=== PATIENT | female | born 1975 | race Caucasian/White ===

== ENCOUNTER 2024-01-07 08:08 | Emergency (ER) | payer OTHER, SELFPAY ==
[2024-01-07 08:18] VITALS: BP 95/58; PULSE 91; RESP 18; TEMP 36.7; O2SAT 96; BMI 27.4
--- NOTE | 2024-01-07 08:22 | ECG_ITS ---
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 Measurements Intervals Two Dot Rate: 78 P: 30 UT: 152 QRS: 22 QRSD: 98 T: 33 QT: 385 QTc: 441 Interpretive Statements SINUS RHYTHM LOW QRS VOLTAGE IN PRECORDIAL LEADS [QRS DEFLECTION < 1.0 mV IN CHEST LEADS] No previous ECG available for comparison Electronically Signed On 01-07-2024 15:28:29 CDT by Preston Sherman M.D. [id number]
--- NOTE | 2024-01-07 08:22 | XRR_ITS ---
PROCEDURE INFORMATION: Exam: XR Chest Exam date and time: 01/07/2024 8:32 AM Age: 48 years old Clinical indication: Other: Weakness TECHNIQUE: Imaging protocol: Radiologic exam of the chest. Views: 1 view. COMPARISON: CR XR chest 1V [id number] 06/02/2018 3:35 AM FINDINGS: Lungs: Unremarkable. No consolidation or mass. Pleural spaces: Unremarkable. No pleural effusion. No pneumothorax. Heart/Mediastinum: Unremarkable. No cardiomegaly. Bones/joints: Unremarkable. XR/XR chest 1V portable [id number] IMPRESSION: No acute findings.
--- NOTE | 2024-01-07 08:25 | ED_ITS ---
HPI - Dizziness 2 General: Chief Complaint: Dizziness Stated Complaint: dizziness, vomitting, weakness Time Seen by Provider: 01/07/24 08:19 History of Present Illness: HPI Narrative: 48-year-old female with a history of francisco teagan who presents emergency room with weakness. States that she was at work today and coming into her work because she became so lightheaded. This episode been going on for about a week. She says her sugars are high but then she managed to get it back under control. No fevers. No chest pain. No abdominal pain. No nausea or vomiting. No focal motor deficits. No altered mental status. Review of Systems 2 Narrative: Constitutional symptoms: Negative except as documented in HPI. Skin symptoms: Negative except as documented in HPI. Eye symptoms: Negative except as documented in HPI. ENMT symptoms: Negative except as documented in HPI. Respiratory symptoms: Negative except as documented in HPI. Cardiovascular symptoms: Negative except as documented in HPI. Gastrointestinal symptoms: Negative except as documented in HPI. Genitourinary symptoms: Negative except as documented in HPI. Musculoskeletal symptoms: Negative except as documented in HPI. Neurologic symptoms: Negative except as documented in HPI. Psychiatric symptoms: Negative except as documented in HPI. Endocrine symptoms: Negative except as documented in HPI. Physical Exam 2 Narrative: EXAM NARRATIVE: General: Alert, no acute distress. Skin: Warm, dry. Head: Normocephalic, atraumatic. Neck: Supple, trachea midline. Eye: Extraocular movements are intact. Ears, nose, mouth and throat: mucosa moist. Cardiovascular: Regular, Normal peripheral perfusion. Respiratory: Lungs are clear to auscultation, respirations are non-labored, breath sounds are equal, Symmetrical chest wall expansion. Gastrointestinal: Soft, Nontender, Non distended Musculoskeletal: Normal ROM, no deformity. Neurological: Alert and oriented, No focal neurological deficit observed. Psychiatric: Cooperative, appropriate mood & affect. Course 2 Vital Signs: Vital signs: Vital Signs Temperature 98.0 F 01/07/24 08:18 Pulse Rate 91 01/07/24 08:18 Respiratory Rate 18 01/07/24 09:10 Blood Pressure 83/48 01/07/24 09:10 Pulse Oximetry 98 01/07/24 09:10 Oxygen Delivery Me thod Room Air 01/07/24 09:10 MDM - Dizziness Medical Decision Making Medical decision making: Differential diagnosis for patient presenting with generalized weakness including but not limited to and based on the above HPI, review of systems and physical exam: Sepsis. Dehydration. Renal failure. Electrolyte abnormalities. Anemia. Congestive heart failure. Hypotension. Coronary syndrome. Hepatitis. Cirrhosis. Infections such as pneumonia, urinary tract infection, Tick bourne illness, Cellulitis, Viral infections including influenza and Covid-19. Workup: labwork and lab/exam driven imaging ordered to evaluate, rule in and rule out above pathologies. Lab Review: Laboratory results were reviewed and interpreted by myself the emergency room physician. I do not have any comparison lab work, but her BUN and creatinine are elevated at 42 and 1.7. I suspect she has some chronic renal insufficiency as her potassium is normal. She has no leukocytosis. No UTI. Chest x-ray shows no pneumonia. I believe she is hypotensive and dehydrated secondary to her hyperglycemia. We discussed pushing fluids. I discussed to continue to check her blood pressure at home. Her blood pressure did improve after fluids here. Chest x-ray: No acute process. No infiltrate. No pneumothorax. This was reviewed and interpreted by myself the ER physician. I reviewed the patient's medical record. Reexamination: I spoke at length with the patient. We discussed how her sugars running high will cause her to be dehydrated and that she needs to drink more water when her sugar is high. Or other nonsugar containing beverages. Blood pressure has improved at discharge. She received 2 L of fluid. Altered mental status. No focal motor deficits. She reports no fevers. No cough. No abdominal pain. No dysuria. Assessment and plan: Dehydration Renal insufficiency Hyperglycemia ?2 L normal saline in the emergency room. Improvement in blood pressure. - Discharged home - Discussed findings and plan with patient. Answered any questions. - All laboratory values were reviewed and interpreted personally by myself, the ER physician - All imaging was reviewed and interpreted personally by myself, the ER physician. - Evaluation and treatment of this problem were appropriate in the emergency setting Lab Data 01/07/24 08:33 01/07/24 08:33 Radiology Impressions Chest X-Ray 01/07/24 08:22 IMPRESSION: No acute findings. Laboratory Results WBC 8.38 10^3/uL (3.29-11.43) 01/07/24 08:33 RBC 4.55 10^6/uL (3.85-5.65) 01/07/24 08:33 Hgb 13.00 g/dL (11.27-16.99) 01/07/24 08:33 Hct 38.3 % (36-47) 01/07/24 08:33 MCV 84.2 fl (85-98) L 01/07/24 08:33 MCH 28.6 pg (27-33) 01/07/24 08:33 MCHC 33.9 g/dL (30-55) 01/07/24 08:33 RDW 12.2 % (12.1-15.1) 01/07/24 08:33 Plt Count 228 10^3/cmm (157-399) 01/07/24 08:33 MPV 10.4 fL (7.4-10.4) 01/07/24 08:33 Neut % (Auto) 64.3 % 01/07/24 08:33 Lymph % (Auto) 26.3 % 01/07/24 08:33 [place] % (Auto) 5.1 % 01/07/24 08:33 Eos % (Auto) 3.5 % 01/07/24 08:33 Baso % (Auto) 0.4 % 01/07/24 08:33 Neut # (Auto) 5.40 10^3/uL (1.8-7.7) 01/07/24 08:33 Lymph # (Auto) 2.2 10^3/uL (0.8-4.8) 01/07/24 08:33 [place] # (Auto) 0.4 10^3/uL (0.2-0.9) 01/07/24 08:33 Eos # (Auto) 0.3 10^3/uL (0.0-0.8) 01/07/24 08:33 Baso # (Auto) 0.0 10^3/uL (0.0-0.1) 01/07/24 08:33 Nucleated RBC % (auto) 0 % 01/07/24 08:33 Nucleated RBCs # 0.0 /100WBC 01/07/24 08:33 Sodium 138 mmol/L (136-145) 01/07/24 08:33 Potassium 3.8 mmol/L (3.5-5.1) 01/07/24 08:33 Chloride 102 mmol/L (98-107) 01/07/24 08:33 Carbon Dioxide 23 mmol/L (22-29) 01/07/24 08:33 Anion Gap 16.8 (5-19) 01/07/24 08:33 BUN 42 mg/dL (6-20) H 01/07/24 08:33 Creatinine 1.7 mg/dL (0.5-0.9) H 01/07/24 08:33 GFR Calculation 32.4 mL/min (90-130) L 01/07/24 08:33 Glucose 131 mg/dL (65-115) H 01/07/24 08:33 POC Glucose 160 mg/dL (70-110) H 01/07/24 08:22 Calculated Osmolality 298 mOsm/kg (285-295) H 01/07/24 08:33 Lactic Acid 2.5 mmol/L (0.5-2.2) H 01/07/24 08:33 Calcium 9.5 mg/dL (8.5-10.5) 01/07/24 08:33 Total Bilirubin 0.4 mg/dL (0.15-1.2) 01/07/24 08:33 AST 20 U/L (0-32) 01/07/24 08:33 ALT 19 U/L (0-33) 01/07/24 08:33 Alkaline Phosphatase 39 U/L (35-105) 01/07/24 08:33 C-Reactive Protein 3.0 mg/L (0.0-4.9) 01/07/24 08:33 Total Protein 7.5 g/dL (6.6-8.7) 01/07/24 08:33 Albumin 4.3 g/dL (3.5-5.2) 01/07/24 08:33 Globulin 3.2 g/dL (1.3-4.6) 01/07/24 08:33 Urine Color Yellow (Yellow) 01/07/24 09:36 Urine Appearance Clear (CLEAR) 01/07/24 09:36 Urine pH 5 (5-7) 01/07/24 09:36 Ur Specific [place] 1.025 (1.005-1.030) 01/07/24 09:36 Urine Protein Neg (Negative) 01/07/24 09:36 Urine Glucose (UA) Trace (Normal) H 01/07/24 09:36 Urine Ketones Negative (Negative) 01/07/24 09:36 Urine Blood Neg (Negative) 01/07/24 09:36 Urine Nitrate Negative (Negative) 01/07/24 09:36 Urine Bilirubin Neg (Negative) 01/07/24 09:36 Urine Urobilinogen Norm mg/dL (Negative) 01/07/24 09:36 Ur Leukocyte Esterase Negative (Negative) 01/07/24 09:36 Urine RBC None /hpf (0-2) 01/07/24 09:36 Urine WBC 0-4 /hpf (0-5) H 01/07/24 09:36 Ur Squamous Epith Cells Rare /hpf (0-5) 01/07/24 09:36 Amorphous Sediment Not Reportable 01/07/24 09:36 Urine Bacteria Trace /hpf (NONE) 01/07/24 09:36 Serum Ketones Negative (Negative) 01/07/24 08:33 All radiology interpretation(s) finalized by discharge Discharge Plan Discharge Patient Disposition: Home Clinical Impression: Dehydration, Hyperglycemia, Acute renal insufficiency Condition: Stable Discharge Orders: Discharge ED (Routine); Ordered 01/07/24 Ordered By: Jessica Vasquez Discharge Diet: Diabetic Discharge Activity: Increase activity as tolerated Patient Instructions: Dehydration (ED), Diabetic Hyperglycemia (ED) Activity Restrictions/Additional Instructions: Please follow-up with your primary provider early this week for repeat lab work. If symptoms worsen return to the emergency room Thank you for choosing [facility] for your healthcare needs today. Please realize this is an emergency room and that we are providing you with a medical screening exam and this may not be complete and all inclusive of all the testing and or work up that you may need to determine your ailment or severity of your illness. You have been screened and evaluated and felt safe for discharge. Health conditions do change or evolve sometimes and as such it is important that you follow up with your Primary Doctor to be re checked, 3-5 days is a general good time frame for follow up. You are always welcome to return to the ED for re assessment if your symptoms are worsening or you have new concerns Coding Level of Care Code ED Batch Tank Controller for Edgardo Simmons
[2024-01-07 08:27] LABS: Glucose Point of Care 160 mg/dL (70-110)
[2024-01-07] MEDS: sodium chloride 0.9% 1,000 ML 999 ML IV ×2 (08:33→09:19)
[2024-01-07 08:42] LABS: Basophils % 0.4 %; Eosinophils # 0.3 10^3/uL (0.0-0.8); Eosinophils % 3.5 %; Hematocrit 38.3 % (36-47); Lymphocytes # 2.2 10^3/uL (0.8-4.8); Lymphocytes % 26.3 %; Mean Corpuscular HGB Conc 33.9 g/dL (30-55); Mean Corpuscular Hemoglobin 28.6 pg (27-33); Mean Corpuscular Volume 84.2 fl (85-98); Mean Platelet Volume 10.4 fL (7.4-10.4); Monocytes # 0.4 10^3/uL (0.2-0.9); Monocytes % 5.1 %; Neutrophils % 64.3 %; Nucleated Red Blood Cells % 0 %; Platelet Count 228 10^3/cmm (157-399); Red Blood Count 4.55 10^6/uL (3.85-5.65); Red Cell Distribution Width 12.2 % (12.1-15.1); White Blood Count 8.38 10^3/uL (3.29-11.43)
[2024-01-07 08:57] LABS: Alanine Aminotransferase 19 U/L (0-33); Albumin Level 4.3 g/dL (3.5-5.2); Alkaline Phosphatase 39 U/L (35-105); Anion Gap 16.8 (5-19); Aspartate Amino Transferase 20 U/L (0-32); Blood Urea Nitrogen 42 mg/dL (6-20); Calcium 9.5 mg/dL (8.5-10.5); Carbon Dioxide 23 mmol/L (22-29); Chloride 102 mmol/L (98-107); Globulin 3.2 g/dL (1.3-4.6); Glomerular Filtration Rate 32.4 mL/min (90-130); Glucose 131 mg/dL (65-115); Osmolality Calculated 298 mOsm/kg (285-295); Potassium 3.8 mmol/L (3.5-5.1); Sodium 138 mmol/L (136-145); Total Bilirubin 0.4 mg/dL (0.15-1.2); Total Protein 7.5 g/dL (6.6-8.7)
[2024-01-07 08:58] LABS: Lactic Sepsis W/Reflex 2.5 mmol/L (0.5-2.2)
[2024-01-07 09:04] LABS: Creatinine Clr Calc Pharmacy 47.9578
[2024-01-07 09:10] VITALS: BP 83/48; RESP 18; O2SAT 98
[2024-01-07 09:21] LABS: Ketone (Acetest) Serum Negative (Negative)
[2024-01-07 10:10] LABS: Add Urine Culture? No; Bacteria Urine TRACE /hpf; Bilirubin Urine Neg (Negative); Blood Urine Neg (Negative); Glucose Urine UA Trace (Normal); Ketones Urine Negative (Negative); Leukocyte Esterase Urine Negative (Negative); Nitrate Urine Negative (Negative); Protein Urine Neg (Negative); Specific Gravity, Urine 1.025 (1.005-1.030); Squamous Epithelial Cell Urine RARE /hpf (0-5); Urine Appearance Clear (CLEAR); Urine Color Yellow (Yellow); Urobilinogen Urine Norm (Negative); WBC Urine 0-4 /hpf (0-5); pH Urine 5 (5-7)
[2024-01-07 10:25] LABS: Reflex Lactate Order REFLEX LACTIC ORDERD
[2024-01-07 10:36] VITALS: BP 118/73
--- NOTE | 2024-01-08 11:57 | PC.NURSE ---
Addendum entered by Winnie Colmenares RN 01/08/24 11:58: NOTIFIED PROVIDER DR. RADER. Original Note: CULTURE RESULT TAKEN 1/2 VIALS POSITIVE LARGE GRAM POSITIVE RODS
--- NOTE | 2024-01-08 12:53 | PC.NURSE ---
PER VERBAL ORDER FROM DR. RADER, CONTACT PATIENT AND FOLLOW UP. STATES CULTURE WAS PROBABLY CONTAMINATED. CONTACTED PATIENT AT 1255 ON 01/08/24. NOTIFIED PATIENT OF RESULTS FROM CULTURE. PATIENT STATED SHE HAS NOT HAD ANY SYMPTOMS. BP HAS BEEN NORMAL, NO FEVER AND HAS IMPROVED SINCE VISIT. PATIENT STATES SHE HAS FOLLOW UP APPT WITH PCP IN TWO DAYS.
== END 2024-01-07 10:53 | disposition home or self-care (01) ==
PROVIDERS: Emergency Provider Emergency Medicine
DX: E86.0 Dehydration (principal); E11.65 Type 2 diabetes mellitus with hyperglycemia; N28.9 Disorder of kidney and ureter, unspecified
CPT/HCPCS: 36416; 71045; 80053; 81001; 82009; 82962; 83605; 85025; 86140; 87040; 87150; 87205; 93005; 96360; 96361; 99284; J7030

== ENCOUNTER 2024-01-25 07:12 | Emergency (ER) | payer OTHER, SELFPAY ==
[2024-01-25 07:22] VITALS: BP 146/92; PULSE 91; RESP 16; TEMP 36.8; O2SAT 97; BMI 26.6
--- NOTE | 2024-01-25 07:22 | XR_ITS ---
WS: [id number] XR foot LT min 3V* [id number] REASON FOR EXAM: trauma FINDINGS: No fracture or dislocation. The joint spaces of the forefoot, midfoot, and hindfoot are intact and relatively well preserved. No focal soft tissue abnormality. XR/XR foot LT min 3V* [id number] IMPRESSION: No acute abnormality.
--- NOTE | 2024-01-25 07:30 | W.ED.GENADLT ---
HPI - General Adult General: Chief complaint: Neuro Symptoms/Deficit Stated complaint: Left foot injury Time Seen by Provider: 01/25/24 07:22 History of Present Illness: 48-year-old female presents emergency room complaining of left foot numbness began yesterday around noon. She is unable to move her foot she denies any back pain. She has no other symptoms. She has a history of diabetes she has had so decreased strength in her left hand but that has been ongoing issue for over a week. Associated symptoms: Deny chest pain, dyspnea or rash Review of Systems Const: Denies: fever(s) or chills Card: Denies: chest pain Resp: Denies: dyspnea GI: Denies: abdominal pain : Denies: dysuria, urinary frequency or urinary urgency Musc: Denies: neck pain or back pain Skin/Breast: Denies: rash PFSH ED PFSH: Medical History (Updated 01/25/24 @ 13:15 by Malcolm Marques DO) Diabetes Physical Exam Const: COMMON NORMALS: no acute distress GENERAL APPEARANCE: cooperative and comfortable ORIENTATION/CONSCIOUSNESS: Yes awake, Yes oriented to person, Yes oriented to place and Yes oriented to time HENMT: COMMON NORMALS: normocephalic, atraumatic and hearing grossly normal bilaterally HEAD & SCALP: normocephalic and atraumatic Resp: COMMON NORMALS: normal respiratory effort, No retractions, No use of accessory muscles and clear to auscultation bilaterally AUSCULTATION: clear to auscultation bilaterally Cardio: COMMON NORMALS: regular rate, regular rhythm and No murmurs present (Cardio) RATE: regular rate RHYTHM: regular rhythm GI: COMMON NORMALS: Soft to palpation and No hepatosplenomegaly present AUSCULTATION: Yes normoactive bowel sounds PALPATION: Yes Soft to palpation, No Tenderness to palpation present (GI), No Guarding due to palpation present (GI) and Yes No hepatosplenomegaly present Extremity: COMMON NORMALS: normal to inspection, capillary refill normal, no clubbing, cyanosis or edema, no calf tenderness and no pedal edema Neuro: SENSORIUM/ORIENTATION: Yes oriented to person, Yes oriented to place and Yes oriented to time Skin: COMMON NORMALS: no rashes or lesions noted GENERAL SKIN EXAM: no rashes or lesions noted Course Vital Signs: Vital signs: Vital Signs Temperature 98.2 F 01/25/24 07:22 Pulse Rate 86 01/25/24 12:02 Respiratory Rate 16 01/25/24 07:22 Blood Pressure 141/87 01/25/24 12:02 Pulse Oximetry 97 01/25/24 12:02 Oxygen Delivery Me thod Room Air 01/25/24 12:02 MDM - General Adult Medical Decision Making Patient has no focal central neurologic deficits she does have some weakness in her hand which she says has been going on for some time this morning she developed an foot drop on the left foot but is only her foot she has no other new focal symptoms. She does not have any weakness proximal to her foot drop no weakness in the hip or the knee sensation is normal. She is diabetic with hyperglycemia. She was given insulin here and her blood sugar did improve she has not used her insulin at all today. She has no ketones. On repeat exam there is still no other deficits. Just need to peripheral neurologic deficits. She does seem to have a ulnar neuropathy and a foot drop. Will discharge her home. She is outside of the window for any thrombolytics and she has no embolic disease. No acute findings on the CT. Considered giving her prednisone taper however I think that we will just further exacerbate her poor diabetic control. Refer to neurology. Medical Records I reviewed the patient's medical records. Lab Data I reviewed the patient's lab results. 01/25/24 09:31 01/25/24 09:31 Radiology Impressions Foot X-Ray 01/25/24 07:22 IMPRESSION: No acute abnormality. Head CT 01/25/24 07:43 IMPRESSION: 1. No acute intracranial hemorrhage or edema. 2. Mild atrophy and small vessel disease. Lumbar Spine CT 01/25/24 07:43 IMPRESSION: 1. No acute disc protrusions or significant stenosis within the lumbar spine. 2. No contact on the left-sided nerve roots or stenosis. 3. Mild bilateral sacroiliitis. Head/Neck CTA 01/25/24 09:05 IMPRESSION: 1. No significant cervical carotid artery stenosis. No thrombus or plaque. 2. Small amount calcified plaque in the cavernous carotid arteries, RIGHT greater than LEFT. Estimated at 50% on the RIGHT. 3. No aneurysm or occlusion within the [place]. 4. Dominant LEFT vertebral artery. Laboratory Results WBC 5.65 10^3/uL (3.29-11.43) 01/25/24 09:31 RBC 4.93 10^6/uL (3.85-5.65) 01/25/24 09:31 Hgb 14.10 g/dL (11.27-16.99) 01/25/24 09:31 Hct 41.4 % (36-47) 01/25/24 09:31 MCV 84.0 fl (85-98) L 01/25/24 09:31 MCH 28.6 pg (27-33) 01/25/24 09: MCHC 34.1 g/dL (30-55) 01/25/24 09:31 RDW 12.0 % (12.1-15.1) L 01/25/24 09:31 Plt Count 260 10^3/cmm (157-399) 01/25/24 09:31 MPV 10.0 fL (7.4-10.4) 01/25/24 09:31 Neut % (Auto) 66.2 % 01/25/24 09:31 Lymph % (Auto) 24.4 % 01/25/24 09:31 [place] % (Auto) 5.7 % 01/25/24 09:31 Eos % (Auto) 3.0 % 01/25/24 09:31 Baso % (Auto) 0.5 % 01/25/24 09: Neut # (Auto) 3.74 10^3/uL (1.8-7.7) 01/25/24 09:31 Lymph # (Auto) 1.4 10^3/uL (0.8-4.8) 01/25/24 09:31 [place] # (Auto) 0.3 10^3/uL (0.2-0.9) 01/25/24 09:31 Eos # (Auto) 0.2 10^3/uL (0.0-0.8) 01/25/24 09:31 Baso # (Auto) 0.0 10^3/uL (0.0-0.1) 01/25/24 09:31 Nucleated RBC % (auto) 0 % 01/25/24 09:31 Nucleated RBCs # 0.0 /100WBC 01/25/24 09:31 Specimen Type Arterial 01/25/24 10:19 Sample Site Radial, left 01/25/24 10:19 ABG pH 7.43 (7.35-7.45) 01/25/24 10:19 ABG pCO2 43.2 mmHg (35-45) 01/25/24 10:19 ABG pO2 95.5 mmHg (80.0-100.0) 01/25/24 10:19 ABG PO2/FiO2 Ratio 454 01/25/24 10:19 ABG HCO3 28.5 mmol/L (22-26) H 01/25/24 10:19 ABG O2 Saturation 98.8 01/25/24 10:19 ABG Base Excess 3.6 mmol/L (-2.0-2.0) H 01/25/24 10:19 [place] Test Pos 01/25/24 10:19 A-a O2 Gradient Not Reportable 01/25/24 10:19 Hematocrit 39.8 % (37-47) 01/25/24 10:19 Hgb O2 Saturation 96.7 % (95-100) 01/25/24 10:19 Carboxyhemoglobin 1.2 %THgb (0.4-20.1) 01/25/24 10:19 Methemoglobin 0.9 % (0.4-1.5) 01/25/24 10:19 Total Hemoglobin 13.0 g/dL (12-16) 01/25/24 10:19 Sodium 139.0 mmol/L (131-143) 01/25/24 10:19 Potassium 3.7 mmol/L (3.5-5.0) 01/25/24 10:19 Glucose 478.0 mg/dL (70-115) H 01/25/24 10:19 Ionized Calcium 1.2 mmol/L (1.1-1.4) 01/25/24 10:19 O2 Delivery Device Room air 01/25/24 10:19 FiO2 21.0 % 01/25/24 10:19 [employer]crete [employer] Machine Operator ID [place] 01/25/24 10:19 Sodium 133 mmol/L (136-145) L 01/25/24 09:31 Potassium 4.6 mmol/L (3.5-5.1) 01/25/24 09:31 Chloride 94 mmol/L (98-107) L 01/25/24 09:31 Carbon Dioxide 27 mmol/L (22-29) 01/25/24 09:31 Anion Gap 16.6 (5-19) 01/25/24 09:31 BUN 21 mg/dL (6-20) H 01/25/24 09:31 Creatinine 1.0 mg/dL (0.5-0.9) H 01/25/24 09:31 GFR Calculation 59.7 mL/min (90-130) L 01/25/24 09:31 Glucose 608 mg/dL (65-115) H* 01/25/24 09:31 POC Glucose 320 mg/dL (70-110) H 01/25/24 12:21 Calculated Osmolality 307 mOsm/kg (285-295) H 01/25/24 09:31 Calcium 9.6 mg/dL (8.5-10.5) 01/25/24 09:31 Total Bilirubin 0.4 mg/dL (0.15-1.2) 01/25/24 09:31 AST 16 U/L (0-32) 01/25/24 09:31 ALT 20 U/L (0-33) 01/25/24 09:31 Alkaline Phosphatase 47 U/L (35-105) 01/25/24 09:31 Total Protein 8.0 g/dL (6.6-8.7) 01/25/24 09:31 Albumin 4.4 g/dL (3.5-5.2) 01/25/24 09:31 Globulin 3.6 g/dL (1.3-4.6) 01/25/24 09:31 Serum Ketones Negative (Negative) 01/25/24 09:35 All radiology interpretation(s) finalized by discharge Discharge Plan Discharge Patient Disposition: Home Clinical Impression: Ulnar neuropathy, Foot drop, left Condition: Stable Prescriptions: No Action gabapentin 600 mg tablet 600 mg PO TID trazodone 50 mg tablet 50 - 100 mg PO BEDTIME ketorolac 10 mg tablet 10 mg PO Q6H PRN (Reason: Pain) metformin 1,000 mg tablet 1,000 mg PO BID buspirone 7.5 mg tablet 7.5 mg PO BID lisinopril 2.5 mg tablet 2.5 mg PO DAILY Novolog FlexPen U-100 Insulin 100 unit/mL (3 mL) insulin pen See Rx Instructions .ROUTE .COMPLEX Rx Instructions: INJECT 14 UNITS BY SUBCUTANEOUS INJECTION TWICE DAILY BEFORE MEALS. IF BLOOD SUGAR OVER 200, GIVE ADDITIONAL 10 UNITS FOR TOTAL OF 24 UNITS. MAX DAILY DOSE 48 UNITS. rosuvastatin 20 mg tablet 20 mg PO DAILY duloxetine 30 mg capsule,delayed release(DR/EC) 30 mg PO DAILY Levemir FlexPen 100 unit/mL (3 mL) insulin pen 50 unit SUBCUT BEDTIME Trulicity 0.75 mg/0.5 mL pen injector 0.75 mg SUBCUT Q7D Discharge Orders: Discharge ED (Routine); Ordered 01/25/24 Ordered By: Malcolm Marques Discharge Diet: Usual diet Discharge Activity: Increase activity as tolerated Patient Instructions: Opioid Safety, Pain Management Activity Restrictions/Additional Instructions: Thank you for choosing [facility] for your healthcare needs today. It is very important that you follow up as instructed or that you return to the Emergency Department should you have concerns or if your condition changes or worsens in any way. Your evaluated in emergency room for a left foot drop and weakness in the left hand. Both of these appear to be peripheral nerve issues. There is no sign of stroke on your scan and no sign of obstruction. There were no other signs suggestive of stroke on your exam. Will recommend that you follow-up with neurology trimming caser will make an appointment for you. Coding Level of Care Code ED Geological Engineering Teacher for Edgardo Simmons
--- NOTE | 2024-01-25 07:43 | CT_ITS ---
WS: [id number] CT HEAD NONCONTRAST HISTORY: L hand foot loss of sensation TECHNIQUE: Contiguous axial imaging performed through the brain in 2.5 mm imaging. Bone and soft tiss ue windows. Sagittal and coronal reformats reviewed. All CT scans at [facility] use at least one of these dose optimization techniques: automated exposure control; mA and/or kV adjustment per pa tient size (includes targeted exams where dose is matched to clinical indication); or iterative recon struction. DLP: 990.78 mGy.cm COMPARISON: None available. No acute intracranial hemorrhage, midline shift or mass effect. Mild atrophy with no prior infarcts or herniation. Mild small vessel disease. No prior infarct. Ventricles: Normal size with no hydrocephalus. Paranasal sinuses: As visualized are clear. Mastoid air cells: Well pneumatized. Calvarium and scalp: Skull is intact with no soft tissue edema or swelling. CT/CT head wo con* [id number] IMPRESSION: 1. No acute intracranial hemorrhage or edema. 2. Mild atrophy and small vessel disease.
--- NOTE | 2024-01-25 07:43 | CT_ITS ---
WS: [id number] CT LUMBAR SPINE, noncontrast. HISTORY: L foot drop TECHNIQUE: Contiguous 2.0 mm axial imaging are performed. Sagittal and coronal reformats are submitte d and reviewed. All CT scans at [facility] use at least one of these dose optimization techni ques: automated exposure control; mA and/or kV adjustment per patient size (includes targeted exams w here dose is matched to clinical indication); or iterative reconstruction. IV contrast: None DLP: 848.58 mGy.cm COMPARISON: None available. Normal posterior lumbar alignment. Disc spaces and vertebral body heights are normal. No pars defects . No destructive bone lesions. L1-2: Normal. L2-3: Normal. L3-4: Normal. L4-5: Mild annular disc bulging encroaching upon the ventral thecal sac and subarticular recesses. Th ere is a very tiny RIGHT foraminal disc protrusion which does not appear to be contacting and nerve r oot. L5-S1: Mild disc bulging with encroachment but no contact on the traversing S1 nerve roots. No stenos is or disc protrusion. Mild sclerosis and a few erosions along the SI joints. Mild sigmoid diverticulosis without acute diverticulitis. CT/CT lumbar spine wo con* [id number] IMPRESSION: 1. No acute disc protrusions or significant stenosis within the lumbar spine. 2. No contact on the left-sided nerve roots or stenosis. 3. Mild bilateral sacroiliitis.
--- NOTE | 2024-01-25 09:05 | CT_ITS ---
WS: [id number] CT ANGIOGRAM CEREBRAL AND CAROTID ARTERIES HISTORY: L foot weakness TECHNIQUE: CT angiogram is performed of the carotid and cerebral arteries. During arterial injection imaging is obtained from the skull vertex to the aortic arch in 1.25 mm imaging. Coronal and sagittal reformats are submitted. Additional multi planar reformats of the carotid and cerebral arteries are submitted, MIP imaging also reviewed. NASCET criteria utilized. [facility] CT [facility] at least one of these dose optimization techniques: automated exposure control; mA and/or kV adjust ment per patient size (includes targeted exams where dose is matched to clinical indication); or iter ative reconstruction. CONTRAST: Omnipaque 350; 100 mL IV. DLP: 481.72 mGy.cm COMPARISON: CT head 01/25/2024 Carotid Angiogram: Right carotid: Common carotid artery: Arises normally from the innominate artery. No significant plaque or stenosis. Internal carotid artery: No plaque or stenosis. External carotid artery: Patent. Left carotid: Common carotid artery: Arises normally from the aorta. No significant plaque or stenosis. Internal carotid artery: No plaque or stenosis. External carotid artery: Patent. Right vertebral artery: Small caliber but patent. No dissection. Left vertebral artery: Dominant. No stenosis. No dissection. Subclavian arteries: No stenosis or significant abnormality. Upper thorax: Normal. Bovine arch. Thyroid gland: Mildly heterogeneous gland with small nodules. Osseous structures: Unremarkable. CEREBRAL ANGIOGRAM: Intracranial vertebral arteries: Small caliber distal RIGHT vertebral artery. Both vertebral arteries are patent. Basilar artery: No significant stenosis or occlusion. No aneurysm. Intracranial Internal carotid arteries: Small amount of calcified plaque in the cavernous carotids, R IGHT greater than LEFT. RIGHT stenosis 50%. Middle cerebral arteries: Normal. Anterior cerebral arteries and ACOM: Normal. Posterior cerebral arteries and PCOM's: Persistent circulation on the RIGHT. No aneurysm or lew nosis. Dural venous sinuses are normally enhancing. CT/CT angio headneck* [id number] IMPRESSION: 1. No significant cervical carotid artery stenosis. No thrombus or plaque. 2. Small amount calcified plaque in the cavernous carotid arteries, RIGHT grea ter than LEFT. Estimated at 50% on the RIGHT. 3. No aneurysm or occlusion within the [place]. 4. Dominant LEFT vertebral artery.
[2024-01-25 09:44] LABS: Basophils % 0.5 %; Eosinophils # 0.2 10^3/uL (0.0-0.8); Hematocrit 41.4 % (36-47); Lymphocytes # 1.4 10^3/uL (0.8-4.8); Lymphocytes % 24.4 %; Mean Corpuscular HGB Conc 34.1 g/dL (30-55); Mean Corpuscular Hemoglobin 28.6 pg (27-33); Monocytes # 0.3 10^3/uL (0.2-0.9); Monocytes % 5.7 %; Neutrophils # 3.74 10^3/uL (1.8-7.7); Neutrophils % 66.2 %; Nucleated Red Blood Cells % 0 %; Platelet Count 260 10^3/cmm (157-399); Red Blood Count 4.93 10^6/uL (3.85-5.65); White Blood Count 5.65 10^3/uL (3.29-11.43)
[2024-01-25 09:55] LABS: Alanine Aminotransferase 20 U/L (0-33); Albumin Level 4.4 g/dL (3.5-5.2); Alkaline Phosphatase 47 U/L (35-105); Anion Gap 16.6 (5-19); Aspartate Amino Transferase 16 U/L (0-32); Blood Urea Nitrogen 21 mg/dL (6-20); Calcium 9.6 mg/dL (8.5-10.5); Carbon Dioxide 27 mmol/L (22-29); Chloride 94 mmol/L (98-107); Globulin 3.6 g/dL (1.3-4.6); Glomerular Filtration Rate 59.7 mL/min (90-130); Osmolality Calculated 307 mOsm/kg (285-295); Potassium 4.6 mmol/L (3.5-5.1); Sodium 133 mmol/L (136-145); Total Bilirubin 0.4 mg/dL (0.15-1.2)
[2024-01-25 09:59] LABS: Creatinine Clr Calc Pharmacy 80.3204
[2024-01-25 10:00] LABS: Glucose 608 mg/dL (65-115)
[2024-01-25] MEDS: sodium chloride 0.9% 500 ML 999 ML IV (10:07)
[2024-01-25] MEDS: insulin regular-human 100 units/1 mL 12 UNIT IVP (10:20)
[2024-01-25 10:30] LABS: ABG PCO2 43.2 mmHg (35-45); ABG PH Result 7.43 (7.35-7.45); Arterial Blood Gas Hematocrit 39.8 % (37-47); Base Excess ABG 3.6 mmol/L (-2.0-2.0); Blood Gas Allen Test Pos; Blood Gas Operator Identificat WALCI; Blood Gas Sample Site Radial, left; Blood Gas Sample Type Arterial; Carboxyhemoglobin 1.2 %THgb (0.4-20.1); HCO3 ABG 28.5 mmol/L (22-26); HGB O2 Sat 96.7 % (95-100); Ionized Calcium Level - ABG 1.2 mmol/L (1.1-1.4); Methemoglobin 0.9 % (0.4-1.5); Oxygen Device ROOM AIR; Oxygen Saturation ABG 98.8; PO2 ABG 95.5 mmHg (80.0-100.0); PO2 FiO2 Ratio Arterial Blood 454; Potassium Level - ABG 3.7 mmol/L (3.5-5.0)
[2024-01-25 10:45] LABS: Ketone (Acetest) Serum Negative (Negative)
[2024-01-25] MEDS: iohexol 350 mg/mL 500 mL Btl (per mL) IV (11:38)
[2024-01-25 12:02] VITALS: BP 141/87; PULSE 86; O2SAT 97
[2024-01-25 12:24] LABS: Glucose Point of Care 320 mg/dL (70-110)
--- NOTE | 2024-01-25 22:53 | DCPLANNER ---
Message sent to Neurology for a follow up - Ulnar neuropathy foot drop.
== END 2024-01-25 13:31 | disposition home or self-care (01) ==
PROVIDERS: Emergency Provider Family Medicine
DX: G56.22 Lesion of ulnar nerve, left upper limb (principal); M21.372 Foot drop, left foot; Z79.84 Long term (current) use of oral hypoglycemic drugs; Z79.4 Long term (current) use of insulin; Z79.85 Long-term (current) use of injectable non-insulin antidiabetic drugs; E11.9 Type 2 diabetes mellitus without complications
CPT/HCPCS: 36416; 36600; 70450; 70496; 70498; 72131; 73630; 80051; 80053; 82009; 82330; 82805; 82962; 85025; 96374; 99285; J1815; J7040; Q9967

== ENCOUNTER → 2024-02-15 15:25 | Outpatient (BNVA) | payer OTHER, SELFPAY | PROVIDERS: Visit Provider Registered Nurse Neonatal Intensive Care | DX: R11.2 Nausea with vomiting, unspecified (principal); R19.7 Diarrhea, unspecified | CPT/HCPCS: 87426 ==

== ENCOUNTER → 2024-03-31 11:11 | Outpatient (BNVA) | payer OTHER, SELFPAY | PROVIDERS: Visit Provider Registered Nurse Neonatal Intensive Care | DX: R05.9 Cough, unspecified (principal) | CPT/HCPCS: 87426 ==

== ENCOUNTER 2024-04-25 08:53 | Outpatient (RCR) | payer OTHER, MEDICAID, SELFPAY | END 2024-05-18 23:59 | disposition home or self-care (01) | LOC: SPT 08:53 | DX: M79.672 Pain in left foot (principal); M21.372 Foot drop, left foot | CPT/HCPCS: 97110; 97161 ==

== ENCOUNTER 2024-05-01 19:14 | Emergency (ER) | payer OTHER, MEDICAID, SELFPAY ==
[2024-05-01 19:20] VITALS: BP 128/85; PULSE 98; RESP 18; TEMP 36.3; O2SAT 100; BMI 28.0
--- NOTE | 2024-05-01 19:47 | XRR_ITS ---
PROCEDURE INFORMATION: Exam: XR Abdomen Exam date and time: 05/01/2024 8:01 PM Age: 48 years old Clinical indication: Abdominal pain; Additional info: Abd pain TECHNIQUE: Imaging protocol: Radiologic exam of the abdomen. Views: Frontal supine view of the abdomen. 1 View. COMPARISON: CT lumbar spine wo con* [id number] 01/25/2024 8:05 AM FINDINGS: Gastrointestinal tract: Nonspecific bowel-gas pattern without evidence of large or small bowel obstruction. Paucity of small bowel gas is nonspecific. Bones/joints: Unremarkable. XR/XR abdomen 1V* [id number] IMPRESSION: No plain film evidence of acute intra-abdominal or pelvic process.
[2024-05-01 19:48] LABS: Basophils % 0.5 %; Eosinophils # 0.1 10^3/uL (0.0-0.8); Eosinophils % 1.2 %; Hematocrit 41.9 % (36-47); Lymphocytes # 2.2 10^3/uL (0.8-4.8); Lymphocytes % 26.9 %; Mean Corpuscular HGB Conc 34.4 g/dL (30-55); Mean Corpuscular Hemoglobin 27.7 pg (27-33); Mean Corpuscular Volume 80.7 fl (85-98); Mean Platelet Volume 9.8 fL (7.4-10.4); Monocytes # 0.4 10^3/uL (0.2-0.9); Monocytes % 4.5 %; Neutrophils # 5.46 10^3/uL (1.8-7.7); Neutrophils % 66.8 %; Nucleated Red Blood Cells % 0 %; Platelet Count 260 10^3/cmm (157-399); Red Blood Count 5.19 10^6/uL (3.85-5.65); Red Cell Distribution Width 11.7 % (12.1-15.1); White Blood Count 8.18 10^3/uL (3.29-11.43)
--- NOTE | 2024-05-01 19:49 | ED_ITS ---
HPI - Nausea/Vomiting/Diarrhea 2 General: Chief complaint: Nausea/Vomiting/Diarrhea Stated complaint: n/v 2 days no energy abd pain Time Seen by Provider: 05/01/24 19:47 History of Present Illness: 48-year-old female with history of hyper tension and diabetes who presents to the emergency room with constipation, abdominal pain and vomiting. She says she been constipated for about a week and is having diffuse abdominal pain. She took medication to help her go to the bathroom today and started having some diarrhea but then developed nausea and vomiting. Related Data Home Medications Medication Instructions Recorded Confirmed buspirone 7.5 mg tablet 7.5 mg PO BID 01/25/24 03/31/24 dulaglutide 0.75 mg/0.5 mL 0.75 mg SUBCUT Q7D 01/25/24 03/31/24 subcutaneous pen injector (Trulicity) duloxetine 30 mg capsule,delayed 30 mg PO DAILY 01/25/24 03/31/24 release gabapentin 600 mg tablet 600 mg PO TID 01/25/24 03/31/24 insulin aspart U-100 100 unit/mL See Rx Instructions .Route .COMPLEX 01/25/24 03/31/24 (3 mL) subcutaneous pen (Novolog FlexPen U-100 Insulin aspart) insulin detemir U-100 100 unit/mL 50 unit SUBCUT BEDTIME 01/25/24 03/31/24 (3 mL) subcutaneous pen (Levemir FlexPen) ketorolac 10 mg tablet 10 mg PO Q6H PRN Pain 01/25/24 03/31/24 lisinopril 2.5 mg tablet 2.5 mg PO DAILY 01/25/24 03/31/24 metformin 1,000 mg tablet 1,000 mg PO BID 01/25/24 03/31/24 rosuvastatin 20 mg tablet 20 mg PO DAILY 01/25/24 03/31/24 trazodone 50 mg tablet 50 - 100 mg PO BEDTIME 01/25/24 03/31/24 Previous Rx's Medication Instructions Recorded ondansetron 8 mg disintegrating 8 mg PO Q8H PRN nausea and 03/04/24 tablet vomiting #14 tabs glycerin (adult) 1 supp IN DAILY PRN constipation 05/01/24 #12 ea polyethylene glycol 3350 17 17 g PO DAILY #510 grams 05/01/24 gram/dose oral powder (Miralax) Allergies Allergy/AdvReac Type Severity Reaction Status Date / Time Penicillins Allergy Unknown Verified 03/31/24 11:03 Review of Systems 2 Narrative: Constitutional symptoms: Negative except as documented in HPI. Skin symptoms: Negative except as documented in HPI. Eye symptoms: Negative except as documented in HPI. ENMT symptoms: Negative except as documented in HPI. Respiratory symptoms: Negative except as documented in HPI. Cardiovascular symptoms: Negative except as documented in HPI. Gastrointestinal symptoms: Negative except as documented in HPI. Genitourinary symptoms: Negative except as documented in HPI. Musculoskeletal symptoms: Negative except as documented in HPI. Neurologic symptoms: Negative except as documented in HPI. Psychiatric symptoms: Negative except as documented in HPI. Endocrine symptoms: Negative except as documented in HPI. PFSH ED 2 PFSH: Medical History Diabetes Social History Smoking and tobacco/nicotine status: never used tobacco/nicotine Physical Exam 2 Narrative: EXAM NARRATIVE: General: Alert, no acute distress. Skin: Warm, dry. Head: Normocephalic, atraumatic. Neck: Supple, trachea midline. Eye: Extraocular movements are intact. Ears, nose, mouth and throat: mucosa moist. Cardiovascular: Regular, Normal peripheral perfusion. Respiratory: Lungs are clear to auscultation, respirations are non-labored, breath sounds are equal, Symmetrical chest wall expansion. Gastrointestinal: Soft, diffuse nonfocal tenderness, Non distended Musculoskeletal: Normal ROM, no deformity. Neurological: Alert and oriented, No focal neurological deficit observed. Psychiatric: Cooperative, appropriate mood & affect. Course 2 Vital Signs: Vital signs: Vital Signs Temperature 97.4 F L 05/01/24 19:20 Pulse Rate 86 05/01/24 20:22 Respiratory Rate 18 05/01/24 20:22 Blood Pressure 162/114 05/01/24 20:22 Pulse Oximetry 97 05/01/24 20:22 Oxygen Delivery Me thod Room Air 05/01/24 20:22 MDM - Nausea/Vomiting/Diarrhea Medical Decision Making Medical decision making: Differential diagnosis including but not limited to and based on the above HPI, review of systems and physical exam: - patient with complaint of constipation: Small bowel obstruction. Gastroparesis. Constipation. Also evaluation for urinary retention, liver disease, renal failure. Orders placed to evaluate differential diagnosis based on the above differential, HPI and physical exam Abdomen x-ray: Nonspecific bowel gas pattern. No evidence of free air or obstruction. This was reviewed and interpreted by myself the emergency room physician. I also reviewed the radiology report. Lab Review: Laboratory results were reviewed and interpreted by myself the emergency room physician. Lab work is unremarkable. No leukocytosis. No anemia. BUN/creatinine are 20 and 1. Slight elevation. Her glucose is a little bit elevated at 242. I reviewed the patient's medical record. Reexamination: Patient had a very large bowel movement while she was here. Nausea has now resolved and her abdominal pain has resolved as well. We have decided against doing a CT scan at this point since she is feeling better. Discussed taking MiraLAX at home to prevent this happening again. Assessment and plan: Constipation - Discharged home - Discussed findings and plan with patient. Answered any questions. - All laboratory values were reviewed and interpreted personally by myself, the ER physician - All imaging was reviewed and interpreted personally by myself, the ER physician. - Evaluation and treatment of this problem were appropriate in the emergency setting Lab Data 05/01/24 19:41 05/01/24 19:41 Radiology Impressions Abdomen X-Ray 05/01/24 19:47 IMPRESSION: No plain film evidence of acute intra-abdominal or pelvic process. Laboratory Results WBC 8.18 10^3/uL (3.29-11.43) 05/01/24 19:41 RBC 5.19 10^6/uL (3.85-5.65) 05/01/24 19:41 Hgb 14.40 g/dL (11.27-16.99) 05/01/24 19:41 Hct 41.9 % (36-47) 05/01/24 19:41 MCV 80.7 fl (85-98) L 05/01/24 19:41 MCH 27.7 pg (27-33) 05/01/24 19:41 MCHC 34.4 g/dL (30-55) 05/01/24 19:41 RDW 11.7 % (12.1-15.1) L 05/01/24 19:41 Plt Count 260 10^3/cmm (157-399) 05/01/24 19:41 MPV 9.8 fL (7.4-10.4) 05/01/24 19:41 Neut % (Auto) 66.8 % 05/01/24 19:41 Lymph % (Auto) 26.9 % 05/01/24 19:41 [place] % (Auto) 4.5 % 05/01/24 19:41 Eos % (Auto) 1.2 % 05/01/24 19:41 Baso % (Auto) 0.5 % 05/01/24 19:41 Neut # (Auto) 5.46 10^3/uL (1.8-7.7) 05/01/24 19:41 Lymph # (Auto) 2.2 10^3/uL (0.8-4.8) 05/01/24 19:41 [place] # (Auto) 0.4 10^3/uL (0.2-0.9) 05/01/24 19:41 Eos # (Auto) 0.1 10^3/uL (0.0-0.8) 05/01/24 19:41 Baso # (Auto) 0.0 10^3/uL (0.0-0.1) 05/01/24 19:41 Nucleated RBC % (auto) 0 % 05/01/24 19:41 Nucleated RBCs # 0.0 /100WBC 05/01/24 19:41 Sodium 140 mmol/L (136-145) 05/01/24 19:41 Potassium 4.8 mmol/L (3.5-5.1) 05/01/24 19:41 Chloride 101 mmol/L (98-107) 05/01/24 19:41 Carbon Dioxide 27 mmol/L (22-29) 05/01/24 19:41 Anion Gap 16.8 (5-19) 05/01/24 19:41 BUN 20 mg/dL (6-20) 05/01/24 19:41 Creatinine 1.0 mg/dL (0.5-0.9) H 05/01/24 19:41 GFR Calculation 59.7 mL/min (90-130) L 05/01/24 19:41 Glucose 242 mg/dL (65-115) H 05/01/24 19:41 Calculated Osmolality 301 mOsm/kg (285-295) H 05/01/24 19:41 Calcium 9.2 mg/dL (8.5-10.5) 05/01/24 19:41 Total Bilirubin 0.4 mg/dL (0.15-1.2) 05/01/24 19:41 AST 19 U/L (0-32) 05/01/24 19:41 ALT 17 U/L (0-33) 05/01/24 19:41 Alkaline Phosphatase 37 U/L (35-105) 05/01/24 19:41 Total Protein 7.5 g/dL (6.6-8.7) 05/01/24 19:41 Albumin 4.4 g/dL (3.5-5.2) 05/01/24 19:41 Globulin 3.1 g/dL (1.3-4.6) 05/01/24 19:41 Lipase 133 U/L (13-60) H 05/01/24 19:41 HCG, Qual Negative (Negative) 05/01/24 19:41 Amorphous Sediment Not Reportable 05/01/24 20:15 All radiology interpretation(s) finalized by discharge Discharge Plan Discharge Patient Disposition: Home Clinical Impression: Constipation, Vomiting Condition: Stable Prescriptions: New polyethylene glycol 3350 [Miralax] 17 gram/dose powder 17 g PO DAILY Qty: 510 0RF Rx Instructions: Take 1-2 scoops daily for the next 3 months to keep stools soft glycerin (adult) Suppository 1 supp IN DAILY PRN (Reason: constipation) Qty: 12 0RF No Action ondansetron 8 mg tablet,disintegrating 8 mg PO Q8H PRN (Reason: nausea and vomiting) Qty: 14 0RF gabapentin 600 mg tablet 600 mg PO TID trazodone 50 mg tablet 50 - 100 mg PO BEDTIME ketorolac 10 mg tablet 10 mg PO Q6H PRN (Reason: Pain) metformin 1,000 mg tablet 1,000 mg PO BID buspirone 7.5 mg tablet 7.5 mg PO BID lisinopril 2.5 mg tablet 2.5 mg PO DAILY Novolog FlexPen U-100 Insulin 100 unit/mL (3 mL) insulin pen See Rx Instructions .ROUTE .COMPLEX Rx Instructions: INJECT 14 UNITS BY SUBCUTANEOUS INJECTION TWICE DAILY BEFORE MEALS. IF BLOOD SUGAR OVER 200, GIVE ADDITIONAL 10 UNITS FOR TOTAL OF 24 UNITS. MAX DAILY DOSE 48 UNITS. rosuvastatin 20 mg tablet 20 mg PO DAILY duloxetine 30 mg capsule,delayed release(DR/EC) 30 mg PO DAILY Levemir FlexPen 100 unit/mL (3 mL) insulin pen 50 unit SUBCUT BEDTIME Trulicity 0.75 mg/0.5 mL pen injector 0.75 mg SUBCUT Q7D Discharge Orders: Discharge ED (Routine); Ordered 05/01/24 Ordered By: Jessica Vasquez Discharge Diet: Advance as tolerated Discharge Activity: Increase activity as tolerated Patient Instructions: Constipation (ED), Opioid Safety, Pain Management Activity Restrictions/Additional Instructions: Thank you for choosing [facility] for your healthcare needs today. Please realize this is an emergency room and that we are providing you with a medical screening exam and this may not be complete and all inclusive of all the testing and or work up that you may need to determine your ailment or severity of your illness. You have been screened and evaluated and felt safe for discharge. Health conditions do change or evolve sometimes and as such it is important that you follow up with your Primary Doctor to be re checked, 3-5 days is a general good time frame for follow up. You are always welcome to return to the ED for re assessment if your symptoms are worsening or you have new concerns Coding Level of Care Code ED Contract Lead for Edgardo Simmons
[2024-05-01 20:07] LABS: HCG, Serum Qual Negative (Negative)
[2024-05-01 20:11] LABS: Alanine Aminotransferase 17 U/L (0-33); Albumin Level 4.4 g/dL (3.5-5.2); Alkaline Phosphatase 37 U/L (35-105); Blood Urea Nitrogen 20 mg/dL (6-20); Calcium 9.2 mg/dL (8.5-10.5); Carbon Dioxide 27 mmol/L (22-29); Chloride 101 mmol/L (98-107); Creatinine Clr Calc Pharmacy 82.3338; Globulin 3.1 g/dL (1.3-4.6); Glomerular Filtration Rate 59.7 mL/min (90-130); Glucose 242 mg/dL (65-115); Lipase 133 U/L (13-60); Osmolality Calculated 301 mOsm/kg (285-295); Sodium 140 mmol/L (136-145); Total Bilirubin 0.4 mg/dL (0.15-1.2); Total Protein 7.5 g/dL (6.6-8.7)
[2024-05-01 20:13] LABS: Anion Gap 16.8 (5-19); Aspartate Amino Transferase 19 U/L (0-32); Potassium 4.8 mmol/L (3.5-5.1)
[2024-05-01 20:22] VITALS: BP 162/114; PULSE 86; RESP 18; O2SAT 97
[2024-05-01 20:30] VITALS: BP 162/114; PULSE 88; O2SAT 97
[2024-05-01 20:42] LABS: Bilirubin Urine 1+ (Negative); Blood Urine Negative (Negative); Glucose Urine UA 1+ (Normal); Ketones Urine Trace (Negative); Leukocyte Esterase Urine Trace (Negative); Nitrate Urine Negative (Negative); Protein Urine 1+ (Negative); Specific Gravity, Urine 1.028 (1.005-1.030); Urine Appearance Cloudy (CLEAR); Urine Color Dark Yellow (Yellow)
[2024-05-01] MEDS: ondansetron 2 mg/ML SDV 2 mL 4 MG IVP (20:58)
[2024-05-01 21:00] VITALS: BP 141/99; PULSE 82; O2SAT 96
[2024-05-01 21:12] LABS: Add Urine Microscopic? YES; Squamous Epithelial Cell Urine 0-4 /hpf (0-5); UA Manual Slide Review YES; UA Slide Review UA Slide Review Perf; WBC Urine 0-4 /hpf (0-5)
[2024-05-01 21:13] LABS: Bacteria Urine TRACE /hpf
[2024-05-01 21:18] VITALS: BP 148/100; PULSE 80; O2SAT 96
== END 2024-05-01 21:05 | disposition home or self-care (01) ==
PROVIDERS: Emergency Medicine; Emergency Provider Emergency Medicine
DX: K59.00 Constipation, unspecified (principal); R11.10 Vomiting, unspecified
CPT/HCPCS: 74018; 80053; 81001; 83690; 84703; 85025; 96374; 99285; J2405

== ENCOUNTER 2024-05-19 06:00 | Outpatient (RCR) | payer OTHER, MEDICAID, SELFPAY | END 2024-06-18 23:59 | disposition home or self-care (01) | LOC: SPT 06:00 | DX: M79.672 Pain in left foot (principal) | CPT/HCPCS: 97110 ==

== ENCOUNTER → 2024-07-19 09:08 | Outpatient (BNVA) | payer MEDICAID, SELFPAY | DX: R11.10 Vomiting, unspecified (principal); B34.9 Viral infection, unspecified | CPT/HCPCS: 87400 ==

== ENCOUNTER 2024-07-20 14:02 | Inpatient (IN) | payer MEDICAID, SELFPAY ==
[2024-07-20 14:08] VITALS: BP 75/49; PULSE 104; RESP 12; TEMP 36.3; O2SAT 97; BMI 26.6
--- NOTE | 2024-07-20 14:24 | XRR_ITS ---
PROCEDURE INFORMATION: Exam: XR Chest Exam date and time: 07/20/2024 2:42 PM Age: 49 years old Clinical indication: Weakness; Cough TECHNIQUE: Imaging protocol: Radiologic exam of the chest. Views: 1 view. COMPARISON: CR (CHEST, ) 01/07/2024 8:32 AM FINDINGS: Lungs: Linear atelectasis or scarring in the right lung base. No consolidation. Pleural spaces: Unremarkable. No pleural effusion. No pneumothorax. Heart/Mediastinum: Unremarkable. No cardiomegaly. Bones/joints: Unremarkable. XR/XR chest 1V portable [id number] IMPRESSION: No acute findings.
--- NOTE | 2024-07-20 14:26 | CTR_ITS ---
PROCEDURE INFORMATION: Exam: CT Head Without Contrast Exam date and time: 07/20/2024 2:46 PM Age: 49 years old Clinical indication: Syncope and collapse; Additional info: Fall, head injury TECHNIQUE: Imaging protocol: Computed tomography of the head without contrast. Radiation optimization: All CT scans at this facility use at least one of these dose optimization techniques: automated exposure control; mA and/or kV adjustment per patient size (includes targeted exams where dose is matched to clinical indication); or iterative reconstruction. COMPARISON: CT angio headneck* [id number] 01/25/2024 11:20 AM RADIATION DOSE METRICS: Total DLP (mGy-cm): 1015.74 FINDINGS: Brain: Normal. No hemorrhage. Unremarkable white matter. No mass effect. Cerebral ventricles: No ventriculomegaly. Paranasal sinuses: Visualized sinuses are unremarkable. No fluid levels. Mastoid air cells: Visualized mastoid air cells are well aerated. Bones: Unremarkable. No acute fracture. Soft tissues: Unremarkable. CT/CT head wo con* [id number] IMPRESSION: No acute intracranial abnormality.
--- NOTE | 2024-07-20 14:27 | ED_ITS ---
HPI - Weakness 2 General: Chief complaint: Weakness Stated complaint: passsing out Time Seen by Provider: 07/20/24 14:26 History of Present Illness: 49-year-old female with a history of francisco candelaria who presents emergency room after having had a syncopal episode at home. She is hypertensive on presentation and somnolent. reports she has not been feeling well for last few days. She had had some nausea and vomiting for a day or 2. Yesterday they had gone to the urgent care and were told she had some fluid behind your ears but nothing serious at that time. Today they went to [place]. No known fevers. No abdominal pain. No focal motor deficits no altered mental status. She is slightly somnolent but gives good history and has no confusion. says that when they got home she checked her sugar and it was around 400 she took some insulin. Said shortly after she had a syncopal episode where she fell on the floor and hit her head. He said her pupils were very dilated at the time. Review of Systems 2 Narrative: Constitutional symptoms: Negative except as documented in HPI. Skin symptoms: Negative except as documented in HPI. Eye symptoms: Negative except as documented in HPI. ENMT symptoms: Negative except as documented in HPI. Respiratory symptoms: Negative except as documented in HPI. Cardiovascular symptoms: Negative except as documented in HPI. Gastrointestinal symptoms: Negative except as documented in HPI. Genitourinary symptoms: Negative except as documented in HPI. Musculoskeletal symptoms: Negative except as documented in HPI. Neurologic symptoms: Negative except as documented in HPI. Psychiatric symptoms: Negative except as documented in HPI. Endocrine symptoms: Negative except as documented in HPI. PFSH ED 2 PFSH: Medical History Diabetes Social History Smoking and tobacco/nicotine status: never used tobacco/nicotine Physical Exam 2 Narrative: EXAM NARRATIVE: General: Somnolent but arousable, Skin: Warm, dry. Head: Normocephalic, atraumatic. Neck: Supple, trachea midline. Eye: Extraocular movements are intact. Ears, nose, mouth and throat: mucosa moist. Cardiovascular: Regular, tachycardic, normal peripheral perfusion. Respiratory: Lungs are clear to auscultation, respirations are non-labored, breath sounds are equal, Symmetrical chest wall expansion. Gastrointestinal: Soft, Nontender, Non distended Musculoskeletal: Normal ROM, no deformity. Neurological: Alert and oriented, No focal neurological deficit observed. Psychiatric: Cooperative, appropriate mood & affect. Course 2 Vital Signs: Vital signs: Vital Signs Temperature 97.4 F L 07/20/24 14:08 Pulse Rate 100 07/20/24 17:27 Respiratory Rate 17 07/20/24 17:27 Blood Pressure 142/98 07/20/24 17:27 Pulse Oximetry 96 07/20/24 17:27 Oxygen Delivery Me thod Room Air 07/20/24 17:27 MDM - Weakness Medical Decision Making Medical decision making: Differential diagnosis including but not limited to and based on the above HPI, review of systems and physical exam in this patient with syncope: Vasovagal, orthostatics hypotension, cardiac dysrhythmia, myocardial infarction, infection and hypotension, Orders placed to evaluate differential diagnosis based on the above differential, HPI and physical exam EKG: Time 1514. Rate 93. Normal sinus rhythm, No ST-T changes, no ectopy, normal VA & QRS intervals, This was reviewed and interpreted by myself the ER physician at 1517 Chest x-ray: No acute process. No infiltrate. No pneumothorax. This was reviewed and interpreted by myself the emergency room physician. I also reviewed the radiology report. CT head: No acute intracranial process. no intracranial hemorrhage, no evidence of infarct. no evidence of acute fracture.This was reviewed and interpreted by myself the ER physician. Lab Review: Laboratory results were reviewed and interpreted by myself the emergency room physician. No leukocytosis. Patient does have some renal insufficiency. BUN is above her baseline at 23 her creatinine is above at 2.2. Sugars only 208 here. Initial lactate is 4.8. Initial troponin is 31. Urinalysis is significant for possible infection. 11-20 whites and 4+ bacteria. There are 21-50 squames but given her presentation and her lactic acidosis hypotension and syncope I am treating her with cefepime for possible sepsis and urinary tract infection. I reviewed the patient's medical record. Reexamination: Patient says she feels quite a bit better after fluids. Blood pressure has improved somewhat. Heart rate has come down some as well. No altered mental status. No focal motor deficits. Given the possibility of sepsis we have discussed admission. She says she really wants to go to work on Monday but she ultimately agrees to admission. Consultation: I spoke with Dr. Saldivar who is on-call for the hospitalist service who agrees to admission. Assessment and plan: Urinary tract infection Possible sepsis Hypotension Acute renal insufficiency Lactic acidosis Syncope Head injury ?Hypotension and lactic acidosis. Urinary tract infection. Syncope and blood pressure may just be related to dehydration and renal failure but difficult not to treat for sepsis at this point. -2 L normal saline bolus. Fluid volumes based on ideal body weight. - Cefepime was administered -Sepsis quality measures. -Lactic acid with a reflex was ordered. -Blood cultures were ordered. -I discussed the patient with the hospitalist on-call who is admitting the patient. - Discussed findings and plan with patient. Answered any questions. - All laboratory values were reviewed and interpreted personally by myself, the ER physician - All imaging was reviewed and interpreted personally by myself, the ER physician. - Evaluation and treatment of this problem were appropriate in the emergency setting Critical care -I spent a total of >35 minutes of critical care time managing the patient, independent of any other practitioner. -The time involved in the performance of separately reportable procedures was not counted towards critical care time. Lab Data 07/20/24 14:30 07/20/24 14:30 Radiology Impressions Chest X-Ray 07/20/24 14:24 IMPRESSION: No acute findings. Head CT 07/20/24 14:26 IMPRESSION: No acute intracranial abnormality. Laboratory Results WBC 9.37 10^3/uL (3.29-11.43) 07/20/24 14:30 RBC 5.04 10^6/uL (3.85-5.65) 07/20/24 14:30 Hgb 14.20 g/dL (11.27-16.99) 07/20/24 14:30 Hct 41.4 % (36-47) 07/20/24 14:30 MCV 82.1 fl (85-98) L 07/20/24 14:30 MCH 28.2 pg (27-33) 07/20/24 14:30 MCHC 34.3 g/dL (30-55) 07/20/24 14:30 RDW 12.3 % (12.1-15.1) 07/20/24 14:30 Plt Count 362 10^3/cmm (157-399) 07/20/24 14:30 MPV 9.9 fL (7.4-10.4) 07/20/24 14:30 Neut % (Auto) 69.2 % 07/20/24 14:30 Lymph % (Auto) 23.1 % 07/20/24 14:30 [place] % (Auto) 5.7 % 07/20/24 14:30 Eos % (Auto) 0.9 % 07/20/24 14:30 Baso % (Auto) 0.5 % 07/20/24 14:30 Neut # (Auto) 6.49 10^3/uL (1.8-7.7) 07/20/24 14:30 Lymph # (Auto) 2.2 10^3/uL (0.8-4.8) 07/20/24 14:30 [place] # (Auto) 0.5 10^3/uL (0.2-0.9) 07/20/24 14:30 Eos # (Auto) 0.1 10^3/uL (0.0-0.8) 07/20/24 14:30 Baso # (Auto) 0.1 10^3/uL (0.0-0.1) 07/20/24 14: Nucleated RBC % (auto) 0.2 % 07/20/24 14: Nucleated RBCs # 0.0 /100WBC 07/20/24 14:30 Specimen Type Arterial 07/20/24 15:02 Sample Site Radial, right 07/20/24 15:02 ABG pH 7.42 (7.35-7.45) 07/20/24 15:02 ABG pCO2 41.5 mmHg (35-45) 07/20/24 15:02 ABG pO2 66.5 mmHg (80.0-100.0) L 07/20/24 15:02 ABG PO2/FiO2 Ratio 316 07/20/24 15:02 ABG HCO3 27.0 mmol/L (22-26) H 07/20/24 15:02 ABG O2 Saturation 95.3 07/20/24 15:02 ABG Base Excess 2.2 mmol/L (-2.0-2.0) H 07/20/24 15:02 Juan Carlos Test Pos 07/20/24 15:02 A-a O2 Gradient 4.2 mmHg (5-10) L 07/20/24 15:02 Hematocrit 39.1 % (37-47) 07/20/24 15:02 Hgb O2 Saturation 93.9 % (95-100) L 07/20/24 15:02 Carboxyhemoglobin 1.4 %THgb (0.4-20.1) 07/20/24 15:02 Methemoglobin 0.1 % (0.4-1.5) L 07/20/24 15:02 Total Hemoglobin 12.8 g/dL (12-16) 07/20/24 15:02 Sodium 143.0 mmol/L (131-143) 07/20/24 15:02 Potassium 3.3 mmol/L (3.5-5.0) L 07/20/24 15:02 Glucose 224.0 mg/dL (70-115) H 07/20/24 15:02 Ionized Calcium 1.2 mmol/L (1.1-1.4) 07/20/24 15:02 O2 Delivery Device Room air 07/20/24 15:02 FiO2 21.0 % 07/20/24 15:02 Cloth Shrinking Machine Operator ID [email or web address] 07/20/24 15:02 Sodium 137 mmol/L (136-145) 07/20/24 14:30 Potassium 3.5 mmol/L (3.5-5.1) 07/20/24 14:30 Chloride 93 mmol/L (98-107) L 07/20/24 14:30 Carbon Dioxide 28 mmol/L (22-29) 07/20/24 14:30 Anion Gap 19.5 (5-19) H 07/20/24 14:30 BUN 23 mg/dL (6-20) H 07/20/24 14:30 Creatinine 2.2 mg/dL (0.5-0.9) H 07/20/24 14:30 GFR Calculation 23.9 mL/min (90-130) L 07/20/24 14:30 Glucose 208 mg/dL (65-115) H 07/20/24 14:30 POC Glucose 202 mg/dL (70-110) H 07/20/24 14:31 Calculated Osmolality 294 mOsm/kg (285-295) 07/20/24 14:30 Lactic Acid 4.8 mmol/L (0.5-2.2) H* 07/20/24 14:30 Lactic Acid (Sepsis) 2.9 mmol/L (0.5-2.2) H 07/20/24 16:47 Calcium 10.5 mg/dL (8.5-10.5) 07/20/24 14:30 Total Bilirubin 0.5 mg/dL (0.15-1.2) 07/20/24 14:30 AST 30 U/L (0-32) 07/20/24 14:30 ALT 22 U/L (0-33) 07/20/24 14:30 Alkaline Phosphatase 43 U/L (35-105) 07/20/24 14:30 Troponin T Baseline 31 ng/L (0-10) H 07/20/24 14:30 Troponin T 120 Minute 22.21 ng/L (0-10) H 07/20/24 16:47 Delta Troponin T -8.79 ABS# (0-10) L 07/20/24 16:47 C-Reactive Protein 3.0 mg/L (0.0-4.9) 07/20/24 14:30 Total Protein 8.1 g/dL (6.6-8.7) 07/20/24 14:30 Albumin 4.9 g/dL (3.5-5.2) 07/20/24 14:30 Globulin 3.2 g/dL (1.3-4.6) 07/20/24 14:30 Urine Color Dark yellow (Yellow) A 07/20/24 15:50 Urine Appearance Turbid (CLEAR) A 07/20/24 15:50 Urine pH 5.0 (5-7) 07/20/24 15:50 Ur Specific [place] 1.030 (1.005-1.030) 07/20/24 15:50 Urine Protein 3+ (Negative) A 07/20/24 15:50 Urine Glucose (UA) 3+ (Normal) H 07/20/24 15:50 Urine Ketones 1+ (Negative) H 07/20/24 15:50 Urine Blood Negative (Negative) 07/20/24 15:50 Urine Nitrate Negative (Negative) 07/20/24 15:50 Urine Bilirubin Negative (Negative) 07/20/24 15:50 Urine Urobilinogen 1.0 mg/dL (Negative) 07/20/24 15:50 Ur Leukocyte Esterase Trace (Negative) A 07/20/24 15:50 Urine RBC 0-2 /hpf (0-2) 07/20/24 15:50 Urine WBC 11-20 /hpf (0-5) H 07/20/24 15:50 Ur Squamous Epith Cells 21-50 /hpf (0-5) H 07/20/24 15:50 Amorphous Sediment Not Reportable 07/20/24 15:50 Urine Bacteria 4+ /hpf (NONE) H 07/20/24 15:50 Hyaline Casts 165.50 /lpf 07/20/24 15:50 Serum Ketones Negative (Negative) 07/20/24 14:30 Coronavirus (PCR) Negative (Negative) 07/20/24 14:20 Influenza A (PCR) Negative (Negative) 07/20/24 14:20 Influenza Type B (PCR) Negative (Negative) 07/20/24 14:20 RSV (PCR) Negative (Negative) 07/20/24 14:20 All radiology interpretation(s) finalized by discharge Discharge Plan Discharge Patient Disposition: Admitted As Inpatient Clinical Impression: Urinary tract infection, Acute renal insufficiency, Hypotension, Lactic acidosis Condition: Stable Coding Level of Care Code ED Public Service Director for Chg Fwd Related Data Home Medications Medication Instructions Recorded Confirmed buspirone 7.5 mg tablet 7.5 mg PO BID 01/25/24 07/19/24 dulaglutide 0.75 mg/0.5 mL 0.75 mg SUBCUT Q7D 01/25/24 07/19/24 subcutaneous pen injector (Trulicity) duloxetine 30 mg capsule,delayed 30 mg PO DAILY 01/25/24 07/19/24 release gabapentin 600 mg tablet 600 mg PO TID 01/25/24 07/19/24 insulin aspart U-100 100 unit/mL See Rx Instructions .Route .COMPLEX 01/25/24 07/19/24 (3 mL) subcutaneous pen (Novolog FlexPen U-100 Insulin aspart) insulin detemir U-100 100 unit/mL 50 unit SUBCUT BEDTIME 01/25/24 07/19/24 (3 mL) subcutaneous pen (Levemir FlexPen) lisinopril 2.5 mg tablet 2.5 mg PO DAILY 01/25/24 07/19/24 metformin 1,000 mg tablet 1,000 mg PO BID 01/25/24 07/19/24 rosuvastatin 20 mg tablet 20 mg PO DAILY 01/25/24 07/19/24 trazodone 50 mg tablet 50 - 100 mg PO BEDTIME 01/25/24 07/19/24 Previous Rx's Medication Instructions Recorded glycerin (adult) 1 supp [place] DAILY PRN constipation 05/01/24 #12 ea polyethylene glycol 3350 17 17 g PO DAILY #510 grams 05/01/24 gram/dose oral powder (Miralax) Allergies Allergy/AdvReac Type Severity Reaction Status Date / Time Penicillins Allergy Unknown Verified 07/19/24 09:04
[2024-07-20 14:35] LABS: Glucose Point of Care 202 mg/dL (70-110)
[2024-07-20 14:44] LABS: Basophils # 0.1 10^3/uL (0.0-0.1); Basophils % 0.5 %; Eosinophils # 0.1 10^3/uL (0.0-0.8); Eosinophils % 0.9 %; Hematocrit 41.4 % (36-47); Lymphocytes # 2.2 10^3/uL (0.8-4.8); Lymphocytes % 23.1 %; Mean Corpuscular HGB Conc 34.3 g/dL (30-55); Mean Corpuscular Hemoglobin 28.2 pg (27-33); Mean Corpuscular Volume 82.1 fl (85-98); Mean Platelet Volume 9.9 fL (7.4-10.4); Monocytes # 0.5 10^3/uL (0.2-0.9); Monocytes % 5.7 %; Neutrophils # 6.49 10^3/uL (1.8-7.7); Neutrophils % 69.2 %; Nucleated Red Blood Cells % 0.2 %; Platelet Count 362 10^3/cmm (157-399); Red Blood Count 5.04 10^6/uL (3.85-5.65); Red Cell Distribution Width 12.3 % (12.1-15.1); White Blood Count 9.37 10^3/uL (3.29-11.43)
[2024-07-20 14:51] LABS: Ketone (Acetest) Serum Negative (Negative)
[2024-07-20] MEDS: sodium chloride 0.9% 1,000 ML 999 ML IV ×2 (14:52→15:27)
[2024-07-20 15:00] LABS: Alanine Aminotransferase 22 U/L (0-33); Albumin Level 4.9 g/dL (3.5-5.2); Alkaline Phosphatase 43 U/L (35-105); Anion Gap 19.5 (5-19); Aspartate Amino Transferase 30 U/L (0-32); Blood Urea Nitrogen 23 mg/dL (6-20); Calcium 10.5 mg/dL (8.5-10.5); Carbon Dioxide 28 mmol/L (22-29); Chloride 93 mmol/L (98-107); Creatinine Clr Calc Pharmacy 36.1209; Globulin 3.2 g/dL (1.3-4.6); Glomerular Filtration Rate 23.9 mL/min (90-130); Glucose 208 mg/dL (65-115); Osmolality Calculated 294 mOsm/kg (285-295); Potassium 3.5 mmol/L (3.5-5.1); Sodium 137 mmol/L (136-145); Total Bilirubin 0.5 mg/dL (0.15-1.2); Total Protein 8.1 g/dL (6.6-8.7)
[2024-07-20 15:05] LABS: Troponin(5th) Baseline 31 ng/L (0-10)
--- NOTE | 2024-07-20 15:14 | ECG_ITS ---
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 Measurements Intervals [place] Rate: 93 P: 56 [place]: 172 QRS: 50 QRSD: 93 T: 60 QT: 369 QTc: 460 Interpretive Statements SINUS RHYTHM LOW QRS VOLTAGE IN PRECORDIAL LEADS [QRS DEFLECTION < 1.0 mV IN CHEST LEADS] Compared to ECG 01/07/2024 08:55:48 No significant changes Electronically Signed On 07-25-2024 22:13:00 INTER FOLD ROLL CUTTER by Owen Malhotra M.D. [email or web address]
[2024-07-20 15:15] LABS: ABG PCO2 41.5 mmHg (35-45); ABG PH Result 7.42 (7.35-7.45); Alveolar-Arterial Oxygen Gradi 4.2 mmHg (5-10); Arterial Blood Gas Hematocrit 39.1 % (37-47); Base Excess ABG 2.2 mmol/L (-2.0-2.0); Blood Gas Allen Test Pos; Blood Gas Operator Identificat glc; Blood Gas Sample Site Radial, right; Blood Gas Sample Type Arterial; Carboxyhemoglobin 1.4 %THgb (0.4-20.1); HGB O2 Sat 93.9 % (95-100); Ionized Calcium Level - ABG 1.2 mmol/L (1.1-1.4); Methemoglobin 0.1 % (0.4-1.5); Oxygen Device ROOM AIR; Oxygen Saturation ABG 95.3; PO2 ABG 66.5 mmHg (80.0-100.0); PO2 FiO2 Ratio Arterial Blood 316; Potassium Level - ABG 3.3 mmol/L (3.5-5.0); Total Hemoglobin 12.8 g/dL (12-16)
[2024-07-20 15:19] LABS: Lactic Sepsis W/Reflex 4.8 mmol/L (0.5-2.2)
[2024-07-20 15:29] VITALS: BP 107/67; PULSE 96; RESP 17; O2SAT 94
[2024-07-20 15:54] LABS: Bilirubin Urine Negative (Negative); Blood Urine Negative (Negative); Glucose Urine UA 3+ (Normal); Ketones Urine 1+ (Negative); Leukocyte Esterase Urine Trace (Negative); Nitrate Urine Negative (Negative); Protein Urine 3+ (Negative); Urine Appearance Turbid (CLEAR); Urine Color Dark Yellow (Yellow)
[2024-07-20 16:00] LABS: Bacteria Urine 4+ /hpf; RBC Urine 0-2 /hpf (0-2); Squamous Epithelial Cell Urine 21-50 /hpf (0-5)
--- NOTE | 2024-07-20 16:01 | PC.NURSE ---
pt requesting to use bathroom, commode provided in room and pt refused. pt requests real bathroom . pt also denies offer for assistance ambulating to bathroom, pt wants visitor to assist.
--- NOTE | 2024-07-20 16:15 | ECG_ITS ---
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 Measurements Intervals [place] Rate: 104 P: 59 [place]: 170 QRS: 49 QRSD: 88 T: 57 QT: 344 QTc: 454 Interpretive Statements SINUS TACHYCARDIA LOW QRS VOLTAGE IN PRECORDIAL LEADS [QRS DEFLECTION < 1.0 mV IN CHEST LEADS] Compared to ECG 07/20/2024 15:14:57 Sinus rhythm no longer present Electronically Signed On 07-25-2024 22:26:46 BUSINESS ANALYST CONSULTANT by Owen Malhotra M.D. [email or web address]
[2024-07-20 16:21] LABS: Covid PCR NEGATIVE (Negative); Influenza A NEGATIVE (Negative); Influenza B NEGATIVE (Negative); Respiratory Syncytial Virus Ce NEGATIVE (Negative)
[2024-07-20 16:21] LABS: UA Slide Review UA Slide Review Perf
[2024-07-20 16:29] LABS: Reflex Lactate Order REFLEX LACTIC ORDERD
[2024-07-20] MEDS: cefepime 2,000 mg SDV 2000 MG IVP (16:41)
[2024-07-20 17:15] LABS: Troponin 5 2HR 22.21 ng/L (0-10); Troponin 5 2HR Delta -8.79 ABS# (0-10)
[2024-07-20 17:16] LABS: Lactic Acid level (Lactate) 2.9 mmol/L (0.5-2.2)
[2024-07-20 17:27] VITALS: BP 142/98; PULSE 100; RESP 17; O2SAT 96
--- NOTE | 2024-07-20 17:43 | CTR_ITS ---
PROCEDURE INFORMATION: Exam: CT Abdomen And Pelvis Without Contrast Exam date and time: 07/20/2024 5:51 PM Age: 49 years old Clinical indication: Abdominal tenderness; Additional info: Septic shock, UTI, R/O pyelo TECHNIQUE: Imaging protocol: Computed tomography of the abdomen and pelvis without contrast. Radiation optimization: All CT scans at this facility use at least one of these dose optimization techniques: automated exposure control; mA and/or kV adjustment per patient size (includes targeted exams where dose is matched to clinical indication); or iterative reconstruction. COMPARISON: CR (ABDOMEN, ) 05/01/2024 8:01 PM RADIATION DOSE METRICS: Total DLP (mGy-cm): 860.12 FINDINGS: Liver: Normal. No mass. Gallbladder and biliary ducts: Normal. No calcified stones. No ductal dilation. Pancreas: Normal. No ductal dilation. Spleen: Normal. No splenomegaly. Adrenal glands: Normal. No mass. Kidneys and ureters: Punctate nonobstructing stone in the right kidney. No hydronephrosis. Stomach and bowel: Unremarkable. No obstruction. No mucosal thickening. Appendix: No evidence of appendicitis. Intraperitoneal space: Unremarkable. No free air. No significant fluid collection. Vasculature: Unremarkable. No abdominal aortic aneurysm. Lymph nodes: Unremarkable. No enlarged lymph nodes. Urinary bladder: Unremarkable as visualized. Reproductive: Unremarkable as visualized. Bones/joints: No acute fracture. Soft tissues: Unremarkable. CT/CT abdomen pelvis wo con [id number] IMPRESSION: No acute findings. Evaluation for pyelonephritis is limited without contrast, which appear unremarkable aside from a punctate nonobstructing stone in the right kidney.
[2024-07-20 18:02] VITALS: BP 165/100; PULSE 100; O2SAT 100
--- NOTE | 2024-07-20 18:26 | PC.NURSE ---
medications ordered @1815 delayed d/t not being verified
[2024-07-20 18:37] LABS: Procalcitonin 0.24 ng/mL (0-0.5)
--- NOTE | 2024-07-20 19:36 | P.HP_ITS ---
Providers/Chief Complaint 2 Admitting Physician: Tracie Saldivar MD Chief Complaint: passsing out History of Present Illness Kimberly Orellana is a 49 year old female with history of diabetes, hypertension, neuropathy takes medical marijuana, presented with chief complaint of syncopal event dehydration nausea vomiting and diarrhea. Patient is stating that she has been sick for last 2 to 3 days, she has not noticed any chest pain shortness of breath fever urinary incontinence or abdominal pain. She has been experiencing nausea vomiting for last 2 days, today she started spearing seeing diarrhea. She had 1 syncopal event, stayed on the ground for about 5 minutes, blood sugar was around 400 as per the . In the ER she was diagnosed with severe dehydration and hypovolemia. Blood pressure improved with IV fluid hydration, patient does have abnormal UA however she is not endorsing symptoms of UTI. She has been started on cefepime after septic bolus. She is afebrile without leukocytosis. CT abdomen pelvis unremarkable other than nonobstructing stone. She is experiencing diarrhea, I have requested C. difficile panel. 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 I have counseled her not to start her new job if she is having diarrhea. Review of Systems 2 Const: Reports: chills Eyes: Denies: change in vision ENMT: Denies: throat pain Card: Denies: chest pain Resp: Denies: dyspnea GI: Reports: abdominal pain, nausea, vomiting and bloating : Denies: flank pain Musc: Denies: neck pain Medications/Allergies Home Medications Medication Instructions Recorded Confirmed Last Taken Type buspirone 7.5 mg tablet 7.5 mg PO BID 01/25/24 07/19/24 01/24/24 History dulaglutide 0.75 mg/0.5 mL 0.75 mg SUBCUT Q7D 01/25/24 07/19/24 Unknown History subcutaneous pen injector (Trulicity) duloxetine 30 mg capsule,delayed 30 mg PO DAILY 01/25/24 07/19/24 01/24/24 History release gabapentin 600 mg tablet 600 mg PO TID 01/25/24 07/19/24 01/24/24 History insulin aspart U-100 100 unit/mL See Rx Instructions .Route .COMPLEX 01/25/24 07/19/24 01/24/24 History (3 mL) subcutaneous pen (Novolog FlexPen U-100 Insulin aspart) insulin detemir U-100 100 unit/mL 50 unit SUBCUT BEDTIME 01/25/24 07/19/24 01/24/24 History (3 mL) subcutaneous pen (Levemir FlexPen) lisinopril 2.5 mg tablet 2.5 mg PO DAILY 01/25/24 07/19/24 01/24/24 History metformin 1,000 mg tablet 1,000 mg PO BID 01/25/24 07/19/24 01/24/24 History rosuvastatin 20 mg tablet 20 mg PO DAILY 01/25/24 07/19/24 01/24/24 History trazodone 50 mg tablet 50 - 100 mg PO BEDTIME 01/25/24 07/19/24 01/24/24 History glycerin (adult) 1 supp IA DAILY PRN constipation 05/01/24 07/19/24 Unknown Rx #12 ea polyethylene glycol 3350 17 17 g PO DAILY #510 grams 05/01/24 07/19/24 Unknown Rx gram/dose oral powder (Miralax) Allergies Allergy/AdvReac Type Severity Reaction Status Date / Time Penicillins Allergy Unknown Verified 07/19/24 09:04 PFSH Acute 2 PFSH: Medical History Diabetes Social History Smoking and tobacco/nicotine status: never used tobacco/nicotine Vitals/I&O/Wt Last Vital Signs Temp 97.4 F L 07/20/24 14:08 Pulse 100 07/20/24 18:02 Resp 17 07/20/24 17:27 BP 165/100 07/20/24 18:02 Pulse Ox 100 07/20/24 18:02 O2 Del Method Room Air 07/20/24 17:27 07/20/24 07/20/24 07/20/24 06:59 14:59 22:59 Intake Total 0 / 0 1999 Balance 0 / 0 1999 Weight last 48 hrs Weight 81.647 kg Physical Exam 2 Narrative: Awake and alert GCS 15 Nonfocal neuroexam Pleasant and cooperative S1, S2 Abdomen soft No right upper quadrant tenderness GCS 15 No sign of peritonitis Hemodynamically stable Heart rate 90 sinus rhythm Pleasant and cooperative AOx4 Data 07/20/24 14:30 07/20/24 14:30 Micro: Microbiology 07/20/24 16:48 Blood Culture - Preliminary Blood SPECIMEN COLLECTED 07/20/24 16:47 Blood Culture - Preliminary Blood SPECIMEN COLLECTED A&P Assessment and plan (1) Gastroenteritis: (2) Acute renal insufficiency: (3) Lactic acidosis: (4) Urinary tract infection: (5) Hypotension: Plan Severe dehydration Syncope likely orthostatic Will request echo EKG unremarkable, troponin unremarkable Check D-dimer Continue IV fluid hydration Patient experiencing diarrhea, C. difficile to be ruled out then can use Imodium Concern for UTI however patient not endorsing symptoms Continue cefepime for next 24 hours Blood and urine culture Sepsis? I am not sure if this is entirely sepsis presentation Patient is afebrile, no leukocytosis, procalcitonin unremarkable, I do believe lactic acid is secondary to hypovolemia and hypotension No encephalopathy Patient has been given septic bolus, antibiotic started Acute on chronic kidney disease related dehydration: No sign of obstruction on CT abdomen pelvis, continue cefepime for now Hyperglycemia without signs of DKA Use consistent carb diet and insulin sign scale DVT prophylaxis heparin Full code Attestations 2 Medical Necessity Statement*: Anticipating discharge within 48 hours Diagnoses Gastroenteritis K52.9 Acute renal insufficiency N28.9 Lactic acidosis E87.20 Urinary tract infection N39.0 Hypotension I95.9
[2024-07-20 20:17] LABS: Glucose Point of Care 287 mg/dL (70-110)
[2024-07-20] MEDS: sodium chloride 0.9% 1,000 ML 100 ML IV (20:18)
[2024-07-20] MEDS: heparin 5,000 unit/mL INJ 1 mL 5000 UNIT SUBCUT (20:18)
[2024-07-20] MEDS: insulin lispro 100 unit/1 mL SUBCUT (20:21)
[2024-07-20 20:28] VITALS: BP 133/91; PULSE 86; RESP 18; O2SAT 99
--- NOTE | 2024-07-20 20:31 | PC.NURSE ---
pt takes the following medications: 600 mg gabapentin TID PO 60 units long acting insulin 25-50 mg trazadone PO PRN - for sleep as needed
[2024-07-20] MEDS: gabapentin 300 mg Capsule 600 MG PO (21:03)
[2024-07-20 21:04] VITALS: BP 143/92; PULSE 90; RESP 16; O2SAT 96
[2024-07-20 21:19] LABS: C.Diff PCR (Lab) NEGATIVE (Negative)
[2024-07-20 22:59] LABS: Vitamin B12 852 pg/mL (232-1245)
[2024-07-20] MEDS: loperamide 2 mg Capsule 4 MG PO (23:18)
[2024-07-20] MEDS: potassium chloride ER 20 mEq Tablet 40 MEQ PO (23:19)
[2024-07-20] MEDS: oxyCODONE 5 mg IR Tab/Cap PO (23:19)
[2024-07-21] VITALS (9 sets, daily range): BP systolic 106–168; BP diastolic 64–95; PULSE 83–94; RESP 14–18; TEMP 36.5–36.7; O2SAT 94–98; BMI 26.6
[2024-07-21] MEDS: sodium chloride 0.9% 1,000 ML 100 ML IV (04:40)
[2024-07-21 06:16] LABS: Basophils % 0.6 %; Eosinophils # 0.2 10^3/uL (0.0-0.8); Eosinophils % 2.1 %; Lymphocytes # 2.1 10^3/uL (0.8-4.8); Lymphocytes % 29.9 %; Mean Corpuscular Hemoglobin 28.2 pg (27-33); Mean Corpuscular Volume 85.3 fl (85-98); Mean Platelet Volume 10.2 fL (7.4-10.4); Monocytes # 0.5 10^3/uL (0.2-0.9); Monocytes % 7.6 %; Neutrophils # 4.22 10^3/uL (1.8-7.7); Neutrophils % 59.5 %; Nucleated Red Blood Cells % 0 %; Platelet Count 179 10^3/cmm (157-399); Red Blood Count 3.87 10^6/uL (3.85-5.65); Red Cell Distribution Width 12.4 % (12.1-15.1); White Blood Count 7.09 10^3/uL (3.29-11.43)
[2024-07-21 06:23] LABS: Lactic Sepsis W/Reflex 2.2 mmol/L (0.5-2.2)
[2024-07-21 06:24] LABS: Alanine Aminotransferase 13 U/L (0-33); Albumin Level 3.6 g/dL (3.5-5.2); Alkaline Phosphatase 33 U/L (35-105); Anion Gap 17.3 (5-19); Aspartate Amino Transferase 17 U/L (0-32); Blood Urea Nitrogen 21 mg/dL (6-20); Calcium 8.4 mg/dL (8.5-10.5); Carbon Dioxide 22 mmol/L (22-29); Chloride 104 mmol/L (98-107); Globulin 2.3 g/dL (1.3-4.6); Glomerular Filtration Rate 48.2 mL/min (90-130); Glucose 280 mg/dL (65-115); Magnesium 1.6 mg/dL (1.7-2.3); Osmolality Calculated 301 mOsm/kg (285-295); Potassium 4.3 mmol/L (3.5-5.1); Sodium 139 mmol/L (136-145); Total Bilirubin 0.3 mg/dL (0.15-1.2); Total Protein 5.9 g/dL (6.6-8.7)
[2024-07-21 06:25] LABS: Creatinine Clr Calc Pharmacy 66.2216
[2024-07-21 06:34] LABS: Glucose Point of Care 282 mg/dL (70-110)
[2024-07-21 07:46] LABS: Reflex Lactate Order REFLEX LACTIC ORDERD
[2024-07-21] MEDS: duloxetine 30 mg Capsule PO (09:20)
[2024-07-21] MEDS: gabapentin 300 mg Capsule 600 MG PO ×2 (09:20→20:08)
[2024-07-21] MEDS: magnesium sulfate premix 2 GM/50 ML PIGGYBACK IV (09:21)
[2024-07-21] MEDS: insulin lispro 100 unit/1 mL SUBCUT ×4 (09:53→21:10)
[2024-07-21] MEDS: heparin 5,000 unit/mL INJ 1 mL 5000 UNIT SUBCUT ×2 (09:53→20:09)
[2024-07-21] MEDS: cefepime 2,000 mg SDV 2000 MG IVP (11:08)
--- NOTE | 2024-07-21 11:23 | CTR_ITS ---
PROCEDURE INFORMATION: Exam: CT Right Lower Extremity, Knee Exam date and time: 07/21/2024 1:23 PM Age: 49 years old Clinical indication: Pain and injury or trauma; Fall; Sprain or strain; Patella or knee; Right TECHNIQUE: Imaging protocol: CT of the right lower extremity without contrast was performed. Exam focused on the knee. Radiation optimization: All CT scans at this facility use at least one of these dose optimization techniques: automated exposure control; mA and/or kV adjustment per patient size (includes targeted exams where dose is matched to clinical indication); or iterative reconstruction. COMPARISON: No relevant prior studies available. RADIATION DOSE METRICS: Total DLP (mGy-cm): 336.63 FINDINGS: Bones/joints: Tricompartmental marginal osteophyte formation noted. Large joint effusion. Joint spaces and alignment maintained. No fracture. Soft tissues: Normal. Vasculature: Calcified atherosclerotic plaque noted. CT/CT knee RT wo con* [id number] IMPRESSION: 1. Large joint effusion. 2. No fracture.
[2024-07-21] MEDS: HYDROcodone-acetaminophen 5-325 mg Tablet 1 TAB PO ×2 (11:31→20:49)
[2024-07-21 12:21] LABS: Glucose Point of Care 243 mg/dL (70-110)
--- NOTE | 2024-07-21 13:53 | P.PN_ITS ---
Subjective 2 Subjective: seen this morning complains of extreme knee pain, knee has evidence of swelling as well. right knee suffered trauma as patient fell on ground. currently having echo done i have ordered knee ct Vitals/I&O/Wt Last Vital Signs Temp 97.9 F 07/21/24 12:00 Pulse 89 07/21/24 12:00 Resp 17 07/21/24 12:00 BP 168/95 07/21/24 12:00 Pulse Ox 95 07/21/24 12:00 O2 Del Method Room Air 07/21/24 12:00 07/20/24 07/21/24 07/21/24 22:59 06:59 14:59 Intake Total 1999 956.667 / 2956.667 480 / 480 Balance 1999 956.667 / 2956.667 480 / 480 Weight last 48 hrs Weight 81.647 kg Weight 81.647 kg Physical Exam 2 Narrative: Awake and alert GCS 15 Nonfocal neuroexam Pleasant and cooperative S1, S2 Abdomen soft No right upper quadrant tenderness GCS 15 No sign of peritonitis Hemodynamically stable Heart rate 90 sinus rhythm Pleasant and cooperative AOx4 Right knee does have significant swelling. Decreased range of motion at knee secondary to pain. Data 07/21/24 05:50 07/21/24 05:50 Micro: Microbiology 07/20/24 16:48 Blood Culture - Preliminary Blood SPECIMEN COLLECTED 07/20/24 16:47 Blood Culture - Preliminary Blood SPECIMEN COLLECTED A&P Assessment and plan (1) Gastroenteritis: (2) Acute renal insufficiency: (3) Lactic acidosis: (4) Urinary tract infection: (5) Hypotension: Plan Severe dehydration Syncope likely orthostatic Will request echo EKG unremarkable, troponin unremarkable Check D-dimer Continue IV fluid hydration Patient experiencing diarrhea, C. difficile to be ruled out then can use Imodium Concern for UTI however patient not endorsing symptoms Continue cefepime for next 24 hours Blood and urine culture Sepsis? I am not sure if this is entirely sepsis presentation Patient is afebrile, no leukocytosis, procalcitonin unremarkable, I do believe lactic acid is secondary to hypovolemia and hypotension No encephalopathy Patient has been given septic bolus, antibiotic started Acute on chronic kidney disease related dehydration: No sign of obstruction on CT abdomen pelvis, continue cefepime for now Hyperglycemia without signs of DKA Use consistent carb diet and insulin sign scale DVT prophylaxis heparin Full code 07/21/[address] knee. She does have evidence of large joint effusion. Dr. Ritter consulted from orthopedics. Hydrocodone every 8 hours as needed, for breakthrough pain morphine 4 mg every 4 hours as needed. ? Continue cefepime 20 hours for possible UTI however patient is not having any symptoms. Check blood cultures, urine culture. Possible joint infection?? Will check sed rate, CRP. Was quite dehydrated on admission but was responsive to fluid. Lactic acid 2.0 this morning. Initially on admission was 4.8 range. Creatinine has improved. 1.2 at this time. Patient requesting to go home however would like her knee pain addressed prior to discharge secondary to excruciating pain. Has been diabetic since 2011. Is on Lantus and lispro for sliding scale. Patient also takes Trulicity. Follow-up with endocrinology in [place]. Home medications have not been confirmed. I have requested nursing staff to confirm home meds. await echo Patient was quite dehydrated and had syncope at home when blood pressures were down to 70 systolic upon arrival to ER. She was given septic bolus. Septic arthritis not ruled out?? Will await recommendations from orthopedic surgery. I will add vancomycin at this time. Attestations 2 Medical Necessity Statement*: large joint effusion, ortho consult, may need arthrocentesis Diagnoses Gastroenteritis K52.9 Acute renal insufficiency N28.9 Lactic acidosis E87.20 Urinary tract infection N39.0 Hypotension I95.9
[2024-07-21] MEDS: morphine 4 mg/mL SDV 1 mL IVP (14:40)
--- NOTE | 2024-07-21 15:19 | MRR_ITS ---
PROCEDURE INFORMATION: Exam: MR Right Lower Extremity Joint Without Contrast, Knee Exam date and time: 07/21/2024 4:10 PM Age: 49 years old Clinical indication: Pain and injury or trauma; Fall; Blunt trauma and sprain or strain; Right; Patella or knee; Additional info: Joint effusion, trauma TECHNIQUE: Imaging protocol: Magnetic resonance imaging of the right lower extremity joint without contrast. Exam focused on the knee. COMPARISON: CT knee RT wo con* [id number] 07/21/2024 1:23 PM FINDINGS: Bones/joints: Acute-subacute nondisplaced hairline fracture of the posteromedial tibial plateau. No displaced fracture. 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 Intermediate grade patellar chondromalacia. Low-intermediate grade medial femorotibial chondromalacia. Moderate joint effusion. There appears to be a rounded artifact in the suprapatellar bursa, which may represent an air droplet, possibly reflecting recent joint aspiration. Correlation with procedural history is recommended. Medial meniscus: Intact. Lateral meniscus: Intact. Anterior cruciate ligament: Intact. Posterior cruciate ligament: Intact. Medial capsule and supporting structures: Intact. Lateral capsule and supporting structures: Intact. Extensor mechanism of knee: Quadriceps and patellar tendons are intact. [place] are intact. Soft tissues: Soft tissue edema without fluid collection or hematoma. MR/MR knee RT wo con* [id number] IMPRESSION: 1. Acute-subacute nondisplaced hairline fracture of the posteromedial tibial plateau. 2. Menisci, cruciate and collateral ligaments are intact. 3. Intermediate-high grade patellofemoral chondromalacia, particularly of the medial trochlear facet.
--- NOTE | 2024-07-21 15:20 | P.CONIM_ITS ---
Providers/Reason For Consult 2 Consulting Physician/Specialty*: Paulino Ritter DO/orthopedic surgery Reason for Consult*: Right knee effusion?request for aspiration Requesting Physician: Dr. Saldivar Attending Physician: Tracie Saldivar MD History of Present Illness History of Present Illness Kimberly Orellana is a 49 year old female presented emergency department was admitted on 07/20/2024. Patient has history of diabetes hypertension neuropathy takes medical marijuana, complaints of a syncopal event with dehydration nausea vomiting diarrhea states she is just felt sick over the past couple days she unfortunately had a fall and had pain in her right knee since. On admission she is afebrile and no leukocytosis. At this point in time patient being worked up by the primary team she continued to have persistent right knee pain a CT scan was ordered showed a joint effusion no signs of fracture as result orthopedics was consulted for evaluation and quested by the primary team for a joint aspiration. Review of Systems 2 General: Reports: 10 or more systems reviewed and unremarkable except in HPI and below Medications/Allergies Home Medications Medication Instructions Recorded Confirmed Last Taken Type buspirone 7.5 mg tablet 7.5 mg PO BID 01/25/24 07/19/24 01/24/24 History dulaglutide 0.75 mg/0.5 mL 0.75 mg SUBCUT Q7D 01/25/24 07/19/24 Unknown History subcutaneous pen injector (Trulicity) duloxetine 30 mg capsule,delayed 30 mg PO DAILY 01/25/24 07/19/24 01/24/24 History release gabapentin 600 mg tablet 600 mg PO TID 01/25/24 07/19/24 01/24/24 History insulin aspart U-100 100 unit/mL See Rx Instructions .Route .COMPLEX 01/25/24 07/19/24 01/24/24 History (3 mL) subcutaneous pen (Novolog FlexPen U-100 Insulin aspart) insulin detemir U-100 100 unit/mL 50 unit SUBCUT BEDTIME 01/25/24 07/19/24 01/24/24 History (3 mL) subcutaneous pen (Levemir FlexPen) lisinopril 2.5 mg tablet 2.5 mg PO DAILY 01/25/24 07/19/24 01/24/24 History metformin 1,000 mg tablet 1,000 mg PO BID 01/25/24 07/19/24 01/24/24 History rosuvastatin 20 mg tablet 20 mg PO DAILY 01/25/24 07/19/24 01/24/24 History trazodone 50 mg tablet 50 - 100 mg PO BEDTIME 01/25/24 07/19/24 01/24/24 History glycerin (adult) 1 supp OK DAILY PRN constipation 05/01/24 07/19/24 Unknown Rx #12 ea polyethylene glycol 3350 17 17 g PO DAILY #510 grams 05/01/24 07/19/24 Unknown Rx gram/dose oral powder (Miralax) Allergies Allergy/AdvReac Type Severity Reaction Status Date / Time Penicillins Allergy Unknown Verified 07/19/24 09:04 Current Medications Generic Name Dose Route Start Last Admin Trade Name Freq PRN Reason Stop Dose Admin Hydrocodone Bitart/Acetaminophen 1 tab 07/21/24 11:21 07/21/24 11:31 Hydrocodone-Acetaminophen 5-325 Mg Tablet PO 1 tab Q8H PRN Administration MODERATE PAIN Cefepime HCl 2,000 mg 07/21/24 09:00 07/21/24 11:08 Cefepime 2,000 Mg Sdv IVP 2,000 mg DAILY GABRIELA Administration Protocol Duloxetine HCl 30 mg 07/21/24 09:00 07/21/24 09:20 Duloxetine 30 Mg Capsule PO 30 mg DAILY GABRIELA Administration Gabapentin 600 mg 07/20/24 20:27 07/21/24 09:20 Gabapentin 300 Mg Capsule PO 600 mg TID GABRIELA Administration Heparin Sodium (Porcine) 5,000 unit 07/21/24 08:00 07/21/24 09:53 Heparin 5,000 Unit/Ml Inj 1 Ml SUBCUT 5,000 unit Q12H GABRIELA Administration Sodium Chloride 1,000 mls @ 100 mls/hr 07/20/24 18:15 07/21/24 04:40 Sodium Chloride 0.9% IV 100 mls/hr .Q10H GABRIELA Administration Insulin Human Lispro 0 unit 07/20/24 21:00 07/21/24 11:41 Insulin Lispro 100 Unit/1 Ml SUBCUT 8 unit WM&BEDTIME GABRIELA Administration Protocol Morphine Sulfate 4 mg 07/21/24 13:50 07/21/24 14:40 Morphine 4 Mg/Ml Sdv 1 Ml IVP 4 mg Q4H PRN Administration SEVERE PAIN PFSH Acute 2 PFSH: Medical History Diabetes Social History Smoking and tobacco/nicotine status: never used tobacco/nicotine Vitals/I&O/Wt Last Vital Signs Temp 97.9 F 07/21/24 13:51 Pulse 89 07/21/24 13:51 Resp 17 07/21/24 13:51 BP 168/95 07/21/24 13:51 Pulse Ox 95 07/21/24 13:51 O2 Del Method Room Air 07/21/24 13:51 07/21/24 07/21/24 07/21/24 06:59 14:59 22:59 Intake Total 956.667 / 2956.667 480 / 480 Balance 956.667 / 2956.667 480 / 480 Weight last 48 hrs Weight 180 lb Weight 180 lb Physical Exam 2 Narrative: Right knee examination: Initial examination of the right knee was somewhat limited due to patient's pain and guarding. Initial examination demonstrated patient had a moderate to large palpable joint effusion no erythema appreciated. She was able to tolerate micromotion with minimal pain or discomfort unable to assess varus valgus stress or Cordelia's examination secondary to patient's pain and guarding. Patient had a small bruise on the anterior medial aspect of the tibia which she states has been there from a few days ago after having a fall then. Rest of the right knee examination was limited secondary to pain secondary survey examination demonstrated patient had no tenderness palpation of bilateral upper extremity joints and no tenderness palpation of the left lower extremity secondary survey examination was unremarkable to the other extremity joints, patient did have a newly healed metatarsal wound on the left foot plantar that had just been completed and healed with wound care there is a small callus in this area there is no erythema no drainage, no signs of infection here. After right knee aspiration new examination was performed and patient was able to tolerate and bend her knee on her own with no significant pain or discomfort. Negative logroll examination, she did appear to have a stable varus valgus examination slight quad guarding on a Cordelia's examination she did have some mild tenderness to palpation on the joint lines of the knee. No significant bony tenderness palpation of the proximal tibia or the distal femur. Patient was able to perform a straight leg raise with no pain or discomfort consistent with quad mechanism/extensor mechanism intact. Patient is able to wiggle the toes and plantarflex and dorsiflex ankle. Data 07/21/24 05:50 07/21/24 05:50 Micro: Microbiology 07/20/24 16:48 Blood Culture - Preliminary Blood SPECIMEN COLLECTED 07/20/24 16:47 Blood Culture - Preliminary Blood SPECIMEN COLLECTED Other CT: Radiologist's impression: Ordering Provider/Ordering MD: Tracie Saldivar MD Date of Service: 07/21/24 Procedure(s): CT knee RT wo con* [id number] Accession Number(s): [id number] Report Number: [id number] PROCEDURE INFORMATION: Exam: CT Right Lower Extremity, Knee Exam date and time: 07/21/2024 1:23 PM Age: 49 years old Clinical indication: Pain and injury or trauma; Fall; Sprain or strain; Patella or knee; Right TECHNIQUE: Imaging protocol: CT of the right lower extremity without contrast was performed. Exam focused on the knee. Radiation optimization: All CT scans at this facility use at least one of these dose optimization techniques: automated exposure control; mA and/or kV adjustment per patient size (includes targeted exams where dose is matched to clinical indication); or iterative reconstruction. COMPARISON: No relevant prior studies available. RADIATION DOSE METRICS: Total DLP (mGy-cm): 336.63 FINDINGS: Bones/joints: Tricompartmental marginal osteophyte formation noted. Large joint effusion. Joint spaces and alignment maintained. No fracture. Soft tissues: Normal. Vasculature: Calcified atherosclerotic plaque noted. CT/CT knee RT wo con* [id number] IMPRESSION: 1. Large joint effusion. 2. No fracture. A&P Assessment and plan (1) Effusion, right knee: (2) Hemarthrosis of knee, right: Plan CT scan reviewed Labs reviewed Internal medicine on board as primary Hospitalist consulted orthopedics for right knee joint aspiration Recommend right knee hinged knee brace Crutches and walker as needed Patient may weight-bear as tolerated with crutches walker and a brace as needed however if significant pain would recommend moving towards toe-touch weightbearing, as patient on CT scan has no evidence of fracture -Performed right knee joint aspiration and sent for aerobic and anaerobic cultures, Gram stain, crystals, fluid cell analysis -Internal medicine on board and following, appreciate you me to partake in the care of this patient MDM: Patient at this point in time she had a trauma to her right knee large palpable joint effusion CT scans negative for any fracture she does have findings of some tricompartmental marginal osteophyte arthritic changes noted on the CT scan differential diagnosis on high suspicion at this point time would either be a traumatic hemarthrosis secondary to her fall potentially a intra-articular pathology, versus possibly a flareup of her arthritis from the fall. For completeness sake we will send the aspiration for Gram stain as well as fluid cell count and cultures as well as crystals to rule out septic arthritis or an inflammatory arthropathy. Patient at this point in time understood and was agreeable to proceeding with a right knee joint aspiration which was requested by the primary team she signed consent was agreeable and underwent procedure without issues or complications and had considerable improvement with this. Will follow her cell studies at this point time would recommend we have her utilize a hinged knee brace and can ambulate with crutches or a walker however if too painful is okay to be toe-touch weightbearing to the right lower extremity. Ultimately patient understands agrees with current plan. All questions answered. Patient will benefit from an outpatient orthopedic follow- up patient and boyfriend is accompanying her at bedside understands and care plan. All questions answered. Procedure in detail: (Right knee joint aspiration and lidocaine injection) After obtaining consent from patient were then subsequently prepped and draped the right knee in standard orthopedic fashion sterile gloves were used and subsequently utilized an 18-gauge needle and a 50 cc syringes. At this point in time I utilized my nurses office services assistant to use ethyl chloride to freeze the skin for pain tolerance I then subsequently aspirated and bloody hemarthrosis out of the right knee of total 52 cc of bloody hemarthrosis right knee. There is no signs of purulence or infection. In order to help with her pain I then subsequently utilized the same 18-gauge needle that was already in and removed the 52 cc fluid syringe and then subsequent injected 10 cc of 2% lidocaine just to help further pain. Once lidocaine was injected under standard withdrawn inject technique and had easy flow of injection confirming being intra-articular the needle was withdrawn. The fluid was then sent for studies as stated above. Patient was then dressed with a 4 x 4 and aBandage. Patient tolerated procedure without issues or complications. Immediately following she has immediate significant relief of her pain was able to actively flex and extend at her knee and tolerate a knee examination consistent with a stable varus valgus stress and see further examination listed in the examination after aspiration injection. Coding Level of Care Code Acute Code for Chg Fwd Diagnoses Effusion, right knee M25.461 Hemarthrosis of knee, right M25.061 Time Spent (min) 55
--- NOTE | 2024-07-21 15:20 | PHA.VACGOAL ---
Vancomycin Goal - Goal Vancomycin Goal:: 10-15 mg/L Vancomycin Indication:: Other - Therapy Day of therpy:: Day []of [] . Actual body weight (kg): 180 lb - Data Labs: WBC 7.09 10^3/uL (3.29-11.43) 07/21/24 05:50 Corrected WBC Cancelled 07/21/24 04:55 RBC 3.87 10^6/uL (3.85-5.65) 07/21/24 05:50 Hgb 10.90 g/dL (11.27-16.99) L 07/21/24 05:50 Hct 33.0 % (36-47) L 07/21/24 05:50 MCV 85.3 fl (85-98) 07/21/24 05:50 MCH 28.2 pg (27-33) 07/21/24 05:50 MCHC 33.0 g/dL (30-55) 07/21/24 05:50 RDW 12.4 % (12.1-15.1) 07/21/24 05:50 Sodium 139 mmol/L (136-145) 07/21/24 05:50 Potassium 4.3 mmol/L (3.5-5.1) 07/21/24 05:50 Chloride 104 mmol/L (98-107) 07/21/24 05:50 Carbon Dioxide 22 mmol/L (22-29) 07/21/24 05:50 Anion Gap 17.3 (5-19) 07/21/24 05:50 BUN 21 mg/dL (6-20) H 07/21/24 05:50 Creatinine 1.2 mg/dL (0.5-0.9) H 07/21/24 05:50 GFR Calculation 48.2 mL/min (90-130) L 07/21/24 05:50 Treatment plan:: new consult Regimen:: POSSIBLE UTI 1000 MG Q12H
[2024-07-21 15:42] LABS: pH Synovial Fluid 9.5 (7.0-7.5)
[2024-07-21 15:43] LABS: Cyto Order Verification No Order
[2024-07-21 15:44] LABS: Cyto Order Verification Order Verified
[2024-07-21 15:51] LABS: RBC Synovial Fluid 86 10^3/uL (0-0); Synovial Fluid Mononuclear # 0.502 10^3/uL; Synovial Fluid Polynuclear # 0.479 10^3/uL; WBC Synovial Fluid 981 /uL (0-150)
[2024-07-21 15:54] LABS: Color Synovial Fluid RED (PALE YELLOW)
[2024-07-21 15:55] LABS: Appearance Synovial Fluid HAZY (CLEAR); PATH Referal YES
[2024-07-21 15:56] LABS: Glucose Synovial Fluid 315 mg/dL
[2024-07-21 15:57] LABS: Cholesterol Synovial Fluid 7 mg/dL; Total Protein Synovial Fluid 1.1 g/dL
[2024-07-21 15:58] LABS: Triglycerides Synovial Fluid 95 mg/dL
[2024-07-21 16:16] LABS: Crystals, Fluid SENT FOR PATH
[2024-07-21 16:24] LABS: Estmated Average Glucose 220; Hemoglobin A1C 9.3 % (4.0-6.0)
[2024-07-21 16:44] LABS: Glucose Point of Care 254 mg/dL (70-110)
[2024-07-21] MEDS: lidocaine 2% INJ 20 mL 15 ML INJECTION (18:43)
[2024-07-21] MEDS: VANCOMYCIN ADD-Vantage 1,000 MG in 0.9% NaCl ADD-Vantage 250 ML 250 MG IV (20:08)
--- NOTE | 2024-07-21 20:23 | USCV_ITS ---
Kimberly Orellana Age: 49 Gender: F : 1975 Exam Date: 07/21/2024 10:46 Ordering Phys: Natalie Hurst MD Technologist: Ted Byers Exam Location: [facility] – [place] Indication: syncope BP: 149 / 87 HR: 83 Rhythm: Sinus Technical Quality: Adequate MEASUREMENTS (Male / Female) Normal Values 2D ECHO LV Diastolic Diameter PLAX 4.8 cm 4.2 - 5.9 / 3.9 - 5.3 cm IVS Diastolic Thickness 1.1 cm 0.6 - 1.0 / 0.6 - 0.9 cm IVS Systolic Thickness 1.5 cm LVPW Diastolic Thickness 1.5 cm 0.6 - 1.0 / 0.6 - 0.9 cm LVPW Systolic Thickness 1.7 cm LVOT Diameter 2.0 cm LV Ejection Fraction 2D Teich 60.2 % LV Ejection Fraction MOD 4C 56.4 % LV Ejection Fraction MOD 2C 59.1 % LV Ejection Fraction 2C AL 59.5 % LA Diameter 3.0 cm RA Systolic Volume 4C AL 25.8 ml RA Systolic Volume 4C MOD 25.7 ml LA Sys Volume AL 37.2 cm cubed LA Sys Volume Index AL 18.6 cm cubed/m squared Aorta at Sinotubular Diameter 2.5 cm IVC Diameter 1.7 cm M-MODE LA Ao Ratio MM 1.1 AV Cusp Separation MM 1.8 cm DOPPLER AV Peak Velocity 119.0 cm/s LVOT Peak Velocity 79.0 cm/s AV Area Cont Eq vti 2.0 cm squared AV Area Cont Eq pk 2.1 cm squared MV Peak Velocity 89.0 cm/s MV Area PHT 9.1 cm squared Mitral E to A Ratio 0.8 TV Peak Velocity 160.5 cm/s TR Peak Velocity 183.0 cm/s TR Peak Gradient 13.4 mmHg TR Mean Velocity 163.0 cm/s TR Mean Gradient 10.8 mmHg TR Velocity Time Integral 54.4 cm PV Peak Velocity 112.0 cm/s RV Ejection Time 0.2 s FINDINGS Left Ventricle Left ventricle is normal size. LV systolic is normal with EF of 55-60%. No regional wall motion abnormalities seen. Grade 1 diastolic dysfunction Right Ventricle Normal in size and function Right Atrium Normal in size Left Atrium Normal in size Mitral Valve Structurally normal mitral valve. Trace mitral regurgitation. Aortic Valve Structurally normal aortic valve. No significant stenosis or regurgitation. Tricuspid Valve Mild tricuspid regurgitation. Pulmonary artery systolic pressure is normal. Pulmonic Valve Not well visualized Pericardium Normal Aorta Normal in size IVC Appears to be normal CONCLUSIONS LV systolic function is normal with EF of 55-60% Grade 1 diastolic dysfunction Trace mitral regurgitation Mild tricuspid regurgitation No comparison studies are available. Owen Malhotra MD (Electronically Signed) Final Date: 21 July 2024 12:27 S
[2024-07-21 20:53] LABS: Glucose Point of Care 232 mg/dL (70-110)
[2024-07-22 04:00] VITALS: BP 129/81; PULSE 88; RESP 15; TEMP 36.8; O2SAT 97
[2024-07-22 04:46] LABS: Basophils % 0.3 %; Eosinophils # 0.2 10^3/uL (0.0-0.8); Eosinophils % 2.6 %; Lymphocytes # 2.1 10^3/uL (0.8-4.8); Mean Corpuscular HGB Conc 34.5 g/dL (30-55); Mean Corpuscular Hemoglobin 28.6 pg (27-33); Mean Corpuscular Volume 82.9 fl (85-98); Mean Platelet Volume 10.4 fL (7.4-10.4); Monocytes # 0.4 10^3/uL (0.2-0.9); Monocytes % 6.2 %; Neutrophils # 3.26 10^3/uL (1.8-7.7); Neutrophils % 55.7 %; Nucleated Red Blood Cells % 0 %; Platelet Count 218 10^3/cmm (157-399); Red Blood Count 3.74 10^6/uL (3.85-5.65); Red Cell Distribution Width 12.4 % (12.1-15.1); White Blood Count 5.85 10^3/uL (3.29-11.43)
[2024-07-22 05:11] LABS: Alanine Aminotransferase 12 U/L (0-33); Albumin Level 3.6 g/dL (3.5-5.2); Alkaline Phosphatase 36 U/L (35-105); Anion Gap 15.1 (5-19); Aspartate Amino Transferase 16 U/L (0-32); Blood Urea Nitrogen 14 mg/dL (6-20); Calcium 8.5 mg/dL (8.5-10.5); Carbon Dioxide 25 mmol/L (22-29); Chloride 104 mmol/L (98-107); Creatinine Clr Calc Pharmacy 88.8263; Globulin 2.3 g/dL (1.3-4.6); Glomerular Filtration Rate 67.1 mL/min (90-130); Glucose 164 mg/dL (65-115); Magnesium 1.8 mg/dL (1.7-2.3); Osmolality Calculated 294 mOsm/kg (285-295); Potassium 4.1 mmol/L (3.5-5.1); Sodium 140 mmol/L (136-145); Total Bilirubin 0.2 mg/dL (0.15-1.2); Total Protein 5.9 g/dL (6.6-8.7)
[2024-07-22] MEDS: HYDROcodone-acetaminophen 5-325 mg Tablet 1 TAB PO ×3 (06:23→21:38)
[2024-07-22 06:33] LABS: Glucose Point of Care 211 mg/dL (70-110)
[2024-07-22 07:15] VITALS: BP 156/78; PULSE 83; RESP 16; TEMP 36.9; O2SAT 95
[2024-07-22] MEDS: insulin lispro 100 unit/1 mL SUBCUT ×4 (08:02→21:37)
[2024-07-22] MEDS: cefepime 2,000 mg SDV 2000 MG IVP (08:03)
[2024-07-22] MEDS: heparin 5,000 unit/mL INJ 1 mL 5000 UNIT SUBCUT ×2 (08:03→20:10)
[2024-07-22] MEDS: gabapentin 300 mg Capsule 600 MG PO ×3 (08:03→20:10)
[2024-07-22] MEDS: duloxetine 30 mg Capsule PO (08:03)
[2024-07-22] MEDS: VANCOMYCIN ADD-Vantage 1,000 MG in 0.9% NaCl ADD-Vantage 250 ML 250 MG IV ×2 (08:15→20:10)
[2024-07-22 11:58] LABS: Glucose Point of Care 230 mg/dL (70-110)
[2024-07-22 12:00] VITALS: BP 147/72; PULSE 91; RESP 16; TEMP 36.8; O2SAT 96
[2024-07-22 16:00] VITALS: BP 148/77; PULSE 94; RESP 16; TEMP 36.7; O2SAT 94
[2024-07-22 16:31] LABS: Glucose Point of Care 273 mg/dL (70-110)
--- NOTE | 2024-07-22 17:50 | P.PN_ITS ---
Subjective 2 Subjective: Hospital course, labs appreciated. Seen laying comfortably in bed with complaining of knee pain. Denies any nausea, ting, headache. Has remained hemodynamically stable and afebrile. Vitals/I&O/Wt Last Vital Signs Temp 98.0 F 07/22/24 16:00 Pulse 94 07/22/24 16:00 Resp 16 07/22/24 16:00 BP 148/77 07/22/24 16:00 Pulse Ox 94 07/22/24 16:00 O2 Del Method Room Air 07/22/24 16:00 07/22/24 07/22/24 07/22/24 06:59 14:59 22:59 Intake Total 1090 / 1090 Balance 1090 / 1090 Weight last 48 hrs Weight 82.735 kg Weight 81.647 kg Physical Exam 2 Narrative: General: No acute distress, AO x3 HEENT: PERRLA, pupils bilaterally equal and reactive Chest: Normal vesicular breath sounds, no added sounds, equal good air entry bilaterally CVS: S1-S2 regular, no murmurs, no tachycardia, no gallops, no rubs Abdomen: Soft, nontender, no organomegaly, bowel sounds present Neuro: No focal deficits, no facial deformity, AO x3, power 5/5 in all limbs Right knee in brace Data 07/22/24 02:40 07/22/24 02:40 Micro: Microbiology 07/21/24 15:04 Gram Stain - Final Knee - Synovial Fluid Abscess Culture - Preliminary 07/21/24 15:04 Anaerobic Culture - Preliminary Synovial Fluid 07/20/24 15:50 Urine Culture - Preliminary Urine,Clean Catch 07/20/24 16:48 Blood Culture - Preliminary Blood NEGATIVE TO DATE 07/20/24 16:47 Blood Culture - Preliminary Blood NEGATIVE TO DATE A&P Assessment and plan (1) Gastroenteritis: Follow-up stool studies. For now continue with IV cefepime and vancomycin. C. difficile negative. High concern for viral gastroenteritis. Seem to be resolved. (2) Acute renal insufficiency: In setting of dehydration due to diarrhea from gastroenteritis. Resolved. Creatinine down to 0.9. Stop IV fluids. Continue with oral intake. Monitor BMP daily. (3) Lactic acidosis: Resolved. In setting of gastroenteritis. (4) Urinary tract infection: (5) Hypotension: Goal blood pressure less than 140/90 mmHg with mean over 65. Not starting lisinopril given recent CHANEL. Start on amlodipine 5 mg oral daily. (6) Hemarthrosis of knee, right: Most likely traumatic in nature. MRI concern for hairline fracture. Post arthrocentesis. Follow-up fluid culture results. For now continue with empiric IV antibiotics. Appreciate orthopedic recommendation. (7) Right knee pain: Plan Type 2 diabetes mellitus: Check A1c. Continue with insulin sliding scale before meals and at bedtime. Restart other home medication including Cymbalta, gabapentin. Full code Carb consistent cardiac diet Heparin 5000 Q12 hourly for DVT prophylaxis Attestations 2 Medical Necessity Statement*: Requires further hospitalization for management of dehydration, syncope in setting of hypotension due to gastroenteritis, right knee pain in setting of hemarthrosis, hairline fracture while joint infection is ruled out Diagnoses Gastroenteritis K52.9 Acute renal insufficiency N28.9 Lactic acidosis E87.20 Urinary tract infection N39.0 Hypotension I95.9 Hemarthrosis of knee, right M25.061 Right knee pain M25.561
[2024-07-22 20:00] VITALS: BP 139/64; PULSE 87; RESP 16; TEMP 36.9; O2SAT 93
[2024-07-22] MEDS: amlodipine 5 mg Tablet PO (20:10)
--- NOTE | 2024-07-22 20:41 | P.PN_ITS ---
Subjective 2 Subjective: Patient seen and examined today she had a follow-up of her MRI as well as follow-up of the still studies. At this point time so studies can be consistent with traumatic hemarthrosis there is a small posterior and medial aspect avulsion of the medial tibial plateau this is very small in nature there is no evidence of length instability or violation of the entire medial plateau or sharing recommend nonoperative treatment we will switch her to toe-touch weightbearing at this time PT/OT plan discharge today per primary Vitals/I&O/Wt Last Vital Signs Temp 98.0 F 07/22/24 16:00 Pulse 94 07/22/24 16:00 Resp 16 07/22/24 16:00 BP 148/77 07/22/24 16:00 Pulse Ox 94 07/22/24 16:00 O2 Del Method Room Air 07/22/24 16:00 07/22/24 07/22/24 07/22/24 06:59 14:59 22:59 Intake Total 1090 / 1090 480 / 1570 Balance 1090 / 1090 480 / 1570 Weight last 48 hrs Weight 182 lb 6.4 oz Weight 180 lb Physical Exam 2 Narrative: Examination of the right knee patient is able to tolerate flexing extending of the right knee better some tenderness palpation over the posterior medial aspect of the knee stable with varus valgus stress. Patient is able to plantarflex and dorsiflex ankle. Mild joint effusion appreciated. Data 07/23/24 06:56 07/23/24 06:56 Micro: Microbiology 07/21/24 15:04 Gram Stain - Final Knee - Synovial Fluid Abscess Culture - Preliminary 07/21/24 15:04 Anaerobic Culture - Preliminary Synovial Fluid 07/20/24 15:50 Urine Culture - Preliminary Urine,Clean Catch 07/20/24 16:48 Blood Culture - Preliminary Blood NEGATIVE TO DATE 07/20/24 16:47 Blood Culture - Preliminary Blood NEGATIVE TO DATE MRI: Radiologist's impression: Ordering Provider/Ordering MD: Tracie Saldivar MD Date of Service: 07/21/24 Procedure(s): MR knee RT wo con* [id number] Accession Number(s): [id number] Report Number: [id number] PROCEDURE INFORMATION: Exam: MR Right Lower Extremity Joint Without Contrast, Knee Exam date and time: 07/21/2024 4:10 PM Age: 49 years old Clinical indication: Pain and injury or trauma; Fall; Blunt trauma and sprain or strain; Right; Patella or knee; Additional info: Joint effusion, trauma TECHNIQUE: Imaging protocol: Magnetic resonance imaging of the right lower extremity joint without contrast. Exam focused on the knee. COMPARISON: CT knee RT wo con* [id number] 07/21/2024 1:23 PM FINDINGS: Bones/joints: Acute-subacute nondisplaced hairline fracture of the posteromedial tibial plateau. No displaced fracture. 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 Intermediate grade patellar chondromalacia. Low-intermediate grade medial femorotibial chondromalacia. Moderate joint effusion. There appears to be a rounded artifact in the suprapatellar bursa, which may represent an air droplet, possibly reflecting recent joint aspiration. Correlation with procedural history is recommended. Medial meniscus: Intact. Lateral meniscus: Intact. Anterior cruciate ligament: Intact. Posterior cruciate ligament: Intact. Medial capsule and supporting structures: Intact. Lateral capsule and supporting structures: Intact. Extensor mechanism of knee: Quadriceps and patellar tendons are intact. Retinacula are intact. Soft tissues: Soft tissue edema without fluid collection or hematoma. MR/MR knee RT wo con* [id number] IMPRESSION: 1. Acute-subacute nondisplaced hairline fracture of the posteromedial tibial plateau. 2. Menisci, cruciate and collateral ligaments are intact. 3. Intermediate-high grade patellofemoral chondromalacia, particularly of the medial trochlear facet. A&P Assessment and plan (1) Fracture of medial portion of tibial plateau: (2) Hemarthrosis of knee, right: (3) Effusion, right knee: (4) Right knee pain: Plan CT scan reviewed MRI reviewed Labs reviewed-fluid cell study from joint aspiration sent only 981 WBCs with a 48.9% of PMNs 86 RBCs consistent with bloody hemarthrosis Internal medicine on board as primary Recommend right knee hinged knee brace Crutches and walker as needed Ice and elevate as needed for pain and swelling as well as compressive Vini wrap's or compressive Tubigrip sleeves Patient should be toe-touch weightbearing utilizing crutches at this time given patient had fracture. Stable for discharge from orthopedic standpoint orthopedic surgery team will sign off patient at this time follow peripherally recommend follow-up with us in 1 to 2 weeks patient should be excused from work until follow-up she should be toe-touch weightbearing and utilize her brace we talked about this in detail with patient she understands agrees to current plan. All questions answered. Proceed Us to partake in the care of this patient. Attestations 2 Medical Necessity Statement*: Ongoing care right knee injury right posterior medial tibial plateau fracture Coding Level of Care Code Acute Code for g Fwd Diagnoses Fracture of medial portion of tibial plateau S82.133A Hemarthrosis of knee, right M25.061 Effusion, right knee M25.461 Right knee pain M25.561 Time Spent (min) 15
[2024-07-22 21:13] LABS: Glucose Point of Care 200 mg/dL (70-110)
[2024-07-22 23:53] LABS: Thyroid Stimulating Hormone 0.73 uIU/mL (0.27-4.20); Vitamin B12 541 pg/mL (232-1245)
[2024-07-23] VITALS: BP 121/71; PULSE 87; RESP 18; TEMP 36.5; O2SAT 95
[2024-07-23 04:00] VITALS: BP 160/98; PULSE 90; RESP 16; TEMP 36.7; O2SAT 97
[2024-07-23 06:14] LABS: Chol HDL Ratio 2.91 mg/dL (0.0-4.40); Cholesterol 102 mg/dL (0-200); HDL Cholesterol 35 mg/dL (60-100); LDL Cholesterol Calculated 4 mg/dL (50-129); Triglycerides 316 mg/dL (0-150); VLDL Cholestrol Calculation 63 mg/dL (0-30)
[2024-07-23 06:20] LABS: Folate Level 14.7 ng/mL (4.8-37.3)
[2024-07-23 06:35] LABS: Glucose Point of Care 217 mg/dL (70-110)
[2024-07-23 07:05] LABS: Basophils % 0.4 %; Eosinophils # 0.2 10^3/uL (0.0-0.8); Eosinophils % 3.7 %; Hematocrit 32.7 % (36-47); Lymphocytes # 1.8 10^3/uL (0.8-4.8); Lymphocytes % 37.2 %; Mean Corpuscular HGB Conc 34.6 g/dL (30-55); Mean Corpuscular Hemoglobin 28.8 pg (27-33); Mean Corpuscular Volume 83.4 fl (85-98); Mean Platelet Volume 9.8 fL (7.4-10.4); Monocytes # 0.4 10^3/uL (0.2-0.9); Monocytes % 7.8 %; Neutrophils # 2.46 10^3/uL (1.8-7.7); Neutrophils % 50.5 %; Nucleated Red Blood Cells % 0 %; Platelet Count 208 10^3/cmm (157-399); Red Blood Count 3.92 10^6/uL (3.85-5.65); Red Cell Distribution Width 12.6 % (12.1-15.1); White Blood Count 4.87 10^3/uL (3.29-11.43)
[2024-07-23 07:19] LABS: Vancomycin Trough 18.7 ug/mL (10-15)
[2024-07-23 07:41] LABS: Alanine Aminotransferase 14 U/L (0-33); Albumin Level 3.6 g/dL (3.5-5.2); Alkaline Phosphatase 33 U/L (35-105); Anion Gap 13.7 (5-19); Aspartate Amino Transferase 17 U/L (0-32); Blood Urea Nitrogen 10 mg/dL (6-20); Carbon Dioxide 26 mmol/L (22-29); Chloride 103 mmol/L (98-107); Creatinine Clr Calc Pharmacy 115.2298; Globulin 2.6 g/dL (1.3-4.6); Glomerular Filtration Rate 89.7 mL/min (90-130); Glucose 229 mg/dL (65-115); Osmolality Calculated 292 mOsm/kg (285-295); Potassium 4.7 mmol/L (3.5-5.1); Sodium 138 mmol/L (136-145); Total Bilirubin 0.2 mg/dL (0.15-1.2); Total Protein 6.2 g/dL (6.6-8.7)
[2024-07-23 08:00] VITALS: BP 163/94; PULSE 89; RESP 17; TEMP 36.9; O2SAT 95
[2024-07-23] MEDS: VANCOMYCIN ADD-Vantage 1,000 MG in 0.9% NaCl ADD-Vantage 250 ML 250 MG IV (08:30)
[2024-07-23] MEDS: insulin lispro 100 unit/1 mL SUBCUT ×2 (08:30→12:16)
[2024-07-23] MEDS: duloxetine 30 mg Capsule PO (08:31)
[2024-07-23] MEDS: heparin 5,000 unit/mL INJ 1 mL 5000 UNIT SUBCUT (08:31)
[2024-07-23] MEDS: gabapentin 300 mg Capsule 600 MG PO (08:31)
[2024-07-23] MEDS: cefepime 2,000 mg SDV 2000 MG IVP (08:31)
[2024-07-23] MEDS: HYDROcodone-acetaminophen 5-325 mg Tablet 1 TAB PO (08:44)
--- NOTE | 2024-07-23 11:27 | P.DS_ITS ---
Discharge Providers Date of Admission: 07/21/24 14:01 Date of Discharge: July 23, 2024 Attending Provider at Admission: Tracie Saldivar MD Attending Provider at Discharge: August Ariza MD Consults: Orthopedics: Dr. Ritter Diagnoses at Discharge Discharge Diagnosis (1) Fracture of medial portion of tibial plateau: Status: Acute (2) Hemarthrosis of knee, right: Status: Acute (3) Effusion, right knee: Status: Acute (4) Right knee pain: Status: Acute Reason for Visit Reason for Visit: passsing out Brief History: History as per HPI: Kimberly Orellana is a 49 year old female with history of diabetes, hypertension, neuropathy takes medical marijuana, presented with chief complaint of syncopal event dehydration nausea vomiting and diarrhea. Patient is stating that she has been sick for last 2 to 3 days, she has not noticed any chest pain shortness of breath fever urinary incontinence or abdominal pain. She has been experiencing nausea vomiting for last 2 days, today she started spearing seeing diarrhea. She had 1 syncopal event, stayed on the ground for about 5 minutes, blood sugar was around 400 as per the . In the ER she was diagnosed with severe dehydration and hypovolemia. Blood pressure improved with IV fluid hydration, patient does have abnormal UA however she is not endorsing symptoms of UTI. She has been started on cefepime after septic bolus. She is afebrile without leukocytosis. CT abdomen pelvis unremarkable other than nonobstructing stone. She is experiencing diarrhea, I have requested C. difficile panel. At the time of evaluation she is awake and alert x 3 blood pressure 113/72-minute mercury, sinus rhythm heart rate 90, patient was asking if she could be discharged tomorrow because she has a new job at a [employer] on Monday that she is starting. I have counseled her not to start her new job if she is having diarrhea. Hospital Course Hospital Course Patient was admitted to the hospital further evaluation and management hypotension leading to syncope and due to severe dehydration from gastro enteritis along with acute kidney injury. He she was started on IV fluids after which her kidney functions improved. At first she was started on antibiotics for a possible UTI. Patient during hospitalization was found to have a right knee swelling along with extensive pain. Given concerns for possible sepsis at first orthopedics was consulted for arthrocentesis to rule out septic joint. He underwent MRI of the joint which was concerning for acute to subacute nondisplaced hairline fracture of posterior medial tibial plateau. She is to be treated conservatively for healing fracture. Fluid studies have been negative for signs of infection. She has been discharged in hemodynamically stable condition on pain medication, crutches with advised to follow-up with orthopedics team in next 2 weeks as an outpatient. Physical Exam Narrative: General: No acute distress, AO x3 HEENT: PERRLA, pupils bilaterally equal and reactive Chest: Normal vesicular breath sounds, no added sounds, equal good air entry bilaterally CVS: S1-S2 regular, no murmurs, no tachycardia, no gallops, no rubs Abdomen: Soft, nontender, no organomegaly, bowel sounds present Neuro: No focal deficits, no facial deformity, AO x3, power 5/5 in all limbs Right knee in brace Discharge Data Studies Completed and Pending Completed Studies During Hospitalization Category Date Time Status CT abdomen pelvis wo con [id number] Stat Cat Scan 07/20/24 17:[address] head wo con* [id number] Stat Cat Scan 07/20/24 14:[address] knee RT wo con* [id number] Routine Cat Scan 07/21/24 11:23 Completed XR chest 1V portable [id number] Stat Exams 07/20/24 14:24 Completed MR knee RT wo con* [id number] Routine MRI 07/21/24 15:19 Completed CV. echo complete* [id number] Routine Ultrasound 07/21/24 20:23 Completed Pending at discharge Category Date Time Status Abscess Culture and Gram Stain Stat Lab 07/21/24 15:04 Results Anaerobic Culture Stat Lab 07/21/24 15:04 Results Blood Culture Stat Lab 07/20/24 16:48 Results Stool Culture - Enteric [Salmonella / Shigella / Campy] Lab 07/20/24 19:32 Received Routine Cytology [PTH] Routine Pth 07/21/24 15:04 Received Radiology Impressions Chest X-Ray 07/20/24 14:24 IMPRESSION: No acute findings. Head CT 07/20/24 14:26 IMPRESSION: No acute intracranial abnormality. Abdomen/Pelvis CT 07/20/24 17:43 IMPRESSION: No acute findings. Evaluation for pyelonephritis is limited without contrast, which appear unremarkable aside from a punctate nonobstructing stone in the right kidney. Knee CT 07/21/24 11:23 IMPRESSION: 1. Large joint effusion. 2. No fracture. Knee MRI 07/21/24 15:19 IMPRESSION: 1. Acute-subacute nondisplaced hairline fracture of the posteromedial tibial plateau. 2. Menisci, cruciate and collateral ligaments are intact. 3. Intermediate-high grade patellofemoral chondromalacia, particularly of the medial trochlear facet. Laboratory Results WBC 4.87 10^3/uL (3.29-11.43) 07/23/24 06:56 Corrected WBC Cancelled 07/21/24 04:55 RBC 3.92 10^6/uL (3.85-5.65) 07/23/24 06:56 Hgb 11.30 g/dL (11.27-16.99) 07/23/24 06:56 Hct 32.7 % (36-47) L 07/23/24 06:56 MCV 83.4 fl (85-98) L 07/23/24 06:56 MCH 28.8 pg (27-33) 07/23/24 06:56 MCHC 34.6 g/dL (30-55) 07/23/24 06:56 RDW 12.6 % (12.1-15.1) 07/23/24 06:56 Plt Count 208 10^3/cmm (157-399) 07/23/24 06:56 MPV 9.8 fL (7.4-10.4) 07/23/24 06:56 Gran % Cancelled 07/21/24 04:55 Neut % (Auto) 50.5 % 07/23/24 06:56 Lymph % (Auto) 37.2 % 07/23/24 06:56 [place] % (Auto) 7.8 % 07/23/24 06:56 Eos % (Auto) 3.7 % 07/23/24 06:56 Baso % (Auto) 0.4 % 07/23/24 06:56 Neut # (Auto) 2.46 10^3/uL (1.8-7.7) 07/23/24 06:56 Lymph # (Auto) 1.8 10^3/uL (0.8-4.8) 07/23/24 06:56 [place] # (Auto) 0.4 10^3/uL (0.2-0.9) 07/23/24 06:56 Eos # (Auto) 0.2 10^3/uL (0.0-0.8) 07/23/24 06:56 Baso # (Auto) 0.0 10^3/uL (0.0-0.1) 07/23/24 06:56 Absolute Gran (auto) Cancelled 07/21/24 04:55 Nucleated RBC % (auto) 0 % 07/23/24 06:56 Nucleated RBCs # 0.0 /100WBC 07/23/24 06:56 Specimen Type Arterial 07/20/24 15:02 Sample Site Radial, right 07/20/24 15:02 ABG pH 7.42 (7.35-7.45) 07/20/24 15:02 ABG pCO2 41.5 mmHg (35-45) 07/20/24 15:02 ABG pO2 66.5 mmHg (80.0-100.0) L 07/20/24 15:02 ABG PO2/FiO2 Ratio 316 07/20/24 15:02 ABG HCO3 27.0 mmol/L (22-26) H 07/20/24 15:02 ABG O2 Saturation 95.3 07/20/24 15:02 ABG Base Excess 2.2 mmol/L (-2.0-2.0) H 07/20/24 15:02 Juan Carlos Test Pos 07/20/24 15:02 A-a O2 Gradient 4.2 mmHg (5-10) L 07/20/24 15:02 Hematocrit 39.1 % (37-47) 07/20/24 15:02 Hgb O2 Saturation 93.9 % (95-100) L 07/20/24 15:02 Carboxyhemoglobin 1.4 %THgb (0.4-20.1) 07/20/24 15:02 Methemoglobin 0.1 % (0.4-1.5) L 07/20/24 15:02 Total Hemoglobin 12.8 g/dL (12-16) 07/20/24 15:02 Sodium 143.0 mmol/L (131-143) 07/20/24 15:02 Potassium 3.3 mmol/L (3.5-5.0) L 07/20/24 15:02 Glucose 224.0 mg/dL (70-115) H 07/20/24 15:02 Ionized Calcium 1.2 mmol/L (1.1-1.4) 07/20/24 15:02 O2 Delivery Device Room air 07/20/24 15:02 FiO2 21.0 % 07/20/24 15:02 Home Visit Field Care Manager ID [email or web address] 07/20/24 15:02 Sodium 138 mmol/L (136-145) 07/23/24 06:56 Potassium 4.7 mmol/L (3.5-5.1) 07/23/24 06:56 Chloride 103 mmol/L (98-107) 07/23/24 06:56 Carbon Dioxide 26 mmol/L (22-29) 07/23/24 06:56 Anion Gap 13.7 (5-19) 07/23/24 06:56 BUN 10 mg/dL (6-20) 07/23/24 06:56 Creatinine 0.7 mg/dL (0.5-0.9) 07/23/24 06:56 GFR Calculation 89.7 mL/min (90-130) L 07/23/24 06:56 Glucose 229 mg/dL (65-115) H 07/23/24 06:56 POC Glucose 217 mg/dL (70-110) H 07/23/24 06:30 Estimat Average Glucose 220 07/21/24 05:50 Hemoglobin A1c 9.3 % (4.0-6.0) H 07/21/24 05:50 Calculated Osmolality 292 mOsm/kg (285-295) 07/23/24 06:56 Lactic Acid 1.0 mmol/L (0.5-2.2) 07/21/24 18:18 Lactic Acid (Sepsis) 2.9 mmol/L (0.5-2.2) H 07/20/24 16:47 Calcium 9.0 mg/dL (8.5-10.5) 07/23/24 06:56 Magnesium 1.8 mg/dL (1.7-2.3) 07/22/24 02:40 Total Bilirubin 0.2 mg/dL (0.15-1.2) 07/23/24 06:56 AST 17 U/L (0-32) 07/23/24 06:56 ALT 14 U/L (0-33) 07/23/24 06:56 Alkaline Phosphatase 33 U/L (35-105) L 07/23/24 06:56 Troponin T Baseline 31 ng/L (0-10) H 07/20/24 14:30 Troponin T 120 Minute 22.21 ng/L (0-10) H 07/20/24 16:47 Delta Troponin T -8.79 ABS# (0-10) L 07/20/24 16:47 C-Reactive Protein 3.0 mg/L (0.0-4.9) 07/21/24 05:50 Total Protein 6.2 g/dL (6.6-8.7) L 07/23/24 06:56 Albumin 3.6 g/dL (3.5-5.2) 07/23/24 06:56 Globulin 2.6 g/dL (1.3-4.6) 07/23/24 06:56 Triglycerides 316 mg/dL (0-150) H 07/23/24 04:35 Cholesterol 102 mg/dL (0-200) 07/23/24 04:35 LDL Cholesterol, Calc 4 mg/dL (50-129) L 07/23/24 04:35 Total VLDL Cholesterol 63 mg/dL (0-30) H 07/23/24 04:35 HDL Cholesterol 35 mg/dL (60-100) L 07/23/24 04:35 Cholesterol/HDL Ratio 2.91 mg/dL (0.0-4.40) 07/23/24 04:35 Vitamin B12 541 pg/mL (232-1245) 07/22/24 18:33 Folate 14.7 ng/mL (4.8-37.3) 07/23/24 04:35 Procalcitonin 0.10 ng/mL (0-0.5) 07/21/24 05:50 TSH 0.73 uIU/mL (0.27-4.20) 07/22/24 18:33 Urine Color Dark yellow (Yellow) A 07/20/24 15:50 Urine Appearance Turbid (CLEAR) A 07/20/24 15:50 Urine pH 5.0 (5-7) 07/20/24 15:50 Ur Specific [place] 1.030 (1.005-1.030) 07/20/24 15:50 Urine Protein 3+ (Negative) A 07/20/24 15:50 Urine Glucose (UA) 3+ (Normal) H 07/20/24 15:50 Urine Ketones 1+ (Negative) H 07/20/24 15:50 Urine Blood Negative (Negative) 07/20/24 15:50 Urine Nitrate Negative (Negative) 07/20/24 15:50 Urine Bilirubin Negative (Negative) 07/20/24 15:50 Urine Urobilinogen 1.0 mg/dL (Negative) 07/20/24 15:50 Ur Leukocyte Esterase Trace (Negative) A 07/20/24 15:50 Urine RBC 0-2 /hpf (0-2) 07/20/24 15:50 Urine WBC 11-20 /hpf (0-5) H 07/20/24 15:50 Ur Squamous Epith Cells 21-50 /hpf (0-5) H 07/20/24 15:50 Amorphous Sediment Not Reportable 07/20/24 15:50 Urine Bacteria 4+ /hpf (NONE) H 07/20/24 15:50 Hyaline Casts 165.50 /lpf 07/20/24 15:50 Fluid Crystals Sent for path 07/21/24 15:04 Synovial Color Red (PALE YELLOW) 07/21/24 15:04 Synovial Appearance Hazy (CLEAR) 07/21/24 15:04 Synovial pH 9.5 (7.0-7.5) H 07/21/24 15:04 Synovial WBC 981 /uL (0-150) H 07/21/24 15:04 Synovial RBC 86 10^3/uL (0-0) H 07/21/24 15:04 Synovial Mononuclear 0.502 10^3/uL 07/21/24 15:04 Synov Polynuclear WBCs 0.479 10^3/uL 07/21/24 15:04 Synovial Other Cells Not Reportable 07/21/24 15:04 Synovial Polynuclear % 48.900 % 07/21/24 15:04 Synovial Mononuclear % 51.100 % 07/21/24 15:04 Synovial Glucose 315 mg/dL 07/21/24 15:04 Synovial Total Protein 1.1 g/dL 07/21/24 15:04 Synovial LDH 255.0 U/L 07/21/24 15:04 Synovial Amylase Cancelled 07/21/24 15:04 Synovial Cholesterol 7 mg/dL 07/21/24 15:04 Synovial Triglycerides 95 mg/dL 07/21/24 15:04 Vancomycin Trough 18.7 ug/mL (10-15) H 07/23/24 06:56 Serum Ketones Negative (Negative) 07/20/24 14:30 C. difficile (PCR) Negative (Negative) 07/20/24 19:32 Coronavirus (PCR) Negative (Negative) 07/20/24 14:20 Influenza A (PCR) Negative (Negative) 07/20/24 14:20 Influenza Type B (PCR) Negative (Negative) 07/20/24 14:20 RSV (PCR) Negative (Negative) 07/20/24 14:20 Path Cons w/Slide Yes 07/21/24 15:04 Vitals Last Vital Signs Temp 98.5 F 07/23/24 08:00 Pulse 89 07/23/24 08:00 Resp 17 07/23/24 08:00 BP 163/94 07/23/24 08:00 Pulse Ox 95 07/23/24 08:00 O2 Del Method Room Air 07/23/24 08:00 Discharge Plan Discharge Patient Disposition: Home Condition: Stable Prescriptions: New tramadol 50 mg tablet 50 mg PO Q8H PRN (Reason: pain) Qty: 14 0RF Continued polyethylene glycol 3350 [Miralax] 17 gram/dose powder 17 g PO DAILY Qty: 510 0RF Rx Instructions: Take 1-2 scoops daily for the next 3 months to keep stools soft gabapentin 600 mg tablet 600 mg PO TID trazodone 50 mg tablet 50 - 100 mg PO BEDTIME buspirone 7.5 mg tablet 7.5 mg PO BID insulin aspart U-100 [Novolog FlexPen U-100 Insulin] 100 unit/mL (3 mL) insulin pen See Rx Instructions .ROUTE .COMPLEX Rx Instructions: INJECT 14 UNITS BY SUBCUTANEOUS INJECTION TWICE DAILY BEFORE MEALS. IF BLOOD SUGAR OVER 200, GIVE ADDITIONAL 10 UNITS FOR TOTAL OF 24 UNITS. MAX DAILY DOSE 48 UNITS. rosuvastatin 20 mg tablet 20 mg PO DAILY duloxetine 30 mg capsule,delayed release(DR/EC) 30 mg PO DAILY Trulicity 0.75 mg/0.5 mL pen injector 0.75 mg SUBCUT Q7D Changed lisinopril 2.5 mg tablet 5 mg PO DAILY Qty: 30 0RF Discharge Orders: Discharge Order (Routine); Ordered 07/23/24 Ordered By: August Ariza Other Ambulatory Orders: DME: Cane/ Crutches (Order) Location: None Selected Ordered By: Tracie Saldivar Referrals: Paulino Ritter DO [Physician] - 08/06/24 11:15 am (1-2wks ) Discharge Diet: Regular and Diabetic Discharge Activity: Limit activity as instructed and Use walker/crutches as instructed Patient Instructions: Tramadol (By mouth), Syncope (GEN), Swollen Knee Joint (GEN), Opioid Safety Activity Restrictions/Additional Instructions: Please follow-up with your primary care provider within next 1 week. Please check your blood pressure daily at home maintain a blood pressure diary and follow-up with a primary care provider for further adjustment of medications. Goal blood pressure of less than 140/90 mmHg. For now your dose of lisinopril has been changed to 5 mg oral daily. Orthopedic discharge instructions: Recommend utilize right knee hinged knee brace Crutches And/or walker as needed for ambulation Pain control per primary Recommend ice and elevation for pain and swelling Okay to utilize Vini wrap or compressive sleeve dressing to help with swelling Encourage knee range of motion as patient can tolerate I would recommend toe-touch weightbearing to the right lower extremity. Would recommend utilizing crutches and/or walker as well as a hinged knee brace when ambulating at this point in time. Follow-up in the orthopedic office outpatient upon discharge recommend within the next 1 to 2 weeks Contact orthopedic office for any questions or concerns Discharge Attestations Time Spent in Discharge Care*: greater than 30 min Specific Discharge Activities: educating patient, discussing with pcp/other providers, discussing with case management assistant/social workers/dc planners, documenting/other paperwork and evaluating patient/reviewing data Status at Discharge: Cognitive status at discharge: cognitively intact , Behavioral status at discharge: cooperative , Functional status at discharge: uses cane/walker , Overall status at discharge: patient is progressing back to baseline Quality Metrics Clinical Quality Measures [ No reported AMI, CVA or VTE this stay] Coding Level of Care Code 12968 Total time (in minutes) for Discharge: 60 Diagnoses Fracture of medial portion of tibial plateau S82.133A Hemarthrosis of knee, right M25.061 Effusion, right knee M25.461 Right knee pain M25.561
[2024-07-23 11:56] LABS: Glucose Point of Care 246 mg/dL (70-110)
[2024-07-23 12:00] VITALS: BP 149/77; PULSE 95; RESP 17; TEMP 37; O2SAT 95
[2024-07-23 15:13] VITALS: BP 149/77; PULSE 95; RESP 17; TEMP 37; O2SAT 92
== END 2024-07-23 15:16 | disposition home or self-care (01) | DRG 392 ==
LOC: ER 16:47 → ER IP 17:58 → MEDSURG 07-21 03:53
PROVIDERS: Internal Medicine; Student in an Organized Health Care Education/Training Program; Admitting Provider Internal Medicine; Emergency Provider Emergency Medicine; Visit Provider Student in an Organized Health Care Education/Training Program
DX: K52.9 Noninfective gastroenteritis and colitis, unspecified (principal); S82.141A Displaced bicondylar fracture of right tibia, initial encounter for closed fracture; N17.9 Acute kidney failure, unspecified; M25.061 Hemarthrosis, right knee; E87.20 Acidosis, unspecified; N39.0 Urinary tract infection, site not specified; W18.30XA Fall on same level, unspecified, initial encounter; E11.65 Type 2 diabetes mellitus with hyperglycemia; E11.22 Type 2 diabetes mellitus with diabetic chronic kidney disease; I12.9 Hypertensive chronic kidney disease with stage 1 through stage 4 chronic kidney disease, or unspecified chronic kidney disease; N18.9 Chronic kidney disease, unspecified; F12.90 Cannabis use, unspecified, uncomplicated; E86.0 Dehydration; E86.1 Hypovolemia; I95.9 Hypotension, unspecified; Z79.891 Long term (current) use of opiate analgesic; Z79.4 Long term (current) use of insulin; Z79.85 Long-term (current) use of injectable non-insulin antidiabetic drugs
CPT/HCPCS: 36415; 36416; 36600; 70450; 71045; 73700; 73721; 74176; 80051; 80053; 80061; 80202; 80503; 81001; 82009; 82330; 82465; 82607; 82746; 82805; 82945; 82962; 83036; 83605; 83615; 83735; 83986; 84145; 84157; 84443; 84478; 84484; 85025; 86140; 87040; 87045; 87070; 87075; 87086; 87205; 87427; 87449; 87493; 87637; 88112; 88173; 88305; 89050; 93005; 93306; 96372; G0378; J0692; J1644; J1815; J2270; J3370; J3475; J7030; J7050; L1812

== ENCOUNTER 2024-08-20 20:05 | Emergency (ER) | payer MEDICAID, SELFPAY ==
[2024-08-20 20:14] VITALS: BP 87/59; PULSE 95; RESP 14; TEMP 36.4; O2SAT 98
--- NOTE | 2024-08-20 20:26 | ECG_ITS ---
[facility] Test Date: 2024-08-20 Pat Name: Kimberly Orellana Department: Room: Gender: Female Electronic Technologist: : 1975 Requested By: Cayden Laureano Order Number: [id number] Adriana MD: Owen Malhotra M.D. Measurements Intervals Dell Rate: 94 P: 71 VT: 162 QRS: 43 QRSD: 81 T: 49 QT: 343 QTc: 430 Interpretive Statements SINUS RHYTHM Compared to ECG 07/20/2024 16:15:51 Sinus tachycardia no longer present Electronically Signed On 08-24-2024 18:10:55 [employer]ATOR OF [employer] by Owen Malhotra M.D. [id number]
--- NOTE | 2024-08-20 20:42 | XRR_ITS ---
PROCEDURE INFORMATION: Exam: XR Chest Exam date and time: 08/20/2024 8:46 PM Age: 49 years old Clinical indication: Cough; Additional info: Cough, generalized weakness TECHNIQUE: Imaging protocol: Radiologic exam of the chest. Views: 1 view. COMPARISON: CR (CHEST, ) 07/20/2024 2:42 PM FINDINGS: Lungs: Unremarkable. No consolidation. Pleural spaces: Unremarkable. No pleural effusion. No pneumothorax. Heart/Mediastinum: Unremarkable. No cardiomegaly. Bones/joints: Unremarkable. XR/XR chest 1V portable [id number] IMPRESSION: No acute findings.
--- NOTE | 2024-08-20 20:46 | ED_ITS ---
HPI - Weakness 2 General: Chief complaint: Weakness Stated complaint: tingling and numbeness all over, v/n Time Seen by Provider: 08/20/24 20:22 History of Present Illness: Patient presents to the ER with complaints of numbness and tingling all over for the past hour. With increased pain in her right posterior shoulder region and bilateral legs from the knees down. 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 Patient also endorses nausea vomiting throbbing headaches dizzy lightheadedness. This all started about an hour ago while patient was at work. Patient has no known injury, overuse, sprains or strains. Patient was treated for the flu approximately 2 weeks ago with Tamiflu because she was around her significant other which was tested positive however they did not test her. Patient has been taking cough medicines off-and-on since that time. Patient does have a history of migraines. Review of Systems 2 General: Reports: 10 or more systems reviewed and unremarkable except in HPI and below PFSH ED 2 PFSH: Medical History Nausea & vomiting Diabetes Social History Smoking and tobacco/nicotine status: never used tobacco/nicotine Physical Exam 2 Const: COMMON NORMALS: no acute distress, average body habitus, patient oriented x3, no limitations, healthy appearing, alert and well nourished HENMT: COMMON NORMALS: normocephalic, atraumatic, hearing grossly normal bilaterally, external ears normal, Normal external nose present, moist oral mucous membranes and oropharynx normal HEAD & SCALP: normocephalic and atraumatic NOSE: Normal external nose present EXTERNAL EAR: Yes external ears normal Eye: COMMON NORMALS: Equal, round and reactive pupils present, EOMs intact bilaterally, conjunctivae normal and no scleral icterus CONJUNCTIVA: Yes conjunctivae normal PUPIL: Yes Equal, round and reactive pupils present Neck/C-Spine: COMMON NORMALS: full ROM, no lymphadenopathy, supple, no meningeal signs, no JVD and Thyroid normal THYROID: Thyroid normal Chest: COMMONS NORMALS: normal inspection of the chest and normal palpation of entire chest wall Resp: COMMON NORMALS: normal respiratory effort, No retractions, No use of accessory muscles and clear to auscultation bilaterally AUSCULTATION: clear to auscultation bilaterally Cardio: COMMON NORMALS: no JVD, regular rate, regular rhythm, S1 normal heart sound present, S2 normal heart sound present, No gallops present (Cardio), No clicks present (Cardio), No murmurs present (Cardio) and No rub (Cardio) R ATE: regular rate RHYTHM: regular rhythm HEART SOUNDS: S1 normal heart sound present and S2 normal heart sound present GI: COMMON NORMALS: Normal to inspection, nondistended, normoactive bowel sounds present, Soft to palpation, non-tender, No hepatosplenomegaly present and no masses PALPATION: Yes Soft to palpation and Yes No hepatosplenomegaly present Neuro: COMMON NORMALS: patient oriented x3 SENSORIUM/ORIENTATION: Yes alert MENINGEAL SIGNS: Yes no meningeal signs Course 2 Vital Signs: Vital signs: Vital Signs Temperature 97.6 F 08/20/24 20:14 Pulse Rate 91 08/20/24 23:30 Respiratory Rate 14 08/20/24 20:14 Blood Pressure 138/93 08/20/24 23:30 Pulse Oximetry 93 08/20/24 23:30 Oxygen Delivery Me thod Room Air 08/20/24 23:30 MDM - Weakness Medical Decision Making Patient was given 1 L bolus normal saline, 4 mg Zofran, lab work was obtained which showed mildly elevated BUN/creatinine of 30/1.5, magnesium 1.6, troponin baseline nineteen 2-hour troponin 16.5, urinalysis showed specific gravity 1.030, 2+ protein 1+ ketones 1+ blood, trace leukocyte esterase squamous cells 25-40 so do not if this is a contaminated specimen or not. However we will treat the patient with an antibiotic, antiemetic, and discharge her home to follow-up with her PCP. Medical Records I reviewed the patient's medical records. Lab Data I reviewed the patient's lab results. 08/20/24 21:00 08/20/24 21:39 Radiology Impressions Chest X-Ray 08/20/24 20:42 IMPRESSION: No acute findings. Laboratory Results WBC 8.23 10^3/uL (3.29-11.43) 08/20/24 21:00 RBC 4.60 10^6/uL (3.85-5.65) 08/20/24 21:00 Hgb 13.00 g/dL (11.27-16.99) 08/20/24 21:00 Hct 38.0 % (36-47) 08/20/24 21:00 MCV 82.6 fl (85-98) L 08/20/24 21:00 MCH 28.3 pg (27-33) 08/20/24 21:00 MCHC 34.2 g/dL (30-55) 08/20/24 21:00 RDW 13.0 % (12.1-15.1) 08/20/24 21:00 Plt Count 339 10^3/cmm (157-399) 08/20/24 21:00 MPV 10.2 fL (7.4-10.4) 08/20/24 21:00 Neut % (Auto) 68.5 % 08/20/24 21:00 Lymph % (Auto) 23.9 % 08/20/24 21:00 [place] % (Auto) 5.5 % 08/20/24 21:00 Eos % (Auto) 1.2 % 08/20/24 21:00 Baso % (Auto) 0.5 % 08/20/24 21:00 Neut # (Auto) 5.64 10^3/uL (1.8-7.7) 08/20/24 21:00 Lymph # (Auto) 2.0 10^3/uL (0.8-4.8) 08/20/24 21:00 [place] # (Auto) 0.5 10^3/uL (0.2-0.9) 08/20/24 21:00 Eos # (Auto) 0.1 10^3/uL (0.0-0.8) 08/20/24 21:00 Baso # (Auto) 0.0 10^3/uL (0.0-0.1) 08/20/24 21:00 Nucleated RBC % (auto) 0 % 08/20/24 21:00 Nucleated RBCs # 0.0 /100WBC 08/20/24 21:00 Sodium 139 mmol/L (136-145) 08/20/24 21:39 Potassium 4.1 mmol/L (3.5-5.1) 08/20/24 21:39 Chloride 97 mmol/L (98-107) L 08/20/24 21:39 Carbon Dioxide 28 mmol/L (22-29) 08/20/24 21:39 Anion Gap 18.1 (5-19) 08/20/24 21:39 BUN 30 mg/dL (6-20) H 08/20/24 21:39 Creatinine 1.5 mg/dL (0.5-0.9) H 08/20/24 21:39 GFR Calculation 37.2 mL/min (90-130) L 08/20/24 21:39 Glucose 339 mg/dL (65-115) H 08/20/24 21:39 Calculated Osmolality 308 mOsm/kg (285-295) H 08/20/24 21:39 Calcium 9.7 mg/dL (8.5-10.5) 08/20/24 21:39 Magnesium 1.6 mg/dL (1.7-2.3) L 08/20/24 21:39 Total Bilirubin 0.4 mg/dL (0.15-1.2) 08/20/24 21:39 AST 18 U/L (0-32) 08/20/24 21:39 ALT 14 U/L (0-33) 08/20/24 21:39 Alkaline Phosphatase 44 U/L (35-105) 08/20/24 21:39 Troponin T Baseline 19 ng/L (0-10) H 08/20/24 21:39 Troponin T 120 Minute 16.50 ng/L (0-10) H 08/20/24 23:40 Delta Troponin T -2.50 ABS# (0-10) L 08/20/24 23:40 C-Reactive Protein 3.0 mg/L (0.0-4.9) 08/20/24 21:39 Total Protein 6.8 g/dL (6.6-8.7) 08/20/24 21:39 Albumin 4.1 g/dL (3.5-5.2) 08/20/24 21:39 Globulin 2.7 g/dL (1.3-4.6) 08/20/24 21:39 Urine Color Yellow (Yellow) 08/20/24 21:37 Urine Appearance Cloudy (CLEAR) A 08/20/24 21:37 Urine pH 5.5 (5-7) 08/20/24 21:37 Ur Specific [place] 1.030 (1.005-1.030) 08/20/24 21:37 Urine Protein 2+ (Negative) A 08/20/24 21:37 Urine Glucose (UA) 1+ (Normal) H 08/20/24 21:37 Urine Ketones 1+ (Negative) H 08/20/24 21:37 Urine Blood Negative (Negative) 08/20/24 21:37 Urine Nitrate Negative (Negative) 08/20/24 21:37 Urine Bilirubin Negative (Negative) 08/20/24 21:37 Urine Urobilinogen 1.0 mg/dL (Negative) 08/20/24 21:37 Ur Leukocyte Esterase Trace (Negative) A 08/20/24 21:37 Urine RBC None /hpf (0-2) 08/20/24 21:37 Urine WBC 10-15 /hpf (0-5) H 08/20/24 21:37 Ur Squamous Epith Cells 25-40 /hpf (0-5) H 08/20/24 21:37 Amorphous Sediment Not Reportable 08/20/24 21:37 Urine Bacteria Trace /hpf (NONE) 08/20/24 21:37 Hyaline Casts 6-10 /lpf 08/20/24 21:37 Urine Opiates Screen Negative ng/mL (Negative) 08/20/24 21:37 Ur Barbiturates Screen Negative ng/mL (Negative) 08/20/24 21:37 Ur Phencyclidine Scrn Negative ng/mL (Negative) 08/20/24 21:37 Ur Amphetamines Screen Negative ng/mL (Negative) 08/20/24 21:37 U Benzodiazepines Scrn Negative ng/mL (Negative) 08/20/24 21:37 Urine Cocaine Screen Negative ng/mL (Negative) 08/20/24 21:37 U Marijuana (THC) Screen Positive ng/mL (Negative) H 08/20/24 21:37 All radiology interpretation(s) finalized by discharge Discharge Plan Discharge Patient Disposition: Home Clinical Impression: Urinary tract infection, Acute dehydration Condition: Stable Prescriptions: New ondansetron HCl 4 mg tablet 4 mg PO Q8H PRN (Reason: nausea and vomiting) Qty: 14 0RF ciprofloxacin HCl 500 mg tablet 500 mg PO Q12H Qty: 20 0RF No Action ondansetron 4 mg tablet,disintegrating 4 mg PO Q8H PRN (Reason: nausea and vomiting) Qty: 14 0RF oseltamivir [Tamiflu] 75 mg capsule 75 mg PO BID 5 Days Qty: 10 0RF polyethylene glycol 3350 [Miralax] 17 gram/dose powder 17 g PO DAILY Qty: 510 0RF Rx Instructions: Take 1-2 scoops daily for the next 3 months to keep stools soft tramadol 50 mg tablet 50 mg PO Q8H PRN (Reason: pain) Qty: 14 0RF lisinopril 2.5 mg tablet 5 mg PO DAILY Qty: 30 0RF gabapentin 600 mg tablet 600 mg PO TID trazodone 50 mg tablet 50 - 100 mg PO BEDTIME buspirone 7.5 mg tablet 7.5 mg PO BID insulin aspart U-100 [Novolog FlexPen U-100 Insulin] 100 unit/mL (3 mL) insulin pen See Rx Instructions .ROUTE .COMPLEX Rx Instructions: INJECT 14 UNITS BY SUBCUTANEOUS INJECTION TWICE DAILY BEFORE MEALS. IF BLOOD SUGAR OVER 200, GIVE ADDITIONAL 10 UNITS FOR TOTAL OF 24 UNITS. MAX DAILY DOSE 48 UNITS. rosuvastatin 20 mg tablet 20 mg PO DAILY duloxetine 30 mg capsule,delayed release(DR/EC) 30 mg PO DAILY Trulicity 0.75 mg/0.5 mL pen injector 0.75 mg SUBCUT Q7D Discharge Orders: Discharge ED (Routine); Ordered 08/21/24 Ordered By: Cayden Laureano Referrals: Cydney De Leon FNP [Primary Care Provider] - 1 week Patient Instructions: Urinary Tract Infection - Women, Dehydration - Adult Activity Restrictions/Additional Instructions: Activity restrictions/additional instructions: Thank you for choosing [facility] for your healthcare needs today. Please realize that you were seen in the emergency department and that we are providing you with an emergency medical screening exam and this may not be a complete and all exclusive of all testing and/or medical workup we may need to determine your element or severity of your illness. It is very important that you follow-up as instructed with your primary care provider or specialist for the additional evaluation and to discuss your medical treatment plan. You may return to the emergency department should you have concerns or if your condition changes or worsens in any way. Print Language: Urdu Coding Level of Care Code ED Coffee Attendant for Chg Fwd Related Data Home Medications ?Medication ?Instructions ?Recorded ?Confirmed buspirone 7.5 mg tablet 7.5 mg PO BID 01/25/2408/04 dulaglutide 0.75 mg/0.5 mL 0.75 mg SUBCUT Q7D 01/25/24 08/04/24 subcutaneous pen injector (Trulicity) duloxetine 30 mg capsule,delayed 30 mg PO DAILY 08/04/24 release gabapentin 600 mg tablet 600 mg PO TID 01/25/2408/04 insulin aspart U-100 100 unit/mL See Rx Instructions . Route .COMPLEX 01/25/24 08/04/24 (3 mL) subcutaneous pen (Novolog FlexPen U-100 Insulin aspart) rosuvastatin 20 mg tablet 20 mg PO DAILY 01/25/2407/20 trazodone 50 mg tablet 50 - 100 mg PO BEDTIME 01/2408/04/24 Previous Rx's ?Medication ?Instructions ?Recorded polyethylene glycol 3350 17 17 g PO DAILY #510 grams 1 07/01/23 gram/dose oral powder (Miralax) lisinopril 2.5 mg tablet 5 mg (2 x 2.5 mg) PO DAILY # 30 tabs 07/23/24 tramadol 50 mg tablet 50 mg PO Q8H PRN pain #14 ta bs 07/23/24 ondansetron 4 mg disintegrating 4 mg PO Q8H PRN nausea and 07/31/24 tablet vomiting #14 tabs oseltamivir 75 mg capsule (Tamiflu) 75 mg PO BID 5 day s #10 caps 08/04/24 ciprofloxacin HCl 500 mg tablet 500 mg PO Q12H #20 tab s 08/21/24 ondansetron HCl 4 mg tablet 4 mg PO Q8H PRN nausea and 08/21/24 vomiting #14 tabs Allergies Allergy/AdvReac Type Severity Reaction Status Date / Time Penicillins Allergy Unknown Verified 08/20/24 20:21
[2024-08-20 21:00] VITALS: BP 122/83; PULSE 90; O2SAT 99
[2024-08-20 21:05] LABS: Basophils % 0.5 %; Eosinophils # 0.1 10^3/uL (0.0-0.8); Eosinophils % 1.2 %; Lymphocytes % 23.9 %; Mean Corpuscular HGB Conc 34.2 g/dL (30-55); Mean Corpuscular Hemoglobin 28.3 pg (27-33); Mean Corpuscular Volume 82.6 fl (85-98); Mean Platelet Volume 10.2 fL (7.4-10.4); Monocytes # 0.5 10^3/uL (0.2-0.9); Monocytes % 5.5 %; Neutrophils # 5.64 10^3/uL (1.8-7.7); Neutrophils % 68.5 %; Nucleated Red Blood Cells % 0 %; Platelet Count 339 10^3/cmm (157-399); White Blood Count 8.23 10^3/uL (3.29-11.43)
[2024-08-20] MEDS: sodium chloride 0.9% 1,000 ML 999 ML IV (21:35)
[2024-08-20] MEDS: ondansetron 2 mg/ML SDV 2 mL 4 MG IVP (21:36)
[2024-08-20 21:43] LABS: Bilirubin Urine Negative (Negative); Blood Urine Negative (Negative); Glucose Urine UA 1+ (Normal); Ketones Urine 1+ (Negative); Leukocyte Esterase Urine Trace (Negative); Nitrate Urine Negative (Negative); Protein Urine 2+ (Negative); Urine Appearance Cloudy (CLEAR); Urine Color Yellow (Yellow); pH Urine 5.5 (5-7)
[2024-08-20 21:50] LABS: Amphetamines Screen Urine Negative (Negative); Barbiturates Screen Urine Negative (Negative); Benzodiazepines Screen Urine Negative (Negative); Cocaine Screen Urine Negative (Negative); Opiate Screen Urine Negative (Negative); PCP Screen Urine Negative (Negative); THC Screen Urine Positive (Negative)
[2024-08-20 22:00] VITALS: BP 145/93; PULSE 93; O2SAT 99
[2024-08-20 22:08] LABS: Add Urine Microscopic? YES; Bacteria Urine TRACE /hpf; Squamous Epithelial Cell Urine 25-40 /hpf (0-5); UA Manual Slide Review YES; UA Slide Review UA Slide Review Perf
[2024-08-20 22:23] LABS: Troponin(5th) Baseline 19 ng/L (0-10)
[2024-08-20 22:34] LABS: Alanine Aminotransferase 14 U/L (0-33); Albumin Level 4.1 g/dL (3.5-5.2); Alkaline Phosphatase 44 U/L (35-105); Anion Gap 18.1 (5-19); Aspartate Amino Transferase 18 U/L (0-32); Blood Urea Nitrogen 30 mg/dL (6-20); Calcium 9.7 mg/dL (8.5-10.5); Carbon Dioxide 28 mmol/L (22-29); Chloride 97 mmol/L (98-107); Creatinine Clr Calc Pharmacy 53.3754; Globulin 2.7 g/dL (1.3-4.6); Glomerular Filtration Rate 37.2 mL/min (90-130); Glucose 339 mg/dL (65-115); Magnesium 1.6 mg/dL (1.7-2.3); Osmolality Calculated 308 mOsm/kg (285-295); Potassium 4.1 mmol/L (3.5-5.1); Sodium 139 mmol/L (136-145); Total Bilirubin 0.4 mg/dL (0.15-1.2); Total Protein 6.8 g/dL (6.6-8.7)
[2024-08-20 23:00] VITALS: BP 153/101; PULSE 91; O2SAT 98
[2024-08-20 23:30] VITALS: BP 138/93; PULSE 91; O2SAT 93
[2024-08-21] MEDS: ciprofloxacin 500 mg Tablet PO (00:37)
[2024-08-21 00:49] VITALS: BP 143/86; PULSE 90; RESP 16; O2SAT 94
== END 2024-08-21 00:50 | disposition home or self-care (01) ==
PROVIDERS: Emergency Provider Emergency Medicine
DX: N39.0 Urinary tract infection, site not specified (principal); E86.0 Dehydration; Z79.4 Long term (current) use of insulin; Z79.85 Long-term (current) use of injectable non-insulin antidiabetic drugs; E11.9 Type 2 diabetes mellitus without complications
CPT/HCPCS: 36415; 71045; 80053; 80306; 81001; 83735; 84484; 85025; 86140; 93005; 96361; 96374; 99285; J2405; J7030

== ENCOUNTER → 2024-09-12 10:43 | Outpatient (BNVA) | payer MEDICAID, SELFPAY | PROVIDERS: Visit Provider Podiatrist Foot & Ankle Surgery | DX: M79.672 Pain in left foot (principal); E11.621 Type 2 diabetes mellitus with foot ulcer; L97.521 Non-pressure chronic ulcer of other part of left foot limited to breakdown of skin; E11.42 Type 2 diabetes mellitus with diabetic polyneuropathy; G62.9 Polyneuropathy, unspecified | CPT/HCPCS: 73630 ==

== ENCOUNTER 2024-11-12 06:23 | Day surgery (SDC) | payer MEDICAID, SELFPAY ==
[2024-11-12 06:31] VITALS: BMI 26.6
[2024-11-12 06:39] VITALS: BP 118/77; PULSE 102; RESP 18; TEMP 36.1; O2SAT 99
[2024-11-12] MEDS: sodium chloride 0.9% 1,000 ML 15 ML IV (07:01)
--- NOTE | 2024-11-12 07:01 | W.PM.OPSFHP ---
Same Day Surgery H&P Indication for Procedure/HPI DATE OF PROCEDURE: November 12, 2024 CHIEF COMPLAINT/INDICATIONFOR SURGICAL PROCEDURE: screening colonoscopy PREOP DIAGNOSIS: screening colonoscopy PLANNED PROCEDURE: Operation Date: 11/12/24 07:30 Proposed Procedures p Colonoscopy 09485 G0121 Z12.11(Not Applicable) - Peterson Perez MD Medications/Allergies* Home Medications ?Medication ?Instructions ?Recorded ?Confirmed ?Type buspirone 7.5 mg tablet 7.5 mg PO BID 01/25/24 11/07/24 History duloxetine 30 mg capsule,delayed 30 mg PO DAILY 01/25/24 11/07/24 History release gabapentin 600 mg tablet 600 mg PO TID 01/25/24 11/07/24 History insulin aspart U-100 100 unit/mL 14 sliding scale dose SUBCUT BID 01/25/24 11/07/24 History (3 mL) subcutaneous pen (Novolog FlexPen U-100 Insulin aspart) rosuvastatin 20 mg tablet 20 mg PO DAILY 01/25/24 11/07/24 History trazodone 50 mg tablet 50 - 100 mg PO BEDTIME 01/25/24 11/07/24 History insulin glargine 100 unit/mL (3 40 unit SUBCUT DAILY 10/02/24 11/07/24 History mL) subcutaneous pen (Lantus Solostar U-100 Insulin) Allergies/Adverse Reactions Allergy/AdvReac Type Severity Reaction Status Date / Time Penicillins Allergy Unknown Verified 10/25/24 09:08 Pertinent History/Comorbid Conditions* Medical History (Updated 10/28/24 @ 06:54 by Kodak Centeno MD) Infected sebaceous cyst of skin Nausea & vomiting Diabetes Social History Smoking and tobacco/nicotine status: never used tobacco/nicotine Pertinent Exam Findings alert, oriented x 3, clear to auscultation bilaterally, regular rate & rhythm and procedure specific exam findings abdomen soft, nt, nd Recommendations Risks and benefits of procedure reviewed Surgery/Procedure today Coding Level of Care Code Acute Code for Chg Fwd
--- NOTE | 2024-11-12 07:04 | ANES.PREANE2 ---
Pre-Anesthetic Assessment Height/Weight: Height 1.75 m Weight 81.647 kg Temp Pulse Resp BP Pulse Ox O2 Del Method 97 F L 102 H 18 118/77 99 Room Air 11/12/24 06:39 11/12/24 06:39 11/12/24 06:39 11/12/24 06:39 11/12/24 06:39 11/12/24 06:39 Preop Diagnosis: screening colonoscopy Operation Date: 11/12/24 07:30 Proposed Procedures p Colonoscopy [id number] G0121 Z12.11(Not Applicable) - Peterson Perez MD Familial anesthetic complications: none Was Beta Harsh taken within 24 hours: N/A Was Clonidine taken within 24 hours: N/A Last intake: Intake Last Liquid Date 11/11/24 Last Liquid Time 20:00 Last Solid Date 11/10/24 Last Solid Time 18:00 Social Alcohol and No tobacco Marijuana daily Exam alert, oriented x 3, clear to auscultation bilaterally and regular rate & rhythm Airway Submandibular: within normal limits Cervical ROM: within normal limits Mallampati: Class II Dentition: full History/ROS No significant history except as noted and No significant complaints Pulmonary None reported CV/HEM None reported None reported Hepatic None reported GI None reported Metabolic Diabetes Mellitus and None reported Musc/skel None reported Neuropsych Anxiety and Depression Anesthetic Plan ASA status: 3 Anesthesia: MAC Risk of > 500 ml blood loss (7ml/kg in children): No Medications/Allergies Home Medications ?Medication ?Instructions ?Recorded ?Confirmed ?Last Taken ?Type buspirone 7.5 mg tablet 7.5 mg PO BID 01/25/24 11/07/24 11/09/24 History duloxetine 30 mg capsule,delayed 30 mg PO DAILY 01/25/24 11/07/24 11/09/24 History release gabapentin 600 mg tablet 600 mg PO TID 01/25/24 11/07/24 11/09/24 History insulin aspart U-100 100 unit/mL 14 sliding scale dose SUBCUT BID 01/25/24 11/07/24 11/09/24 History (3 mL) subcutaneous pen (Novolog FlexPen U-100 Insulin aspart) rosuvastatin 20 mg tablet 20 mg PO DAILY 01/25/24 11/07/24 11/09/24 History trazodone 50 mg tablet 50 - 100 mg PO BEDTIME 0811/07/24 11/09/24 History ondansetron HCl 4 mg tablet 4 mg PO Q8H PRN nausea and 08/21/24 11/07/24 Unknown Rx vomiting #14 tabs insulin glargine 100 unit/mL (3 40 unit SUBCUT DAILY 10/02/24 11/07/24 11/09/24 History mL) subcutaneous pen (Lantus Solostar U-100 Insulin) polyethylene glycol 3350 17 17 g PO BID 2 days #68 grams 10/08/24 11/07/24 11/09/24 Rx gram/dose oral powder (Miralax) metformin 1,000 mg tablet 1,000 mg PO BID 11/12/24 11/12/24 11/09/24 History Allergies Allergy/AdvReac Type Severity Reaction Status Date / Time Penicillins Allergy Unknown Verified 10/25/24 09:08 Current Medications Generic Name Dose Route Start Last Admin Trade Name Freq PRN Reason Stop Dose Admin Sodium Chloride 1,000 mls @ 15 mls/hr 11/12/24 06:30 11/12/24 07:01 Sodium Chloride 0.9% IV 11/13/24 06:29 15 mls/hr .Q24H PRN Administration COLONOSCOPY FLUIDS PFSH Anesthesia Medical History (Updated 10/28/24 @ 06:54 by Kodak Centeno MD) Infected sebaceous cyst of skin Nausea & vomiting Diabetes Social History Smoking and tobacco/nicotine status: never used tobacco/nicotine Data Anesthesia Cardiac Studies: Echocardiogram 07/21/24
[2024-11-12] MEDS: insulin regular-human 100 units/1 mL 10 UNIT IVP (07:07)
[2024-11-12 07:08] LABS: Glucose Point of Care 392 mg/dL (70-110)
[2024-11-12 07:08] LABS: Glucose Point of Care 407 mg/dL (70-110)
[2024-11-12 07:52] VITALS: BP 97/65; PULSE 89; RESP 16; TEMP 36.1; O2SAT 98
[2024-11-12 07:59] LABS: Glucose Point of Care 331 mg/dL (70-110)
--- NOTE | 2024-11-12 08:30 | ANE.PACU2 ---
Inpatient post-anesthesia follow up: Airway intact: Yes Vital signs: Temperature 97.0 F Pulse Rate 89 Respiratory Rate 16 Blood Pressure 97/65 Pulse Oximetry 98 Oxygen Delivery Me thod Room Air Oxygen Flow Rate Fraction of Inspir ed Oxygen Hydration adequate: Yes Nausea and vomiting: No Pain level: 1 Mental status: Baseline
== END 2024-11-12 08:28 | disposition home or self-care (01) ==
PROVIDERS: Visit Provider Student in an Organized Health Care Education/Training Program
PROC: 0DJD8ZZ Inspection of Lower Intestinal Tract, Via Natural or Artificial Opening Endoscopic (ICD-10-PCS; CPT 45378; principal; 2024-11-12 07:30)
DX: Z12.11 Encounter for screening for malignant neoplasm of colon (principal); E11.9 Type 2 diabetes mellitus without complications; Z79.899 Other long term (current) drug therapy; Z79.4 Long term (current) use of insulin; Z88.0 Allergy status to penicillin
CPT/HCPCS: 36416; 45378; 82962; J1815; J2704; J3490; J7030; J9999

== ENCOUNTER 2024-12-21 05:32 | Emergency (ER) | payer OTHER, MEDICAID, SELFPAY ==
--- OUTSIDE RECORDS SUMMARY | 2024-12-21 05:35 | XMS_ITS | Encounter Summary ---
Author Organization [facility] Address 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 Gender Identity Female 02/22/2024 10:30 AM CDT Sexual Orientation Asexual 03/20/2024 2: 58 PM CDT Occupation Industry Job Start Date Job End Date Not on file Not on file Not on file Not on file documented as of this encounter Plan of Treatment Upcoming Encounters Date Type Department Care Team (Late st Contact Info) Description 12/23/2024 1:40 PM CDT Office Visit [facility] [address] [place] [address] September, [place] [address] 01/09/2025 8:00 AM CDT Office Visit [facility] [address] [place] [address] Olesya Peters MD [address] [place] [address] 02/06/2025 12:00 PM CDT Office Visit [facility] [address] [place] [address] September, [employer] SUPER[employer]OR[address] [place] [address] 05/08/2025 12:00 PM ORACLE TECHNICAL ARCHITECT Office Visit [facility] [address] [place] [address] September, [employer] SUPER[employer] [address] [place] [address] documented as of this encounter Procedures Procedure Name Priority Date/Time Associated Diagnosis Comments LACTIC ACID Stat 09/06/2024 9:10 AM CDT Hypotension, unspecified CORTISOL LEVEL Stat 09/06/2024 9:10 AM CDT Hypotension, unspecified COMPREHENSIVE METABOLIC PANEL Stat 09/06/2024 9:10 AM CDT Hypotension, unspecified documented in this encounter Results * LACTIC ACID (09/06/2024 9:10 AM CDT) LACTIC ACID 1.7 <=2.0 mmol/L 09/06/2024 9:32 AM [facility] Blood Collection / Unknown 09/06/2024 9:10 AM CDT 09/06/2024 9:12 AM CDT September De Leon FIRE SUPERVISOR CHEMISTRY ORDERABLES Final Resul t [facility] CLIA # [id number] [address] [place] [address] [id number] * (ABNORMAL) COMPREHENSIVE METABOLIC PANEL (09/06/2024 9:10 AM CDT) Pathologist [facility] SODIUM 141 136 - 145 mmol/L 09/06/2024 9:32 AM [facility] POTASSIUM 4.4 3.5 - 5.1 mmol/L 09/06/2024 9:32 AM [facility] CHLORIDE 102 98 - 107 mmol/L 09/06/2024 9:32 AM [facility] CO2 27 22 - 29 mmol/L 09/06/2024 9:32 AM [facility] CALCIUM 10.0 8.6 - 10.0 mg/dL 09/06/2024 9:32 AM [facility] BUN 17 6 - 20 mg/dL 09/06/2024 9:32 AM [facility] CREATININE 0.96(H) 0.51 - 0.95 mg/dL 09/06/2024 9:32 AM [facility] GLUCOSE 165(H) 74 - 99 mg/dL 09/06/2024 9:32 AM [facility] TOTAL PROTEIN 7.8 6.6 - 8.7 g/dL 09/06/2024 9:32 AM [facility] ALBUMIN 4.5 4.0 - 4.9 g/dL 09/06/2024 9:32 AM T [facility] BILIRUBIN TOTAL 0.5 <=1.2 mg/dL 09/06/2024 9:32 AM [facility] ALKALINE PHOSPHATASE 40 35 - 104 U/L 09/06/2024 9:32 AM CDT [facility] AST 26 0 - 35 U/L 09/06/2024 9:32 AM T [facility] ALT 21 0 - 35 U/L 09/06/2024 9:32 AM [facility] GFR >60 >=60 mL/min/1.7 3 sq meter 09/06/2024 9:32 AM T [facility] Comment:eGFR calculated with 2020 CKD-EPI equation. Vegetarian diet, extremely high or low muscle mass, and may affect results. Cystatin C with Glomerular Filtration Rate is a suitable alternative for these patients. ANION GAP 12 5 - 20 mmol/L 09/06/2024 9:32 AM T [facility] Blood Collection / Unknown 09/06/2024 9:10 AM CDT 09/06/2024 9:12 AM CDT September [facility] CHEMISTRY ORDERABLES Final Resul t [facility] CLIA # [id number] [address] [place] [id number] * CORTISOL LEVEL (09/06/2024 9:10 AM CDT) CORTISOL LEVEL 10.6 ug/dL 09/06/2024 5:04 PM CDT [facility] Comment: Cortisol Reference Range Morning Hours 6-10 a.m. 6.0-18.4 ug/dL Afternoon Hours 4-8 p.m. 2.7-10.5 ug/dL Blood Collection / Unknown 09/06/2024 9:10 AM CDT 09/06/2024 9:12 AM CDT September FIRE SUPERVISOR CHEMISTRY ORDERABLES Final Resul t Performing Organization Address City/[facility]/ZIP Co de Phone Number [facility] # [id number] [id number] [place] [address] documented in this encounter Visit Diagnoses Diagnosis Hypotension, unspecified documented in this encounter Care Teams Metal Buildings Assembler Relationship Specialty Start Date End Date Maria L Jung DO [address] [place] [address] PCP - General Family Practice 11/12/23 documented as of this encounter
--- OUTSIDE RECORDS SUMMARY | 2024-12-21 05:35 | XMS_ITS | Encounter Summary ---
Author Organization [facility] Address [address] [place] [address] Care Team Providers Care Business Analytics Faculty Member Name Role Phone Maria L Jung Bk CABAN Primary Care Provider Encounter Details Date Type Department Care Team (Late st Contact Info) Description 12/17/2024 External Device Data [place] ABSTRACTION Provider, Abstract NO ADDRESS ON FILE Social History Tobacco Use Types Packs/Day Years Used Date Smoking Tobacco: Never Passive Smoke Exposure: Never Smokeless Tobacco: Never Alcohol Use Standard Drinks/Week Comments Yes 0 (1 standard drink = 0.6 oz pur e alcohol) occasional socially Feeling Safe Answer Date Recorded Are you in a relationship wi th someone who hurts you emotionally and/or physically? 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 Gender Identity Female 02/22/2024 10:30 AM CDT Sexual Orientation Asexual 03/20/2024 2: 58 PM CDT Occupation Industry Job Start Date Job End Date Not on file Not on file Not on file Not on file documented as of this encounter Plan of Treatment Upcoming Encounters Date Type Department Care Team (Late st Contact Info) Description 12/23/2024 1:40 PM CDT Office Visit [facility] [address] [facility] [place] [address] September, [employer] [address] [place] [phone] 01/09/2025 8:00 AM CDT Office Visit [facility] [address] [place] [address] Olesya Peters MD [address] [place] [phone] 02/06/2025 12:00 PM CDT Office Visit [facility] [address] [facility] [place] [address] September, [employer] [address] [place] [phone] 05/08/2025 12:00 PM BOILER FIREMAN Office Visit [facility] [address] [facility] [place] [phone] September, [facility] [address] [place] [address] documented as of this encounter Visit Diagnoses Not on filedocumented in this encounter Care Teams Business Analytics Faculty Member Relationship Specialty Start Date End Date Maria L Jung DO [address] [place] [address] PCP - General Family Practice 11/12/23 documented as of this encounter
--- OUTSIDE RECORDS SUMMARY | 2024-12-21 05:35 | XMS_ITS | Encounter Summary ---
Author Organization [facility] Address [address] [place] [address] Care Team Providers Care Property Maintenance Supervisor Name Role Phone Maria L Jung Bk CABAN Primary Care Provider Encounter Details Date Type Department Care Team (Late st Contact Info) Description 11/15/2024 Results Follow-Up [facility] Emergency Medicine [address] [place] [address] Mari Stein RN COMPREHENSIVE METABOLIC PANEL, LIPASE, BRAIN NATRIURETIC PEPTIDE, BNP OR PROBNP, Additional followed-up results: 2 Social History Tobacco Use Types Packs/Day Years [...] AM CDT Legal Sex Female 6:50 AM PAINTER SET Gender Identity Female 02/22/2024 10:30 AM CDT Sexual Orientation Asexual 03/20/2024 2: 58 PM CDT Occupation Industry Job Start Date Job End Date Not on file Not on file Not on file Not on file documented as of this encounter Plan of Treatment Upcoming Encounters Date Type Department Care Team (Late st Contact Info) Description 12/23/2024 1:40 PM CDT Office Visit [facility] [address] [place] [phone] September,P [address] [place] [phone] 01/09/2025 8:00 AM CDT Office Visit [facility] [address] [place] [address] Olesya Peters MD [address] [place] [phone] 02/06/2025 12:00 PM CDT Office Visit [facility] [address] [place] [phone] September, [facility] [address] [place] [phone] 05/08/2025 12:00 PM PAINTER SET Office Visit [facility] [address] [place] [phone] September, [facility] [address] [place] [phone] documented as of this encounter Visit Diagnoses Not on filedocumented in this encounter Care Teams Property Maintenance Supervisor Relationship Specialty Start Date End Date Maria L Jung DO [address] [place] [phone] PCP - General Family Practice 11/12/23 documented as of this encounter
--- OUTSIDE RECORDS SUMMARY | 2024-12-21 05:35 | XMS_ITS | Clinical Summary ---
Author Organization [facility] Address [address] [place]: [place] [address] Care Team Providers Care Fish Culturist Name Role Phone Maria L Jung DO Primary Care Provider Allergies Active Allergy Reactions Criticality Noted Date Comments Coconut Hives,Shortness of Breath/Wheezing High 1 Kiwi Unknown 06/14/2024 Lactose Abdominal Pain Low 03/24/2024 Penicillins Unknown 04/26/2018 Pineapple Shortness of Breath/Wheezing,Swelling High 03/24/2024 Medications insulin glargine (LANTUS) 100 unit/mL pen syringeIndications :Uncontrolled type 2 diabetes mellitus with hyperglycemia ([facility]) Inject 40 Units by subcutaneous injection daily at bedtime. 15 mL 3 02/13/20 24 Active Additional Information Patient taking differently: 30 UnitssubCUTTWO TIMES DAILY, Reported on 11/15/2024 rosuvastatin (Crestor) 20 mg tabletIndications: Hyperlipidemia, unspecified hyperlipidemia type Take 1 Tablet (20 mg) by mouth daily. 90 Tablet 3 03/13/20 24 Active Insulin Isabel, Disposable, (Comfort EZ Pen Isabel) 32 gauge x 5/32 Needle Use to inject insulin 4x daily. 400 Each 3 04/08/20 24 Active traZODone (DESYREL) 50 mg tabletIndications: Insomnia, unspecified type TAKE 1 TO 2 TABLETS BY MOUTH NEEDED ONE HOUR BEFORE BEDTIME 180 Tablet 3 05/13/20 24 Active busPIRone (BUSPAR) 7.5 mg TabletIndications: NIEVES (generalized anxiety disorder) Take 1 Tablet (7.5 mg) by mouth daily. 90 Tablet 3 05/13/20 24 Active gabapentin (NEURONTIN) 600 mg tabletIndications: Diabetic polyneuropathy associated with type 2 diabetes mellitus (CMS/HCC) Take 1 Tablet (600 mg) by mouth 3 times daily. 90 Tablet 4 05/13/20 24 Active polyethylene glycol 3350 (MIRALAX) 17 gram/dose PowderIndications: Irritable bowel syndrome with constipation Take 1 Scoop (17 Grams) by mouth daily. Dissolve in 8 ounces of fluid and drink entire liquid 527 Gram 3 08/23/19 25 Active metFORMIN (GLUCOPHAGE) 1,000 mg tabletIndications: Type 2 diabetes mellitus with diabetic polyneuropathy, with long-term current use of insulin (CMS/HCC) Take 1 Tablet (1,000 mg) by mouth 2 times daily with meals. 120 Tablet 5 08/23/19 25 Active DULoxetine (CYMBALTA) 60 mg Capsule, Delayed Release(E.C.)Indic ations:Current moderate episode of major depressive disorder, unspecified whether recurrent (CMS/HCC) Take 1 Capsule (60 mg) by mouth daily. 90 Capsule 2 08/30/19 25 Active insulin lispro (HumaLOG KwikPen Insulin) 100 unit/mL pen syringeIndications :Type 2 diabetes mellitus with diabetic polyneuropathy, with long-term current use of insulin (CMS/HCC) Inject 14 Units by subcutaneous injection 2 times daily before meals. If BS is over 200 , give additional 10 units for total of 24 unit. Max daily dose 48 units. 15 mL 3 09/24/19 25 Active Additional Information Patient taking differently: (No dose reported), subCUT TWO TIMES DAILY BEFORE MEALS,Sliding scale, Reported on 11/15/2024 Active Problems Problem Noted Date Diagnosed Date Bacterial gastroenteritis 11/15/2024 Food poisoning 11/15/2024 Mild dehydration 05/15/2024 Noninfectious gastroenteritis 05/15/2024 Left foot infection 03/23/2024 Elevated serum creatinine 03/23/2024 Uncontrolled type 2 diabetes mellitus with hyper glycemia 01/31/2024 Obesity, diabetes, and hypertension syndrome Type 2 diabetes mellitus, wi th long-term current use of insulin 02/21/2023 Diabetic polyneuropathy asso ciated with type 2 diabetes mellitus 01/19/2023 Insomnia 01/19/2023 Dyslipidemia 03/02/2021 Overview (04/10/2023): Last Assessment & Plan: Dyslipidemia stable on Crestor 40 mg. We will follow-up with lipid panel. Recommend healthy diet and regular exercise. Recommended dietitian referral. Hypertension, essential 03/02/2021 Overview (04/10/2023): Last Assessment & Plan: Blood pressure stable on lisinopril 5 mg. Recommend low-salt diet, healthy diet and regular exercise. Chronic midline low back pain without sciatica 1 06/26/2017 NIEVES (generalized anxiety disorder) 04/26/2018 Current moderate episode of major depressive dis order 04/26/2018 Resolved Problems Problem Noted Date Diagnosed Date Resolved Date Type 2 diabetes mellitus wit hout complication, with long-term current use of insulin 04/26/2018 02/21/2023 Encounters Date Type Department Care Team Description 12/17/2024 External Device Data [facility] ABSTRACTION Provider, Abstract 12/10/2024 External Device Data [facility] ABSTRACTION Provider, Abstract 11/21/2024 Orders Only [facility] HIM [address] [place] [address] Provider, Abstract 11/19/2024 External Device Data [facility] ABSTRACTION Provider, Abstract 11/19/2024 External Device Data [facility]STRACTION Provider, Abstract 11/19/2024 External Device Data [facility]STRACTION Provider, Abstract 11/19/2024 Patient Outreach [facility] Medicine [place] [address] [place] [phone] Care, [facility] 11/15/2024 9:02 AM CDT - 11/15/2024 11:42 AM CDT Emergency [facility] Emergency Medicine [address] [place] [phone] Samra Neri MD Bacterial gastroenteritis (Primary Dx); Food poisoning Discharge Disposition: Home or Self Care 11/15/2024 Results Follow-Up [facility] Emergency Medicine [address] [place] [phone] Mari Stein RN COMPREHENSIVE METABOLIC PANEL, LIPASE, BRAIN NATRIURETIC PEPTIDE, BNP OR PROBNP, Additional followed-up results: 2 11/12/2024 External Device Data [facility] ABSTRACTION Provider, Abstract 11/06/2024 Orders Only [facility] Information Management [place] [address] [place] [address] Provider, Abstract 11/01/[address] [facility] [address] [place] [phone] September, CANDY WAFFLE ASSEMBLER Type 2 diabetes mellitus with diabetic polyneuropathy, with long-term current use of insulin ([facility]) (Primary Dx) 10/30/2024 Orders Only [facility] HIM [address] [place] [address] Provider, Abstract 10/24/[address] [facility] [address] [place] [phone] September, CANDY WAFFLE ASSEMBLER Question; Question 10/18/[address] [facility] [address] [place] [phone] Care, [facility] Care 10/16/2024 Results Follow-Up [facility] [address] [place] [phone] , September, CANDY WAFFLE ASSEMBLER POC URINALYSIS DIPSTICK AUTOMATED, HEMOGLOBIN A1C, URINE CULTURE, VAGINOSIS/VAGINITIS PANEL PLUS 10/15/2024 8:55 AM CDT - 10/15/2024 11:59 PM CDT Hospital Encounter [facility] Out[facility] Services [place] [address] [place] [phone] September, CANDY WAFFLE ASSEMBLER Type 2 diabetes mellitus with diabetic polyneuropathy (CMS/HCC) Discharge Disposition: Home or Self Care 10/15/2024 External Device Data [facility] ABSTRACTION Provider, Abstract 10/15/2024 External Device Data [facility] ABSTRACTION Provider, Abstract 10/14/2024 3:40 PM CDT Office Visit [facility] [address] [place] [address] September, CANDY WAFFLE ASSEMBLER Type 2 diabetes mellitus with diabetic polyneuropathy, with long-term current use of insulin ([facility]) (Primary Dx); Vaginal itching; UTI symptoms; Hypertension, essential 10/14/[address] [facility] [address] [place] [address] Duyen Curran UTI symptoms; Vaginal itching 10/02/[address] [facility] [address] [place] [address] Maria L Jung DO Pain Managment Referral Information 10/01/2024 External Device Data [facility]STRACTION Provider, Abstract 09/24/2024 11:00 AM CDT Ancillary Procedure [facility]- [address] [place] [address] Jesus Nash, DPM Diabetic ulcer of toe of left foot associated with type 2 diabetes mellitus, with fat layer exposed ([facility]) 09/23/[address] [facility] [address] [place] [address] September, CANDY WAFFLE ASSEMBLER Type 2 diabetes mellitus with diabetic polyneuropathy, with long-term current use of insulin ([facility]) 09/23/[address] [facility] [address] [place] [address] Maria L Jung DO Medication Review from Last 3 Months Family History Medical History Relation Name Comments Unknown Father Unknown Maternal Grandfather Breast Cancer Maternal Grandmother Palma Diabetes Maternal Grandmother Palma Unknown Mother Relation Name Status Comments Father Maternal Grandfather Maternal Grandmother Palma Mother Social History Tobacco Use Types Packs/Day Years Used Date Smoking Tobacco: Never Passive Smoke Exposure: Never Smokeless Tobacco: Never Tobacco Cessation:Counseling Given: No Alcohol Use Standard Drinks/Week Comments Yes 0 [...] AM CDT Legal Sex Female 6:50 AM GUYLINE OPERATOR Gender Identity Female 02/22/2024 10:30 AM CDT Sexual Orientation Asexual 03/20/2024 2: 58 PM CDT Occupation Industry Job Start Date Job End Date Not on file Not on file Not on file Not on file Last Filed Vital Signs Vital Sign Reading Time Taken Comments Blood Pressure 123/74 11/15/2024 11:30 AM CDT Pulse 90 11/15/2024 11:30 AM CDT Temperature 36.6 C (97.9 F) 11/15/2024 11:30 AM CDT Respiratory Rate 20 11/15/2024 11:30 AM CDT Oxygen Saturation 94% 11/15/2024 11:30 AM CDT Inhaled Oxygen Concentration - - Weight 80.7 kg (178 lb) 11/15/2024 9:07 AM CDT Height 175.3 cm (5' 9 ) 11/15/2024 9:07 AM CDT Body Mass Index 26.29 11/15/2024 9:07 AM CDT Plan of Treatment Upcoming Encounters Date Type Department Care Team (Late st Contact Info) Description 12/23/2024 1:40 PM CDT Office Visit [facility] Medicine [place] [address] [phone] September, CANDY WAFFLE ASSEMBLER [address] [phone] 01/09/2025 8:00 AM CDT Office Visit [facility] Endocrinology [facility] [place] [place] [address] [place] [phone] Olesya Peters MD [address] [place] [phone] 02/06/2025 12:00 PM CDT Office Visit [facility] [address] [place] [phone] De Leonseptember, CANDY WAFFLE ASSEMBLER [address] [place] [phone] 05/08/2025 12:00 PM GUYLINE OPERATOR Office Visit [facility] [address] [place] [phone] September, CANDY WAFFLE ASSEMBLER [address] [place] [phone] Health Maintenance Due Date Last Done Comments DTAP/TDAP/TD VACCINES (1 - Tdap) 1996 HEPATITIS B VACCINES (1 of 3 - 19+ 3-dose series) 1996 FIT-DNA Q 3 years 2022 FIT/FOBT Q 1 year 2022 Flex Sig/CT Colonography Q 5 years 2022 COVID-19 Vaccine ( - 2023-2 5 season) 2024 04/06/2021, 03/09/2021 Preventative Visit-Managed Medicaid 05/03/2024 05/02/2023, 04/10/2023, 01/11/2022 DIABETES: A1C (Auto Order) 01/14/202510/15, 07/05/2024, 03/22/2024, Additional history exists INFLUENZA VACCINE (#1) 2025 03/22/2024, 2022 DIABETES ANNUAL FOOT EXAM 03/22/20252023, 08/15/2022, 08/15/2022, Additional history exists DIABETES HBA1C Q 6 MONTHS 04/16/20252024, 07/05/2024, 03/22/2024, Additional history exists LDL CHOLESTEROL ANNUAL 07/05/2025 , 06/01/2023, 05/31/2023, Additional history exists DIABETES MICROALBUMIN ANNUAL SCREEN 09/06/2025 09/06/2024, 05/31/2023, 01/12/2022 BREAST CANCER SCREENING 09/18/2025 09/18/2024, 05/29 DIABETES ANNUAL RETINAL EXAM 11/05/2025 11/05/2024, 10/30/2024 PAP SMEAR 05/02/2026 05/02/2023 CERVICAL CANCER SCREENING 05/02/2028 HPV/Cotest (21-29) 05/02/2028 05/02/2023 HPV/Cotest (30-65) 05/02/2028 05/02/2023 COLORECTAL SCREENING 11/12/2034 11/12/2024 Colorectal Cancer Screening 11/12/2034 Procedures Procedure Name Priority Date/Time Associated Diagnosis Comments MAGNESIUM LEVEL Stat 11/15/2024 9:48 AM CDT C-REACTIVE PROTEIN Stat 11/15/2024 9: 48 AM CDT BRAIN NATRIURETIC PEPTIDE, BNP OR PROBNP Stat 11/15/2024 9:48 AM CDT LIPASE Stat 11/15/2024 9:48 AM CDT COMPREHENSIVE METABOLIC PANEL Stat 11/15/2024 9:48 AM CDT CBC WITH DIFFERENTIAL Stat 11/15/2024 9:48 AM CDT XR ABDOMEN 1 VW Stat 11/15/2024 9:45 AM CDT ENDOSCOPY, COLON, SCREENING Routine 11/12/2024 1:00 PM CDT HM DIABETES EYE EXAM Routine 11/05/2024 3:09 PM CDT HM DIABETES EYE EXAM Routine 10/30/2024 3:02 PM CDT HEMOGLOBIN A1C Routine 10/15/2024 9:06 AM CDT Type 2 diabetes mellitus with diabetic polyneuropathy, with long-term current use of insulin ([facility]) REFERENCE LAB PROCESSING FEE Routine 10/15/2024 9:06 AM CDT Type 2 diabetes mellitus with diabetic polyneuropathy, with long-term current use of insulin ([facility]) VAGINOSIS/VAGINITIS PANEL PLUS Routine 10/14/2024 5:08 PM CDT Vaginal itching URINE CULTURE Routine 10/14/2024 5:00 PM CDT UTI symptoms POC URINALYSIS DIPSTICK AUTOMATED Routine 10/14/2024 3:46 PM CDT UTI symptoms US ANKLE PRESSURE INDEX Routine 09/24/2024 10:33 AM CDT Diabetic ulcer of toe of left foot associated with type 2 diabetes mellitus, with fat layer exposed ([facility]) MAMMO 3D JERRY SCREEN BILAT W OR WO CAD Routine 09/18/2024 11:54 AM CDT Screening mammogram, encounter for MICROALBUMIN/CREATINI NE RATIO, RANDOM UR Routine 09/06/2024 8:35 AM CDT Type 2 diabetes mellitus with diabetic polyneuropathy, with long-term current use of insulin ([facility]) LIPID PANEL Routine 07/05/2024 9:05 AM GUYLINE OPERATOR Type 2 diabetes mellitus with hyperglycemia, unspecified whether parts counterman insulin use ([facility]) Hyperlipidemia, unspecified hyperlipidemia type CERV/VAG CYTO AGE BASED SCREEN PAP W CT/NG Routine 05/02/2023 10:38 AM GUYLINE OPERATOR Well woman exam with routine gynecological exam Screening for cervical cancer Screen for STD (sexually transmitted disease) from Last 3 Months or Most Recently Relevant to Health Maintenance Results * (ABNORMAL) CBC WITH DIFFERENTIAL (11/15/2024 9:48 AM CDT) WBC 8.0 4.0 - 10.0 K/uL 11/15/2024 10:03 AM [facility] RBC 5.36(H) 3.93 - 5.22 M/uL 11/15/2024 10:03 AM [facility] HEMOGLOBIN 14.9 11.2 - 15.7 g/dL 11/15/2024 10:03 AM [facility] HEMATOCRIT 43.1 34.1 - 44.9 % 11/15/2024 10:03 AM [facility] MCV 80.4 79.4 - 94.8 fL 11/15/2024 10:03 AM [facility] MCH 27.8 25.6 - 32.2 pg 11/15/2024 10:03 AM [facility] MCHC 34.6 32.2 - 35.5 g/dL 11/15/2024 10:03 AM [facility] RDW 12.7 11.0 - 14.5 % 11/15/2024 10:03 AM [facility] RDW-STDEV 36.4(L) 36.9 - 56.9 fL 11/15/2024 10:03 AM [facility] PLATELETS 264 163 - 337 K/uL 11/15/2024 10:03 AM [facility] MPV 9.9(L) 10.0 - 14.8 fL 11/15/2024 10:03 AM [facility] NEUTROPHILS 73(H) 34 - 71 % 11/15/2024 10:03 AM [facility] LYMPHOCYTES 21 19 - 52 % 11/15/2024 10:03 AM [facility] MONOCYTES 5 5 - 13 % 11/15/2024 10:03 AM [facility] EOSINOPHILS 1 1 - 6 % 11/15/2024 10:03 AM [facility] BASOPHILS 0 0 - 1 % 11/15/2024 10:03 AM [facility] IMMATURE GRANULOCYTES 0 % 11/15/2024 10:03 AM CDT [facility] NEUTROPHIL ABSOLUTE 5.81 1.56 - 6.13 K/uL 11/15/2024 10:03 AM T [facility] LYMPHOCYTE ABSOLUTE 1.69 1.20 - 3.40 K/uL 11/15/2024 10:03 AM [facility] MONOCYTE ABSOLUTE 0.37(H) 0.24 - 0.36 K/uL 11/15/2024 10:03 AM T [facility] EOSINOPHIL ABSOLUTE 0.07 0.04 - 0.36 K/uL 11/15/2024 10:03 AM T [facility] BASOPHILS ABSOLUTE 0.03 0.01 - 0.08 K/uL 11/15/2024 10:03 AM [facility] IMMATURE GRANULOCYTES ABSOLUTE 0.02 K/uL 11/15/2024 10:03 AM [facility] Blood Venipuncture / Unknown 11/15/2024 9:48 AM CDT 11/15/2024 9:56 AM CDT us Samra Neri MD HEMATOLOGY ORDERABLES Final Res ult Performing Organization Address City/[facility]/ZIP Co de Phone Number [facility] CLIA # [id number] [address] [place] [phone] * C-REACTIVE PROTEIN (11/15/2024 9:48 AM CDT) CRP <3.0 <5.0 mg/L 11/15/2024 11:54 AM CDT [facility] Blood Venipuncture / Unknown 11/15/2024 9:48 AM CDT 11/15/2024 9:56 AM CDT us Samra Neri MD CHEMISTRY ORDERABLES Final Resu lt [facility] CLIA # [id number] [address] [place] [address] * BRAIN NATRIURETIC PEPTIDE, BNP OR PROBNP (11/15/2024 9:48 AM CDT) PROBNP, N TERMINAL <36 0 - 125 pg/mL 11/15/2024 11:54 AM CDT [facility] Comment: INTERPRETIVE COMMENT based on diagnosis: Diagnostic NT pro-BNP cutoffs for Heart Failure in the absence of renal failure is suggested for the following ranges <75 years: <125 pg/mL >=75 years: <450 pg/mL Exclusionary rule out cut-point for Acute Decompensated Heart Failure(ADHF) All ages: <300 pg/mL Diagnostic NT pro-BNP cutoffs for Acute Decompensated Heart Failure(ADHF) in the absence of renal failure is suggested for the following ages <50 years: > 450 pg/mL 50-75 years: > 900 pg/mL >75 years: >1800 pg/mL Blood Venipuncture / Unknown 11/15/2024 9:48 AM CDT 11/15/2024 9:56 AM CDT us Samra Neri MD CHEMISTRY ORDERABLES Final Resu lt Performing Organization Address [facility] Co de Phone Number [facility] CLIA # [id number] [address] [place] [phone] * MAGNESIUM LEVEL (11/15/2024 9:48 AM CDT) Pathologist [facility] MAGNESIUM 1.9 1.6 - 2.6 mg/dL 11/15/2024 11:54 AM CDT [facility] Blood Venipuncture / Unknown 11/15/2024 9:48 AM CDT 11/15/2024 9:56 AM CDT us Samra Neri MD CHEMISTRY ORDERABLES Final Resu Performing Organization Address [facility] Co de Phone Number [facility] CLIA # [id number] [address] [place] [phone] * LIPASE (11/15/2024 9:48 AM CDT) LIPASE 36 13 - 60 U/L 11/15/2024 11:54 AM [facility] Blood Venipuncture / Unknown 11/15/2024 9:48 AM CDT 11/15/2024 9:56 AM CDT us Samra Neri MD CHEMISTRY ORDERABLES Final Resu lt [facility] CLIA # [id number] [address] [place] [phone] * (ABNORMAL) COMPREHENSIVE METABOLIC PANEL (11/15/2024 9:48 AM CDT) SODIUM 141 136 - 145 mmol/L 11/15/2024 11:53 AM [facility] POTASSIUM 3.9 3.5 - 5.1 mmol/L 11/15/2024 11:53 AM [facility] CHLORIDE 97(L) 98 - 107 mmol/L 11/15/2024 11:53 AM [facility] CO2 29 22 - 29 mmol/L 11/15/2024 11:53 AM [facility] CALCIUM 10.7(H) 8.6 - 10.0 mg/dL 11/15/2024 11:53 AM [facility] BUN 13 6 - 20 mg/dL 11/15/2024 11:53 AM [facility] CREATININE 0.78 0.51 - 0.95 mg/dL 11/15/2024 11:53 AM [facility] GLUCOSE 408(HH) 74 - 99 mg/dL 11/15/2024 11:53 AM [facility] TOTAL PROTEIN 8.1 6.6 - 8.7 g/dL 11/15/2024 11:53 AM [facility] ALBUMIN 4.6 3.5 - 5.2 g/dL 11/15/2024 11:53 AM [facility] BILIRUBIN TOTAL 0.7 0.0 - 1.2 mg/dL 11/15/2024 11:53 AM [facility] ALKALINE PHOSPHATASE 58 35 - 104 U/L 11/15/2024 11:53 AM T [facility] AST 23 0 - 35 U/L 11/15/2024 11:53 AM T [facility] ALT 21 0 - 35 U/L 11/15/2024 11:53 AM T [facility] GFR >60 >=60 mL/min/1.7 3 sq meter 11/15/2024 11:53 AM T [facility] Comment:eGFR calculated with 2020 CKD-EPI equation. Vegetarian diet, extremely high or low muscle mass, and may affect results. Cystatin C with Glomerular Filtration Rate is a suitable alternative for these patients. ANION GAP 15 5 - 20 mmol/L 11/15/2024 11:53 AM T [facility] Blood Venipuncture / Unknown 11/15/2024 9:48 AM CDT 11/15/2024 9:56 AM CDT us Samra Neri MD CHEMISTRY ORDERABLES Final [facility]u lt [id number] [address] [place] [phone] * XR ABDOMEN 1 VW (11/15/2024 9:45 AM CDT) Anatomical Region Laterality Modality Abdomen Computed Radiogr aphy 11/15/2024 9:45 AM CDT Impressions 11/15/2024 10:13 AM CDT IMPRESSION: No radiographic evidence of an acute intra-abdominal process. Narrative 11/15/2024 10:13 AM CDT EXAM: XR ABDOMEN 1 VW DATE/TIME OF EXAM: 11/15/2024 9:45 AM REASON FOR STUDY: Pain; abdomen Distension DIAGNOSIS: See Reason for Exam COMPARISON: May 15, 2024 FINDINGS: Non-specific bowel gas pattern. No evidence of pneumoperitoneum. No appreciable calculi overlying the renal shadows. No acute bony finding. Procedure Note Maggie Herrera MD - 11/15/2024 EXAM: XR ABDOMEN 1 VW DATE/TIME OF EXAM: 11/15/2024 9:45 AM REASON FOR STUDY: Pain; abdomen Distension DIAGNOSIS: See Reason for Exam COMPARISON: May 15, 2024 FINDINGS: Non-specific bowel gas pattern. No evidence of pneumoperitoneum. No appreciable calculi overlying the renal shadows. No acute bony finding. IMPRESSION: No radiographic evidence of an acute intra-abdominal process. us Samra Neri MD DIAGNOSTIC IMAGING ORDERABLES F inal Result * ENDOSCOPY, COLON, SCREENING (11/12/2024 1:00 PM CDT) us Abstract Provider GI PROCEDURE ORDERABLES Final Result * (ABNORMAL) DIABETES EYE EXAM (11/05/2024 3:09 PM CDT) Only the most recent of2 resultswithin the time period is included. us Abstract Provider HEALTH MAINTENANCE Edited Resu lt - Final * REFERENCE LAB PROCESSING FEE (10/15/2024 9:06 AM CDT) REFERENCE LAB SENDOUT Sent to Ref Lab 10/15/2024 11:00 AM CDT [facility] Other, specify BLOOD SPECIMEN / Unknown Collection / Unknown 10/15/2024 9:06 AM CDT 10/15/2024 9:06 AM CDT September CANDY WAFFLE ASSEMBLER CHEMISTRY ORDERABLES Final Resul t [facility] CLIA # [id number] [address] [place] [phone] * (ABNORMAL) HEMOGLOBIN A1C (10/15/2024 9:06 AM CDT) HEMOGLOBIN A1C 10.3(H) <5.7 % [facility] Comment: For someone without known diabetes, a hemoglobin A1c value of 6.5% or greater indicates that they may have diabetes and this should be confirmed with a follow-up test. For someone with known diabetes, a value <7% indicates that their diabetes is well controlled and a value greater than or equal to 7% indicates suboptimal control. A1c targets should be individualized based on duration of diabetes, age, comorbid conditions, and other considerations. Currently, no consensus exists regarding use of hemoglobin A1c for diagnosis of diabetes for children. ESTIMATED AVERAGE GLUCOSE (MG/DL) 249 mg/dL [facility] ESTIMATED AVERAGE GLUCOSE (MMOL/L) 13.8 mmol/L [facility] Comment: Test Performed at: [place] [address] Candy Huber MD Blood 10/15/2024 9:06 AM CDT 10/16/2024 5:26 AM CDT September [facility] CHEMISTRY ORDERABLES Final Resul t [facility] [phone] [facility] [place] [address] * (ABNORMAL) VAGINOSIS/VAGINITIS PANEL PLUS (10/14/2024 5:08 PM CDT) Pathologist [facility] BACTERIAL VAGINOSIS NEGATIVE NEGATIVE [facility] [place] CAROLINE SPECIES DETECTED(A) NOT DETECTED [facility] CAROLINE GLABRATA NOT DETECTED NOT DETECTED [facility] Comment: Caroline species C. albicans, C. tropicalis, C. parapsilosis, and/or C. dubliniensis can be detected, but not differentiated, in the Caroline spp. result. TRICHOMONAS VAGINALIS (TV), TMA NOT DETECTED NOT DETECTED [facility] CHLAMYDIA TRACHOMATIS RNA, TMA, UROGENITAL NOT DETECTED NOT DETECTED [email or web address] NEISSERIA GONORRHOEAE RNA, TMA, UROGENITAL NOT DETECTED NOT DETECTED [email or web address] Comment: For additional information, please refer to https://education.Mapittrackit/faq/FMI946 (This link is being provided for information/ educational purposes only.) Test Performed at: [facility] [address] [place] [address] Candy Huber MD Genital SPECIMEN FROM VAGINA / Unknown 10/14/2024 5:08 PM CDT 10/15/2024 2:36 AM CDT [facility] MICROBIOLOGY GENERAL [facility] S Final Result [facility] [phone] [facility] [address] [place] [address] * URINE CULTURE (10/14/2024 5:00 PM CDT) URINE CULTURE SEE NOTE [facility] Comment: CULTURE, URINE, ROUTINE Micro Number: [id number] Test Status: Final Specimen Source: Urine, clean catch Specimen Quality: Adequate Result: 50,000-100,000 CFU/mL of Non-uropathogenic Gram positive organism May represent colonizers from external and internal genitalia. No further testing (including susceptibility) will be performed. Test Performed at: [facility] [address] [place] [address] Candy Huber MD Urine URINE SPECIMEN OBTAINED BY CLEAN CATCH PROCEDURE / Unknown 10/14/2024 5:00 PM CDT 10/15/2024 3:19 AM CDT [facility] S Final Result Performing Organization Address City/[facility]/ZIP Co de Phone Number [facility] [phone] [facility] [address] [place] [address] * (ABNORMAL) POC URINALYSIS DIPSTICK AUTOMATED (10/14/2024 3:46 PM CDT) COLOR UA POC Yellow Pale to Dark Yellow [facility] CLARITY UA POC Clear Clear, Other ME [facility] GLUCOSE UA POC 3+(A) Negative, Normal [facility] BILIRUBIN UA POC Negative Negative [facility] KETONES UA POC Negative Negative [facility] SPECIFIC GRAVITY UA POC 1.015 1.000 - 1.030 [facility] BLOOD UA POC Negative Negative [facility] C LINIC [facility] PH UA POC 5.5 5.0 - 8.0 [facility] CLIN IC [facility] PROTEIN UA POC Negative Negative [facility] UROBILINOGEN UA POC 0.2 <2.0 mg/dL [facility] NITRITE UA POC Negative Negative [facility] LEUKOCYTE ESTERASE UA POC Negative Negative [facility] KIT LOT NUMBER POC [phone] [facility] KIT EXP DATE POC [id number] [facility] Urine 10/14/2024 3:46 PM CDT September CANDY WAFFLE ASSEMBLER POINT OF CARE TESTING Final Resu lt Performing Organization Address City/State/[facility] Co de Phone Number [facility] CLIA# [id number] [address] [place] [address] * US ANKLE PRESSURE INDEX (09/24/2024 10:33 AM CDT) Anatomical Region Laterality Modality Lower Extremity Ultrasound 09/24/2024 10:2 2 AM CDT Narrative 09/24/2024 5:21 PM CDT [facility] [address] [place] [address] [address] [place] [address] Noninvasive Vascular Lab FAMILIA with PVR Arterial Physiologic Evaluation Patient: Kimberly Orellana Study ID: 1 Gender: F : 1975 Age: 49 Room: Height: Weight: BSA: Pt status: Outpatient Study Date: 09/24/2024 Study Time: 10:22:00 AM BSA: Ordering: Jesus Nash Interpreting:Juli Andrade Steam Plant Operator: Rhonda Gutiérrez Summary Impression: 1. No evidence of arterial insufficiency, involving the right lower extremity. 2. No evidence of arterial insufficiency, involving the left lower extremity. 3. 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 4. Right TBI 0.80 Left TBI 0.79. Study data: FAMILIA with PVR. Ankle-brachial index and pulse volume recording. Location: Vascular laboratory. Patient status: Outpatient. Study status: Routine. Procedure: A vascular evaluation was performed. Exam quality was good. Arterial flow: - Right posterior tibial: Right posterior tibial Triphasic - Right dorsal pedal: Right dorsal pedal Triphasic - Left posterior tibial: Left posterior tibial Triphasic - Left dorsal pedal: Left dorsal pedal Triphasic Ankle brachial indices Rt PT: 183mm Hg Rt DP: 175mm Hg Rt PT: 1.50 Rt DP: 1.43 Lt PT: 180mm Hg Lt DP: 181mm Hg Lt PT: 1.48 Lt DP: 1.48 Brachial pressures: - Rt brachial pressure (sys): 122mm Hg - Lt brachial pressure (sys): 120mm Hg - Max brachial pressure (sys): 122mm Hg [facility] is accredited with the Intersocietal Commission for the Accreditation of Vascular Laboratories (ICAVL) Prepared and Electronically Authenticated Juli Andrade Confirmed 09/24/2024 17:21 Procedure Note Juli Andrade DO - 09/24/2024 [facility] [address] [place] [address] Noninvasive Vascular Lab FAMILIA with PVR Arterial Physiologic Evaluation Patient: Kimberly Orellana Study ID: 1 Gender: F : 1975 Age: 49 Room: Height: Weight: BSA: Pt status: Outpatient Study Date: 09/24/2024 Study Time: 10:22:00 AM BSA: Ordering: Jesus Nash Interpreting:Juli Andrade Steam Plant Operator: Rhonda Gutiérrez Summary Impression: 1. No evidence of arterial insufficiency, involving the right lowerextremity. 2. No evidence of arterial insufficiency, involving the left lowerextremity. 3. 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 4. Right TBI 0.80 Left TBI 0.79. Study data: FAMILIA with PVR. Ankle-brachial index and pulse volume recording. Location: Vascular laboratory. Patient status:Outpatient. Study status: Routine. Procedure: A vascular evaluation was performed.Exam quality was good. Arterial flow: - Right posterior tibial: Right posterior tibial Triphasic - Right dorsal pedal: Right dorsal pedal Triphasic - Left posterior tibial: Left posterior tibial Triphasic - Left dorsal pedal: Left dorsal pedal Triphasic Ankle brachial indices Rt PT: 183mm Hg Rt DP: 175mm Hg Rt PT: 1.50 RtDP: 1.43 Lt PT: 180mm Hg Lt DP: 181mm Hg Lt PT: 1.48 Lt DP: 1.48 Brachial pressures: - Rt brachial pressure (sys): 122mm Hg - Lt brachial pressure (sys): 120mm Hg - Max brachial pressure (sys): 122mm Hg [facility] is accredited withthe [facility] Commission for the Accreditation of Vascular Laboratories (ICAVL) Prepared and Electronically Authenticated Juli Andrade Confirmed 09/24/2024 17:21 Jesus Nash [facility] US ORDERABLES Final Res ult * MAMMO 3D JERRY SCREEN BILAT W OR WO CAD (09/18/2024 11:54 AM CDT) Anatomical Region Laterality Modality Breast Bilateral Mammography, Dig ital Radiography Impressions 09/21/2024 3:40 PM CDT : No mammographic evidence of malignancy. BI-RADS ASSESSMENT: 1 - Negative RECOMMENDATION: Routine annual screening mammography. Narrative 09/21/2024 3:40 PM CDT EXAM: MAMMO SCRN BILAT 3D JERRY W OR WO CAD INDICATION: Screening COMPARISON: No comparisons are available. BREAST COMPOSITION: There are scattered areas of fibroglandular density. FINDINGS: RIGHT BREAST: There are no suspicious masses, calcifications, or areas of architectural distortion. LEFT BREAST: There are no suspicious masses, calcifications, or areas of architectural distortion. [facility] MAMMO ORDERABLES Final Result * MICROALBUMIN/CREATININE RATIO, RANDOM UR (09/06/2024 8:35 AM CDT) Creatinine, Urine 125 20 - 275 mg/dL [facility] MICROALBUMIN, URINE 1.1 See Note: mg/dL [facility] Comment: Reference Range: Reference Range Not established MICROALBUMIN/CREAT RATIO, UR 9 <30 mg/g creat [facility] Comment: The ADA defines abnormalities in albumin excretion as follows: Albuminuria Category Result (mg/g creatinine) Normal to Mildly increased <30 Moderately increased 30-299 Severely increased > OR = 300 The ADA recommends that at least two of three specimens collected within a 3-6 month period be abnormal before considering a patient to be within a diagnostic category. Test Performed at: [facility] [address] [facility] [place] [address] Candy Huber MD Urine URINE SPECIMEN OBTAINED BY CLEAN CATCH PROCEDURE / Unknown 09/06/2024 8:35 AM CDT 09/07/2024 4:46 AM CDT September CANDY WAFFLE ASSEMBLER URINE ORDERABLES Final Result [facility] [phone] [facility] [address] [place] [address] * (ABNORMAL) LIPID PANEL (07/05/2024 9:05 AM GUYLINE OPERATOR) CHOLESTEROL 135 <200 mg/dL [facility] HDL 54 > OR = 50 mg/dL [facility] TRIGLYCERIDE 271(H) <150 mg/dL [facility] Comment: If a non-fasting specimen was collected, consider repeat triglyceride testing on a fasting specimen if clinically indicated. Ariadna et al. J. of Clin. Lipidol. 2015;9:129-169. LDL CALCULATED 49 mg/dL (calc) [facility] Comment: Reference range: <100 Desirable range <100 mg/dL for primary prevention; <70 mg/dL for patients with CHD or diabetic patients with > or = 2 CHD risk factors. LDL-C is now calculated using the David calculation, which is a validated novel method providing better accuracy than the Friedewald equation in the estimation of LDL-C. Caio RYAN et al. MURIEL. 2013;310(19): 3184-5606 (http://education.MobileVeda/faq/XYC577) CHOL/HDL RATIO 2.5 <5.0 (calc) [facility] NON-HDL CHOLESTEROL 81 <130 mg/dL (calc) [facility] Comment: For patients with diabetes plus 1 major ASCVD risk factor, treating to a non-HDL-C goal of <100 mg/dL (LDL-C of <70 mg/dL) is considered a therapeutic option. Test Performed at: [facility] [address] [place] [address] Candy Huber MD Blood 07/05/2024 9:05 AM GUYLINE OPERATOR 07/06/2024 12:27 PM GUYLINE OPERATOR us Christina OROZCO CHEMISTRY ORDERABLES Final Re sult [facility] [phone] [facility] [address] [place] [address] * (ABNORMAL) CERV/VAG CYTO AGE BASED SCREEN PAP W CT/NG (05/02/2023 10:38 AM GUYLINE OPERATOR) COMMENT (PAP): [facility] Comment: This order for age-based cervical cancer and STI screening follows ACOG guidelines(PB 168, 140, SUY006). See individual assays for performing site location. CLINICAL INFORMATION [facility] Comment:None given LAST MENSTRUAL PERIOD [facility] Comment:NONE GIVEN PREV PAP: [facility] Comment:NONE GIVEN PREV BX: [facility] Comment:NONE GIVEN SOURCE [facility] Comment:Endocervix ADEQUACY: [facility] Comment: Satisfactory for evaluation. Endocervical/transformation zone component present. Age and/or menstrual status not provided PAP INTERP [facility] Comment: Cytology Results: Negative for intraepithelial lesion or malignancy. COMMENT (PAP TEST) [facility] Comment: This Pap test has been evaluated with computer assisted technology. CORE LAYING MACHINE OPERATOR: Suzi est Natalie Lopez Comment: BKA, CT(ASCP) CT screening location: [place] [address] [place] [address] REVIEW CORE LAYING MACHINE OPERATOR: [facility] [place] Comment: JAZ, CT(ASCP) CT screening location: [place] [address] [place] [address] EXPLANATORY NOTE Que HeadroomFidel [place] Comment: EXPLANATORY NOTE: The Pap is a screening test for cervical cancer. It is not a diagnostic test and is subject to false negative and false positive results. It is most reliable when a satisfactory sample, regularly obtained, is submitted with relevant clinical findings and history, and when the Pap result is evaluated along with historic and current clinical information. HPV E6/E7 Detected(A) Not Detected [facility] [place] Comment: Methodology: Aquatic Life Laborer-Mediated Amplification This assay detects E6/E7 viral messenger RNA (mRNA) from 14 high-risk HPV types (16,18,31,33,35,39,45,51,52,56,58,59,66,68). Cervical sources are required for HPV testing. If a vaginal source from a patient who has had a total hysterectomy with removal of cervix was submitted, please contact the testing laboratory for alternative testing options. For additional information, please refer to http://Kadoink.Mapittrackit/faq/HMU734d8 (This link if provided for information/ educational purposes only.) HPV 16 RNA NOT DETECTED NOT DETECTED [facility] HPV 18/45 RNA NOT DETECTED NOT DETECTED [facility] Comment: Methodology: Aquatic Life Laborer Mediated Amplification Cervical sources are required for HPV testing. If a vaginal source from a patient who has had a total hysterectomy with removal of cervix was submitted, please contact the testing laboratory for alternative testing options. C TRAC RNA NOT DETECTED NOT DETECTED [facility] N.GONORRHOEAE RNA, TMA NOT DETECTED NOT DETECTED [facility] COMMENT INFECTIOUS DISEASE [facility] Comment: The analytical performance characteristics of this assay, when used to test SurePath(TM) specimens have been determined by [facility]. The modifications have not been cleared or approved by the FDA. This assay has been validated pursuant to the CLIA regulations and is used for clinical purposes. For additional information, please refer to https://Kadoink.Mapittrackit/faq/XLI726 (This link is being provided for information/ educational purposes only.) Test Performed at: [facility] [address] [place] [address] Candy Huber MD SL Genital SWAB OF ENDOCERVIX / Unknown 05/02/2023 10:38 AM GUYLINE OPERATOR 05/04/2023 3:37 AM GUYLINE OPERATOR Guru Robin MD PATHOLOGY/CYTOLOGY ORDERABLES Final Result [facility] [phone] [email or web address] [address] [place] [address] from Last 3 Months or Most Recently Relevant to Health Maintenance Insurance HEALTH PLAN MEDICAID Advance Directives For more information, please contact: [phone] * Full Code (Latest Code Status on File) Date Activated Date Inactivated Comments 03/23/2024 10:25 PM 03/28/2024 11:34 AM Care Teams Fish Culturist Relationship Specialty Start Date End Date Maria L Jung DO [address] [place] [address] PCP - General Family Practice 11/12/23
--- OUTSIDE RECORDS SUMMARY | 2024-12-21 05:35 | XMS_ITS | Encounter Summary ---
Author Organization [facility] Address [address] [place] [address] Care Team Providers Care Floor Clerk Name Role Phone ErichMaria L mcpherson Bk CABAN Primary Care Provider Encounter Details Date Type Department Care Team ([facility] st Contact Info) Description 07/07/2024 Results Follow-Up [facility] Endocrinology [facility] [address] [place] [address] Christina Ervin PA [address] [place] [phone] HEMOGLOBIN A1C Social History Tobacco Use Types Packs/Day Years [...] AM CDT Legal Sex Female 6:50 AM FLEXIBLE NANNY Gender Identity Female 02/22/2024 10:30 AM CDT Sexual Orientation Asexual 03/20/2024 2: 58 PM CDT Occupation Industry Job Start Date Job End Date Not on file Not on file Not on file Not on file documented as of this encounter Plan of Treatment Upcoming Encounters Date Type Department Care Team (Late st Contact Info) Description 12/23/2024 1:40 PM CDT Office Visit [facility] [address] [place] [address] September, COMPUTER TECHNOLOGIST[address] [place] [address] 01/09/2025 8:00 AM CDT Office Visit [facility] [address] [place] [address] Olesya Peters MD [address] [place] [address] 02/06/2025 12:00 PM CDT Office Visit [facility] [address] [place] [address] September, COMPUTER TECHNOLOGIST [address] [place] [address] 05/08/2025 12:00 PM FLEXIBLE NANNY Office Visit [facility] [address] [place] [address] September, [facility] [address] [place] [address] documented as of this encounter Visit Diagnoses Not on filedocumented in this encounter Care Teams Floor Clerk Relationship Specialty Start Date End Date Maria L Jung DO [address] [place] [address] PCP - General Family Practice 11/12/23 documented as of this encounter
--- OUTSIDE RECORDS SUMMARY | 2024-12-21 05:35 | XMS_ITS | Encounter Summary ---
Author Organization [facility] Address [address] [place] [address] Care Team Providers Care Director Medicare Sales Name Role Phone ErichMaria L mcpherson Bk CABAN Primary Care Provider Encounter Details Date Type Department Care Team (Late st Contact Info) Description 10/16/2024 Results Follow-Up [facility] Medicine [place] [address] [place] [address] De LeonSeptember, [facility] [address] [place] [address] POC URINALYSIS DIPSTICK AUTOMATED, HEMOGLOBIN A1C, URINE CULTURE, VAGINOSIS/VAGINITIS PANEL PLUS Social History Tobacco Use Types Packs/Day Years [...] AM CDT Legal Sex Female 6:50 AM SHIP WORKER Gender Identity Female 02/22/2024 10:30 AM CDT Sexual Orientation Asexual 03/20/2024 2: 58 PM CDT Occupation Industry Job Start Date Job End Date Not on file Not on file Not on file Not on file documented as of this encounter Plan of Treatment Upcoming Encounters Date Type Department Care Team (Late st Contact Info) Description 12/23/2024 1:40 PM CDT Office Visit [facility] [address] [place] [phone] September, [place] [address] 01/09/2025 8:00 AM CDT Office Visit [facility] [address] [place] [address] Olesya Peters MD [address] [place] [address] 02/06/2025 12:00 PM CDT Office Visit [facility] [address] [place] [address] September, [employer]OUND [employer] [address] [place] [address] 05/08/2025 12:00 PM SHIP WORKER Office Visit [facility] [address] [place] [address] September, [place] [address] documented as of this encounter Visit Diagnoses Not on filedocumented in this encounter Care Teams Director Medicare Sales Relationship Specialty Start Date End Date Maria L Jung DO [address] [place] [phone] PCP - General Family Practice 11/12/23 documented as of this encounter
--- OUTSIDE RECORDS SUMMARY | 2024-12-21 05:35 | XMS_ITS | Encounter Summary ---
Author Organization [facility] Address [address] [place] [address] Care Team Providers Care Plug Saw Operator Name Role Phone Maria L Jung Bk CABAN Primary Care Provider Encounter Details Date Type Department Care Team (Late st Contact Info) Description 08/29/2024 Lab Requisition [facility] Laboratory Services [place] [address] [place] [address] De Leonseptember, BINGO FLOATER [address] [place] [phone] Hypotension, unspecified Social History Tobacco Use Types [...] AM CDT Legal Sex Female 6:50 AM ICE CREAM MAKER Gender Identity Female 02/22/2024 10:30 AM CDT Sexual Orientation Asexual 03/20/2024 2: 58 PM CDT Occupation Industry Job Start Date Job End Date Not on file Not on file Not on file Not on file documented as of this encounter Plan of Treatment Upcoming Encounters Date Type Department Care Team (Late st Contact Info) Description 12/23/2024 1:40 PM CDT Office Visit [facility] [address] [place] [address] September, [place] [address] 01/09/2025 8:00 AM CDT Office Visit [facility] [address] [place] [address] Olesya Peters MD [address] [place] [address] 02/06/2025 12:00 PM CDT Office Visit [facility] [address] [place] [address] September, BINGO FLOATER[address] [place] [address] 05/08/2025 12:00 PM ICE CREAM MAKER Office Visit [facility] [address] [place] [address] September, BINGO FLOATER [address] [place] [address] documented as of this encounter Procedures Procedure Name Priority Date/Time Associated Diagnosis Comments LACTIC ACID Stat 08/29/2024 10:15 AM CDT Hypotension, unspecified documented in this encounter Results * (ABNORMAL) LACTIC ACID (08/29/2024 10:15 AM CDT) LACTIC ACID 2.1(H) <=2.0 mmol/L 08/29/2024 11:22 AM CDT [facility] Blood Collection / Unknown 08/29/2024 10:15 AM CDT 08/29/2024 11:03 AM CDT September BINGO FLOATER CHEMISTRY ORDERABLES Final Resul t [facility] CLIA # [id number] [address] [place] [address] documented in this encounter Visit Diagnoses Diagnosis Hypotension, unspecified documented in this encounter Care Teams Plug Saw Operator Relationship Specialty Start Date End Date Maria L Jung DO [address] [place] [address] PCP - General Family Practice 11/12/23 documented as of this encounter
[2024-12-21 05:39] VITALS: BP 132/94; PULSE 98; RESP 18; TEMP 36.9; O2SAT 96; BMI 26.6
--- NOTE | 2024-12-21 06:05 | W.ED.ANXIETY ---
Documented by User: Colten Moreland MD 12/21/24 06:06 HPI - Anxiety General: Chief Complaint: Anxiety Stated Complaint: Anxiety Time Seen by Provider: 12/21/24 05:34 History of Present Illness: 49-year-old female who presents emerged part with complaint of bilateral lower extremity cramping as well as anxiety and hyperventilation. Patient states that she has had a history of leg cramps and tonight her leg started hurting quite a bit to the point where is difficult for her to walk. She states she then started to have a panic attack and started hyperventilating. She states she had carpopedal spasms initially although that has seemed to have improved somewhat. Related Data Home Medications ?Medication ?Instructions ?Recorded ?Confirmed duloxetine 30 mg capsule,delayed 30 mg PO DAILY 01/25/24 11/07/24 release gabapentin 600 mg tablet 600 mg PO TID 01/25/24 11/07/24 insulin aspart U-100 100 unit/mL 14 sliding scale dose SUBCUT BID 01/25/24 11/07/24 (3 mL) subcutaneous pen (Novolog FlexPen U-100 Insulin aspart) rosuvastatin 20 mg tablet 20 mg PO DAILY 01/25/24 11/07/24 trazodone 50 mg tablet 50 - 100 mg PO BEDTIME 01/25/24 11/07/24 insulin glargine 100 unit/mL (3 40 unit SUBCUT DAILY 10/02/24 11/07/24 mL) subcutaneous pen (Lantus Solostar U-100 Insulin) metformin 1,000 mg tablet 1,000 mg PO BID 11/12/24 11/12/24 Previous Rx's ?Medication ?Instructions ?Recorded ondansetron HCl 4 mg tablet 4 mg PO Q8H PRN nausea and 08/21/24 vomiting #14 tabs polyethylene glycol 3350 17 17 g PO BID 2 days #68 grams 10/08/24 gram/dose oral powder (Miralax) buspirone 7.5 mg tablet 15 mg (2 x 7.5 mg) PO BID #120 tabs 12/21/24 hydroxyzine HCl 25 mg tablet 25 mg PO Q6H PRN anxiety #14 tabs 12/21/24 Allergies Allergy/AdvReac Type Severity Reaction Status Date / Time Penicillins Allergy Unknown Verified 10/25/24 09:08 PFSH ED PFSH: Medical History (Updated 12/21/24 @ 07:47 by Malcolm Marques, DO) Infected sebaceous cyst of skin Nausea & vomiting Diabetes Social History Smoking and tobacco/nicotine status: never used tobacco/nicotine Physical Exam Const: COMMON NORMALS: no acute distress, average body habitus, patient oriented x3, no limitations, healthy appearing, alert and well nourished Neck/C-Spine: COMMON NORMALS: no JVD Resp: COMMON NORMALS: normal respiratory effort, No retractions, No use of accessory muscles, clear to auscultation bilaterally and percussion normal AUSCULTATION: clear to auscultation bilaterally PERCUSSION: percussion normal Cardio: COMMON NORMALS: no JVD, regular rate, regular rhythm, S1 normal heart sound present, S2 normal heart sound present, No gallops present (Cardio), No clicks present (Cardio), No murmurs present (Cardio), No rub (Cardio) and Peripheral pulses 2+ throughout RATE: regular rate RHYTHM: regular rhythm HEART SOUNDS: S1 normal heart sound present and S2 normal heart sound present PERIPHERAL PULSES: Peripheral pulses 2+ throughout GI: COMMON NORMALS: Normal to inspection, nondistended, normoactive bowel sounds present, Soft to palpation, non-tender, No hepatosplenomegaly present, no masses and no bruits PALPATION: Yes Soft to palpation and Yes No hepatosplenomegaly present Extremity: OTHER: Bilateral lower extremity tenderness. Patient does have full range of motion. Neurovascular intact distal. Neuro: COMMON NORMALS: patient oriented x3 SENSORIUM/ORIENTATION: Yes alert Course Vital Signs: Vital signs: Vital Signs Temperature 98.4 F 12/21/24 05:39 Pulse Rate 83 12/21/24 08:12 Respiratory Rate 18 12/21/24 05:39 Blood Pressure 136/89 12/21/24 08:12 Pulse Oximetry 98 12/21/24 08:12 Oxygen Delivery Me thod Nasal Cannula 12/21/24 05:39 Oxygen Flow Rate 2 12/21/24 05:39 MDM - Anxiety Lab Data 12/21/24 06:01 12/21/24 06:01 Laboratory Results WBC 5.34 10^3/uL (3.29-11.43) 12/21/24 06:01 RBC 4.81 10^6/uL (3.85-5.65) 12/21/24 06:01 Hgb 13.40 g/dL (11.27-16.99) 12/21/24 06:01 Hct 39.1 % (36-47) 12/21/24 06:01 MCV 81.3 fl (85-98) L 12/21/24 06:01 MCH 27.9 pg (27-33) 12/21/24 06:01 MCHC 34.3 g/dL (30-55) 12/21/24 06:01 RDW 11.9 % (12.1-15.1) L 12/21/24 06:01 Plt Count 240 10^3/cmm (157-399) 12/21/24 06:01 MPV 10.1 fL (7.4-10.4) 12/21/24 06:01 Neut % (Auto) 49.9 % 12/21/24 06:01 Lymph % (Auto) 36.3 % 12/21/24 06:01 [place] % (Auto) 10.3 % 12/21/24 06:01 Eos % (Auto) 2.6 % 12/21/24 06:01 Baso % (Auto) 0.7 % 12/21/24 06:01 Neut # (Auto) 2.66 10^3/uL (1.8-7.7) 12/21/24 06:01 Lymph # (Auto) 1.9 10^3/uL (0.8-4.8) 12/21/24 06:01 [place] # (Auto) 0.6 10^3/uL (0.2-0.9) 12/21/24 06:01 Eos # (Auto) 0.1 10^3/uL (0.0-0.8) 12/21/24 06:01 Baso # (Auto) 0.0 10^3/uL (0.0-0.1) 12/21/24 06:01 Nucleated RBC % (auto) 0 % 12/21/24 06:01 Nucleated RBCs # 0.0 /100WBC 12/21/24 06:01 Sodium 137 mmol/L (136-145) 12/21/24 06:01 Potassium 3.6 mmol/L (3.5-5.1) 12/21/24 06:01 Chloride 98 mmol/L (98-107) 12/21/24 06:01 Carbon Dioxide 24 mmol/L (22-29) 12/21/24 06:01 Anion Gap 18.6 (5-19) 12/21/24 06:01 BUN 16 mg/dL (6-20) 12/21/24 06:01 Creatinine 0.8 mg/dL (0.5-0.9) 12/21/24 06:01 GFR Calculation 76.9 mL/min (90-130) L 12/21/24 06:01 Glucose 221 mg/dL (65-115) H 12/21/24 06:01 Calculated Osmolality 292 mOsm/kg (285-295) 12/21/24 06:01 Calcium 9.8 mg/dL (8.5-10.5) 12/21/24 06:01 Magnesium 1.9 mg/dL (1.7-2.3) 12/21/24 06:01 Total Bilirubin 0.4 mg/dL (0.15-1.2) 12/21/24 06:01 AST 15 U/L (0-32) 12/21/24 06:01 ALT 13 U/L (0-33) 12/21/24 06:01 Alkaline Phosphatase 60 U/L (35-105) 12/21/24 06:01 Creatine Kinase 54 U/L (26-192) 12/21/24 06:01 Total Protein 7.6 g/dL (6.6-8.7) 12/21/24 06:01 Albumin 4.2 g/dL (3.5-5.2) 12/21/24 06:01 Globulin 3.4 g/dL (1.3-4.6) 12/21/24 06:01 Discharge Plan Discharge Patient Disposition: Home Clinical Impression: Hyperventilation, Acute anxiety Condition: Stable Prescriptions: New hydroxyzine HCl 25 mg tablet 25 mg PO Q6H PRN (Reason: anxiety) Qty: 14 0RF Changed buspirone 7.5 mg tablet 15 mg PO BID Qty: 120 0RF No Action polyethylene glycol 3350 [Miralax] 17 gram/dose powder 17 g PO BID 2 Days Qty: 68 0RF ondansetron HCl 4 mg tablet 4 mg PO Q8H PRN (Reason: nausea and vomiting) Qty: 14 0RF insulin glargine [Lantus Solostar U-100 Insulin] 100 unit/mL (3 mL) insulin pen 40 unit SUBCUT DAILY gabapentin 600 mg tablet 600 mg PO TID trazodone 50 mg tablet 50 - 100 mg PO BEDTIME insulin aspart U-100 [Novolog FlexPen U-100 Insulin] 100 unit/mL (3 mL) insulin pen 14 sliding scale dose SUBCUT BID Rx Instructions: INJECT 14 UNITS BY SUBCUTANEOUS INJECTION TWICE DAILY BEFORE MEALS. IF BLOOD SUGAR OVER 200, GIVE ADDITIONAL 10 UNITS FOR TOTAL OF 24 UNITS. MAX DAILY DOSE 48 UNITS. rosuvastatin 20 mg tablet 20 mg PO DAILY duloxetine 30 mg capsule,delayed release(DR/EC) 30 mg PO DAILY metformin 1,000 mg tablet 1,000 mg PO BID Discharge Orders: Discharge ED (Routine); Ordered 12/21/24 Ordered By: Malcolm Marques Referrals: HaleyCydney, TITRATOR [Primary Care Provider, Nurse Practitioner] Discharge Diet: Usual diet Discharge Activity: Resume usual activity Patient Instructions: Opioid Safety, Pain Management, Patient Portal & Faiza Instructions Activity Restrictions/Additional Instructions: Thank you for choosing [facility] for your healthcare needs today. It is very important that you follow up as instructed or that you return to the Emergency Department should you have concerns or if your condition changes or worsens in any way. You are seen in the emergency room with muscle cramping complaints of shortness of breath on arrival in the emergency room department you noted to be hyperventilating the cramping is caused by hyperventilation. Cramps in hands and feet but called carpopedal spasm as a result of the hyperventilation. Her symptoms resolved with antianxiety medications follow-up with your primary care doctor you can use hydroxyzine as needed continue your other previously prescribed medications. Increase your buspirone to 15 mg twice a day and follow-up with primary care doctor within the next week Print Language: Thai Sign Out Sign Out Data: Patient Sign Out occurred on 12/21/24 at 06:19. Patient's care was discussed, and care was transferred from Colten Moreland MD to Malcolm Marques DO. Coding Level of Care Code ED Exterminator Helper Termite for Chg Fwd Documented by User: Malcolm Marques DO 12/21/24 09:04 HPI - Anxiety General: Chief Complaint: Anxiety Stated Complaint: Anxiety Time Seen by Provider: 12/21/24 05:34 Related Data Home Medications ?Medication ?Instructions ?Recorded ?Confirmed duloxetine 30 mg capsule,delayed 30 mg PO DAILY 01/25/24 11/07/24 release gabapentin 600 mg tablet 600 mg PO TID 01/25/24 11/07/24 insulin aspart U-100 100 unit/mL 14 sliding scale dose SUBCUT BID 01/25/24 11/07/24 (3 mL) subcutaneous pen (Novolog FlexPen U-100 Insulin aspart) rosuvastatin 20 mg tablet 20 mg PO DAILY 01/25/24 11/07/24 trazodone 50 mg tablet 50 - 100 mg PO BEDTIME 01/25/24 11/07/24 insulin glargine 100 unit/mL (3 40 unit SUBCUT DAILY 10/02/24 11/07/24 mL) subcutaneous pen (Lantus Solostar U-100 Insulin) metformin 1,000 mg tablet 1,000 mg PO BID 11/12/24 11/12/24 Previous Rx's ?Medication ?Instructions ?Recorded ondansetron HCl 4 mg tablet 4 mg PO Q8H PRN nausea and 08/21/24 vomiting #14 tabs polyethylene glycol 3350 17 17 g PO BID 2 days #68 grams 10/08/24 gram/dose oral powder (Miralax) buspirone 7.5 mg tablet 15 mg (2 x 7.5 mg) PO BID #120 tabs 12/21/24 hydroxyzine HCl 25 mg tablet 25 mg PO Q6H PRN anxiety #14 tabs 12/21/24 Allergies Allergy/AdvReac Type Severity Reaction Status Date / Time Penicillins Allergy Unknown Verified 10/25/24 09:08 PFSH ED PFSH: Medical History (Updated 12/21/24 @ 07:47 by Malcolm Marques DO) Infected sebaceous cyst of skin Nausea & vomiting Diabetes Social History Smoking and tobacco/nicotine status: never used tobacco/nicotine Course Vital Signs: Vital signs: Vital Signs Temperature 98.4 F 12/21/24 05:39 Pulse Rate 83 12/21/24 08:12 Respiratory Rate 18 12/21/24 05:39 Blood Pressure 136/89 12/21/24 08:12 Pulse Oximetry 98 12/21/24 08:12 Oxygen Delivery Me thod Nasal Cannula 12/21/24 05:39 Oxygen Flow Rate 2 12/21/24 05:39 MDM - Anxiety Medical Decision Making Care assumed at change of shift the patient reporting difficulty with cramping when she first arrived rapidly breathing and reviewed with Dr. Moreland at handoff he felt she is hyperventilating she first arrived for symptoms all resolved she is improved with the Ativan and feels much better would like to go home. Will discharge home increase her buspirone to 15 mg twice a day hydroxyzine to use as needed follow-up with her primary care doctor Medical Records I reviewed the patient's medical records. Lab Data I reviewed the patient's lab results. 12/21/24 06:01 12/21/24 06:01 Laboratory Results WBC 5.34 10^3/uL (3.29-11.43) 12/21/24 06:01 RBC 4.81 10^6/uL (3.85-5.65) 12/21/24 06:01 Hgb 13.40 g/dL (11.27-16.99) 12/21/24 06:01 Hct 39.1 % (36-47) 12/21/24 06:01 MCV 81.3 fl (85-98) L 12/21/24 06:01 MCH 27.9 pg (27-33) 12/21/24 06:01 MCHC 34.3 g/dL (30-55) 12/21/24 06:01 RDW 11.9 % (12.1-15.1) L 12/21/24 06:01 Plt Count 240 10^3/cmm (157-399) 12/21/24 06:01 MPV 10.1 fL (7.4-10.4) 12/21/24 06:01 Neut % (Auto) 49.9 % 12/21/24 06:01 Lymph % (Auto) 36.3 % 12/21/24 06:01 [place] % (Auto) 10.3 % 12/21/24 06:01 Eos % (Auto) 2.6 % 12/21/24 06:01 Baso % (Auto) 0.7 % 12/21/24 06:01 Neut # (Auto) 2.66 10^3/uL (1.8-7.7) 12/21/24 06:01 Lymph # (Auto) 1.9 10^3/uL (0.8-4.8) 12/21/24 06:01 [place] # (Auto) 0.6 10^3/uL (0.2-0.9) 12/21/24 06:01 Eos # (Auto) 0.1 10^3/uL (0.0-0.8) 12/21/24 06:01 Baso # (Auto) 0.0 10^3/uL (0.0-0.1) 12/21/24 06:01 Nucleated RBC % (auto) 0 % 12/21/24 06:01 Nucleated RBCs # 0.0 /100WBC 12/21/24 06:01 Sodium 137 mmol/L (136-145) 12/21/24 06:01 Potassium 3.6 mmol/L (3.5-5.1) 12/21/24 06:01 Chloride 98 mmol/L (98-107) 12/21/24 06:01 Carbon Dioxide 24 mmol/L (22-29) 12/21/24 06:01 Anion Gap 18.6 (5-19) 12/21/24 06:01 BUN 16 mg/dL (6-20) 12/21/24 06:01 Creatinine 0.8 mg/dL (0.5-0.9) 12/21/24 06:01 GFR Calculation 76.9 mL/min (90-130) L 12/21/24 06:01 Glucose 221 mg/dL (65-115) H 12/21/24 06:01 Calculated Osmolality 292 mOsm/kg (285-295) 12/21/24 06:01 Calcium 9.8 mg/dL (8.5-10.5) 12/21/24 06:01 Magnesium 1.9 mg/dL (1.7-2.3) 12/21/24 06:01 Total Bilirubin 0.4 mg/dL (0.15-1.2) 12/21/24 06:01 AST 15 U/L (0-32) 12/21/24 06:01 ALT 13 U/L (0-33) 12/21/24 06:01 Alkaline Phosphatase 60 U/L (35-105) 12/21/24 06:01 Creatine Kinase 54 U/L (26-192) 12/21/24 06:01 Total Protein 7.6 g/dL (6.6-8.7) 12/21/24 06:01 Albumin 4.2 g/dL (3.5-5.2) 12/21/24 06:01 Globulin 3.4 g/dL (1.3-4.6) 12/21/24 06:01 No radiology studies performed this visit Discharge Plan Discharge Patient Disposition: Home Clinical Impression: Hyperventilation, Acute anxiety Condition: Stable Prescriptions: New hydroxyzine HCl 25 mg tablet 25 mg PO Q6H PRN (Reason: anxiety) Qty: 14 0RF Changed buspirone 7.5 mg tablet 15 mg PO BID Qty: 120 0RF No Action polyethylene glycol 3350 [Miralax] 17 gram/dose powder 17 g PO BID 2 Days Qty: 68 0RF ondansetron HCl 4 mg tablet 4 mg PO Q8H PRN (Reason: nausea and vomiting) Qty: 14 0RF insulin glargine [Lantus Solostar U-100 Insulin] 100 unit/mL (3 mL) insulin pen 40 unit SUBCUT DAILY gabapentin 600 mg tablet 600 mg PO TID trazodone 50 mg tablet 50 - 100 mg PO BEDTIME insulin aspart U-100 [Novolog FlexPen U-100 Insulin] 100 unit/mL (3 mL) insulin pen 14 sliding scale dose SUBCUT BID Rx Instructions: INJECT 14 UNITS BY SUBCUTANEOUS INJECTION TWICE DAILY BEFORE MEALS. IF BLOOD SUGAR OVER 200, GIVE ADDITIONAL 10 UNITS FOR TOTAL OF 24 UNITS. MAX DAILY DOSE 48 UNITS. rosuvastatin 20 mg tablet 20 mg PO DAILY duloxetine 30 mg capsule,delayed release(DR/EC) 30 mg PO DAILY metformin 1,000 mg tablet 1,000 mg PO BID Discharge Orders: Discharge ED (Routine); Ordered 12/21/24 Ordered By: Malcolm Marques Referrals: Cydney De Leon, TITRATOR [Primary Care Provider, Nurse Practitioner] Discharge Diet: Usual diet Discharge Activity: Resume usual activity Patient Instructions: Opioid Safety, Pain Management, Patient Portal & Faiza Instructions Activity Restrictions/Additional Instructions: Thank you for choosing [facility] for your healthcare needs today. It is very important that you follow up as instructed or that you return to the Emergency Department should you have concerns or if your condition changes or worsens in any way. You are seen in the emergency room with muscle cramping complaints of shortness of breath on arrival in the emergency room department you noted to be hyperventilating the cramping is caused by hyperventilation. Cramps in hands and feet but called carpopedal spasm as a result of the hyperventilation. Her symptoms resolved with antianxiety medications follow-up with your primary care doctor you can use hydroxyzine as needed continue your other previously prescribed medications. Increase your buspirone to 15 mg twice a day and follow-up with primary care doctor within the next week Print Language: Thai Sign Out Sign Out Data: Patient Sign Out occurred on 12/21/24 at 06:19. Patient's care was discussed, and care was transferred from Colten Moreland MD to Malcolm Marques DO. Coding Level of Care Code ED Exterminator Helper Termite for Edgardo Simmons
[2024-12-21 06:06] LABS: Hematocrit 39.1 % (36-47); Hemoglobin 13.40 g/dL (11.27-16.99); Mean Corpuscular HGB Conc 34.3 g/dL (30-55); Mean Corpuscular Hemoglobin 27.9 pg (27-33); Mean Corpuscular Volume 81.3 fl (85-98); Nucleated Red Blood Cells % 0 %; Platelet Count 240 10^3/cmm (157-399); Red Blood Count 4.81 10^6/uL (3.85-5.65); White Blood Count 5.34 10^3/uL (3.29-11.43)
[2024-12-21 06:26] LABS: Alanine Aminotransferase 13 U/L (0-33); Albumin Level 4.2 g/dL (3.5-5.2); Alkaline Phosphatase 60 U/L (35-105); Anion Gap 18.6 (5-19); Aspartate Amino Transferase 15 U/L (0-32); Blood Urea Nitrogen 16 mg/dL (6-20); Calcium 9.8 mg/dL (8.5-10.5); Carbon Dioxide 24 mmol/L (22-29); Chloride 98 mmol/L (98-107); Creatinine Clr Calc Pharmacy 99.3324; Globulin 3.4 g/dL (1.3-4.6); Glucose 221 mg/dL (65-115); Magnesium 1.9 mg/dL (1.7-2.3); Osmolality Calculated 292 mOsm/kg (285-295); Potassium 3.6 mmol/L (3.5-5.1); Sodium 137 mmol/L (136-145); Total Protein 7.6 g/dL (6.6-8.7)
--- NOTE | 2024-12-21 06:30 | PC.NURSE ---
myself and Kacey Rn attempted IV access x 1 without success. Pt asking for US usae. charge nurse Odilon notified and at bedside to attempt.
[2024-12-21] MEDS: LORazepam 1 MG/0.5 ML injection IVP (06:59)
[2024-12-21 07:40] VITALS: BP 143/92; PULSE 89; O2SAT 99
[2024-12-21 08:12] VITALS: BP 136/89; PULSE 83; O2SAT 98
== END 2024-12-21 08:12 | disposition home or self-care (01) ==
PROVIDERS: Emergency Medicine; Emergency Provider Family Medicine
DX: R06.4 Hyperventilation (principal); F41.9 Anxiety disorder, unspecified; Z79.4 Long term (current) use of insulin; Z79.84 Long term (current) use of oral hypoglycemic drugs; E11.9 Type 2 diabetes mellitus without complications
CPT/HCPCS: 80053; 82550; 83735; 85025; 96374; 99284; J2060; J7030

== ENCOUNTER 2024-12-30 15:21 | Emergency (ER) | payer OTHER, MEDICAID, SELFPAY ==
--- OUTSIDE RECORDS SUMMARY | 2024-12-23 13:40 | XMS_ITS | Encounter Summary ---
Author Organization [facility] Address [address] [place] [address] Care Team Providers Care Electrolysis Operator Name Role Phone Maria L Jung DO Primary Care Provider Reason for Referral * Laboratory Services (Routine) - Closed Specialty Diagnoses / Procedures Referred By Contac t Referred To Contact Diagnoses Vaginal itching Procedures VAGINOSIS/VAGINITIS PANEL PLUS Cydney De Leon FNP [address] [place] [address] Phone: tel: fax: Referral ID Status Reason Start Date Expiration Date Visits Re quested Visits Authorized [id number] Closed 12/23/2024 01/23/2026 1 1 Reason for Visit * Reason Comments Follow Up Anxiety Encounter Details Date Type Department Care Team ([facility] Contact Info) Description 12/23/2024 1:40 PM CDT Office Visit [facility] [address] [place] [address] Cydney De Leon FNP [address] [place] [address] Moderate episode of recurrent major depressive disorder (CMS/HCC) (Primary Dx); NIEVES (generalized anxiety disorder); Vaginal itching; Dysphagia, unspecified type; Globus sensation; Type 2 diabetes mellitus with diabetic polyneuropathy, with long-term current use of insulin ([facility]) Social History Tobacco Use Types Packs/Day Years [...] AM CDT Legal Sex Female 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 Gender Identity Female 02/22/2024 10:30 AM CDT Sexual Orientation Asexual 03/20/2024 2: 58 PM CDT Occupation Industry Job Start Date Job End Date Not on file Not on file Not on file Not on file documented as of this encounter Last Filed Vital Signs Vital Sign Reading Time Taken Comments Blood Pressure 152/80 12/23/2024 1:37 PM CDT Pulse 104 12/23/2024 1:36 PM CDT Temperature 36.4 C (97.6 F) 12/23/2024 1:36 PM CDT Respiratory Rate 18 12/23/2024 1:36 PM CDT Oxygen Saturation 97% 12/23/2024 1:36 PM CDT Inhaled Oxygen Concentration - - Weight 81.2 kg (179 lb) 12/23/2024 1:36 PM CDT Height 175.3 cm (5' 9 ) 12/23/2024 1:36 PM CDT Body Mass Index 26.43 12/23/2024 1:36 PM CDT documented in this encounter Progress Notes * Cydney De Leon, BOILER WATER TESTER - 12/23/2024 1:50 PM CDT Chief Complaint Patient presents with Follow Up Anxiety History of Present Illness The patient is a 49-year-old female who presents to the clinic for anxiety. She reports experiencing severe leg cramps that began in her feet and progressed to charley horses in her legs on 12/20/2024. Despite attempts to alleviate the discomfort by walking and consuming pickle juice, she found no relief. Instead, she developed chest pain, described as a tight, squeezing sensation, accompanied bydifficulty breathing and mild vomiting. 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 By the time the ambulance arrived, she was in full-blown respiratory distress. She was diagnosed with a major panic attack. She was prescribed hydroxyzine 25 mg but declined to take it due to adverse side effects. She had previously been yeyo 10 mg dose of hydroxyzine, which she halved, but still found it intolerable. She is currently taking buspirone 7.5 mg once daily, which does not induce sleepiness. She also reports experiencing diarrhea for several days, which she believes is stress-related. She has been unable to continue counseling with [facility] due to repeated cancellations and is seeking a new therapist. She reports difficulty swallowing for the past few weeks, describing it as a constant sensation of a something stuck inher throat. She experiences heartburn or acid reflux when consuming coffee but does not report indigestion. She has a history of tonsil stones but does not observe any white spots in her throat currently. She suspects a urinary tract infection, similar to a previous episode characterized by itching. She also reports a burning sensation, although not during urination. Her blood sugar levels have been fluctuating, which she attributes to her consumption of sweet tea. She continues to use Lantus and follows a sliding scale regimen. 10 point review of systems is otherwise negative except as mentioned above. Past Medical History: Diagnosis Date Acid reflux Anxiety Arthritis 2003 Chronic low back pain without sciatica Diabetes ([facility]) HTN (hypertension) Hyperlipidemia Major depression in partial remission Current Outpatient Medications Medication Instructions busPIRone (BUSPAR) 7.5 mg, Oral, THREE TIMES DAILY PRN DULoxetine (CYMBALTA) 120 mg, Oral, DAILY gabapentin (NEURONTIN) 600 mg, Oral, THREE TIMES DAILY insulin glargine (LANTUS) 40 Units, subCUT, DAILY AT BEDTIME insulin lispro (HUMALOG KWIKPEN INSULIN) 14 Units, subCUT, TWO TIMES DAILY BEFORE MEALS, If BS is over 200 , give additional 10 units for total of 24 unit. Max daily dose 48 units. Insulin [place], Disposable, (Comfort EZ Pen [place]) 32 gauge x 5/32 Needle Use to inject [id number] daily. metFORMIN (GLUCOPHAGE) 1,000 mg, Oral, TWO TIMES DAILY WITH MEALS polyethylene glycol 3350 (MIRALAX) 17 Grams, Oral, DAILY, Dissolve in 8 ounces of fluid and drink entire liquid rosuvastatin (CRESTOR) 20 mg, Oral, DAILY traZODone (DESYREL) 50 mg tablet TAKE 1 TO 2 TABLETS BY MOUTH NEEDED ONE HOUR BEFORE BEDTIME Past Surgical History: Procedure Laterality Date HX COLONOSCOPY 11/12/2024 PT DENIES RELEVANT SURGICAL HISTORY Past social, family, and medical history reviewed. BP (!) 152/80 Pulse (!) 104 Temp 97.6 ??F (36.4 ??C) Resp 18 Ht 5' 9 (1.753 m) Wt 81.2 kg (179 lb) LMP 06/19/2012 SpO2 97% BMI 26.43 kg/m?? Physical Exam Physical Exam Constitutional: Appearance: Normal appearance. HENT: Head: Normocephalic. Right Ear: Tympanic membrane normal. Left Ear: Tympanic membrane normal. Mouth/Throat: Mouth: Mucous membranes are moist. Pharynx: No pharyngeal swelling or posterior oropharyngeal erythema. Tonsils: No tonsillar exudate or tonsillar abscesses. Eyes: Conjunctiva/sclera: Conjunctivae normal. Neck: Comments: Tenderness to right anterior aspect of neck. Palpation of this area caused urge to vomit. Cardiovascular: Rate and Rhythm: Normal rate and regular rhythm. Pulses: Normal pulses. Heart sounds: Normal heart sounds. Pulmonary: Effort: Pulmonary effort is normal. Breath sounds: Normal breath sounds. Abdominal: General: Bowel sounds are normal. Palpations: Abdomen is soft. Musculoskeletal: General: Normal range of motion. Cervical back: Neck supple. Skin: General: Skin is warm and dry. Neurological: General: No focal deficit present. Mental Status: She is alert. Psychiatric: Mood and Affect: Mood normal. Behavior: Behavior normal. Assessment & Plan 1. Anxiety. - Reports increased frequency and severity of panic attacks, including a major episode on 12/20/2024. - Hydroxyzine 25 mg was previously prescribed but not tolerated; patient prefers buspirone. - Buspirone 7.5 mg will be taken three times daily until symptoms improve, then as needed. - Cymbalta dosage will be increased to 120 mg to help manage anxiety and depression. - She was provided with contact information for local therapists. 2. Urinary tract infection. - Symptoms include itching and mild burning; advised to stop using bath salts. - Vaginal swab will be obtained; urine will be sent for culture. 3. Dysphagia. - Reports sensation of a lump in throat persisting for a few weeks. - No visible tonsil stones or white patches observed. - X-ray of the throat will be ordered to investigate further. 4. Diabetes mellitus. - Blood sugar levels are fluctuating; patient admits to consuming sweet tea. - Advised to reduce sweet tea intake and monitor blood sugar levels closely. - Continues current regimen of Lantus and sliding scale insulin. Follow-up - Follow-up appointment scheduled for 01/2025. VIVEK Martinez The author of this note, patient (or authorized provider relations representative), and all other persons present consent to the audio recording of this visit for charting documentation purposes. This note was automatically generated, edited by a Quality Fmd Teacher, and finalized by FRANDY Martinez. documented in this encounter Plan of Treatment Upcoming Encounters Date Type Department Care Team (Late st Contact Info) Description 01/09/2025 8:00 AM CDT Office Visit [facility] Endocrinology [facility] [address] [address] Olesya Peters MD [address] [address] 02/06/2025 12:00 PM CDT Office Visit [facility] [address] [place] [phone] Cydney De Leon FNP [address] [place] [phone] 05/08/2025 12:00 PM METAL EXPEDITER Office Visit [facility] [address] [facility] [address] De LeonSeptember, BOILER WATER TESTER [address] [place] [phone] Scheduled Orders Name Type Priority Associated Diagnoses Orde r Schedule VAGINOSIS/VAGINITIS PANEL PLUS Microbiology Routine Vaginal itching Expected: 12/23/2024, Expires: 12/23/2025 CBC WITH DIFFERENTIAL Lab Routine Type 2 diabetes mellitus with diabetic polyneuropathy, with long-term current use of insulin ([facility]) Expected: 12/23/2024, Expires: 12/23/2025 COMPREHENSIVE METABOLIC PANEL Lab Routine Type 2 diabetes mellitus with diabetic polyneuropathy, with long-term current use of insulin ([facility]) Expected: 12/23/2024, Expires: 12/23/2025 documented as of this encounter Procedures Procedure Name Priority Date/Time Associated Diagnosis Comments URINE CULTURE Routine 12/23/2024 4:26 PM CDT Vaginal itching documented in this encounter Results * XR NECK SOFT TISSUE (12/27/2024 10:08 AM CDT) Anatomical Region Laterality Modality Neck Computed Radiogr aphy 12/27/2024 10:0 8 AM CDT Impressions 12/29/2024 4:11 PM CDT IMPRESSION: Please see below. Exam: XR NECK SOFT TISSUE Date/Time of Exam: 12/27/2024 10:08 AM Reason For Exam: See Diagnosis. Diagnosis: Dysphagia, unspecified type; Globus sensation. Findings: There are no comparisons. The airway is patent. The epiglottis and aryepiglottic folds are unremarkable. No prevertebral soft tissue swelling is noted. No radiopaque foreign body is noted. No significant abnormality of the cervical spine is noted other than facet arthropathy at C4-5. The lung apices are grossly clear. Narrative Procedure Note Alicia Campos MD - 12/29/2024 IMPRESSION: Please see below. Exam: XR NECK SOFT TISSUE Date/Time of Exam: 12/27/2024 10:08 AM Reason For Exam: See Diagnosis. Diagnosis: Dysphagia, unspecified type; Globus sensation. Findings: There are no comparisons. The airway is patent. The epiglottis and aryepiglottic folds are unremarkable. No prevertebral soft tissue swelling is noted. No radiopaque foreign body is noted. No significant abnormality of the cervical spine is noted other than facet arthropathy at C4-5. The lung apices are grossly clear. Cydney [facility] DIAGNOSTIC IMAGING ORDERABLES Fi nal Result * URINE CULTURE (12/23/2024 4:26 PM CDT) URINE CULTURE SEE NOTE [facility] Comment: CULTURE, URINE, ROUTINE Micro Number: [id number] Test Status: Final Specimen Source: Urine, clean catch Specimen Quality: Adequate Result: Mixed genital edna isolated. These superficial bacteria are not indicative of a urinary tract infection. No further organism identification is warranted on this specimen. If clinically indicated, recollect clean-catch, mid-stream urine and transfer immediately to Urine Culture Transport Tube. Test Performed at: [facility] [id number] [facility] [place] [address] Candy Huber MD Urine URINE SPECIMEN OBTAINED BY CLEAN CATCH PROCEDURE / Unknown 12/23/2024 4:26 PM CDT 12/24/2024 6:09 AM CDT September [facility] MICROBIOLOGY - GENERAL ORDERABLE S Final Result [facility] [phone] [facility] [id number] [facility] [place] [place] [address] documented in this encounter Visit Diagnoses Diagnosis Moderate episode of recurrent major depressive disorder (CMS/HCC)- Primary NIEVES (generalized anxiety disorder) Generalized anxiety disorder Vaginal itching Pruritus of genital organs Dysphagia, unspecified type Globus sensation Gastrointestinal malfunction arising from mental factors Type 2 diabetes mellitus with diabetic polyneuropathy, with long-term current use of insulin (CMS/HCC) Dysphagia, unspecified type Globus sensation Gastrointestinal malfunction arising from mental factors documented in this encounter Care Teams Electrolysis Operator Relationship Specialty Start Date End Date Maria L Jung DO [address] [place] [phone] PCP - General Family Practice 11/12/23 documented as of this encounter
--- OUTSIDE RECORDS SUMMARY | 2024-12-27 10:02 | XMS_ITS | Encounter Summary ---
Author Organization [email or web address] Address 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 3 Tablet 1 5 busPIRone (BUSPAR) 7.5 mg TabletIndications:G AD (generalized anxiety disorder) Take 1 Tablet (7.5 mg) by mouth 3 times daily as needed for Anxiety. 90 Tablet 3 5 DULoxetine (CYMBALTA) 60 mg Capsule, Delayed Release(E.C.)Indica tions:NIEVES (generalized anxiety disorder),Moderate episode of recurrent major depressive disorder (CMS/HCC) Take 2 Capsules (120 mg) by mouth daily. 90 Capsule 2 5 insulin lispro (HumaLOG KwikPen Insulin) 100 unit/mL pen syringeIndications: Type 2 diabetes mellitus with diabetic polyneuropathy, with long-term current use of insulin (CMS/HCC) Inject 14 Units by subcutaneous injection 2 times daily before meals. If BS is over 200 , give additional 10 units for total of 24 unit. Max daily dose 48 units. 15 mL 3 5 polyethylene glycol 3350 (MIRALAX) 17 gram/dose PowderIndications:I rritable bowel syndrome with constipation Take 1 Scoop (17 Grams) by mouth daily. Dissolve in 8 ounces of fluid and drink entire liquid 527 Gram 3 5 metFORMIN (GLUCOPHAGE) 1,000 mg tabletIndications:T ype 2 diabetes mellitus with diabetic polyneuropathy, with long-term current use of insulin (CMS/HCC) Take 1 Tablet (1,000 mg) by mouth 2 times daily with meals. 120 Tablet 5 5 traZODone (DESYREL) 50 mg tabletIndications:I nsomnia, unspecified type TAKE 1 TO 2 TABLETS BY MOUTH NEEDED ONE HOUR BEFORE BEDTIME 180 Tablet 3 4 gabapentin (NEURONTIN) 600 mg tabletIndications:D iabetic polyneuropathy associated with type 2 diabetes mellitus (CMS/HCC) Take 1 Tablet (600 mg) by mouth 3 times daily. 90 Tablet 4 4 Insulin [place], Disposable, (Comfort EZ Pen [place]) 32 gauge x 5/32 Needle Use to inject insulin 4x daily. 400 Each 3 4 rosuvastatin (Crestor) 20 mg tabletIndications:H yperlipidemia, unspecified hyperlipidemia type Take 1 Tablet (20 mg) by mouth daily. 90 Tablet 3 4 insulin glargine (LANTUS) 100 unit/mL pen syringeIndications: Uncontrolled type 2 diabetes mellitus with hyperglycemia ([facility]) Inject 40 Units by subcutaneous injection daily at bedtime. 15 mL 3 4 documented as of this encounter Plan of Treatment Upcoming Encounters Date Type Department Care Team (Late st Contact Info) Description 01/09/2025 8:00 AM CDT Office Visit [facility] Endocrinology [facility] [address] [facility] [address] [place] [address] Olesya Peters MD [address] [facility] [address] [place] [address] 02/06/2025 12:00 PM CDT Office Visit [facility] [address] [place] [phone] September, [facility] [address] [place] [phone] 05/08/2025 12:00 PM WIND FARM DESIGNER Office Visit [facility] [address] [place] [address] September, PLUNGER MACHINE OPERATOR [address] [place] [phone] documented as of this encounter Procedures Procedure Name Priority Date/Time Associated Diagnosis Comments XR NECK SOFT TISSUE Routine 12/27/2024 1 0:08 AM CDT Dysphagia, unspecified type Globus sensation documented in this encounter Results * XR [...] C4-5. The lung apices are grossly clear. September PLUNGER MACHINE OPERATOR DIAGNOSTIC IMAGING ORDERABLES Fi nal Result documented in this encounter Visit Diagnoses Diagnosis Dysphagia, unspecified type Globus sensation Gastrointestinal malfunction arising from mental factors documented in this encounter Care Teams Senior Design Engineer Relationship Specialty Start Date End Date Maria L Jung DO [address] [place] [address] PCP - General Family Practice 11/12/23 documented as of this encounter
[2024-12-30 15:21] VITALS: BP 116/83; PULSE 98; RESP 16; TEMP 36.4; O2SAT 97; BMI 26.6
--- NOTE | 2024-12-30 15:23 | ECG_ITS ---
[facility]: 2024-12[facility]30 Pat Name: Kimberly Orellana Department: Room: Gender: Female Manufacturing Specialist: : 1975 Requested By: Sissy Terry Order Number: [id number] Adriana MD: Gerry Gayle M.D. Measurements Intervals [place] Rate: 96 P: 51 MI: 163 QRS: 45 QRSD: 64 T: 64 QT: 340 QTc: 432 Interpretive Statements SINUS RHYTHM LOW QRS VOLTAGE IN PRECORDIAL LEADS [QRS DEFLECTION < 1.0 mV IN CHEST LEADS] SEPTAL MYOCARDIAL INFARCTION , OF INDETERMINATE AGE [40+ ms Q WAVE IN V1/V2] Compared to ECG 08/20/2024 20:26:22 Low QRS voltage now present Myocardial infarct finding now present Electronically Signed On 12-31-2024 09:50:25 CDT by Gerry Gayle M.D. [email or web address]
--- OUTSIDE RECORDS SUMMARY | 2024-12-30 15:27 | XMS_ITS | Encounter Summary ---
Author Organization [facility] Address [address] [place] [address] Care Team Providers Care Marble Installer Name Role Phone ErichMaria L mcpherson Bk CABAN Primary Care Provider Encounter Details Date Type Department Care Team (Late st Contact Info) Description 12/26/2024 Orders Only [facility] [place] [address] [place] [address] De Leon, September, 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 Gender Identity Female 02/22/2024 10:30 AM CDT Sexual Orientation Asexual 03/20/2024 2: 58 PM CDT Occupation Industry Job Start Date Job End Date Not on file Not on file Not on file Not on file documented as of this encounter Plan of Treatment Upcoming Encounters Date Type Department Care Team (Late st Contact Info) Description 01/09/2025 8:00 AM CDT Office Visit [facility] [address] [place] [address] Olesya Peters MD [address] [place] [address] 02/06/2025 12:00 PM CDT Office Visit [facility] [address] [place] [phone] September, [facility] [address] [place] [phone] 05/08/2025 12:00 PM ORACLE APPLICATION CONSULTANT Office Visit [facility] [address] [place] [phone] September, [facility] [address] [place] [phone] documented as of this encounter Visit Diagnoses Diagnosis Vaginal itching- Primary Pruritus of genital organs documented in this encounter Care Teams Marble Installer Relationship Specialty Start Date End Date Maria L Jung DO [address] [place] [phone] PCP - General Family Practice 11/12/23 documented as of this encounter
--- OUTSIDE RECORDS SUMMARY | 2024-12-30 15:27 | XMS_ITS | Encounter Summary ---
Author Organization [facility] Address [address] [place] [address] Care Team Providers Care Process Control Engineer Name Role Phone Maria L Jung Primary Care Provider Encounter Details Date Type Department Care Team (Late st Contact Info) Description 09/06/2024 Lab Requisition [facility] Laboratory Services [place] [address] [place] [address] De Leonseptember, IRONWORKER APPRENTICE SHOP [address] [place] [address] Hypotension, unspecified Social History Tobacco Use Types [...] AM CDT Legal Sex Female 6:50 AM COREMAKER Gender Identity Female 02/22/2024 10:30 AM CDT Sexual Orientation Asexual 03/20/2024 2: 58 PM CDT Occupation Industry Job Start Date Job End Date Not on file Not on file Not on file Not on file documented as of this encounter Plan of Treatment Upcoming Encounters Date Type Department Care Team (Late st Contact Info) Description 01/09/2025 8:00 AM CDT Office Visit [facility] Endocrinology [facility] [address] [place] [address] Olesya Peters MD [address] [place] [address] 02/06/2025 12:00 PM CDT Office Visit [facility] [address] [place] [address] September, IRONWORKER APPRENTICE SHOP [address] [place] [address] 05/08/2025 12:00 PM COREMAKER Office Visit [facility] [address] [place] [address] September, IRONWORKER APPRENTICE [employer] [address] [place] [address] documented as of this encounter Procedures Procedure Name Priority Date/Time Associated Diagnosis Comments LACTIC ACID Stat 09/06/2024 9:10 AM CDT Hypotension, unspecified CORTISOL LEVEL Stat 09/06/2024 9:10 AM CDT Hypotension, unspecified COMPREHENSIVE METABOLIC PANEL Stat 09/06/2024 9:10 AM CDT Hypotension, unspecified documented in this encounter Results * LACTIC ACID (09/06/2024 9:10 AM CDT) LACTIC ACID 1.7 <=2.0 mmol/L 09/06/2024 9:32 AM CDT [facility] Blood Collection / Unknown 09/06/2024 9:10 AM CDT 09/06/2024 9:12 AM CDT September De [place] [facility] CHEMISTRY ORDERABLES Final Resul t [facility] CLIA # [id number] [address] [place] [address] * (ABNORMAL) COMPREHENSIVE METABOLIC PANEL (09/06/2024 9:10 AM CDT) SODIUM 141 136 - 145 mmol/L 09/06/2024 9:[address] [facility] POTASSIUM 4.4 3.5 - 5.1 mmol/L 09/06/2024 9:[address] [facility] CHLORIDE 102 98 - 107 mmol/L 09/06/2024 9:[address] [facility] CO2 27 22 - 29 mmol/L 09/06/2024 9:[address] [facility] CALCIUM 10.0 8.6 - 10.0 mg/dL 09/06/2024 9:[address] [facility] BUN 17 6 - 20 mg/dL 09/06/2024 9:[address] [facility] CREATININE 0.96(H) 0.51 - 0.95 mg/dL 09/06/2024 9:[address] [facility] GLUCOSE 165(H) 74 - 99 mg/dL 09/06/2024 9:[address] [facility] TOTAL PROTEIN 7.8 6.6 - 8.7 g/dL 09/06/2024 9:[address] [facility] ALBUMIN 4.5 4.0 - 4.9 g/dL 09/06/2024 9:[address] [facility] BILIRUBIN TOTAL 0.5 <=1.2 mg/dL 09/06/2024 9:[address] [facility] ALKALINE PHOSPHATASE 40 35 - 104 U/L 09/06/2024 9:[address] [facility] AST 26 0 - 35 U/L 09/06/2024 9:32 AM CDT [facility] ALT 21 0 - 35 U/L 09/06/2024 9:32 AM CDT [facility] GFR >60 >=60 mL/min/1.7 3 sq meter 09/06/2024 9:32 AM CDT [facility] Comment:eGFR calculated with 2020 CKD-EPI equation. Vegetarian diet, extremely high or low muscle mass, and may affect results. Cystatin C with Glomerular Filtration Rate is a suitable alternative for these patients. ANION GAP 12 5 - 20 mmol/L 09/06/2024 9:32 AM CDT [facility] Blood Collection / Unknown 09/06/2024 9:10 AM CDT 09/06/2024 9:12 AM CDT us September [facility] CHEMISTRY ORDERABLES Final Resul t Performing Organization Address City/[facility]/ZIP Co de Phone Number [facility] CLIA # [id number] [address] [place] [address] * CORTISOL LEVEL (09/06/2024 9:10 AM CDT) CORTISOL LEVEL 10.6 ug/dL 09/06/2024 5:04 PM CDT [facility] [employer] [facility] Comment: Cortisol Reference Range Morning Hours 6-10 a.m. 6.0-18.4 ug/dL Afternoon Hours 4-8 p.m. 2.7-10.5 ug/dL Blood Collection / Unknown 09/06/2024 9:10 AM CDT 09/06/2024 9:12 AM CDT September [facility] CHEMISTRY ORDERABLES Final Resul t Performing Organization Address City/[facility]/ZIP Co de Phone Number [facility] [employer] [facility] CLIA # [id number] [address] [place] [address] documented in this encounter Visit Diagnoses Diagnosis Hypotension, unspecified documented in this encounter Care Teams Process Control Engineer Relationship Specialty Start Date End Date Erich, Maria L L, DO [address] [place] [address] PCP - General Family Practice 11/12/23 documented as of this encounter
--- OUTSIDE RECORDS SUMMARY | 2024-12-30 15:27 | XMS_ITS | Encounter Summary ---
Author Organization [facility] Address [address] [place] [address] Care Team Providers Care Refinisher Name Role Phone ErichMaria L mcpherson Bk CABAN Primary Care Provider Encounter Details Date Type Department Care Team ([facility] st Contact Info) Description 07/07/2024 Results Follow-Up [facility] Endocrinology [facility] [address] [place] [address] Christina Ervin PA [address] [place] [phone] HEMOGLOBIN A1C Social History Tobacco Use Types [...] AM CDT Legal Sex Female 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 Gender Identity Female 02/22/2024 10:30 AM CDT Sexual Orientation Asexual 03/20/2024 2: 58 PM CDT Occupation Industry Job Start Date Job End Date Not on file Not on file Not on file Not on file documented as of this encounter Plan of Treatment Upcoming Encounters Date Type Department Care Team (Late st Contact Info) Description 01/09/2025 8:00 AM CDT Office Visit [facility] [address] [place] [address] Olesya Peters MD [address] [place] [address] 02/06/2025 12:00 PM CDT Office Visit [facility] [address] [place] [address] September, DIGITAL SERVICE ENGINEER [address] [place] [address] 05/08/2025 12:00 PM ARCHIVAL RECORDS CLERK Office Visit [facility] [address] [place] [address] September, DIGITAL SERVICE ENGINEER [address] [place] [address] documented as of this encounter Visit Diagnoses Not on filedocumented in this encounter Care Teams Refinisher Relationship Specialty Start Date End Date Maria L Jung DO [address] [place] [phone] PCP - General Family Practice 11/12/23 documented as of this encounter
--- OUTSIDE RECORDS SUMMARY | 2024-12-30 15:27 | XMS_ITS | Encounter Summary ---
Author Organization [facility] Address 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 I let her know to check with hospital before leaving to see if orders have been placed before leaving or going to ER. Pt verbalized understanding. I'll check and see if they can do it today. If not I recommend she go to the ER. Jackie BOYER * Telephone Encounter - Jackie Castro LPN - 12/27/2024 9:39 AM CDT 12/27/2024 9:39 AM I returned pt's call and she stated she has had diarrhea and vomiting since Monday. Pt said she wasa little better yesterday after taking Imodium. Pt says she just feels drained, no energy. Says sheis urinating ok but that she gets dehydrated easily and is wanting to know if Cydney can order a bagof fluids that she can get done when she goes in for her XR. Pt says her urine is bright yellow andhas a strong odor. Pt says no skin tenting. Pt says she is on her way to get XR's now at [facility]. View. Jackie BOYER * Telephone Encounter - Naomi Garcias, COLLISION REPAIR TECHNICIAN - 12/27/2024 9:18 AM CDT Copied from [facility] #[id number]. Topic: CPA Information Request >> Dec 27, 2024 9:17 AM Naomi Chin wrote: Caller is returning phone call from clinic. Caller Name: Kimberly Orellana Patient/Caregiver Callback Number: [phone] Clinic Left Note In Chart Is there a note from the clinic requesting the caller be transferred when they call back? No Are the credentials of the caregiver who called the patient choir leader? Yes Call Notes: Communicated information that is documented in the note. Caller wants a call back from clinic. * Telephone Encounter - Jackie Castro LPN - 12/27/2024 9:13 AM CDT 12/27/2024 9:13 AM Returned call. No answer. No voicemail or answering machine. Will continue to try to contact. If patient/caregiver calls back, contact center please inform caller to expect a return call from the clinic. Jackie BOYER * Telephone Encounter - Baltazar Lambert - 12/27/2024 8:07 AM CDT Copied from [facility] #[id number]. Topic: Medication Request >> Dec 27, 2024 8:06 AM Baltazar Simpson wrote: Caller Name: Kimberly Orellana Callback Number: [phone] Medication (Ask patient/caregiver to spell if possible): Wants a bag of fluids when she is there for her x-ray Note: All medication prescriptions can be requested using one [facility] Preferred Pharmacy: NA Call Notes: Caller is requesting a new medication, which is not active on their medication list. documented in this encounter Plan of Treatment Upcoming Encounters Date Type Department Care Team (Late st Contact Info) Description 01/09/2025 8:00 AM CDT Office Visit [facility] Endocrinology [facility] [address] [place] [phone] Olesya Peters MD [address] [place] [address] 02/06/2025 12:00 PM CDT Office Visit [facility] [address] [facility] [place] [address] September, [facility] [address] [place] [address] 05/08/2025 12:00 PM BOARD SETTER Office Visit [facility] [address] [facility] [place] [address] September, [facility] [address] [place] [address] documented as of this encounter Visit Diagnoses Not on filedocumented in this encounter Care Teams Ghost Writer Relationship Specialty Start Date End Date Maria L Jung DO [address] [place] [address] PCP - General Family Practice 11/12/23 documented as of this encounter
--- OUTSIDE RECORDS SUMMARY | 2024-12-30 15:27 | XMS_ITS | Encounter Summary ---
Author Organization [facility] Address 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 Gender Identity Female 02/22/2024 10:30 AM CDT Sexual Orientation Asexual 03/20/2024 2: 58 PM CDT Occupation Industry Job Start Date Job End Date Not on file Not on file Not on file Not on file documented as of this encounter Plan of Treatment Upcoming Encounters Date Type Department Care Team (Late st Contact Info) Description 01/09/2025 8:00 AM CDT Office Visit [facility] [address] [place] [address] Olesya Peters MD [address] [place] [address] 02/06/2025 12:00 PM CDT Office Visit [facility] [address] [place] [address] September, LATEX SPOOLER [address] [place] [address] 05/08/2025 12:00 PM COMPUTER PROGRAMMER Office Visit [facility] [address] [place] [address] September, [facility] [address] [place] [address] documented as of this encounter Visit Diagnoses Not on filedocumented in this encounter Care Teams Filemaker Developer Relationship Specialty Start Date End Date Maria L Jung DO [address] [place] [address] PCP - General Family Practice 11/12/23 documented as of this encounter
--- OUTSIDE RECORDS SUMMARY | 2024-12-30 15:27 | XMS_ITS | Encounter Summary ---
Author Organization [facility] Address 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 Gender Identity Female 02/22/2024 10:30 AM CDT Sexual Orientation Asexual 03/20/2024 2: 58 PM CDT Occupation Industry Job Start Date Job End Date Not on file Not on file Not on file Not on file documented as of this encounter Plan of Treatment Upcoming Encounters Date Type Department Care Team (Late st Contact Info) Description 01/09/2025 8:00 AM CDT Office Visit [facility] Endocrinology [facility] [address] [place] [address] Olesya Peters MD [address] [place] [address] 02/06/2025 12:00 PM CDT Office Visit [facility] [address] [place] [address] September, [facility] [address] [place] [address] 05/08/2025 12:00 PM CLINICAL MENTAL HEALTH COUNSELOR Office Visit [facility] [address] [place] [address] September, [facility] [address] [place] [address] documented as of this encounter Procedures Procedure Name Priority Date/Time Associated Diagnosis Comments LACTIC ACID Stat 08/29/2024 10:15 AM CDT Hypotension, unspecified documented in this encounter Results * (ABNORMAL) LACTIC ACID (08/29/2024 10:15 AM CDT) LACTIC ACID 2.1(H) <=2.0 mmol/L 08/29/2024 11:22 AM CDT [facility] Blood Collection / Unknown 08/29/2024 10:15 AM CDT 08/29/2024 11:03 AM CDT September [facility] CHEMISTRY ORDERABLES Final Resul t [facility] CLIA # [id number] [address] [address] documented in this encounter Visit Diagnoses Diagnosis Hypotension, unspecified documented in this encounter Care Teams Journeyman Lineman Relationship Specialty Start Date End Date Maria L Jung DO [address] [place] [address] PCP - General Family Practice 11/12/23 documented as of this encounter
--- OUTSIDE RECORDS SUMMARY | 2024-12-30 15:27 | XMS_ITS | Encounter Summary ---
Author Organization [facility] Address [address] [place] [address] Care Team Providers Care Patient Safety Manager Name Role Phone Leydi Jungorah Bk CABAN Primary Care Provider [phone] Reason for Visit * Reason Comments Medication Assistance Encounter Details Date Type Department Care Team ([facility] st Contact Info) Description 12/25/2024 Telephone [facility] Family Medicine [place] [address] [place] [address] De LeonSeptember, [facility] [address] [place] [address] Medication Assistance Social History Tobacco Use Types Packs/Day Years [...] AM CDT Legal Sex Female 6:50 AM JAVA J2EE LEAD Gender Identity Female 02/22/2024 10:30 AM CDT Sexual Orientation Asexual 03/20/2024 2: 58 PM CDT Occupation Industry Job Start Date Job End Date Not on file Not on file Not on file Not on file documented as of this encounter Miscellaneous Notes * Telephone Encounter - Jackie Castro LPN - 12/27/2024 9:38 AM CDT 12/27/2024 9:38 AM I spoke with pt and let her know Diflucan has been sent in. Jackie BOYER * Telephone Encounter - Jackie Castro LPN - 12/27/2024 9:11 AM CDT 12/27/2024 9:11 AM I attempted to contact pt to let her know Diflucan has been sent in. No answer and not able to LVM.If pt returns call please let her know this has been sent in. Pt also has another encounter in about wanting fluids. Please see that encounter from 12/27/24. Jackie BOYER * Telephone Encounter - Magdalena Durbin - 12/25/2024 1:24 PM CDT Copied from [facility] #[id number]. Topic: Administrative >> Dec 25, 2024 1:23 PM Magdalena Govea wrote: Caller Name: Kimberly Méndez Esteban Callback Number: [phone] (mobile) Call Notes: She said that her antibiotic that was supposed to have been sent in yesterday was not sent in with everything else. She would like that to be sent in as soon as possible. Patient Access Instructions 1. Attempt to help caller as possible. 2. Select Resolve Reason and Click Close CRM. documented in this encounter Plan of Treatment Upcoming Encounters Date Type Department Care Team (Late st Contact Info) Description 01/09/2025 8:00 AM CDT Office Visit [facility] Endocrinology [facility] [address] [address] Olesya Peters MD [address] [facility] [address] [place] [address] 02/06/2025 12:00 PM CDT Office Visit [facility] [address] [place] [address] September, [facility] [address] [place] [address] 05/08/2025 12:00 PM JAVA J2EE LEAD Office Visit [facility] [address] [place] [address] September, [facility] [address] [place] [address] documented as of this encounter Visit Diagnoses Not on filedocumented in this encounter Care Teams Patient Safety Manager Relationship Specialty Start Date End Date Maria L Jung DO [address] [place] [address] PCP - General Family Practice 11/12/23 documented as of this encounter
--- OUTSIDE RECORDS SUMMARY | 2024-12-30 15:28 | XMS_ITS | Clinical Summary ---
Author Organization [facility] Address [address] [place]: [place] [address] Care Team Providers Care Labor Relations Or Personnel Negotiator Name Role Phone Erich, Maria L L DO Primary Care Provider [phone] Allergies Active Allergy Reactions Criticality Noted Date Comments Coconut Hives,Shortness of Breath/Wheezing High 1 Kiwi Unknown 06/14/2024 Lactose Abdominal Pain Low 03/24/2024 Penicillins Unknown 04/26/2018 Pineapple Shortness of Breath/Wheezing,Swelling High 03/24/2024 Medications insulin glargine (LANTUS) 100 unit/mL pen syringeIndicatio ns:Uncontrolled type 2 diabetes mellitus with hyperglycemia ([facility]) Inject 40 Units by subcutaneous injection daily at bedtime. 15 mL 3 Active Additional Information Patient taking differently: 30 UnitssubCUTTWO TIMES DAILY, Reported on 12/23/2024 rosuvastatin (Crestor) 20 mg tabletIndication s:Hyperlipidemia , unspecified hyperlipidemia type Take 1 Tablet (20 mg) by mouth daily. 90 Tablet 3 024 Active Insulin [place], Disposable, (Comfort EZ Pen [place]) 32 gauge x 5/32 Needle Use to inject insulin 4x daily. 400 Each 3 024 Active traZODone (DESYREL) 50 mg tabletIndication s:Insomnia, unspecified type TAKE 1 TO 2 TABLETS BY MOUTH NEEDED ONE HOUR BEFORE BEDTIME 180 Tablet 3 024 Active gabapentin (NEURONTIN) 600 mg tabletIndication s:Diabetic polyneuropathy associated with type 2 diabetes mellitus ([facility]/HCC) Take 1 Tablet (600 mg) by mouth 3 times daily. 90 Tablet 4 024 Active polyethylene glycol 3350 (MIRALAX) 17 gram/dose PowderIndication s:Irritable bowel syndrome with constipation Take 1 Scoop (17 Grams) by mouth daily. Dissolve in 8 ounces of fluid and drink entire liquid 527 Gram 3 025 Active metFORMIN (GLUCOPHAGE) 1,000 mg tabletIndication s:Type 2 diabetes mellitus with diabetic polyneuropathy, with long-term current use of insulin ([facility]) Take 1 Tablet (1,000 mg) by mouth 2 times daily with meals. 120 Tablet 5 025 Active insulin lispro (HumaLOG KwikPen Insulin) 100 unit/mL pen syringeIndicatio ns:Type 2 diabetes mellitus with diabetic polyneuropathy, with long-term current use of insulin ([facility]) Inject 14 Units by subcutaneous injection 2 times daily before meals. If BS is over 200 , give additional 10 units for total of 24 unit. Max daily dose 48 units. 15 mL 3 025 Active Additional Information Patient taking differently: (No dose reported), subCUT TWO TIMES DAILY BEFORE MEALS,Sliding scale, Reported on 12/23/2024 busPIRone (BUSPAR) 7.5 mg TabletIndication s:NIEVES (generalized anxiety disorder) Take 1 Tablet (7.5 mg) by mouth 3 times daily as needed for Anxiety. 90 Tablet 3 025 Active DULoxetine (CYMBALTA) 60 mg Capsule, Delayed Release(E.C.)Ind ications:NIEVES (generalized anxiety disorder),Modera te episode of recurrent major depressive disorder ([facility]/HCC) Take 2 Capsules (120 mg) by mouth daily. 90 Capsule 2 025 Active fluconazole (DIFLUCAN) 100 mg tabletIndication s:Vaginal itching Take 1 Tablet (100 mg) by mouth daily. 3 Tablet 1 025 Active busPIRone (BUSPAR) 7.5 mg TabletIndication s:NIEVES (generalized anxiety disorder) Take 1 Tablet (7.5 mg) by mouth daily. 90 Tablet 3 024 2024 Discontinued DULoxetine (CYMBALTA) 60 mg Capsule, Delayed Release(E.C.)Ind ications:Current moderate episode of major depressive disorder, unspecified whether recurrent (CMS/HCC) Take 1 Capsule (60 mg) by mouth daily. 90 Capsule 2 025 2024 Discontinued(D ose/form adjustment) Active Problems Problem Noted Date Diagnosed Date [...] Encounters Date Type Department Care Team Description 12/27/2024 10:02 AM CDT - 12/27/2024 11:59 PM CDT Hospital Encounter [facility] [address] [place] [address] HaleySeptember, [employer] Arrived Discharge Disposition: Home or Self Care 12/27/2024 Telephone [facility] [address] [place] [address] Maria L Jung, Medication Question; Patient Communication 12/26/2024 Results Follow-Up [facility] [address] [place] [address] De Leon, September, [employer] URINE CULTURE, XR NECK SOFT TISSUE 12/26/2024 Orders Only [facility] [address] [place] [address] De Leon, September, [employer] Vaginal itching (Primary Dx) 12/25/2024 Telephone [facility] [address] [place] [address] De Leon, September, [employer] Medication Assistance 12/23/2024 1:40 PM CDT Office Visit [facility] [address] [place] [address] De Leon, September, [employer] Moderate episode of recurrent major depressive disorder (CMS/HCC) (Primary Dx); NIEVES (generalized anxiety disorder); Vaginal itching; Dysphagia, unspecified type; Globus sensation; Type 2 diabetes mellitus with diabetic polyneuropathy, with long-term current use of insulin (CMS/HCC) 12/17/2024 External Device Data [facility] Provider, Abstract 12/10/2024 External Device Data [facility] Provider, Abstract 11/21/2024 Orders Only [facility] [address] [place] [address] Provider, Abstract 11/19/2024 External Device Data [facility] Provider, Abstract 11/19/2024 External Device Data [facility] Provider, Abstract 11/19/2024 External Device Data [facility] Provider, Abstract 11/19/2024 Patient Outreach [facility] [address] [place] [address] [facility] 11/15/2024 9:02 AM CDT - 11/15/2024 11:42 AM CDT Emergency [facility] Emergency Medicine [address] [place] [address] Samra Neri MD Bacterial gastroenteritis (Primary Dx); Food poisoning Discharge Disposition: Home or Self Care 11/15/2024 Results Follow-Up [facility] Emergency Medicine [address] [place] [address] Mari Stein RN COMPREHENSIVE METABOLIC PANEL, LIPASE, BRAIN NATRIURETIC PEPTIDE, BNP OR PROBNP, Additional followed-up results: 2 11/12/2024 External Device Data [facility]CTION Provider, Abstract 11/06/2024 Orders Only [facility] Information Management [place] [address] [place] [address] Provider, Abstract 11/01/2024 Orders Only [facility] [address] [place] [address] September, Type 2 diabetes mellitus with diabetic polyneuropathy, with long-term current use of insulin ([facility]) (Primary Dx) 10/30/2024 Orders Only [facility] [address] [place] [address] Provider, Abstract 10/24/2024 Telephone [facility] [address] [place] [address] De Leonseptember, [employer] Question; Question 10/18/2024 Patient Outreach [facility] [address] [place] [address] Care, [facility] Care 10/16/2024 Results Follow-Up [facility] [address] [place] [address] De Leonseptember, [employer] POC URINALYSIS DIPSTICK AUTOMATED, HEMOGLOBIN A1C, URINE CULTURE, VAGINOSIS/VAGINITIS PANEL PLUS 10/15/2024 8:55 AM CDT - 10/15/2024 11:59 PM CDT Hospital Encounter [facility] [place] [address] [place] [phone] September, [employer] Type 2 diabetes mellitus with diabetic polyneuropathy ([facility]) Discharge Disposition: Home or Self Care 10/15/2024 External Device Data [facility] Provider, Abstract 10/15/2024 External Device Data [facility] Provider, Abstract 10/14/2024 3:40 PM CDT Office Visit [facility] [address] [place] [phone] September, [employer] Type 2 diabetes mellitus with diabetic polyneuropathy, with long-term current use of insulin ([facility]) (Primary Dx); Vaginal itching; UTI symptoms; Hypertension, essential 10/14/2024 Orders Only [facility] [address] [place] [address] Duyen Curran UTI symptoms; Vaginal itching 10/02/2024 Telephone [facility] [address] [place] [address] Maria L Jung DO Pain Managment Referral Information 10/01/2024 External Device Data [facility]CTION Provider, Abstract from Last 3 Months Family History Medical [...] AM CDT Legal Sex Female 6:50 AM ENDBANDER Gender Identity Female 02/22/2024 10:30 AM CDT [...] Mass Index 26.43 12/23/2024 1:36 PM CDT Plan of Treatment Upcoming Encounters Date Type Department Care Team (Late st Contact Info) Description 01/09/2025 8:00 AM CDT Office Visit [facility] [address] [facility] DIOGENES [address] [place] [address] Olesya Peters MD [address] [address] 02/06/2025 12:00 PM CDT Office Visit [facility] [address] [place] [address] De LeonSeptember, [facility] [address] [facility] [address] 05/08/2025 12:00 PM ENDBANDER Office Visit [facility] [address] [phone] De Leon, September, [employer] [address] [phone] Health Maintenance Due Date Last Done Comments DTAP/TDAP/TD VACCINES (1 - Tdap) 1996 HEPATITIS B VACCINES (1 of 3 - 19+ 3-dose series) 1996 FIT-DNA Q 3 years 2022 FIT/FOBT Q 1 year 2022 Flex Sig/CT Colonography Q 5 years 2022 COVID-19 Vaccine (3 - 2023-2 5 season) 2024 04/06/2021, 03/09/2021 [...] AM CDT Dysphagia, unspecified type Globus sensation URINE CULTURE Routine 12/23/2024 4:26 PM CDT Vaginal itching MAGNESIUM LEVEL Stat 11/15/2024 9:48 AM CDT [...] polyneuropathy, with long-term current use of insulin ([facility]) REFERENCE LAB PROCESSING FEE Routine 10/15/2024 9:06 AM CDT Type 2 diabetes mellitus with diabetic polyneuropathy, with long-term current use of insulin ([facility]/HCC) VAGINOSIS/VAGINITIS PANEL PLUS Routine 10/14/2024 5:08 PM CDT Vaginal itching URINE CULTURE Routine 10/14/2024 5:00 PM CDT UTI symptoms POC URINALYSIS DIPSTICK AUTOMATED Routine 10/14/2024 3:46 PM CDT UTI symptoms MAMMO 3D JERRY SCREEN BILAT W OR WO CAD Routine 09/18/2024 11:54 AM CDT Screening mammogram, encounter for MICROALBUMIN/CREATINI NE RATIO, RANDOM UR Routine 09/06/2024 8:35 AM CDT Type 2 diabetes mellitus with diabetic polyneuropathy, with long-term current use of insulin ([facility]) LIPID PANEL Routine 07/05/2024 9:05 AM ENDBANDER Type 2 diabetes mellitus with hyperglycemia, unspecified whether longterm insulin use ([facility]) Hyperlipidemia, unspecified hyperlipidemia type CERV/VAG CYTO AGE BASED SCREEN PAP W CT/NG Routine 05/02/2023 10:38 AM ENDBANDER Well woman exam with routine gynecological exam Screening for cervical cancer Screen for STD (sexually transmitted disease) from Last 3 Months or Most Recently Relevant to Health Maintenance Results * XR NECK SOFT TISSUE (12/27/2024 [...] The lung apices are grossly clear. [place] [facility] DIAGNOSTIC IMAGING ORDERABLES Fi nal Result * URINE CULTURE (12/23/2024 4:26 PM CDT) Only the most recent of2 resultswithin the time period is included. URINE CULTURE SEE NOTE [facility] Comment: CULTURE, URINE, ROUTINE Micro Number: [id number] Test Status: Final Specimen Source: Urine, clean catch Specimen Quality: Adequate Result: Mixed genital edna isolated. These superficial bacteria are not indicative of a urinary tract infection. No further organism identification is warranted on this specimen. If clinically indicated, recollect clean-catch, mid-stream urine and transfer immediately to Urine Culture Transport Tube. Test Performed at: [facility] [id number] [place] [address] Candy Huber MD Urine URINE SPECIMEN OBTAINED BY CLEAN CATCH PROCEDURE / Unknown 12/23/2024 4:26 PM CDT 12/24/2024 6:[address] [facility] MICROBIOLOGY - GENERAL ORDERABLE S Final Result [facility] [phone] [facility] [address] [place] [address] * (ABNORMAL) CBC WITH DIFFERENTIAL (11/15/2024 9:48 AM CDT) WBC 8.0 4.0 - 10.0 K/uL 11/15/2024 10:03 AM [facility] RBC 5.36(H) 3.93 - 5.22 M/uL 11/15/2024 10:03 AM [facility] HEMOGLOBIN 14.9 11.2 - 15.7 g/dL 11/15/2024 10:03 AM [facility] HEMATOCRIT 43.1 34.1 - 44.9 % 11/15/2024 10:03 AM [facility] MCV 80.4 79.4 - 94.8 fL 11/15/2024 10:03 AM [facility] MCH 27.8 25.6 - 32.2 pg 11/15/2024 10:03 AM [facility] MCHC 34.6 32.2 - 35.5 g/dL 11/15/2024 10:03 AM [facility] RDW 12.7 11.0 - 14.5 % 11/15/2024 10:03 AM [facility] RDW-STDEV 36.4(L) 36.9 - 56.9 fL 11/15/2024 10:03 AM [facility] PLATELETS 264 163 - 337 K/uL 11/15/2024 10:03 AM [facility] MPV 9.9(L) 10.0 - 14.8 fL 11/15/2024 10:03 AM [facility] NEUTROPHILS 73(H) 34 - 71 % 11/15/2024 10:03 AM [facility] LYMPHOCYTES 21 19 - 52 % 11/15/2024 10:03 AM [facility] MONOCYTES 5 5 - 13 % 11/15/2024 10:03 AM [facility] EOSINOPHILS 1 1 - 6 % 11/15/2024 10:03 AM [facility] BASOPHILS 0 0 - 1 % 11/15/2024 10:03 AM [facility] IMMATURE GRANULOCYTES 0 % 11/15/2024 10:03 AM [facility] NEUTROPHIL ABSOLUTE 5.81 1.56 - 6.13 K/uL 11/15/2024 10:03 AM [facility] LYMPHOCYTE ABSOLUTE 1.69 1.20 - 3.40 K/uL 11/15/2024 10:03 AM T [facility] MONOCYTE ABSOLUTE 0.37(H) 0.24 - 0.36 K/uL 11/15/2024 10:03 AM T [facility] EOSINOPHIL ABSOLUTE 0.07 0.04 - 0.36 K/uL 11/15/2024 10:03 AM T [facility] BASOPHILS ABSOLUTE 0.03 0.01 - 0.08 K/uL 11/15/2024 10:03 AM CDT [facility] IMMATURE GRANULOCYTES ABSOLUTE 0.02 K/uL 11/15/2024 10:03 AM [facility] Blood Venipuncture / Unknown 11/15/2024 9:48 AM CDT 11/15/2024 9:56 AM CDT us Samra Neri MD HEMATOLOGY ORDERABLES Final Res ult Performing Organization Address City/[facility]/ZIP Co de Phone Number [facility] CLIA # [id number] [address] [place] [address] * C-REACTIVE PROTEIN (11/15/2024 9:48 AM CDT) [facility] CRP <3.0 <5.0 mg/L 11/15/2024 11:54 AM CDT [facility] Blood Venipuncture / Unknown 11/15/2024 9:48 AM CDT 11/15/2024 9:56 AM CDT us Samra Neri MD CHEMISTRY ORDERABLES Final Resu lt Performing Organization Address City/[facility]/ZIP Co de Phone Number [facility] CLIA # [id number] [address] [place] [address] * BRAIN NATRIURETIC PEPTIDE, BNP OR PROBNP (11/15/2024 9:48 AM CDT) PROBNP, N TERMINAL <36 0 - 125 pg/mL 11/15/2024 11:54 AM CDT [facility] Comment: INTERPRETIVE COMMENT based on diagnosis: [...] ORDERABLES Final Resu lt Performing Organization Address [facility] Co de Phone Number [facility] CLIA # [id number] [address] [place] [address] * MAGNESIUM LEVEL (11/15/2024 9:48 AM CDT) MAGNESIUM 1.9 1.6 - 2.6 mg/dL 11/15/2024 11:54 AM CDT [facility] Blood Venipuncture / Unknown 11/15/2024 9:48 AM CDT 11/15/2024 9:56 AM CDT us Samra Neri MD CHEMISTRY ORDERABLES Final Resu lt Performing Organization Address [facility] Co de Phone Number [facility] CLIA # [id number] [address] [place] [address] * LIPASE (11/15/2024 9:48 AM CDT) LIPASE 36 13 - 60 U/L 11/15/2024 11:54 AM CDT [facility] Blood Venipuncture / Unknown 11/15/2024 9:48 AM CDT 11/15/2024 9:56 AM CDT us Samra Neri MD CHEMISTRY ORDERABLES Final Resu lt [facility] CLIA # [id number] [address] [place] [address] * (ABNORMAL) COMPREHENSIVE METABOLIC PANEL (11/15/2024 9:48 AM CDT) SODIUM 141 136 - 145 mmol/L 11/15/2024 11:53 AM [facility] POTASSIUM 3.9 3.5 - 5.1 mmol/L 11/15/2024 11:53 AM [facility] CHLORIDE 97(L) 98 - 107 mmol/L 11/15/2024 11:53 AM [facility] CO2 29 22 - 29 mmol/L 11/15/2024 11:53 AM [facility] CALCIUM 10.7(H) 8.6 - 10.0 mg/dL 11/15/2024 11:53 AM [facility] BUN 13 6 - 20 mg/dL 11/15/2024 11:53 AM [facility] CREATININE 0.78 0.51 - 0.95 mg/dL 11/15/2024 11:53 AM [facility] GLUCOSE 408(HH) 74 - 99 mg/dL 11/15/2024 11:53 AM [facility] TOTAL PROTEIN 8.1 6.6 - 8.7 g/dL 11/15/2024 11:53 AM [facility] ALBUMIN 4.6 3.5 - 5.2 g/dL 11/15/2024 11:53 AM [facility] BILIRUBIN TOTAL 0.7 0.0 - 1.2 mg/dL 11/15/2024 11:53 AM [facility] ALKALINE PHOSPHATASE 58 35 - 104 U/L 11/15/2024 11:53 AM [facility] AST 23 0 - 35 U/L 11/15/2024 11:53 AM CDT [facility] ALT 21 0 - 35 U/L 11/15/2024 11:53 AM CDT [facility] GFR >60 >=60 mL/min/1.7 3 sq meter 11/15/2024 11:53 AM CDT [facility] Comment:eGFR calculated with 2020 CKD-EPI equation. Vegetarian diet, extremely high or low muscle mass, and may affect results. Cystatin C with Glomerular Filtration Rate is a suitable alternative for these patients. ANION GAP 15 5 - 20 mmol/L 11/15/2024 11:53 AM CDT [facility] Blood Venipuncture / Unknown 11/15/2024 9:48 AM CDT 11/15/2024 9:56 AM CDT us Samra Neri MD CHEMISTRY ORDERABLES Final Resu lt [facility] CLIA # [id number] [address] [place] [address] * XR ABDOMEN 1 VW (11/15/2024 9:45 [...] to Ref Lab 10/15/2024 11:00 AM CDT [facility] Other, specify BLOOD SPECIMEN / Unknown Collection / Unknown 10/15/2024 9:06 AM CDT 10/15/2024 9:06 AM CDT us September De Leon [employer] CHEMISTRY ORDERABLES Final Resul t [facility] CLIA # [id number] [address] [place] [address] * (ABNORMAL) HEMOGLOBIN A1C (10/15/2024 9:06 AM [...] ESTIMATED AVERAGE GLUCOSE (MMOL/L) 13.8 mmol/L [facility] Comment: Test Performed at: [facility] [place] [address] Candy Huber MD Blood 10/15/2024 9:06 AM CDT 10/16/2024 5:26 AM CDT September [employer] CHEMISTRY ORDERABLES Final Resul t [facility] [phone] [place] [address] * (ABNORMAL) VAGINOSIS/VAGINITIS PANEL PLUS (10/14/2024 5:08 PM CDT) BACTERIAL VAGINOSIS NEGATIVE NEGATIVE [facility] [place] CAROLINE SPECIES DETECTED(A) NOT DETECTED [facility] [place] CAROLINE GLABRATA NOT DETECTED NOT DETECTED [facility] [place] Comment: Caroline species C. albicans, C. tropicalis, C. parapsilosis, and/or C. dubliniensis can be detected, but not differentiated, in the Caroline spp. result. TRICHOMONAS VAGINALIS (TV), TMA NOT DETECTED NOT DETECTED [facility] [place] CHLAMYDIA TRACHOMATIS RNA, TMA, UROGENITAL NOT DETECTED NOT DETECTED [facility] [place] NEISSERIA GONORRHOEAE RNA, TMA, UROGENITAL NOT DETECTED NOT DETECTED [facility] [place] Comment: For additional information, please refer to https://education.SANDOW.[employer]/faq/SDM376 (This link is being provided for information/ educational purposes only.) Test Performed at: [facility] [place] [address] Candy Huber MD Genital SPECIMEN FROM VAGINA / Unknown 10/14/2024 5:08 PM CDT 10/15/2024 2:36 AM CDT September [employer] MICROBIOLOGY - GENERAL ORDERABLE S Final Result [facility] [phone] [facility] [address] [address] * (ABNORMAL) POC URINALYSIS DIPSTICK AUTOMATED (10/14/2024 3:46 PM CDT) COLOR UA POC Yellow Pale to Dark Yellow [facility] CLARITY UA POC Clear Clear, Other [facility] GLUCOSE UA POC 3+(A) Negative, Normal [facility] BILIRUBIN UA POC Negative Negative [facility] KETONES UA POC Negative Negative [facility] SPECIFIC GRAVITY UA POC 1.015 1.000 - 1.030 [facility] BLOOD UA POC Negative Negative [facility] PH UA POC 5.5 5.0 - 8.0 [facility] PROTEIN UA POC Negative Negative [facility] UROBILINOGEN UA POC 0.2 <2.0 mg/dL [facility] NITRITE UA POC Negative Negative [facility] LEUKOCYTE ESTERASE UA POC Negative Negative [facility] KIT LOT NUMBER POC [phone] [facility] KIT EXP DATE POC [phone] [facility] Urine 10/14/2024 3:46 PM CDT September [employer] POINT OF CARE TESTING Final Resu lt [facility] CLIA# [id number] [address] [place] [address] * MAMMO 3D JERRY SCREEN BILAT W [...] masses, calcifications, or areas of architectural distortion. September [facility] MAMMO ORDERABLES Final Result * MICROALBUMIN/CREATININE RATIO, RANDOM UR (09/06/2024 8:35 AM CDT) Creatinine, Urine 125 20 - 275 mg/dL [facility] MICROALBUMIN, URINE 1.1 See Note: mg/dL [facility] Comment: Reference Range: Reference Range Not established MICROALBUMIN/CREAT RATIO, UR 9 <30 mg/g creat [facility] Comment: The ADA defines abnormalities in albumin excretion as follows: Albuminuria Category Result (mg/g creatinine) Normal to Mildly increased <30 Moderately increased 30-299 Severely increased > OR = 300 The ADA recommends that at least two of three specimens collected within a 3-6 month period be abnormal before considering a patient to be within a diagnostic category. Test Performed at: [facility] [address] [phone] Candy Huber MD Urine URINE SPECIMEN OBTAINED BY CLEAN CATCH PROCEDURE / Unknown 09/06/2024 8:35 AM CDT 09/07/2024 4:46 AM CDT September De Leon [facility] URINE ORDERABLES Final Result [facility] [phone] [facility] [address] [address] [address] * (ABNORMAL) LIPID PANEL (07/05/2024 9:05 AM ENDBANDER) CHOLESTEROL 135 <200 mg/dL [facility] HDL 54 > OR = 50 mg/dL [facility] TRIGLYCERIDE 271(H) <150 mg/dL [facility] Comment: If a non-fasting specimen was collected, consider repeat triglyceride testing on a fasting specimen if clinically indicated. Ariadna et al. J. of Clin. Lipidol. 2015;9:129-169. LDL CALCULATED 49 mg/dL (calc) [facility] Comment: Reference range: <100 Desirable range <100 mg/dL for primary prevention; <70 mg/dL for patients with CHD or diabetic patients with > or = 2 CHD risk factors. LDL-C is now calculated using the Caio-Willy calculation, which is a validated novel method providing better accuracy than the Friedewald equation in the estimation of LDL-C. Caio SS et al. MURIEL. 2013;310(19): 9008-1136 (http://education.VouchedFor/faq/BYE761) CHOL/HDL RATIO 2.5 <5.0 (calc) [facility] NON-HDL CHOLESTEROL 81 <130 mg/dL (calc) [facility] Comment: For patients with diabetes plus 1 major ASCVD risk factor, treating to a non-HDL-C goal of <100 mg/dL (LDL-C of <70 mg/dL) is considered a therapeutic option. Test Performed at: [facility] [address] [place] [address] Candy Huber MD Blood 07/05/2024 9:05 AM ENDBANDER 07/06/2024 12:27 PM ENDBANDER us Christina OROZCO CHEMISTRY ORDERABLES Final Re sult [facility] [phone] [facility] [address] [facility] [place] [address] * (ABNORMAL) CERV/VAG CYTO AGE BASED SCREEN PAP W CT/NG (05/02/2023 10:38 AM ENDBANDER) COMMENT (PAP): [facility] [place] Comment: This order for age-based cervical cancer and STI screening follows ACOG guidelines(PB 168, 140, ZSR658). See individual assays for performing site location. CLINICAL INFORMATION [facility] [place] Comment:None given LAST MENSTRUAL PERIOD [facility] [place] Comment:NONE GIVEN PREV PAP: [facility] [place] Comment:NONE GIVEN PREV BX: [facility] [place] Comment:NONE GIVEN SOURCE [facility] [place] Comment:Endocervix ADEQUACY: [facility] [place] Comment: Satisfactory for evaluation. Endocervical/transformation zone component present. Age and/or menstrual status not provided PAP INTERP [facility] [place] Comment: Cytology Results: Negative for intraepithelial lesion or malignancy. COMMENT (PAP TEST) [facility] [place] Comment: This Pap test has been evaluated with computer assisted technology. GED TEACHER: est [facility] [place] Comment: BKA, CT(ASCP) CT screening location: [place] [address] [place] [address] REVIEW GED TEACHER: Lula [facility] Lopez Comment: JAZ, CT(ASCP) CT screening location: [place] [address] [address] KRISSY [facility] EXPLANATORY NOTE [facility] Lopez Comment: EXPLANATORY NOTE: The Pap is [...] clinical information. HPV E6/E7 Detected(A) Not Detected [facility] [place] Comment: Methodology: Quality Intern-Mediated Amplification This assay detects E6/E7 viral messenger RNA (mRNA) from 14 high-risk HPV types (16,18,31,33,35,39,45,51,52,56,58,59,66,68). Cervical sources are required for HPV testing. If a vaginal source from a patient who has had a total hysterectomy with removal of cervix was submitted, please contact the testing laboratory for alternative testing options. For additional information, please refer to http://education.StudyEdge/faq/DUD134s5 (This link if provided for information/ educational purposes only.) HPV 16 RNA NOT DETECTED NOT DETECTED [facility] [place] HPV 18/45 RNA NOT DETECTED NOT DETECTED [facility] [place] Comment: Methodology: Quality Intern Mediated Amplification Cervical sources are required for HPV testing. If a vaginal source from a patient who has had a total hysterectomy with removal of cervix was submitted, please contact the testing laboratory for alternative testing options. C TRAC RNA NOT DETECTED NOT DETECTED [facility] [place] N.GONORRHOEAE RNA, TMA NOT DETECTED NOT DETECTED [facility] [place] COMMENT INFECTIOUS DISEASE [facility] [place] Comment: The analytical performance characteristics of this assay, when used to test SurePath(TM) specimens have been determined by [facility]. The modifications have not been cleared or approved by the FDA. This assay has been validated pursuant to the CLIA regulations and is used for clinical purposes. For additional information, please refer to https://education.StudyEdge/faq/WDQ993 (This link is being provided for information/ educational purposes only.) Test Performed at: [facility] [address] [place] [address] Candy Huber MD Genital SWAB OF ENDOCERVIX / Unknown 05/02/2023 10:38 AM ENDBANDER 05/04/2023 3:37 AM ENDBANDER Guru Robin MD PATHOLOGY/CYTOLOGY ORDERABLES Final Result [facility] [phone] [facility] [address] [place] [address] from Last 3 Months or Most Recently Relevant to Health Maintenance Insurance [facility] [employer] MEDICAID Advance Directives For more information, please contact: [phone] * Full Code (Latest Code Status on File) Date Activated Date Inactivated Comments 03/23/2024 10:25 PM 03/28/2024 11:34 AM Care Teams Labor Relations Or Personnel Negotiator Relationship Specialty Start Date End Date Marai L Jung DO [address] [place] [address] PCP - General Family Practice 11/12/23
--- OUTSIDE RECORDS SUMMARY | 2024-12-30 15:28 | XMS_ITS | Encounter Summary ---
Author Organization [facility] Address [address] [place] [address] Care Team Providers Care Quality Process Engineer Name Role Phone Maria L Jung Bk CABAN Primary Care Provider [phone] Encounter Details Date Type Department Care Team ([facility] st Contact Info) Description 11/15/2024 Results Follow-Up [facility] [address] [place] [address] Mari Stein RN COMPREHENSIVE METABOLIC [...] AM CDT Legal Sex Female 6:50 AM PRESS SETTER Gender Identity Female 02/22/2024 10:30 AM CDT Sexual Orientation Asexual 03/20/2024 2: 58 PM CDT Occupation Industry Job Start Date Job End Date Not on file Not on file Not on file Not on file documented as of this encounter Plan of Treatment Upcoming Encounters Date Type Department Care Team (Late st Contact Info) Description 01/09/2025 8:00 AM CDT Office Visit [facility] [address] [place] [phone] Olesya Peters MD [address] [place] [address] 02/06/2025 12:00 PM CDT Office Visit [facility] [address] [place] [address] September, TELEPHONE CLEANER [address] [place] [address] 05/08/2025 12:00 PM PRESS SETTER Office Visit [facility] [address] [place] [address] September, TELEPHONE CLEANER [address] [place] [address] documented as of this encounter Visit Diagnoses Not on filedocumented in this encounter Care Teams Quality Process Engineer Relationship Specialty Start Date End Date Maria L Jung DO [address] [place] [address] PCP - General Family Practice 11/12/23 documented as of this encounter
[2024-12-30 16:08] LABS: Hematocrit 42.9 % (36-47); Hemoglobin 15.00 g/dL (11.27-16.99); Mean Corpuscular HGB Conc 35.0 g/dL (30-55); Mean Corpuscular Hemoglobin 27.6 pg (27-33); Mean Corpuscular Volume 79.0 fl (85-98); Nucleated Red Blood Cells % 0 %; Platelet Count 314 10^3/cmm (157-399); Red Blood Count 5.43 10^6/uL (3.85-5.65); White Blood Count 7.80 10^3/uL (3.29-11.43)
[2024-12-30 16:25] LABS: Alanine Aminotransferase 19 U/L (0-33); Albumin Level 4.4 g/dL (3.5-5.2); Alkaline Phosphatase 65 U/L (35-105); Anion Gap 16.9 (5-19); Aspartate Amino Transferase 18 U/L (0-32); Blood Urea Nitrogen 13 mg/dL (6-20); Calcium 10.0 mg/dL (8.5-10.5); Carbon Dioxide 29 mmol/L (22-29); Chloride 100 mmol/L (98-107); Creatinine Clr Calc Pharmacy 99.3324; Globulin 3.7 g/dL (1.3-4.6); Glucose 241 mg/dL (65-115); Osmolality Calculated 302 mOsm/kg (285-295); Potassium 3.9 mmol/L (3.5-5.1); Sodium 142 mmol/L (136-145); Total Protein 8.1 g/dL (6.6-8.7)
--- NOTE | 2024-12-30 16:33 | ED_ITS ---
HPI - General Adult 2 General: Chief complaint: Weakness Stated complaint: passing out, all over weakness, nausea, dizzy Time Seen by Provider: 12/30/24 15:55 Source: patient and family Mode of arrival: ambulatory Limitations: no limitations History of Present Illness: Patient is a 49-year-old female who presents to the ED for complaint of intermittent episodes of pre-syncope. She and significant other states symptoms have been going on well over a year . Patient states during these episodes her legs will feel jiggly . Patient overall is a poor historian and often just responds sometimes to the vast majority of my questions. She states during these episodes she will feel swimmy in her head. She sometimes feels palpitations. She has never passed out/blacked out. States symptoms go away when she sits down. She will have anywhere from 2 to 20 episodes a month. She has followed up with neurology in [place] and they did all kinds of tests . States she has not followed up with cardiology. Recently was seen by PCP and had increased her buspirone to 7.5 mg 3 times daily and her duloxetine from 60 mg to 120 mg daily, but she feels foggy and more sleepy. States medications were adjusted due to increased anxiety. Has checked her sugars during these episodes but no correlation. Unsure of blood pressures during episodes. Do not seem to be positional or exertional. No chest pain.No other complaints at this time. Onset (ago): month(s) Relieving factors: none Exacerbating factors: none Associated symptoms: Reports palpitations and weakness; Deny chest pain, dyspnea, headache(s), nausea, rash, syncope or vomiting Treatments prior to arrival: none Related Data Home Medications ?Medication ?Instructions ?Recorded ?Confirmed duloxetine 30 mg capsule,delayed 30 mg PO DAILY 11/07/24 release gabapentin 600 mg tablet 600 mg PO TID 01/25/2411/07 insulin aspart U-100 100 unit/mL 14 sliding scale dose SUBCUT BID 01/25/24 11/07/24 (3 mL) subcutaneous pen (Novolog FlexPen U-100 Insulin aspart) rosuvastatin 20 mg tablet 20 mg PO DAILY 01/25/2410/18 trazodone 50 mg tablet 50 - 100 mg PO BEDTIME 01/2411/07/24 insulin glargine 100 unit/mL (3 40 unit SUBCUT DAILY 0 10/02/24 11/07/24 mL) subcutaneous pen (Lantus Solostar U-100 Insulin) metformin 1,000 mg tablet 1,000 mg PO BID 11/12/24 Previous Rx's ?Medication ?Instructions ?Recorded ondansetron HCl 4 mg tablet 4 mg PO Q8H PRN nausea and 08/21/24 vomiting #14 tabs polyethylene glycol 3350 17 17 g PO BID 2 days #68 gra ms 10/08/24 gram/dose oral powder (Miralax) buspirone 7.5 mg tablet 15 mg (2 x 7.5 mg) PO BID #1 20 tabs 12/21/24 hydroxyzine HCl 25 mg tablet 25 mg PO Q6H PRN anxiety #14 tabs 12/21/24 Allergies Allergy/AdvReac Type Severity Reaction Status Date / Time Penicillins Allergy Unknown Verified 10/25/24 09:08 pineapple Allergy ALGY-Swell Verified 12/30/24 15:26 Lip/Tongue/Throat Review of Systems 2 Const: Reports: fatigue; Denies: fever(s), chills, body aches, change in appetite or night sweats Eyes: Denies: change in vision, blurry vision or photophobia ENMT: Denies: throat pain or odynophagia Card: Reports: palpitations and pre-syncope; Denies: chest pain, irregular heart rhythm, edema, swelling of feet/ankles, syncope, dyspnea on exertion, orthopnea, leg pain with exertion or acrocyanosis Resp: Denies: dyspnea, pain on inspiration or chest congestion GI: Denies: abdominal pain, nausea, vomiting or diarrhea : Denies: flank pain, dysuria or hematuria Musc: Denies: neck pain, back pain, extremity pain, extremity swelling, joint pain or joint swelling Skin/Breast: Denies: rash Neuro: Reports: weakness in extremities (intermittent-during these episodes ) and dizziness; Denies: headache(s), numbness in extremities, sensory changes or difficulty walking Psych: Reports: anxiety and depression PFSH ED 2 PFSH: Medical History Infected sebaceous cyst of skin Nausea & vomiting Diabetes Social History Smoking and tobacco/nicotine status: never used tobacco/nicotine Physical Exam 2 Const: COMMON NORMALS: no acute distress, average body habitus, patient oriented x3, no limitations, healthy appearing, alert and well nourished G ENERAL APPEARANCE: cooperative and other (appears flat affected ) O RIENTATION/CONSCIOUSNESS: Yes awake, Yes oriented to person, Yes oriented to place and Yes oriented to time HENMT: COMMON NORMALS: normocephalic and atraumatic HEAD & SCALP: normal to inspection, normocephalic and atraumatic FACE & SINUS: normal facial exam Eye: COMMON NORMALS: no scleral icterus GENERAL EYE: appearance normal, both eyes and all related structures and normal light reflex DIRECT OPHTHALMOSCOPY: Yes normal light reflex Neck/C-Spine: COMMON NORMALS: full ROM, no lymphadenopathy, supple and no meningeal signs Chest: COMMONS NORMALS: normal inspection of the chest Resp: COMMON NORMALS: normal respiratory effort and clear to auscultation bilaterally AUSCULTATION: clear to auscultation bilaterally Cardio: COMMON NORMALS: regular rate and regular rhythm RATE: regular rate RHYTHM: regular rhythm GI: COMMON NORMALS: Normal to inspection, nondistended, normoactive bowel sounds present, Soft to palpation and non-tender PALPATION: Yes Soft to palpation : COMMON NORMALS: Yes no CVA tenderness BLADDER/KIDNEY EXAM: Yes no CVA tenderness Back/Pelvis: COMMON NORMALS: no CVA tenderness and thoracic and lumbar spine normal to inspection Extremity: COMMON NORMALS: no pedal edema GENERAL: Yes normal exam except as noted Neuro: NIKOLE COMA SCALE: document GCS findings Sullivan coma scale eye opening: Spontaneous Nikole coma scale verbal response: Orientated Nikole coma scale motor response: Obey commands Sullivan coma scale total score: 15 COMMON NORMALS: patient oriented x3, moves all extremities, no focal motor deficits and no sensory deficits noted SENSORIUM/ORIENTATION: Yes alert, Yes oriented to person, Yes oriented to place and Yes oriented to time MENINGEAL SIGNS: Yes no meningeal signs Psych: MOOD & AFFECT: Yes tearful Skin: COMMON NORMALS: no rashes or lesions noted GENERAL SKIN EXAM: no rashes or lesions noted Course 2 Vital Signs: Vital signs: Vital Signs Temperature 97.5 F L 12/30/24 15:21 Pulse Rate 96 12/30/24 17:03 Respiratory Rate 16 12/30/24 17:03 Blood Pressure 128/96 12/30/24 17:03 Pulse Oximetry 96 12/30/24 17:03 Oxygen Delivery Me thod Room Air 12/30/24 15:21 MDM - General Adult Medical Decision Making Patient symptoms have been present well over a year. Etiologies are vast. Sounds like she has already followed up with neurology and has been seeing her PCP as well. She has had recent dosage increases in two of her meds and doesn't like the way she is feeling thus discussed going back to her normal dosing and talking to PCP further. Spoke about potentially getting cardiac evaluation although it's not overly sounding cardiac in origin. From an ED standpoint I think she is stable for discharge. Return precautions discussed. Medical Records I reviewed the patient's medical records. Lab Data I reviewed the patient's lab results. 12/30/24 16:01 12/30/24 16:01 Laboratory Results WBC 7.80 10^3/uL (3.29-11.43) 12/30/24 16:01 RBC 5.43 10^6/uL (3.85-5.65) 12/30/24 16:01 Hgb 15.00 g/dL (11.27-16.99) 12/30/24 16:01 Hct 42.9 % (36-47) 12/30/24 16:01 MCV 79.0 fl (85-98) L 12/30/24 16:01 MCH 27.6 pg (27-33) 12/30/24 16:01 MCHC 35.0 g/dL (30-55) 12/30/24 16:01 RDW 11.8 % (12.1-15.1) L 12/30/24 16:01 Plt Count 314 10^3/cmm (157-399) 12/30/24 16:01 MPV 10.1 fL (7.4-10.4) 12/30/24 16:01 Neut % (Auto) 61.7 % 12/30/24 16:01 Lymph % (Auto) 31.3 % 12/30/24 16:01 Platte % (Auto) 4.5 % 12/30/24 16:01 Eos % (Auto) 1.9 % 12/30/24 16:01 Baso % (Auto) 0.5 % 12/30/24 16:01 Neut # (Auto) 4.81 10^3/uL (1.8-7.7) 12/30/24 16:01 Lymph # (Auto) 2.4 10^3/uL (0.8-4.8) 12/30/24 16:01 Platte # (Auto) 0.4 10^3/uL (0.2-0.9) 12/30/24 16:01 Eos # (Auto) 0.2 10^3/uL (0.0-0.8) 12/30/24 16:01 Baso # (Auto) 0.0 10^3/uL (0.0-0.1) 12/30/24 16:01 Nucleated RBC % (auto) 0 % 12/30/24 16:01 Nucleated RBCs # 0.0 /100WBC 12/30/24 16:01 Sodium 142 mmol/L (136-145) 12/30/24 16:01 Potassium 3.9 mmol/L (3.5-5.1) 12/30/24 16:01 Chloride 100 mmol/L (98-107) 12/30/24 16:01 Carbon Dioxide 29 mmol/L (22-29) 12/30/24 16:01 Anion Gap 16.9 (5-19) 12/30/24 16:01 BUN 13 mg/dL (6-20) 12/30/24 16:01 Creatinine 0.8 mg/dL (0.5-0.9) 12/30/24 16:01 GFR Calculation 76.9 mL/min (90-130) L 12/30/24 16:01 Glucose 241 mg/dL (65-115) H 12/30/24 16:01 POC Glucose 219 mg/dL (70-110) H 12/30/24 15:32 Calculated Osmolality 302 mOsm/kg (285-295) H 12/30/24 16:01 Calcium 10.0 mg/dL (8.5-10.5) 12/30/24 16:01 Total Bilirubin 0.6 mg/dL (0.15-1.2) 12/30/24 16:01 AST 18 U/L (0-32) 12/30/24 16:01 ALT 19 U/L (0-33) 12/30/24 16:01 Alkaline Phosphatase 65 U/L (35-105) 12/30/24 16:01 Total Protein 8.1 g/dL (6.6-8.7) 12/30/24 16:01 Albumin 4.4 g/dL (3.5-5.2) 12/30/24 16:01 Globulin 3.7 g/dL (1.3-4.6) 12/30/24 16:01 HCG, Qual Negative (Negative) 12/30/24 16:01 No radiology studies performed this visit Discharge Plan Discharge Patient Disposition: Home Clinical Impression: Pre-syncope Condition: Stable Prescriptions: No Action polyethylene glycol 3350 [Miralax] 17 gram/dose powder 17 g PO BID 2 Days Qty: 68 0RF ondansetron HCl 4 mg tablet 4 mg PO Q8H PRN (Reason: nausea and vomiting) Qty: 14 0RF insulin glargine [Lantus Solostar U-100 Insulin] 100 unit/mL (3 mL) insulin pen 40 unit SUBCUT DAILY gabapentin 600 mg tablet 600 mg PO TID trazodone 50 mg tablet 50 - 100 mg PO BEDTIME insulin aspart U-100 [Novolog FlexPen U-100 Insulin] 100 unit/mL (3 mL) insulin pen 14 sliding scale dose SUBCUT BID Rx Instructions: INJECT 14 UNITS BY SUBCUTANEOUS INJECTION TWICE DAILY BEFORE MEALS. IF BLOOD SUGAR OVER 200, GIVE ADDITIONAL 10 UNITS FOR TOTAL OF 24 UNITS. MAX DAILY DOSE 48 UNITS. rosuvastatin 20 mg tablet 20 mg PO DAILY duloxetine 30 mg capsule,delayed release(DR/EC) 30 mg PO DAILY metformin 1,000 mg tablet 1,000 mg PO BID hydroxyzine HCl 25 mg tablet 25 mg PO Q6H PRN (Reason: anxiety) Qty: 14 0RF buspirone 7.5 mg tablet 15 mg PO BID Qty: 120 0RF Discharge Orders: Discharge ED (Routine); Ordered 12/30/24 Ordered By: Rosemarie Beck Referrals: Cydney De Leon FNP [Primary Care Provider, Nurse Practitioner] Patient Instructions: Patient Portal & Faiza Instructions Activity Restrictions/Additional Instructions: As we discussed, you can go back to your original dosing of your duloxetine and buspirone as you feel you are not tolerating the higher dose. I would speak to primary care provider further regarding your symptoms. Print Language: Djiboutian Coding Level of Care Code ED Java User Interface Developer for Chg Fwd
[2024-12-30 16:35] LABS: HCG, Serum Qual Negative (Negative)
[2024-12-30 17:03] VITALS: BP 128/96; PULSE 96; RESP 16; O2SAT 96
== END 2024-12-30 17:23 | disposition home or self-care (01) ==
PROVIDERS: Emergency Medicine; Emergency Provider Physician Assistant
DX: R55 Syncope and collapse (principal); Z79.4 Long term (current) use of insulin; Z79.84 Long term (current) use of oral hypoglycemic drugs; E11.9 Type 2 diabetes mellitus without complications
CPT/HCPCS: 36415; 36416; 80053; 82962; 84703; 85025; 93005; 99284

== ENCOUNTER → 2025-01-28 09:00 | Outpatient (BNVA) | payer OTHER, MEDICAID, SELFPAY | DX: M25.562 Pain in left knee (principal) | CPT/HCPCS: 73562 ==

== ENCOUNTER 2025-03-18 18:51 | Emergency (ER) | payer OTHER, MEDICAID, SELFPAY ==
--- OUTSIDE RECORDS SUMMARY | 2021-08-25 09:32 | XMS_ITS | Continuity of Care Document ---
Author Organization [employer] Address [address] [place] [address] Phone Care Team Providers Care Revenue Accounting Manager Name Role Phone Gillian Pittman MD Unavailable Unavailabl e Allergies, Adverse Reactions, Alerts Substance Reaction Status Criticality PENICILLIN Active No Information Medications Medication Instructions Dosage Effective Dates (start - stop) Status Comments gabapentin 300 mg capsule take 1 capsule by oral route at bedtime - Active Jardiance 10 mg tablet take 1 tablet by oral route every day in the morning 10 MG - Active rosuvastatin 20 mg tablet take 1 tablet by oral route every day 20 MG - Active STOP Rosuvastati n 40mg. Start 20 mg daily instead hydroxyzine HCl 10 mg tablet - Active naproxen 500 mg tablet take 1 tablet by oral route 2 times every day with food as needed for Pain 500 MG - Active metformin ER 500 mg tablet,extended release 24hr take 4 tablet by oral route every day with the evening meal 2000 MG - Active lisinopril 5 mg tablet take 1 tablet by oral route every day 5 MG - Active Lantus Solostar U-100 Insulin 100 unit/mL (3 mL) subcutaneous pen inject 45 Unit by subcutaneous route qpm - Active Procedures Procedure Date Pt inelig neg scrn depres FALL RISK ASSESSMENT DOC'D PRES/ABSN URINE INCON ASSESS GLUCOSE MONITORING, FINGERSTICK-OFFICE L AB FINGER OR HEEL STICK-COLLECTION OF CAPIL KENDRICK BLOOD SPECIMEN OFFICE [id number] BODY MASS INDEX DOCD SYST BP LT 130 MM HG DIAST BP < 80 MM HG FALL RISK ASSESSMENT DOC'D PRES/ABSN URINE INCON ASSESS Pt inelig neg scrn depres OFFICE [id number] BODY MASS INDEX DOCD SYST BP GE 130 - 139MM HG DIAST BP >= 90 MM HG Advance Directives Directive Yes / No Effective Date File Name No Information Encounters Encounter Description Practice Location Reason(s) For Visit Diagnoses Date Provider Providers Copied on Encounter [facility], [address], [place], [place], [address] , tel: [phone] [facility] No Information Aug-0 2 Vincenzo French. [address], [place], [id number] , [place]. tel: [phone] [facility], [address], [place], [place], [address] , tel: [phone] [facility] No Information 1 Mago Ramsay [address], [place], [address] , [place]. tel: [phone] [facility], [address], [place], [place], [address] , tel: [phone] [facility] No Information 1 Vincenzo French. [address], [place], [address] , [place]. tel: [phone] OFFICE GBFGV-TVE-OA PANDED [facility], [address], [place], [place], [address] , [place] tel: [phone] [facility] DM/HTN (chief complaint)C hronic Conditions (chief complaint) Type 2 diabetes mellitus with other circulatory complication, with long-term current use of insulinLong term (current) use of insulin 1 Mago Ramsay [address], [place], [address] , [place]. tel: [phone] Referring Provider: Gillian Jarrett, [address] [place], [address] . tel:[phone] [facility], [address], [place], [place], [address] , [place] tel: [phone] [facility] No Information 1 Julian Lira. [address], [place], [address] . tel: [phone] OFFICE KUMOI-NCY-ZO TAILED [facility], [address], [place], [place], [address] , [place] tel: [phone] [facility] new pt (chief complaint)D iabetes (chief complaint)j oint pain and swelling (chief complaint)G I issues (chief complaint) Type 2 diabetes mellitus with other circulatory complication, with long-term current use of insulinLong term (current) use of insulinEssential hypertensionIrritabl e bowel syndrome with diarrheaRight knee pain, unspecified chronicityThyroid enlargedDyslipidemia 1 Vincenzo French. [address], [place], [address] , [place]. tel: [phone] Referring Provider: Gillian Jarrett, [address] [place], [address] . tel:[phone] Family History Family Member Type Diagnosis Age At Onset No Information Payers Payer name Insurance type Covered constitution party ID Authoriza tion(s) [facility] CI [id number] Social History Type Description Quantity Date Captured Comments Alcohol Use Details Unknown Caffeine Use Details Unknown Tobacco Use Status No Information Smoking Status No Information Sex Female Chief Complaint And Reason For Visit No Information Reason For Referral Reason For Referral No Information Plan Of Treatment Date Type Action Status Referral Ordered: ULTRASOUND OF HEAD & NECK, THYROID ordered Future Order: Radiology Order UL TRASOUND OF HEAD & NECK, THYROID ([id number]), Sent on: Sent History Of Present Illness Encounter Date Complaint History Of Prese nt Illness Apr-23-2021 Chronic Conditions *See Chronic Conditions HPI DM/HTN new pt Pt is here to [facility]. She is from [place] originally. She moved to [facility] in 1996. She then moved to [place] in 2017. She got on November 23, 2018. She has no children. She has 4 sisters. Her parents are unknown as she and her sisters were in foster care.DMPt diagnosed with DM in 2012. She had been Lantus and Metformin. Her insurance changed and she was started on Basaglar and taken off of the Lantus. The Basaglar is very expensive costing approximate $100 for 5 pens. She would like to change the medication.HTNPt is on Lisinopril. She states compliance with low salt diet and medication. Pt denies CP, SOB, lightheadedness or dizzinessR knee pain She was given an anti inflammatory by her mother in law which helped. She states it started with an M . She denies trauma or injury to the area IBSPt has been on dicyclomine. She stopped taking approx 2 mos ago. The medication makes her constipation. She has gone as long as 5-6 days without having a BM while on dicyclomine. She has diarrhea predominant IBS. Pt has h/o IBS. No reported surgeries in the pastDyslipidemiaOn Rosuvastatin. Tolerates well, no muscle issues joint pain and swelling Diabetes GI issues Functional Status Date Functional Assessmen t No Information Instructions Date Instruction Additional Infor alex Taking Lantus 45 units Related t o senior living (current) use of insulin A new prescription f or Gabapentin has been sent to your pharmacy. Take one capsule at bedtime. We will adjust your Lantus insulin once we receive the results from your blood work.. Call Podiatry to schedule an appointment. Nerve damage can cause pain, burning, tingling, and numbness and may leave you feeling weak. The feet are often affected. When you have nerve damage in your feet, you cannot feel your feet and toes as well as normal and may not notice cuts or sores.Try to keep blood sugar at your target level. Take your medicines as prescribed. Eat a variety of healthy foods, with carbohydrate spread out in your meals. Try to get at least 30 minutes of exercise on most days. Related to Type 2 diabetes mellitus with other circulatory complication, with long-term current use of insulin Disease process On Rosuvastatin Related to Dysli pidemia R side of thyroid ap peared enlarged on exam. Check US thyroid. Check TSH w/ reflex Related to Thyroid enlarged Start Meloxicam as needed. Relat ed to Right knee pain, unspecified chronicity Stop dicyclomine. St art Xifaxin (rifampin). Samples given Related to Irritable bowel syndrome with diarrhea Your diastolic blood pressure was slightly elevated. Continue lisinopril. Follow a low salt diet. Try to exercise 30 minutes per day for most days of the week.Will check labsWill schedule for a telephone check in for follow up of blood pressure in 2 wks. Related to Essential hypertension As above. Will jackson e Basaglar to Glargine insulin Related to senior living (current) use of insulin Will change Basaglar to Insulin Glargine (same active ingredient as Lantus). Please call, if this is not covered by your insurance.Continue Metformin Goal for your fasting blood glucose (BG) is less than 130. 2 hours after eating, your BG goal is less than 180. Continue your medications. Eat less processed sugars and fatStatus: Able to self-manage condition. Goals: Your goal is to work on healthy eating habits. Barriers: No barriers to goal achievement have been identified. Related to Type 2 diabetes mellitus with other circulatory complication, with long-term current use of insulin Assessments Type Assessment Date No Information Patient Care Teams Name Effective Dates (start - stop) Status Members No Information
[2025-03-18 18:57] VITALS: BP 135/84; PULSE 96; RESP 18; TEMP 36.8; O2SAT 94; BMI 25.4
--- NOTE | 2025-03-18 19:02 | XRR_ITS ---
PROCEDURE INFORMATION: Exam: XR Chest Exam date and time: 03/18/2025 7:07 PM Age: 49 years old Clinical indication: Pain; Chest pressure; Additional info: Chest pain TECHNIQUE: Imaging protocol: Radiologic exam of the chest. Views: 1 view. COMPARISON: CR XR chest 1V portable [id number] 08/20/2024 8:46 PM FINDINGS: Lungs: No focal consolidation or other acute appearing pulmonary opacity. Pleural spaces: No pleural effusion or pneumothorax noted. Heart/Mediastinum: There is no cardiomegaly. Bones/joints: No acute osseous abnormality. Intraperitoneal space: There is no free intraperitoneal gas. XR/XR chest 1V portable [id number] IMPRESSION: No acute findings.
--- NOTE | 2025-03-18 19:02 | ECG_ITS ---
[facility] Test Date: 2025-03-18 Pat Name: Kimberly Orellana Department: Room: Gender: Female Housing Assistant Property Manager: : 1975 Requested By: Jessica Bourgeois Order Number: [id number] Adriana MD: Owen Malhotra M.D. Measurements Intervals Holcomb Rate: 96 P: 49 MN: 153 QRS: 34 QRSD: 82 T: 43 QT: 342 QTc: 432 Interpretive Statements SINUS RHYTHM LOW QRS VOLTAGE IN PRECORDIAL LEADS [QRS DEFLECTION < 1.0 mV IN CHEST LEADS] Compared to ECG 12/30/2024 15:30:13 Myocardial infarct finding no longer present Electronically Signed On 03-20-2025 08:38:09 CDT by Owen Malhotra M.D. [email or web address]
--- OUTSIDE RECORDS SUMMARY | 2025-03-18 19:12 | XMS_ITS | Encounter Summary ---
Author Organization [facility] Address [address] [place] [address] Care Team Providers Care Oil Pump Station Operator Chief Name Role Phone ErichMaria L mcpherson Bk CABAN Primary Care Provider Encounter Details Date Type Department Care Team (Late st Contact Info) Description 03/11/2025 Orders Only [facility] Health Information Management [place] [address] [place] [address] Provider, Abstract NO ADDRESS ON FILE Social [...] AM CDT Legal Sex Female 6:50 AM MASS SPECTROSCOPIST Gender Identity Female 02/22/2024 10:30 AM CDT Sexual Orientation Asexual 03/20/2024 2: 58 PM CDT Occupation Industry Job Start Date Job End Date Not on file Not on file Not on file Not on file documented as of this encounter Plan of Treatment Upcoming Encounters Date Type Department Care Team (Late st Contact Info) Description 05/08/2025 12:00 PM MASS SPECTROSCOPIST Office Visit [facility] [address] [facility] [place] [address] De Leon, September, SUPPORTABILITY ENGINEER [address] [place] [facility] [place] [facility] [place] [address] documented as of this encounter Procedures Procedure Name Priority Date/Time Associated Diagnosis Comments DIABETES EYE EXAM Routine 03/10/2025 2:55 PM CDT documented in this encounter Results * (ABNORMAL) DIABETES EYE EXAM (03/10/2025 2:55 PM CDT) us Abstract Provider HEALTH MAINTENANCE Edited Resu lt - Final documented in this encounter Visit Diagnoses Not on filedocumented in this encounter Care Teams Oil Pump Station Operator Chief Relationship Specialty Start Date End Date Maria L Jung DO [address] [place] [facility] [facility] [place] [address] PCP - General Family Practice 11/12/23 documented as of this encounter
--- OUTSIDE RECORDS SUMMARY | 2025-03-18 19:12 | XMS_ITS | Encounter Summary ---
Author Organization [facility] Address [address] [place] [address] Care Team Providers Care Structural Mill Supervisor Name Role Phone Maria L Jung DO Primary Care Provider Reason for Visit * Reason Onset Date Comments Results critical results 02/07/2025 Encounter Details Date Type Department Care Team (Late st Contact Info) Description 02/07/2025 Telephone [facility] Medicine [place] [address] [place] [address] Maria L Jung DO [address] [place] [address] Results; critical results Social History Tobacco Use Types Packs/Day Years [...] AM CDT Legal Sex Female 6:50 AM PRINT INSPECTOR Gender Identity Female 02/22/2024 10:30 AM CDT Sexual Orientation Asexual 03/20/2024 2: 58 PM CDT Occupation Industry Job Start Date Job End Date Not on file Not on file Not on file Not on file documented as of this encounter Miscellaneous Notes * Telephone Encounter - Arlet Mccallum LPN - 02/07/2025 8:51 AM CDT Critical lab glucose 512. Arlet Mccallum LPN, 02/07/2025 8:51 AM * Telephone Encounter - Cely West - 02/07/2025 8:50 AM CDT Copied from [facility] #[id number]. Topic: CPA Information Request - Results >> Feb 07, 2025 8:49 AM Cely Galvan wrote: Caller Name: Nick Callback Number: [phone] Test Name: Critical Labs Results Encounter notes are: Call Notes: Transferred to clinic to discuss critical results documented in this encounter Plan of Treatment Upcoming Encounters Date Type Department Care Team (Late st Contact Info) Description 05/08/2025 12:00 PM PRINT INSPECTOR Office Visit [facility] [place] [address] [place] [id number] September, [facility] [address] [place] [facility] [place] [phone] documented as of this encounter Visit Diagnoses Not on filedocumented in this encounter Care Teams Structural Mill Supervisor Relationship Specialty Start Date End Date Maria L Jung DO [address] [facility] [place] [id number] PCP - General Family Practice 11/12/23 documented as of this encounter
--- OUTSIDE RECORDS SUMMARY | 2025-03-18 19:12 | XMS_ITS | Clinical Summary ---
Author Organization [facility] Address [address] Parsons: [place] [address] Care Team Providers Care Tire Assembler Name Role Phone Erich, Maria L L DO Primary Care Provider Allergies Active Allergy Reactions Criticality Noted Date Comments Coconut Hives,Shortness of Breath/Wheezing High 1 Kiwi Unknown 06/14/2024 Lactose Abdominal Pain Low 03/24/2024 Penicillins Unknown 04/26/2018 Pineapple Shortness of Breath/Wheezing,Swelling High 03/24/2024 Medications insulin glargine (LANTUS) 100 unit/mL pen syringeIndications :Uncontrolled type 2 diabetes mellitus with hyperglycemia Inject 40 Units by subcutaneous injection daily at bedtime. 15 mL 3 02/13/20 24 Active rosuvastatin (Crestor) 20 mg tabletIndications: Hyperlipidemia, unspecified hyperlipidemia type Take 1 Tablet (20 mg) by mouth daily. 90 Tablet 3 03/13/20 24 Active Insulin [place], Disposable, (Comfort EZ Pen [place]) 32 gauge x 5/32 Needle Use to inject insulin 4x daily. 400 Each 3 04/08/20 24 Active traZODone (DESYREL) 50 mg tabletIndications: Insomnia, unspecified type TAKE 1 TO 2 TABLETS BY MOUTH NEEDED ONE HOUR BEFORE BEDTIME 180 Tablet 3 05/13/20 24 Active polyethylene glycol 3350 (MIRALAX) 17 gram/dose PowderIndications: Irritable bowel syndrome with constipation Take 1 Scoop (17 Grams) by mouth daily. Dissolve in 8 ounces of fluid and drink entire liquid 527 Gram 3 08/23/19 25 Active metFORMIN (GLUCOPHAGE) 1,000 mg tabletIndications: Type 2 diabetes mellitus with diabetic polyneuropathy, with long-term current use of insulin Take 1 Tablet (1,000 mg) by mouth 2 times daily with meals. 120 Tablet 5 08/23/19 25 Active insulin lispro (HumaLOG KwikPen Insulin) 100 unit/mL pen syringeIndications :Type 2 diabetes mellitus with diabetic polyneuropathy, with long-term current use of insulin Inject 14 Units by subcutaneous injection 2 times daily before meals. If BS is over 200 , give additional 10 units for total of 24 unit. Max daily dose 48 units. 15 mL 3 09/24/19 25 Active Additional Information Patient taking differently: (No dose reported), subCUT TWO TIMES DAILY BEFORE MEALS,Sliding scale, Reported on 02/06/2025 busPIRone (BUSPAR) 7.5 mg TabletIndications: NIEVES (generalized anxiety disorder) Take 1 Tablet (7.5 mg) by mouth 3 times daily as needed for Anxiety. 90 Tablet 3 12/24/19 25 Active fluconazole (DIFLUCAN) 150 mg tabletIndications: Oral digna Take 1 Tablet (150 mg) by mouth daily. 3 Tablet 1 02/07/20 25 Active DULoxetine (CYMBALTA) 60 mg Capsule, Delayed Release(E.C.)Indic ations:NIEVES (generalized anxiety disorder),Moderate episode of recurrent major depressive disorder (CMS/HCC) Take 1 Capsule (60 mg) by mouth daily. 90 Capsule 2 02/07/20 25 Active pregabalin (Lyrica) 75 mg Capsule Take 1 Capsule (75 mg) by mouth every 12 hours. 60 Capsule 3 02/07/20 25 Active Active Problems Problem Noted Date Diagnosed Date [...] Encounters Date Type Department Care Team Description 03/11/2025 Orders Only [facility] Information [facility] [address] [place] [address] Provider, Abstract 02/18/2025 External Device Data ST[facility] ABSTRACTION Provider, Abstract 02/11/2025 External Device Data [facility] ABSTRACTION Provider, Abstract 02/07/2025 Results Follow-Up [facility] [address] [place] [address] September, HEMOGLOBIN A1C, CBC WITH DIFFERENTIAL 02/07/2025 Telephone [facility] [address] [place] [address] Maria L Jung, Results; critical results 02/06/2025 1:20 PM CDT - 02/06/2025 11:59 PM CDT Hospital Encounter [facility] [place] [address] [place] [address] September, DOUGH CUTTING MACHINE OPERATOR Discharge Disposition: Home or Self Care 02/06/2025 12:00 PM CDT Office Visit [facility] [address] [place] [address] September, DOUGH CUTTING MACHINE OPERATOR Moderate episode of recurrent major depressive disorder (CMS/HCC) (Primary Dx); NIEVES (generalized anxiety disorder); Oral digna; Type 2 diabetes mellitus with diabetic polyneuropathy, with long-term current use of insulin (CMS/HCC) 02/06/2025 Orders Only [facility] [address] [place] [address] Maria L Jung, 01/22/2025 External Device Data STL ABSTRACTION Provider, Abstract 01/14/2025 External Device Data STL ABSTRACTION Provider, Abstract 12/27/2024 10:02 AM CDT - 12/27/2024 11:59 PM CDT Hospital Encounter [facility] [address] [place] [address] September, DOUGH CUTTING MACHINE OPERATOR Discharge Disposition: Home or Self Care 12/27/2024 Telephone [place] [address] [place] [address] Maria L Jung, Medication Question; Patient Communication 12/26/2024 Results Follow-Up [facility] [address] [place] [address] September, DOUGH CUTTING MACHINE OPERATOR URINE CULTURE, XR NECK SOFT TISSUE 12/26/2024 Orders Only [facility] [address] [place] [address] September, DOUGH CUTTING MACHINE OPERATOR Vaginal itching (Primary Dx) 12/25/2024 Telephone [facility] [address] [place] [address] September, DOUGH CUTTING MACHINE OPERATOR Medication Assistance 12/23/2024 1:40 PM CDT Office Visit [facility] [address] [place] [address] De Leon, Cydney, DOUGH CUTTING MACHINE OPERATOR Moderate episode of recurrent major depressive disorder [...] AM CDT Legal Sex Female 6:50 AM BRIQUETTE MOLDER Gender Identity Female 02/22/2024 10:30 AM CDT Sexual Orientation Asexual 03/20/2024 2: 58 PM CDT Occupation Industry Job Start Date Job End Date Not on file Not on file Not on file Not on file Last Filed Vital Signs Vital Sign Reading Time Taken Comments Blood Pressure 118/60 02/06/2025 12:15 PM CDT Pulse 101 02/06/2025 12:15 PM CDT Temperature 36.7 C (98 F) 02/06/2025 12:15 PM CDT Respiratory Rate 18 02/06/2025 12:15 PM CDT Oxygen Saturation 98% 02/06/2025 12:15 PM CDT Inhaled Oxygen Concentration - - Weight 81.2 kg (179 lb) 02/06/2025 12:15 PM CDT Height 175.3 cm (5' 9 ) 02/06/2025 12:15 PM CDT Body Mass Index 26.43 02/06/2025 12:15 PM CDT Plan of Treatment Upcoming Encounters Date Type Department Care Team (Late st Contact Info) Description 05/08/2025 12:00 PM BRIQUETTE MOLDER Office Visit [facility] [address] [facility] [place] [address] De Leon, September, DOUGH CUTTING MACHINE OPERATOR [address] [facility] [place] [address] Health Maintenance Due Date Last Done Comments DTAP/TDAP/TD VACCINES (1 - Tdap) 1996 HEPATITIS B VACCINES (1 of 3 - 19+ 3-dose series) 1996 FIT-DNA Q 3 years 2022 FIT/FOBT Q 1 year 2022 Flex Sig/CT Colonography Q 5 years 2022 Preventative Visit- Commercial 06/19/2024 1 07/02/2022, 04/10/2023, 01/11/2022 INFLUENZA VACCINE (#1) 2025 COVID-19 Vaccine (3 - 2024-2 6 season) 2025 04/06/2021, 03/09/2021 DIABETES ANNUAL FOOT EXAM 03/22/20252023, 08/15/2022, 08/15/2022, Additional history exists DIABETES: A1C (Auto Order) 05/09/202502/06, 10/15/2024, 07/05/2024, Additional history exists LDL CHOLESTEROL ANNUAL 07/05/2025 , 06/01/2023, 05/31/2023, Additional history exists DIABETES HBA1C Q 6 MONTHS 08/09/20252024, 10/15/2024, 07/05/2024, Additional history exists DIABETES MICROALBUMIN ANNUAL SCREEN 09/06/2025 09/06/2024, 05/31/2023, 01/12/2022 BREAST CANCER SCREENING 09/18/2025 09/18/2024, 05/29 DIABETES ANNUAL RETINAL EXAM 03/10/2026, 11/05/2024, 10/30/2024 PAP SMEAR 05/02/2026 05/02/2023 CERVICAL CANCER SCREENING 05/02/2028 HPV/Cotest (21-29) 05/02/2028 05/02/2023 HPV/Cotest (30-65) 05/02/2028 05/02/2023 COLORECTAL SCREENING 11/12/2034 11/12/2024 Colorectal Cancer Screening 11/12/2034 Procedures Procedure Name Priority Date/Time Associated Diagnosis Comments HM DIABETES EYE EXAM Routine 03/10/2025 2:55 PM CDT CBC WITH DIFFERENTIAL Routine 02/06/2025 1:27 PM CDT Type 2 diabetes mellitus with diabetic polyneuropathy, with long-term current use of insulin ([facility]) COMPREHENSIVE METABOLIC PANEL Routine 02/06/2025 1:27 PM CDT Type 2 diabetes mellitus with diabetic polyneuropathy, with long-term current use of insulin ([facility]) HEMOGLOBIN A1C Routine 02/06/2025 1:27 PM CDT Type 2 diabetes mellitus with diabetic polyneuropathy, with long-term current use of insulin ([facility]) REFERENCE LAB PROCESSING FEE Routine 02/06/2025 1:27 PM CDT 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 (CMS/HCC) XR NECK SOFT TISSUE Routine 12/27/2024 1 0:08 AM CDT Dysphagia, unspecified type Globus sensation URINE CULTURE Routine 12/23/2024 4:26 PM CDT Vaginal itching ENDOSCOPY, COLON, SCREENING Routine 11/12/2024 1:00 PM CDT MAMMO 3D JERRY SCREEN BILAT W OR WO CAD Routine 09/18/2024 11:54 AM CDT Screening mammogram, encounter for MICROALBUMIN/CREATIN INE RATIO, RANDOM UR Routine 09/06/2024 8:35 AM CDT Type 2 diabetes mellitus with diabetic polyneuropathy, with long-term current use of insulin ([facility]) LIPID PANEL Routine 07/05/2024 9:05 AM BRIQUETTE MOLDER Type 2 diabetes mellitus with hyperglycemia, 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 ([facility]) Hyperlipidemia, unspecified hyperlipidemia type CERV/VAG CYTO AGE BASED SCREEN PAP W CT/NG Routine 05/02/2023 10:38 AM BRIQUETTE MOLDER Well woman exam with routine gynecological exam Screening for cervical cancer Screen for STD (sexually transmitted disease) from Last 3 Months or Most Recently Relevant to Health Maintenance Results * (ABNORMAL) DIABETES EYE EXAM (03/10/2025 2:55 PM CDT) us Abstract Provider HEALTH MAINTENANCE Edited Resu lt - Final * REFERENCE LAB PROCESSING FEE (02/06/2025 1:27 PM CDT) Pathologist [facility] REFERENCE LAB SENDOUT Sent to Ref Lab 02/06/2025 3:00 PM CDT [facility] Other, specify BLOOD SPECIMEN / Unknown Collection / Unknown 02/06/2025 1:27 PM CDT 02/06/2025 1:40 PM CDT September DOUGH CUTTING MACHINE OPERATOR CHEMISTRY ORDERABLES Final Resul t [facility] CLIA # [id number] [address] [place] [address] * CBC WITH DIFFERENTIAL (02/06/2025 1:27 PM CDT) WBC 7.1 3.8 - 10.8 Thousand/u L [facility] RBC 4.65 3.80 - 5.10 Million/uL [facility] HEMOGLOBIN 13.4 11.7 - 15.5 g/dL [facility] HEMATOCRIT 41.1 35.0 - 45.0 % [facility] MCV 88.4 80.0 - 100.0 fL [facility] MCH 28.8 27.0 - 33.0 pg [facility] MCHC 32.6 32.0 - 36.0 g/dL [facility] Comment: For adults, a slight decrease in the calculated MCHC value (in the range of 30 to 32 g/dL) is most likely not clinically significant; however, it should be interpreted with caution in correlation with other red cell parameters and the patient's clinical condition. RDW 12.5 11.0 - 15.0 % [facility] PLATELETS 275 140 - 400 Thousand/u L [facility] MPV 10.9 7.5 - 12.5 fL [facility] NEUTROPHIL ABSOLUTE 4,487 1,500 - 7,800 cells/uL [facility] LYMPHOCYTE ABSOLUTE 1,910 850 - 3,900 cells/uL [facility] MONOCYTE ABSOLUTE 391 200 - 950 cells/uL [facility] EOSINOPHIL ABSOLUTE 270 15 - 500 cells/uL [facility] BASOPHILS ABSOLUTE 43 0 - 200 cells/uL [facility] NEUTROPHIL 63.2 % [facility] LYMPHOCYTES 26.9 % [facility] MONOCYTE 5.5 % [facility] EOSINOPHILS 3.8 % [facility] BASOPHILS 0.6 % [facility] Comment: Test Performed at: [facility] [address] Candy Huber MD Blood 02/06/2025 1:27 PM CDT 02/07/2025 3:42 AM CDT September [facility] HEMATOLOGY ORDERABLES Final Resu lt [facility] [phone] [facility] [address] * (ABNORMAL) HEMOGLOBIN A1C (02/06/2025 1:27 PM CDT) HEMOGLOBIN A1C 13.3(H) <5.7 % [facility] Comment: For someone without known diabetes, [...] diabetes for children. ESTIMATED AVERAGE GLUCOSE (MG/DL) 335 mg/dL [facility] ESTIMATED AVERAGE GLUCOSE (MMOL/L) 18.6 mmol/L [facility] Comment: Test Performed at: [facility] [address] [facility] [place] [address] Candy Huber MD Blood 02/06/2025 1:27 PM CDT 02/07/2025 3:42 AM CDT September De Leon [facility] CHEMISTRY ORDERABLES Final Resul t [facility] [phone] [facility] [address] [facility] [place] [address] * (ABNORMAL) COMPREHENSIVE METABOLIC PANEL (02/06/2025 1:27 PM CDT) GLUCOSE 512(HH) 65 - 99 mg/dL [facility] Comment: Verified by repeat analysis. Fasting reference interval For someone without known diabetes, a glucose value >125 mg/dL indicates that they may have diabetes and this should be confirmed with a follow-up test. BUN 26(H) 7 - 25 mg/dL [facility] CREATININE 1.10(H) 0.50 - 0.99 mg/dL [facility] GFR 62 > OR = 60 mL/min/1.7 3m2 [facility] BUN/CREAT RATIO 24(H) 6 - 22 (calc) [facility] SODIUM 135 135 - 146 mmol/L [facility] POTASSIUM 4.8 3.5 - 5.3 mmol/L [facility] CHLORIDE 98 98 - 110 mmol/L [facility] CO2 26 20 - 32 mmol/L [facility] CALCIUM 9.7 8.6 - 10.2 mg/dL [facility] TOTAL PROTEIN 7.0 6.1 - 8.1 g/dL [facility] ALBUMIN 4.3 3.6 - 5.1 g/dL [facility] GLOBULIN 2.7 1.9 - 3.7 g/dL (calc) [facility] ALBUMIN/GLOBULIN RATIO 1.6 1.0 - 2.5 (calc) [facility] BILIRUBIN TOTAL 0.5 0.2 - 1.2 mg/dL [facility] ALKALINE PHOSPHATASE 42 31 - 125 U/L [facility] AST 12 10 - 35 U/L [facility] ALT 14 6 - 29 U/L [facility] Comment: Test Performed at: [facility] [address] [place] [address] Candy Huber MD Blood 02/06/2025 1:27 PM CDT 02/07/2025 3:42 AM CDT September DOUGH CUTTING MACHINE OPERATOR CHEMISTRY ORDERABLES Final Resul t [facility] [phone] [facility] [address] [place] [address] * XR NECK SOFT TISSUE (12/27/2024 10:08 [...] The lung apices are grossly clear. September [facility] DIAGNOSTIC IMAGING ORDERABLES Fi nal Result * URINE CULTURE (12/23/2024 4:26 PM CDT) URINE CULTURE SEE NOTE [facility] Comment: CULTURE, URINE, ROUTINE Micro Number: [id number] Test Status: Final Specimen Source: Urine, clean catch Specimen Quality: Adequate Result: Mixed genital edna isolated. These superficial bacteria are not indicative of a urinary tract infection. No further organism identification is warranted on this specimen. If clinically indicated, recollect clean-catch, mid-stream urine and transfer immediately to Urine Culture Transport Tube. Test Performed at: [facility] [address] [place] [address] Candy Huber MD Urine URINE SPECIMEN OBTAINED BY CLEAN CATCH PROCEDURE / Unknown 12/23/2024 4:26 PM CDT 12/24/2024 6:09 AM CDT September [facility] MICROBIOLOGY - GENERAL ORDERABLE S Final Result [facility] [phone] [facility] [address] [place] [address] * ENDOSCOPY, COLON, SCREENING (11/12/2024 1:00 PM CDT) us Abstract Provider GI PROCEDURE ORDERABLES Final Result * MAMMO 3D JERRY SCREEN BILAT W [...] areas of architectural distortion. Cydney De Leon DOUGH CUTTING MACHINE OPERATOR MAMMO ORDERABLES Final Result * MICROALBUMIN/CREATININE RATIO, RANDOM UR (09/06/2024 8:35 AM CDT) Creatinine, Urine 125 20 - 275 mg/dL [facility] MICROALBUMIN, URINE 1.1 See Note: mg/dL [facility] Comment: Reference Range: Reference Range Not established MICROALBUMIN/CREAT RATIO, UR 9 <30 mg/g creat [facility] Comment: The ADA defines abnormalities in albumin excretion as follows: Albuminuria Category Result (mg/g creatinine) Normal to Mildly increased <30 Moderately increased 30-299 Severely increased > OR = 300 The ADA recommends that at least two of three specimens collected within a 3-6 month period be abnormal before considering a patient to be within a diagnostic category. Test Performed at: [facility] [address] [address] Candy Huber MD Urine URINE SPECIMEN OBTAINED BY CLEAN CATCH PROCEDURE / Unknown 09/06/2024 8:35 AM CDT 09/07/2024 4:46 AM CDT Cydney Haley DOUGH CUTTING MACHINE OPERATOR URINE ORDERABLES Final Result [facility] [phone] [facility] [address] [address] [address] * (ABNORMAL) LIPID PANEL (07/05/2024 9:05 AM BRIQUETTE MOLDER) CHOLESTEROL 135 <200 mg/dL [facility] HDL 54 > OR = 50 mg/dL [facility] TRIGLYCERIDE 271(H) <150 mg/dL [facility] Comment: If a non-fasting specimen was collected, consider repeat triglyceride testing on a fasting specimen if clinically indicated. Ariadna et al. J. of Clin. Lipidol. 2015;9:129-169. LDL CALCULATED 49 mg/dL (calc) [facility] Comment: Reference range: <100 Desirable range <100 mg/dL for primary prevention; <70 mg/dL for patients with CHD or diabetic patients with > or = 2 CHD risk factors. LDL-C is now calculated using the Caio-Aguilera calculation, which is a validated novel method providing better accuracy than the Friedewald equation in the estimation of LDL-C. Caio SS et al. MURIEL. 2013;310(19): 2949-1156 (http://education.New KCBX/faq/EKK088) CHOL/HDL RATIO 2.5 <5.0 (calc) [facility] NON-HDL CHOLESTEROL 81 <130 mg/dL (calc) [facility] Comment: For patients with diabetes plus 1 major ASCVD risk factor, treating to a non-HDL-C goal of <100 mg/dL (LDL-C of <70 mg/dL) is considered a therapeutic option. Test Performed at: [facility] [address] [address] [address] Candy Huber MD Blood 07/05/2024 9:05 AM BRIQUETTE MOLDER 07/06/2024 12:27 PM BRIQUETTE MOLDER Christina OROZCO CHEMISTRY ORDERABLES Final Re sult [facility] [phone] [facility] [address] [address] [address] * (ABNORMAL) CERV/VAG CYTO AGE BASED SCREEN PAP W CT/NG (05/02/2023 10:38 AM BRIQUETTE MOLDER) COMMENT (PAP): [facility] Comment: This order for age-based cervical cancer and STI screening follows ACOG guidelines(PB 168, 140, DWB360). See individual assays for performing site location. CLINICAL INFORMATION [facility] Comment:None given LAST MENSTRUAL PERIOD [facility] Comment:NONE GIVEN PREV PAP: [facility] Comment:NONE GIVEN PREV BX: [facility] Comment:NONE GIVEN SOURCE [facility] Comment:Endocervix ADEQUACY: [facility] Comment: Satisfactory for evaluation. Endocervical/transformation zone component present. Age and/or menstrual status not provided PAP INTERP [facility] Comment: Cytology Results: Negative for intraepithelial lesion or malignancy. COMMENT (PAP TEST) [facility] Comment: This Pap test has been evaluated with computer assisted technology. ACURA SALES CONSULTANT: Suzi Lopez Comment: BKAVENU(ASCP) CT screening location: [place] [address] [place] [address] [address] ACURA SALES CONSULTANT: Lula Lopez Comment: JAZ CT(ASCP) CT screening location: [place] [address] [address] [facility]enc[facility] EXPLANATORY NOTE [facility] Comment: EXPLANATORY NOTE: The Pap is [...] clinical information. HPV E6/E7 Detected(A) Not Detected [facility] Comment: Methodology: Dosimetrist-Mediated Amplification This assay detects E6/E7 viral messenger RNA (mRNA) from 14 high-risk HPV types (16,18,31,33,35,39,45,51,52,56,58,59,66,68). Cervical sources are required for HPV testing. If a vaginal source from a patient who has had a total hysterectomy with removal of cervix was submitted, please contact the testing laboratory for alternative testing options. For additional information, please refer to http://ZIOPHARM Oncology.VitaPortal/faq/YMJ825a6 (This link if provided for information/ educational purposes only.) HPV 16 RNA NOT DETECTED NOT DETECTED [facility] HPV 18/45 RNA NOT DETECTED NOT DETECTED [facility] Comment: Methodology: Dosimetrist Mediated Amplification Cervical sources are required for HPV testing. If a vaginal source from a patient who has had a total hysterectomy with removal of cervix was submitted, please contact the testing laboratory for alternative testing options. C TRAC RNA NOT DETECTED NOT DETECTED [facility] N.GONORRHOEAE RNA, TMA NOT DETECTED NOT DETECTED [facility] COMMENT INFECTIOUS DISEASE [facility] Comment: The analytical performance characteristics of this assay, when used to test SurePath(TM) specimens have been determined by [facility]. The modifications have not been cleared or approved by the FDA. This assay has been validated pursuant to the CLIA regulations and is used for clinical purposes. For additional information, please refer to https://ZIOPHARM Oncology.VitaPortal/faq/HRJ468 (This link is being provided for information/ educational purposes only.) Test Performed at: [facility] [address] [place] [address] Candy JACKSON Genital SWAB OF ENDOCERVIX / Unknown 05/02/2023 10:38 AM BRIQUETTE MOLDER 05/04/2023 3:37 AM BRIQUETTE MOLDER us Guru Robin MD PATHOLOGY/CYTOLOGY ORDERABLES Final Result [facility] [phone] [facility] [address] [address] [address] from Last 3 Months or Most Recently Relevant to Health Maintenance Insurance [employer] [address] [place] [address] HEALTH PLAN MEDICAID Advance Directives For more information, please contact: [phone] * Full Code (Latest Code Status on File) Date Activated Date Inactivated Comments 03/23/2024 10:25 PM 03/28/2024 11:34 AM Care Teams Tire Assembler Relationship Specialty Start Date End Date Maria L Jung DO [address] [place] [address] PCP - General Family Practice 11/12/23
--- OUTSIDE RECORDS SUMMARY | 2025-03-18 19:12 | XMS_ITS | Encounter Summary ---
Author Organization [facility] Address 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 OPERATOR Gender Identity Female 02/22/2024 10:30 AM CDT Sexual Orientation Asexual 03/20/2024 2: 58 PM CDT Occupation Industry Job Start Date Job End Date Not on file Not on file Not on file Not on file documented as of this encounter Plan of Treatment Upcoming Encounters Date Type Department Care Team (Late st Contact Info) Description 05/08/2025 12:00 PM ARRESTING GEAR OPERATOR Office Visit [facility] [address] [place] [address] De LeonSeptember, DOCTOR OF [facility]IC[facility] [address] [place] [address] documented as of this encounter [...] 1.7 <=2.0 mmol/L 09/06/2024 9:32 AM CDT [facility] Blood Collection / Unknown 09/06/2024 9:10 AM CDT 09/06/2024 9:12 AM CDT September [facility] CHEMISTRY ORDERABLES Final Resul t [facility] CLIA # [id number] [address] [place] [address] * (ABNORMAL) COMPREHENSIVE METABOLIC PANEL (09/06/2024 9:10 AM CDT) SODIUM 141 136 - 145 mmol/L 09/06/2024 9:32 AM CDT [facility] POTASSIUM 4.4 3.5 - 5.1 mmol/L 09/06/2024 9:32 AM [facility] CHLORIDE 102 98 - 107 mmol/L 09/06/2024 9:32 AM [facility] CO2 27 22 - 29 mmol/L 09/06/2024 9:32 AM [facility] CALCIUM 10.0 8.6 - 10.0 mg/dL 09/06/2024 9:32 AM [facility] BUN 17 6 - 20 mg/dL 09/06/2024 9:32 AM [facility] CREATININE 0.96(H) 0.51 - 0.95 mg/dL 09/06/2024 9:32 AM [facility] GLUCOSE 165(H) 74 - 99 mg/dL 09/06/2024 9:32 AM [facility] TOTAL PROTEIN 7.8 6.6 - 8.7 g/dL 09/06/2024 9:32 AM [facility] ALBUMIN 4.5 4.0 - 4.9 g/dL 09/06/2024 9:32 AM [facility] BILIRUBIN TOTAL 0.5 <=1.2 mg/dL 09/06/2024 9:32 AM [facility] ALKALINE PHOSPHATASE 40 35 - 104 U/L 09/06/2024 9:32 AM [facility] AST 26 0 - 35 U/L 09/06/2024 9:32 AM [facility] ALT 21 0 - 35 U/L 09/06/2024 9:32 AM [facility] GFR >60 >=60 mL/min/1.7 3 sq meter 09/06/2024 9:32 AM [facility] Comment:eGFR calculated with 2020 CKD-EPI equation. Vegetarian diet, extremely high or low muscle mass, and may affect results. Cystatin C with Glomerular Filtration Rate is a suitable alternative for these patients. ANION GAP 12 5 - 20 mmol/L 09/06/2024 9:32 AM [facility] Blood Collection / Unknown 09/06/2024 9:10 AM CDT 09/06/2024 9:12 AM CDT September [facility] CHEMISTRY ORDERABLES Final Resul t Performing Organization Address City/[facility]/ZIP Co de Phone Number [facility] CLIA # [id number] [address] [place] [id number] * CORTISOL LEVEL (09/06/2024 9:10 AM CDT) CORTISOL LEVEL 10.6 ug/dL 09/06/2024 5:04 PM CDT [facility] Comment: Cortisol Reference Range Morning Hours 6-10 a.m. 6.0-18.4 ug/dL Afternoon Hours 4-8 p.m. 2.7-10.5 ug/dL Blood Collection / Unknown 09/06/2024 9:10 AM CDT 09/06/2024 9:12 AM CDT September [facility] CHEMISTRY ORDERABLES Final Resul t Performing Organization Address [facility] Co de Phone Number [facility] CLIA # [id number] [facility]ly [facility] [id number] documented in this encounter Visit Diagnoses Diagnosis Hypotension, unspecified documented in this encounter Care Teams Electrician'S Helper Relationship Specialty Start Date End Date Maria L Jung DO [address] [place] [phone] PCP - General Family Practice 11/12/23 documented as of this encounter
--- OUTSIDE RECORDS SUMMARY | 2025-03-18 19:12 | XMS_ITS | Encounter Summary ---
Author Organization [facility] Address 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 Gender Identity Female 02/22/2024 10:30 AM CDT Sexual Orientation Asexual 03/20/2024 2: 58 PM CDT Occupation Industry Job Start Date Job End Date Not on file Not on file Not on file Not on file documented as of this encounter Plan of Treatment Upcoming Encounters Date Type Department Care Team (Late st Contact Info) Description 05/08/2025 12:00 PM JANITORIAL MANAGER Office Visit [facility] [address] [place] [address] De LeonSeptember, POMOLOGIST [address] [place] [address] documented as of this encounter Procedures Procedure Name Priority Date/Time Associated Diagnosis Comments LACTIC ACID Stat 08/29/2024 10:15 AM CDT Hypotension, unspecified documented in this encounter Results * (ABNORMAL) LACTIC ACID (08/29/2024 10:15 AM CDT) LACTIC ACID 2.1(H) <=2.0 mmol/L 08/29/2024 11:22 AM CDT [facility] Blood Collection / Unknown 08/29/2024 10:15 AM CDT 08/29/2024 11:03 AM CDT September [facility] CHEMISTRY ORDERABLES Final Resul t [facility] CLIA # [id number] [address] [place] [id number] documented in this encounter Visit Diagnoses Diagnosis Hypotension, unspecified documented in this encounter Care Teams Locomotive Crane Operator Helper Relationship Specialty Start Date End Date Maria L Jung DO [address] [place] [address] PCP - General Family Practice 11/12/23 documented as of this encounter
--- OUTSIDE RECORDS SUMMARY | 2025-03-18 19:12 | XMS_ITS | Encounter Summary ---
Author Organization [facility] Address 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 Gender Identity Female 02/22/2024 10:30 AM CDT Sexual Orientation Asexual 03/20/2024 2: 58 PM CDT Occupation Industry Job Start Date Job End Date Not on file Not on file Not on file Not on file documented as of this encounter Plan of Treatment Upcoming Encounters Date Type Department Care Team (Late st Contact Info) Description 05/08/2025 12:00 PM REGIONAL VICE PRESIDENT SURGICAL SALES Office Visit [facility] [address] [place] [phone] September, [facility] [address] [place] [phone] documented as of this encounter Visit Diagnoses Not on filedocumented in this encounter Care Teams Mental Health Assistant Relationship Specialty Start Date End Date Maria L Jung DO [address] [place] [phone] PCP - General Family Practice 11/12/23 documented as of this encounter
--- OUTSIDE RECORDS SUMMARY | 2025-03-18 19:12 | XMS_ITS | Encounter Summary ---
Author Organization [facility] Address 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 Gender Identity Female 02/22/2024 10:30 AM CDT Sexual Orientation Asexual 03/20/2024 2: 58 PM CDT Occupation Industry Job Start Date Job End Date Not on file Not on file Not on file Not on file documented as of this encounter Plan of Treatment Upcoming Encounters Date Type Department Care Team (Late st Contact Info) Description 05/08/2025 12:00 PM DRAFTING TECHNICIAN Office Visit [facility] [address] [place] [address] September, SHEEP CLIPPER [address] [place] [address] documented as of this encounter Visit Diagnoses Not on filedocumented in this encounter Care Teams Cantilever Crane Operator Relationship Specialty Start Date End Date Maria L Jung DO [address] [place] [phone] PCP - General Family Practice 11/12/23 documented as of this encounter
[2025-03-18 19:19] LABS: Hematocrit 39.2 % (36-47); Hemoglobin 13.90 g/dL (11.27-16.99); Mean Corpuscular HGB Conc 35.5 g/dL (30-55); Mean Corpuscular Hemoglobin 28.0 pg (27-33); Mean Corpuscular Volume 78.9 fl (85-98); Nucleated Red Blood Cells % 0 %; Platelet Count 307 10^3/cmm (157-399); Red Blood Count 4.97 10^6/uL (3.85-5.65); White Blood Count 8.59 10^3/uL (3.29-11.43)
[2025-03-18 19:32] LABS: Troponin(5th) Baseline 11 ng/L (0-10)
[2025-03-18 19:51] LABS: Alanine Aminotransferase 19 U/L (0-33); Albumin Level 4.4 g/dL (3.5-5.2); Alkaline Phosphatase 55 U/L (35-105); Anion Gap 17.5 (5-19); Aspartate Amino Transferase 17 U/L (0-32); Blood Urea Nitrogen 24 mg/dL (6-20); Calcium 10.1 mg/dL (8.5-10.5); Carbon Dioxide 27 mmol/L (22-29); Chloride 96 mmol/L (98-107); Creatinine Clr Calc Pharmacy 86.5246; Globulin 3.0 g/dL (1.3-4.6); Glucose 497 mg/dL (65-115); NT Pro B Type Natriuretic Pept < 36 pg/mL (0-125); Osmolality Calculated 308 mOsm/kg (285-295); Potassium 4.5 mmol/L (3.5-5.1); Sodium 136 mmol/L (136-145); Total Protein 7.4 g/dL (6.6-8.7)
== END 2025-03-18 19:41 | disposition left against medical advice (07) ==
PROVIDERS: Emergency Medicine; Emergency Provider Family Medicine
DX: Z01.89 Encounter for other specified special examinations (principal); Z53.21 Procedure and treatment not carried out due to patient leaving prior to being seen by health care provider; R07.89 Other chest pain; R94.31 Abnormal electrocardiogram [ECG] [EKG]
CPT/HCPCS: 71045; 80053; 83880; 84484; 85025; 93005; 99285

== ENCOUNTER 2025-04-23 22:38 | Emergency (ER) | payer OTHER, MEDICAID, SELFPAY ==
--- NOTE | 2025-04-23 22:42 | W.ED.GENADLT ---
HPI - General Adult General: Chief complaint: Recheck/Abnormal Lab/Rx Stated complaint: blood sugar keeps rising now depth perception off Time Seen by Provider: 04/23/25 22:41 History of Present Illness: 49yo F w/pmhx of DM, anxiety, depression HLD with a chief complaint of elevated blood sugars at home. Patient has been feeling lightheaded especially with standing and exertion but otherwise denies upper respiratory symptoms such as runny nose, sore throat, cough, shortness of breath, pain with deep breathing, chest pain, abdominal pain, nausea, vomiting. She states she has had 2 watery bowel movements today without blood. Patient denies any dysuria or hematuria or flank pain. She denies any lower extremity swelling. No syncopal episodes, hemoptysis, denies history of DVT/PE. Patient does not take any medications for blood pressure. Related Data Home Medications ?Medication ?Instructions ?Recorded ?Confirmed duloxetine 30 mg capsule,delayed 30 mg PO DAILY 01/25/24 03/07/25 release gabapentin 600 mg tablet 600 mg PO TID 01/25/24 03/07/25 insulin aspart U-100 100 unit/mL 14 sliding scale dose SUBCUT BID 01/25/24 03/07/25 (3 mL) subcutaneous pen (Novolog FlexPen U-100 Insulin aspart) rosuvastatin 20 mg tablet 20 mg PO DAILY 01/25/24 03/07/25 trazodone 50 mg tablet 50 - 100 mg PO BEDTIME 01/25/24 03/07/25 insulin glargine 100 unit/mL (3 40 unit SUBCUT DAILY 10/02/24 03/07/25 mL) subcutaneous pen (Lantus Solostar U-100 Insulin) metformin 1,000 mg tablet 1,000 mg PO BID 11/12/24 03/07/25 Previous Rx's ?Medication ?Instructions ?Recorded polyethylene glycol 3350 17 17 g PO BID 2 days #68 grams 10/08/24 gram/dose oral powder (Miralax) buspirone 7.5 mg tablet 15 mg (2 x 7.5 mg) PO BID #120 tabs 12/21/24 hydroxyzine HCl 25 mg tablet 25 mg PO Q6H PRN anxiety #14 tabs 12/21/24 diclofenac sodium 3 % topical gel 1 applic topical BID #100 grams 01/28/25 (Solaraze) ondansetron HCl 8 mg tablet 8 mg PO BID PRN nausea and 02/13/25 vomiting #30 tabs cefdinir 300 mg capsule 300 mg PO BID 10 days #20 caps 03/07/25 cetirizine 10 mg tablet (Zyrtec) 10 mg PO BID PRN allergy symptoms 03/07/25 #60 tabs fluticasone propionate 50 2 spray intranasal BID #16 grams 03/07/25 mcg/actuation nasal spray,suspension (Flonase Allergy Relief) promethazine-DM 6.25 mg-15 mg/5 mL 10 ml PO Q6H PRN cough #473 mL 03/07/25 oral syrup nitrofurantoin 100 mg PO BID 5 days #10 caps 04/24/25 monohydrate/macrocrystals 100 mg capsule (Macrobid) Allergies Allergy/AdvReac Type Severity Reaction Status Date / Time Penicillins Allergy Unknown Verified 03/07/25 08:24 pineapple Allergy ALGY-Swell Verified 03/07/25 08:24 Lip/Tongue/Throat [facility] ED PFSH: Medical History (Updated 04/24/25 @ 02:58 by Shilpa Cooper MD) Infected sebaceous cyst of skin Nausea & vomiting Diabetes Social History Smoking and tobacco/nicotine status: never used tobacco/nicotine Physical Exam Narrative: EXAM NARRATIVE: Vital signs were reviewed. Patient is alert and oriented. Patient is breathing comfortably, no increased WOB or accessory muscle use. SpO2 is above 95% on RA. Patient has clear lungs b/l, no rhonchi, wheezing or crackles. Patient is relatively hypotensive and mildly tachycardic. Abdomen is soft, nondistended and nontender. Patient is moving all extremities, no deformity or gross injury. No lower extremity edema or asymmetry. Course Vital Signs: Vital signs: Vital Signs Temperature 97.7 F 04/23/25 22:43 Pulse Rate 87 04/24/25 00:50 Respiratory Rate 16 04/23/25 22:43 Blood Pressure 123/82 04/24/25 00:50 Pulse Oximetry 93 04/24/25 00:50 Oxygen Delivery Me thod Room Air 04/24/25 00:50 MDM - General Adult Medical Decision Making 49-year-old female with a history of high blood pressure, anxiety, depression, high cholesterol presents with a chief complaint of elevated blood sugars at home. She has also been feeling lightheaded especially with standing and exertion. Differential diagnosis includes, is limited to, symptomatic hyperglycemia, DKA, dehydration, underlying infection such as pneumonia, urinary tract infection, gastroenteritis, anemia, other. On exam, patient is relatively hypotensive and mildly tachycardic. She was promptly treated with IV fluids. Patient was evaluate lab work including CBC, CMP, VBG, beta hydroxybutyrate, magnesium, UA. Patient has a normal white blood cell count and is not anemic. Patient does have elevated creatinine which could signify mild CHANEL as it is elevated from previous. She has elevated blood glucose of 333 but lab work is not consistent with DKA as she has a pH of 7.38. UA is very contaminated, unclear if patient has a urinary tract infection but she does report increased frequency and urgency. Will treat as acute cystitis. At this time, patient is feeling significantly improved, she is no longer dizzy, she states that her (mild) headache is completely resolved and gone away. Her BP has improved. At this time she is stable for outpatient management, repeat blood work. Patient was counseled on supportive care at home, given return precautions and discharged in stable condition with recommendation for outpatient follow-up with primary care nurse or doctor. Lab Data 04/24/25 00:00 04/24/25 00:00 Laboratory Results WBC 7.02 10^3/uL (3.29-11.43) 04/24/25 00:00 RBC 4.68 10^6/uL (3.85-5.65) 04/24/25 00:00 Hgb 13.20 g/dL (11.27-16.99) 04/24/25 00:00 Hct 37.6 % (36-47) 04/24/25 00:00 MCV 80.3 fl (85-98) L 04/24/25 00:00 MCH 28.2 pg (27-33) 04/24/25 00:00 MCHC 35.1 g/dL (30-55) 04/24/25 00:00 RDW 11.9 % (12.1-15.1) L 04/24/25 00:00 Plt Count 270 10^3/cmm (157-399) 11/06/25 00:00 MPV 10.0 fL (7.4-10.4) 04/24/25 00:00 Neut % (Auto) 55.0 % 04/24/25 00:00 Lymph % (Auto) 36.9 % 04/24/25 00:00 Christian % (Auto) 5.1 % 04/24/25 00:00 Eos % (Auto) 2.3 % 04/24/25 00:00 Baso % (Auto) 0.6 % 04/24/25 00:00 Neut # (Auto) 3.86 10^3/uL (1.8-7.7) 04/24/25 00:00 Lymph # (Auto) 2.6 10^3/uL (0.8-4.8) 04/24/25 00:00 Christian # (Auto) 0.4 10^3/uL (0.2-0.9) 04/24/25 00:00 Eos # (Auto) 0.2 10^3/uL (0.0-0.8) 04/24/25 00:00 Baso # (Auto) 0.0 10^3/uL (0.0-0.1) 04/24/25 00:00 Nucleated RBC % (auto) 0 % 04/24/25 00:00 Nucleated RBCs # 0.0 /100WBC 04/24/25 00:00 Specimen Type Venous 04/23/25 00:00 Juan Carlos Test N/a 04/23/25 00:00 VBG pH 7.38 (7.32-7.42) 04/23/25 00:00 VBG pCO2 49.4 mmHg (41-51) 04/23/25 00:00 VBG pO2 50.7 mmHg (25-40) H 04/23/25 00:00 VBG HCO3 29.5 mmol/L (24-28) H 04/23/25 00:00 VBG Base Excess 3.4 mmol/L (-3.0-3.0) H 04/23/25 00:00 VBG Hematocrit 41.9 % (37-47) 04/23/25 00:00 O2 Delivery Device Room air 04/23/25 00:00 Control Systems Specialist ID [email or web address] 04/23/25 00:00 Sodium 138 mmol/L (136-145) 04/24/25 00:00 Potassium 3.9 mmol/L (3.5-5.1) 04/24/25 00:00 Chloride 97 mmol/L (98-107) L 04/24/25 00:00 Carbon Dioxide 28 mmol/L (22-29) 04/24/25 00:00 Anion Gap 16.9 (5-19) 04/24/25 00:00 BUN 26 mg/dL (6-20) H 04/24/25 00:00 Creatinine 1.3 mg/dL (0.5-0.9) H 04/24/25 00:00 GFR Calculation 43.9 mL/min (90-130) L 04/24/25 00:00 Glucose 333 mg/dL (65-115) H 04/24/25 00:00 POC Glucose 303 mg/dL (70-110) H 04/24/25 02:42 Calculated Osmolality 304 mOsm/kg (285-295) H 04/24/25 00:00 Calcium 10.0 mg/dL (8.5-10.5) 04/24/25 00:00 Magnesium 1.8 mg/dL (1.7-2.3) 04/24/25 00:00 Total Bilirubin 0.3 mg/dL (0.15-1.2) 04/24/25 00:00 AST 16 U/L (0-32) 04/24/25 00:00 ALT 16 U/L (0-33) 04/24/25 00:00 Alkaline Phosphatase 44 U/L (35-105) 04/24/25 00:00 Total Protein 6.9 g/dL (6.6-8.7) 04/24/25 00:00 Albumin 4.2 g/dL (3.5-5.2) 04/24/25 00:00 Globulin 2.7 g/dL (1.3-4.6) 04/24/25 00:00 Urine Color Dark yellow (Yellow) A 04/24/25: Urine Appearance Cloudy (CLEAR) A 04/24/25: Urine pH 5.0 (5-7) 04/24/25: Ur Specific [place] 1.038 (1.005-1.030) H 04/24/25: Urine Protein 1+ (Negative) A 11/06/25 01:26 Urine Glucose (UA) 3+ (Normal) H 04/24/25 01:26 Urine Ketones 1+ (Negative) H 04/24/25 01:26 Urine Blood Negative (Negative) 04/24/25 01:26 Urine Nitrate Negative (Negative) 04/24/25 01:26 Urine Bilirubin 2+ (Negative) H 04/24/25 01:26 Urine Urobilinogen 1.0 mg/dL (Negative) 04/24/25 01:26 Ur Leukocyte Esterase Trace (Negative) A 04/24/25 01:26 Urine RBC 0-2 /hpf (0-2) 04/24/25 01:26 Urine WBC 11-20 /hpf (0-5) H 04/24/25 01:26 Ur Squamous Epith Cells 21-50 /hpf (0-5) H 04/24/25 01:26 Amorphous Sediment Not Reportable 04/24/25 01:26 Urine Bacteria 4+ /hpf (NONE) H 04/24/25 01:26 Hyaline Casts 47.99 /lpf 04/24/25 01:26 No radiology studies performed this visit Discharge Plan Discharge Patient Disposition: Home Clinical Impression: Acute dehydration, Serum creatinine raised, Acute cystitis Condition: Stable Prescriptions: New nitrofurantoin monohyd/m-cryst [Macrobid] 100 mg capsule 100 mg PO BID 5 Days Qty: 10 0RF Rx Instructions: must administer with a meal/food No Action polyethylene glycol 3350 [Miralax] 17 gram/dose powder 17 g PO BID 2 Days Qty: 68 0RF diclofenac sodium [Solaraze] 3 % gel 1 applic topical BID Qty: 100 0RF ondansetron HCl 8 mg tablet 8 mg PO BID PRN (Reason: nausea and vomiting) Qty: 30 0RF promethazine-DM 6.25-15 mg/5 mL syrup 10 ml PO Q6H PRN (Reason: cough) Qty: 473 0RF cetirizine [Zyrtec] 10 mg tablet 10 mg PO BID PRN (Reason: allergy symptoms) Qty: 60 0RF cefdinir 300 mg capsule 300 mg PO BID 10 Days Qty: 20 0RF fluticasone propionate [Flonase Allergy Relief] 50 mcg/actuation spray,suspension 2 spray intranasal BID Qty: 16 0RF Rx Instructions: administer into each nostril insulin glargine [Lantus Solostar U-100 Insulin] 100 unit/mL (3 mL) insulin pen 40 unit SUBCUT DAILY gabapentin 600 mg tablet 600 mg PO TID trazodone 50 mg tablet 50 - 100 mg PO BEDTIME insulin aspart U-100 [Novolog FlexPen U-100 Insulin] 100 unit/mL (3 mL) insulin pen 14 sliding scale dose SUBCUT BID Rx Instructions: INJECT 14 UNITS BY SUBCUTANEOUS INJECTION TWICE DAILY BEFORE MEALS. IF BLOOD SUGAR OVER 200, GIVE ADDITIONAL 10 UNITS FOR TOTAL OF 24 UNITS. MAX DAILY DOSE 48 UNITS. rosuvastatin 20 mg tablet 20 mg PO DAILY duloxetine 30 mg capsule,delayed release(DR/EC) 30 mg PO DAILY metformin 1,000 mg tablet 1,000 mg PO BID hydroxyzine HCl 25 mg tablet 25 mg PO Q6H PRN (Reason: anxiety) Qty: 14 0RF buspirone 7.5 mg tablet 15 mg PO BID Qty: 120 0RF Discharge Orders: Discharge ED (Routine); Ordered 04/24/25 Ordered By: Shilpa Cooper Referrals: Cydney De Leon FNP [Primary Care Provider, Nurse Practitioner] Patient Instructions: Opioid Safety, Pain Management, Patient Portal & [place] Instructions, Diabetes and Diet, Urinary Tract Infection - Women Activity Restrictions/Additional Instructions: Please start antibiotics for bladder infection as prescribed. Continue to monitor your condition closely at home. Continue to hydrate with plenty of fluids and monitor your blood glucose closely. If your condition worsens or additional concerns arise, please return to the emergency department for reassessment. Please follow-up closely with your primary care nurse to have your kidney function rechecked. Ideally, see your nurse within the next 72 hours. Work with your primary care nurse to adjust your diabetic regimen. Print Language: Frisian Coding Level of Care Code ED Fruit Ii Farmworker for Edgardo Simmons
[2025-04-23 22:43] VITALS: BP 88/59; PULSE 101; RESP 16; TEMP 36.5; O2SAT 97; BMI 25.9
--- OUTSIDE RECORDS SUMMARY | 2025-04-23 22:44 | XMS_ITS | Clinical Summary ---
Author Organization [facility] Address [address] [place]: [place] [address] Care Team Providers Care Credit Rating Checker Name Role Phone Maria L Jung DO Primary Care Provider Allergies Active Allergy Reactions Criticality Noted Date Comments Coconut Hives,Shortness of Breath/Wheezing High 1 Kiwi Unknown 06/14/2024 Lactose Abdominal Pain Low 03/24/2024 Penicillins Unknown 04/26/2018 Pineapple Shortness of Breath/Wheezing,Swelling High 03/24/2024 Medications rosuvastatin (Crestor) 20 mg tabletIndications: Hyperlipidemia, unspecified hyperlipidemia type Take 1 Tablet (20 mg) by mouth daily. 90 Tablet 3 03/13/20 24 Active Insulin Lugoff, Disposable, (Comfort EZ Pen Lugoff) 32 gauge x 5/32 Needle Use to [...] polyneuropathy, with long-term current use of insulin ([facility]) Inject 14 Units by subcutaneous injection 2 times daily before meals. If BS is over 200 , give additional 10 units for total of 24 unit. Max daily dose 48 units. 15 mL 3 09/24/19 25 Active busPIRone (BUSPAR) 7.5 mg TabletIndications: NIEVES (generalized anxiety disorder) Take 1 Tablet (7.5 mg) by mouth 3 times daily as needed for Anxiety. 90 Tablet 3 12/24/19 25 Active pregabalin (Lyrica) 75 mg Capsule Take 1 Capsule (75 mg) by mouth every 12 hours. 60 Capsule 3 02/07/20 25 Active DULoxetine (CYMBALTA) 60 mg Capsule, Delayed Release(E.C.)Indic ations:NIEVES (generalized anxiety disorder),Moderate episode of recurrent major depressive disorder ([facility]),Menopaus al symptoms Take 1 Capsule (60 mg) by mouth 2 times daily. 60 Capsule 5 03/25/20 25 Active insulin glargine (LANTUS) 100 unit/mL pen syringeIndications :Type 2 diabetes mellitus with diabetic polyneuropathy, with long-term current use of insulin ([facility]) Inject 50 Units by subcutaneous injection daily at bedtime. 15 mL 3 03/25/20 25 Active fluconazole (DIFLUCAN) 150 mg tabletIndications: Oral digna Take 1 Tablet (150 mg) by mouth daily. 3 Tablet 1 04/14/20 25 Active insulin glargine (LANTUS) 100 unit/mL pen syringeIndications :Uncontrolled type 2 diabetes mellitus with hyperglycemia ([facility]) Inject 40 Units by subcutaneous injection daily at bedtime. 15 mL 3 02/13/20 24 025 Discontin ued(Reord er) fluconazole (DIFLUCAN) 150 mg tabletIndications: Oral digna Take 1 Tablet (150 mg) by mouth daily. 3 Tablet 1 02/07/20 25 025 Discontin ued(Reord er) DULoxetine (CYMBALTA) 60 mg Capsule, Delayed Release(E.C.)Indic ations:NIEVES (generalized anxiety disorder),Moderate episode of recurrent major depressive disorder (CMS/HCC) Take 1 Capsule (60 mg) by mouth daily. 90 Capsule 2 02/07/20 25 025 Discontin ued(Dose/ form adjustmen t) Active Problems Problem Noted Date Diagnosed Date [...] Encounters Date Type Department Care Team Description 04/22/2025 External Device Data STL ABSTRACTION Provider, Abstract 03/25/2025 8:00 AM CDT Office Visit [facility] [address] [place] [phone] Haley, September, PRESS MAINTAINER Type 2 diabetes mellitus with diabetic polyneuropathy, with long-term current use of insulin ([facility]) (Primary Dx); NIEVES (generalized anxiety disorder); Moderate episode of recurrent major depressive disorder (CMS/HCC); Menopausal symptoms; Other fatigue 03/18/2025 External Device Data STL ABSTRACTION Provider, Abstract 03/11/2025 Orders Only [facility] Information [facility] [place] [address] [place] [address] Provider, Abstract 02/18/2025 External Device Data STL ABSTRACTION Provider, Abstract 02/11/2025 External Device Data STL ABSTRACTION Provider, Abstract 02/07/2025 Results Follow-Up [facility] [address] [place] [address] September, HEMOGLOBIN A1C, CBC WITH DIFFERENTIAL 02/07/2025 Telephone [facility] [address] [place] [address] Maria L Jung DO Results; critical results 02/06/2025 1:20 PM CDT - 02/06/2025 11:59 PM CDT Hospital Encounter [facility] [place] [address] [place] [address] September, Discharge Disposition: Home or Self Care 02/06/2025 12:00 PM CDT Office Visit [facility] [address] [place] [address] September, PRESS MAINTAINER Moderate episode of recurrent major depressive disorder (CMS/HCC) (Primary Dx); NIEVES (generalized anxiety disorder); Oral digna; Type 2 diabetes mellitus with diabetic polyneuropathy, with long-term current use of insulin ([facility]) 02/06/2025 Orders Only [facility] [address] [place] [address] Maria L Jung DO 01/22/2025 External Device Data STL ABSTRACTION Provider, [...] AM CDT Legal Sex Female 6:50 AM MATERIAL PROCESSOR Gender Identity Female 02/22/2024 10:30 AM CDT Sexual Orientation Asexual 03/20/2024 2: 58 PM CDT Occupation Industry Job Start Date Job End Date Not on file Not on file Not on file Not on file Last Filed Vital Signs Vital Sign Reading Time Taken Comments Blood Pressure 130/80 03/25/2025 8:07 AM CDT Pulse 97 03/25/2025 8:07 AM CDT Temperature 36.1 C (97 F) 03/25/2025 8:07 AM CDT Respiratory Rate 16 03/25/2025 8:07 AM CDT Oxygen Saturation 99% 03/25/2025 8:07 AM CDT Inhaled Oxygen Concentration - - Weight 80 kg (176 lb 6.4 oz) 03/25/2025 8:07 AM CDT Height 175.3 cm (5' 9 ) 03/25/2025 8:07 AM CDT Body Mass Index 26.05 03/25/2025 8:07 AM CDT Plan of Treatment Upcoming Encounters Date Type Department Care Team (Late st Contact Info) Description 05/08/2025 12:00 PM MATERIAL PROCESSOR Office Visit [facility] [address] [place] [phone] Haley, September, PRESS MAINTAINER [address] [place] [phone] Health Maintenance Due Date Last Done Comments [...] with long-term current use of insulin (CMS/HCC) COMPREHENSIVE METABOLIC PANEL Routine 02/06/2025 1:27 PM CDT Type 2 diabetes mellitus with diabetic polyneuropathy, with long-term current use of insulin (CMS/HCC) HEMOGLOBIN A1C Routine 02/06/2025 1:27 PM CDT Type 2 diabetes mellitus with diabetic polyneuropathy, with long-term current use of insulin (CMS/HCC) REFERENCE LAB PROCESSING FEE Routine 02/06/2025 1:27 PM CDT 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 (CMS/HCC) ENDOSCOPY, COLON, SCREENING Routine 11/12/2024 1:00 PM CDT MAMMO 3D JERRY SCREEN BILAT W OR WO CAD Routine 09/18/2024 11:54 AM CDT Screening mammogram, encounter for MICROALBUMIN/CREATIN INE RATIO, RANDOM UR Routine 09/06/2024 8:35 AM CDT Type 2 diabetes mellitus with diabetic polyneuropathy, with long-term current use of insulin (CMS/HCC) LIPID PANEL Routine 07/05/2024 9:05 AM MATERIAL PROCESSOR Type 2 diabetes mellitus with hyperglycemia, unspecified whether continuous churn buttermaker insulin use (CMS/HCC) Hyperlipidemia, unspecified hyperlipidemia type CERV/VAG CYTO AGE BASED SCREEN PAP W CT/NG Routine 05/02/2023 10:38 AM MATERIAL PROCESSOR Well woman exam with routine gynecological exam Screening for cervical cancer Screen for STD (sexually transmitted disease) from Last 3 Months or Most Recently Relevant to Health Maintenance Results * (ABNORMAL) DIABETES EYE EXAM (03/10/2025 2:55 PM CDT) us Abstract Provider HEALTH MAINTENANCE Edited Resu lt - Final * REFERENCE LAB PROCESSING FEE (02/06/2025 1:27 PM CDT) Pathologist [facility] REFERENCE LAB SENDOUT Sent to Ref Lab 02/06/2025 3:00 PM CDT [facility] Other, specify BLOOD SPECIMEN / Unknown Collection / Unknown 02/06/2025 1:27 PM CDT 02/06/2025 1:40 PM CDT September De Leon PRESS MAINTAINER CHEMISTRY ORDERABLES Final Resul t [facility] CLIA # [id number] [address] [place] [address] * CBC WITH DIFFERENTIAL (02/06/2025 1:27 PM CDT) Pathologist [facility] WBC 7.1 3.8 - 10.8 Thousand/u L [...] [facility] Comment: Test Performed at: [email or web address] [address] [facility] [place] [place] [address] Candy Huber MD Blood 02/06/2025 1:27 PM CDT 02/07/2025 3:42 AM CDT September [facility] HEMATOLOGY ORDERABLES Final Resu lt [facility] [phone] [email or web address] [address] [place], [place] [address] [address] * (ABNORMAL) HEMOGLOBIN A1C (02/06/2025 1:27 PM CDT) HEMOGLOBIN A1C 13.3(H) <5.7 % [facility] Comment: For someone without known diabetes, [...] ESTIMATED AVERAGE GLUCOSE (MG/DL) 335 mg/dL [facility] ESTIMATED AVERAGE GLUCOSE (MMOL/L) 18.6 mmol/L [facility] Comment: Test Performed at: [email or web address] [address] [facility] [place] [place] [address] Candy Huber MD Blood 02/06/2025 1:27 PM CDT 02/07/2025 3:42 AM CDT September De Leon [facility] CHEMISTRY ORDERABLES Final Resul t [facility] [phone] [facility] [address] [place] [address] * (ABNORMAL) COMPREHENSIVE METABOLIC PANEL (02/06/2025 1:27 PM CDT) GLUCOSE 512(HH) 65 - 99 mg/dL [facility] Comment: Verified by repeat analysis. Fasting [...] [facility] Comment: Test Performed at: [facility] [address] [address] Candy Huber MD Blood 02/06/2025 1:27 PM CDT 02/07/2025 3:42 AM CDT September [facility] CHEMISTRY ORDERABLES Final Resul t [facility] [phone] [facility] [address] [address] * ENDOSCOPY, COLON, SCREENING (11/12/2024 1:00 PM CDT) Abstract Provider GI PROCEDURE ORDERABLES Final Result [...] calcifications, or areas of architectural distortion. September [place] PRESS MAINTAINER MAMMO ORDERABLES Final Result * MICROALBUMIN/CREATININE RATIO, RANDOM UR (09/06/2024 8:35 AM CDT) Creatinine, Urine 125 20 - 275 mg/dL [facility] MICROALBUMIN, URINE 1.1 See Note: mg/dL [facility] Comment: Reference Range: Reference Range Not established MICROALBUMIN/CREAT RATIO, UR 9 <30 mg/g creat [facility] Comment: The ADA defines abnormalities in albumin excretion as follows: Albuminuria Category Result (mg/g creatinine) Normal to Mildly increased <30 Moderately increased 30-299 Severely increased > OR = 300 The ADA recommends that at least two of three specimens collected within a 3-6 month period be abnormal before considering a patient to be within a diagnostic category. Test Performed at: [email or web address] [address] [facility] [place] [address] Candy Huber MD Urine URINE SPECIMEN OBTAINED BY CLEAN CATCH PROCEDURE / Unknown 09/06/2024 8:35 AM CDT 09/07/2024 4:46 AM CDT September PRESS MAINTAINER URINE ORDERABLES Final Result [facility] [phone] [facility] [address] [place] [address] * (ABNORMAL) LIPID PANEL (07/05/2024 9:05 AM MATERIAL PROCESSOR) CHOLESTEROL 135 <200 mg/dL [facility] HDL 54 > OR = 50 mg/dL [facility] TRIGLYCERIDE 271(H) <150 mg/dL [facility] Comment: If a non-fasting specimen was collected, consider repeat triglyceride testing on a fasting specimen if clinically indicated. Ariadna et al. J. of Clin. Lipidol. 2015;9:129-169. LDL CALCULATED 49 mg/dL (calc) [facility] Comment: Reference range: <100 Desirable range <100 mg/dL for primary prevention; <70 mg/dL for patients with CHD or diabetic patients with > or = 2 CHD risk factors. LDL-C is now calculated using the David calculation, which is a validated novel method providing better accuracy than the Friedewald equation in the estimation of LDL-C. Caio RYAN et al. MURIEL. 2013;310(19): 6132-0933 (http://education.[employer]/faq/KIS886) CHOL/HDL RATIO 2.5 <5.0 (calc) [facility] NON-HDL CHOLESTEROL 81 <130 mg/dL (calc) [facility] Comment: For patients with diabetes plus 1 major ASCVD risk factor, treating to a non-HDL-C goal of <100 mg/dL (LDL-C of <70 mg/dL) is considered a therapeutic option. Test Performed at: [email or web address] [address] [place] [address] Candy Huber MD Blood 07/05/2024 9:05 AM MATERIAL PROCESSOR 07/06/2024 12:27 PM MATERIAL PROCESSOR us Christina [facility] CHEMISTRY ORDERABLES Final Re sult [facility] [phone] [facility] [address] [place] [address] * (ABNORMAL) CERV/VAG CYTO AGE BASED SCREEN PAP W CT/NG (05/02/2023 10:38 AM MATERIAL PROCESSOR) COMMENT (PAP): [facility] Comment: This order for age-based cervical cancer and STI screening follows ACOG guidelines(PB 168, 140, AZZ931). See individual assays for performing site location. CLINICAL INFORMATION [facility] Comment:None given LAST MENSTRUAL PERIOD [facility] Comment:NONE GIVEN PREV PAP: [facility] Comment:NONE GIVEN PREV BX: [facility] Comment:NONE GIVEN SOURCE [facility] Comment:Endocervix ADEQUACY: [facility] Comment: Satisfactory for evaluation. Endocervical/transformation zone component present. Age and/or menstrual status not provided PAP INTERP [facility] Comment: Cytology Results: Negative for intraepithelial lesion or malignancy. COMMENT (PAP TEST) [facility] Comment: This Pap test has been evaluated with computer assisted technology. MACHINE ROOM OPERATOR: [facility] Comment: BKA, CT(ASCP) CT screening location: [place] [address] [place] [address] REVIEW MACHINE ROOM OPERATOR: Lula Lopez Comment: JAZ, CT(ASCP) CT screening location: [place] [address] [address] [place] [place] [address] EXPLANATORY NOTE [facility] Comment: EXPLANATORY NOTE: The Pap is a [...] clinical information. HPV E6/E7 Detected(A) Not Detected [facility] Comment: Methodology: Content Architect-Mediated Amplification This assay detects E6/E7 viral messenger RNA (mRNA) from 14 high-risk HPV types (16,18,31,33,35,39,45,51,52,56,58,59,66,68). Cervical sources are required for HPV testing. If a vaginal source from a patient who has had a total hysterectomy with removal of cervix was submitted, please contact the testing laboratory for alternative testing options. For additional information, please refer to http://CORD:USE [facility]/faq/UPG746c9 (This link if provided for information/ educational purposes only.) HPV 16 RNA NOT DETECTED NOT DETECTED [facility] HPV 18/45 RNA NOT DETECTED NOT DETECTED [facility] Comment: Methodology: Content Architect Mediated Amplification Cervical sources are required for HPV testing. If a vaginal source from a patient who has had a total hysterectomy with removal of cervix was submitted, please contact the testing laboratory for alternative testing options. C TRAC RNA NOT DETECTED NOT DETECTED [facility] N.GONORRHOEAE RNA, TMA NOT DETECTED NOT DETECTED [facility] COMMENT INFECTIOUS DISEASE [facility] Comment: The analytical performance characteristics of this assay, when used to test SurePath(TM) specimens have been determined by [facility]. The modifications have not been cleared or approved by the FDA. This assay has been validated pursuant to the CLIA regulations and is used for clinical purposes. For additional information, please refer to https://S[employer]/faq/AYS223 (This link is being provided for information/ educational purposes only.) Test Performed at: [facility] [address] [address] Candy Huber MD SL Genital SWAB OF ENDOCERVIX / Unknown 05/02/2023 10:38 AM MATERIAL PROCESSOR 05/04/2023 3:37 AM MATERIAL PROCESSOR Guru Robin MD PATHOLOGY/CYTOLOGY ORDERABLES Final Result [facility] [phone] [facility] [address] [address] [address] [address] from Last 3 Months or Most Recently Relevant to Health Maintenance Insurance [employer] MEDICA[employer] Advance Directives For more information, please contact: [phone] * Full Code (Latest Code Status on File) Date Activated Date Inactivated Comments 03/23/2024 10:25 PM 03/28/2024 11:34 AM Care Teams Credit Rating Checker Relationship Specialty Start Date End Date Maria L Jung DO [address] [place] [address] PCP - General Family Practice 11/12/23
--- OUTSIDE RECORDS SUMMARY | 2025-04-23 22:44 | XMS_ITS | Encounter Summary ---
Author Organization [facility] Address [address] [place] [address] Care Team Providers Care Director Of Strategic Partnerships Name Role Phone Maria L Jung DO Primary Care Provider Reason for Visit * Reason Onset Date Comments Results critical results 02/07/2025 Encounter Details Date Type Department Care Team (Late st Contact Info) Description 02/07/2025 Telephone [facility] [place] [address] [place] [address] Maria L Jung DO [address] [place] [address] Results; critical results Social History [...] AM CDT Legal Sex Female 6:50 AM PIER HAND HELPER Gender Identity Female 02/22/2024 10:30 AM CDT [...] - 02/07/2025 8:50 AM CDT Copied from [facility] #[id number]. Topic: CPA Information Request - Results >> Feb 07, 2025 8:49 AM Cely Galvan wrote: Caller Name: Nick Callback Number: [phone] Test Name: Critical Labs Results Encounter notes are: Call Notes: Transferred to clinic to discuss critical results documented in this encounter Plan of Treatment Upcoming Encounters Date Type Department Care Team (Late st Contact Info) Description 05/08/2025 12:00 PM PIER HAND HELPER Office Visit [facility] [place] [address] [place] [phone] September, [facility] [address] [facility] [place] [phone] documented as of this encounter Visit Diagnoses Not on filedocumented in this encounter Care Teams Director Of Strategic Partnerships Relationship Specialty Start Date End Date Maria L Jung DO [address] [facility] [place] [phone] PCP - General Family Practice 11/12/23 documented as of this encounter
--- OUTSIDE RECORDS SUMMARY | 2025-04-23 22:44 | XMS_ITS | Encounter Summary ---
Author Organization [facility] Address [address] [place] [address] Care Team Providers Care Depot Agent Name Role Phone ErichMaria L mcpherson Bk CABAN Primary Care Provider [phone] Encounter Details Date Type Department Care Team (Late st Contact Info) Description 07/07/2024 Results Follow-Up [facility] Endocrinology [facility] [address] [place] [address] Christina Ervin PA [address] [place] [phone] HEMOGLOBIN A1C Social History Tobacco Use Types [...] AM CDT Legal Sex Female 6:50 AM COOKEE Gender Identity Female 02/22/2024 10:30 AM CDT Sexual Orientation Asexual 03/20/2024 2: 58 PM CDT Occupation Industry Job Start Date Job End Date Not on file Not on file Not on file Not on file documented as of this encounter Plan of Treatment Upcoming Encounters Date Type Department Care Team (Late st Contact Info) Description 05/08/2025 12:00 PM COOKEE Office Visit [facility] [address] [place] [address] September, CREDIT AND COLLECTIONS ANALYST [address] [place] [address] documented as of this encounter Visit Diagnoses Not on filedocumented in this encounter Care Teams Depot Agent Relationship Specialty Start Date End Date Maria L Jung DO [address] [place] [phone] PCP - General Family Practice 11/12/23 documented as of this encounter
--- OUTSIDE RECORDS SUMMARY | 2025-04-23 22:44 | XMS_ITS | Encounter Summary ---
Author Organization [facility] Address [address] [place] [address] Care Team Providers Care Worm Sorter Name Role Phone Maria L Jung Primary Care Provider Encounter Details Date Type Department Care Team (Late st Contact Info) Description 08/29/2024 Lab Requisition [facility] [place] [address] [place] [address] De Leonseptember, INFORMATION AND DATA ARCHITECT ANALYST [address] [place] [phone] Hypotension, unspecified Social History Tobacco Use Types [...] AM CDT Legal Sex Female 6:50 AM ERGONOMICS CONSULTANT Gender Identity Female 02/22/2024 10:30 AM CDT Sexual Orientation Asexual 03/20/2024 2: 58 PM CDT Occupation Industry Job Start Date Job End Date Not on file Not on file Not on file Not on file documented as of this encounter Plan of Treatment Upcoming Encounters Date Type Department Care Team (Late st Contact Info) Description 05/08/2025 12:00 PM ERGONOMICS CONSULTANT Office Visit [facility] [address] [place] [address] De LeonSeptember, INFORMATION AND DATA ARCHITECT ANALYST [address] [place] [address] documented as of this encounter Procedures Procedure Name Priority Date/Time Associated Diagnosis Comments LACTIC ACID Stat 08/29/2024 10:15 AM CDT Hypotension, unspecified documented in this encounter Results * (ABNORMAL) LACTIC ACID (08/29/2024 10:15 AM CDT) LACTIC ACID 2.1(H) <=2.0 mmol/L 08/29/2024 11:22 AM CDT [facility] Blood Collection / Unknown 08/29/2024 10:15 AM CDT 08/29/2024 11:03 AM CDT September [facility] CHEMISTRY ORDERABLES Final Resul t [facility] CLIA # [id number] [address] [place] [address] documented in this encounter Visit Diagnoses Diagnosis Hypotension, unspecified documented in this encounter Care Teams Worm Sorter Relationship Specialty Start Date End Date Maria L Jung DO [address] [place] [address] PCP - General Family Practice 11/12/23 documented as of this encounter
--- OUTSIDE RECORDS SUMMARY | 2025-04-23 22:44 | XMS_ITS | Encounter Summary ---
Author Organization [facility] Address [address] [place] [address] Care Team Providers Care Industrial Spraypainter Name Role Phone Maria L Jung Bk CABAN Primary Care Provider Encounter Details Date Type Department Care Team (Late st Contact Info) Description 04/22/2025 External Device Data STL ABSTRACTION [...] AM CDT Legal Sex Female 6:50 AM AGING ROOM HAND Gender Identity Female 02/22/2024 10:30 AM CDT Sexual Orientation Asexual 03/20/2024 2: 58 PM CDT Occupation Industry Job Start Date Job End Date Not on file Not on file Not on file Not on file documented as of this encounter Plan of Treatment Upcoming Encounters Date Type Department Care Team (Late st Contact Info) Description 05/08/2025 12:00 PM AGING ROOM HAND Office Visit [facility] [address] [place] [phone] De LeonSeptember, FURNITURE INSPECTOR [address] [place] [address] documented as of this encounter Visit Diagnoses Not on filedocumented in this encounter Care Teams Industrial Spraypainter Relationship Specialty Start Date End Date Maria L Jung DO [address] [place] [phone] PCP - General Family Practice 11/12/23 documented as of this encounter
--- OUTSIDE RECORDS SUMMARY | 2025-04-23 22:44 | XMS_ITS | Encounter Summary ---
Author Organization [facility] Address [address] [place] [address] Care Team Providers Care Compounder Helper Name Role Phone Maria L Jung Primary Care Provider Encounter Details Date Type Department Care Team (Late st Contact Info) Description 09/06/2024 Lab Requisition [facility] Laboratory Services [place] [address] [place] [address] De Leonseptember, GLOVE EXAMINER [address] [place] [address] Hypotension, unspecified Social History Tobacco Use Types [...] AM CDT Legal Sex Female 6:50 AM COLLAR RUNNER Gender Identity Female 02/22/2024 10:30 AM CDT Sexual Orientation Asexual 03/20/2024 2: 58 PM CDT Occupation Industry Job Start Date Job End Date Not on file Not on file Not on file Not on file documented as of this encounter Plan of Treatment Upcoming Encounters Date Type Department Care Team (Late st Contact Info) Description 05/08/2025 12:00 PM COLLAR RUNNER Office Visit [facility] [address] [place] [address] De LeonSeptember, GLOVE EXAMINER [address] [place] [address] documented as of this encounter [...] 1.7 <=2.0 mmol/L 09/06/2024 9:32 AM CDT [facility] Blood Collection / Unknown 09/06/2024 9:10 AM CDT 09/06/2024 9:12 AM CDT September [facility] CHEMISTRY ORDERABLES Final Resul t [facility] CLIA # [id number] [address] [place] [address] * (ABNORMAL) COMPREHENSIVE METABOLIC PANEL (09/06/2024 9:10 AM CDT) SODIUM 141 136 - 145 mmol/L 09/06/2024 9:32 AM CDT [facility] POTASSIUM 4.4 3.5 - 5.1 mmol/L [...] AM CDT 09/06/2024 9:12 AM CDT September [facility] CHEMISTRY ORDERABLES Final Resul t Performing Organization Address City/[facility]/ZIP Co de Phone Number [facility] CLIA # [id number] [address] [place] [address] * CORTISOL LEVEL (09/06/2024 9:10 AM CDT) CORTISOL LEVEL 10.6 ug/dL 09/06/2024 5:04 PM CDT [facility] Comment: Cortisol Reference Range Morning Hours 6-10 a.m. 6.0-18.4 ug/dL Afternoon Hours 4-8 p.m. 2.7-10.5 ug/dL Blood Collection / Unknown 09/06/2024 9:10 AM CDT 09/06/2024 9:12 AM CDT September [facility] CHEMISTRY ORDERABLES Final Resul t Performing Organization Address [facility] Co de Phone Number [facility] CLIA # [id number] [facility] [address] [id number] documented in this encounter Visit Diagnoses Diagnosis Hypotension, unspecified documented in this encounter Care Teams Compounder Helper Relationship Specialty Start Date End Date Maria L Jung DO [address] [place] [phone] PCP - General Family Practice 11/12/23 documented as of this encounter
[2025-04-24 00:10] LABS: Hematocrit 37.6 % (36-47); Hemoglobin 13.20 g/dL (11.27-16.99); Mean Corpuscular HGB Conc 35.1 g/dL (30-55); Mean Corpuscular Hemoglobin 28.2 pg (27-33); Mean Corpuscular Volume 80.3 fl (85-98); Nucleated Red Blood Cells % 0 %; Platelet Count 270 10^3/cmm (157-399); Red Blood Count 4.68 10^6/uL (3.85-5.65); White Blood Count 7.02 10^3/uL (3.29-11.43)
[2025-04-24 00:12] LABS: Base Excess VBG 3.4 mmol/L (-3.0-3.0); Blood Gas Sample Type Venous; HCO3 VBG 29.5 mmol/L (24-28); PCO2 VBG 49.4 mmHg (41-51); PO2 VBG 50.7 mmHg (25-40); Venous Blood Gas Hematocrit 41.9 % (37-47); pH VBG 7.38 (7.32-7.42)
[2025-04-24 00:31] LABS: Alanine Aminotransferase 16 U/L (0-33); Albumin Level 4.2 g/dL (3.5-5.2); Alkaline Phosphatase 44 U/L (35-105); Anion Gap 16.9 (5-19); Aspartate Amino Transferase 16 U/L (0-32); Blood Urea Nitrogen 26 mg/dL (6-20); Calcium 10.0 mg/dL (8.5-10.5); Carbon Dioxide 28 mmol/L (22-29); Chloride 97 mmol/L (98-107); Creatinine Clr Calc Pharmacy 60.5145; Globulin 2.7 g/dL (1.3-4.6); Glucose 333 mg/dL (65-115); Magnesium 1.8 mg/dL (1.7-2.3); Osmolality Calculated 304 mOsm/kg (285-295); Potassium 3.9 mmol/L (3.5-5.1); Sodium 138 mmol/L (136-145); Total Protein 6.9 g/dL (6.6-8.7)
[2025-04-24 00:50] VITALS: BP 123/82; PULSE 87; O2SAT 93
[2025-04-24 01:35] LABS: Glucose Urine UA 3+ (Normal); Nitrate Urine Negative (Negative)
[2025-04-24 01:40] LABS: Add Urine Microscopic? YES
[2025-04-24 01:57] LABS: Specific Gravity, Urine 1.038 (1.005-1.030); UA Slide Review UA Slide Review Perf
[2025-04-24 02:30] VITALS: BP 146/94; PULSE 100; O2SAT 98
[2025-04-24 03:16] VITALS: BP 144/96; PULSE 98; O2SAT 100
== END 2025-04-24 03:18 | disposition home or self-care (01) ==
PROVIDERS: Emergency Provider Emergency Medicine
DX: E86.0 Dehydration (principal); N30.00 Acute cystitis without hematuria; R79.89 Other specified abnormal findings of blood chemistry; Z79.4 Long term (current) use of insulin; Z79.84 Long term (current) use of oral hypoglycemic drugs; E11.9 Type 2 diabetes mellitus without complications
CPT/HCPCS: 36415; 36416; 80053; 81001; 82010; 82803; 82962; 83735; 85025; 96360; 96361; 99284; J7030

== ENCOUNTER 2025-04-30 16:01 | Emergency (ER) | payer OTHER, MEDICAID, SELFPAY ==
[2025-04-30] VITALS (12 sets, daily range): BP systolic 80–156; BP diastolic 55–103; PULSE 76–110; RESP 16–18; TEMP 36.7; O2SAT 90–99
--- OUTSIDE RECORDS SUMMARY | 2025-04-30 16:04 | XMS_ITS | Encounter Summary ---
Author Organization [facility] Address [address] [place] [address] Care Team Providers Care Strand Forming Machine Operator Name Role Phone Maria L Jung Bk CABAN Primary Care Provider Encounter Details Date Type Department Care Team (Late st Contact Info) Description 04/29/2025 External Device Data STL ABSTRACTION Provider, Abstract [...] AM CDT Legal Sex Female 6:50 AM EVENT PROMOTER Gender Identity Female 02/22/2024 10:30 AM CDT Sexual Orientation Asexual 03/20/2024 2: 58 PM CDT Occupation Industry Job Start Date Job End Date Not on file Not on file Not on file Not on file documented as of this encounter Plan of Treatment Upcoming Encounters Date Type Department Care Team (Late st Contact Info) Description 05/08/2025 12:00 PM EVENT PROMOTER Office Visit [facility] [address] [place] [phone] De LeonSeptember, FUNERAL HOME ASSOCIATE [address] [place] [address] documented as of this encounter Visit Diagnoses Not on filedocumented in this encounter Care Teams Strand Forming Machine Operator Relationship Specialty Start Date End Date Maria L Jung DO [address] [place] [phone] PCP - General Family Practice 11/12/23 documented as of this encounter
--- OUTSIDE RECORDS SUMMARY | 2025-04-30 16:05 | XMS_ITS | Encounter Summary ---
Author Organization [facility] Address [address] [place] [address] Care Team Providers Care Estate Agent Name Role Phone Maria L Jung Primary Care Provider Encounter Details Date Type Department Care Team (Late st Contact Info) Description 08/29/2024 Lab Requisition [facility] Laboratory Services [place] [address] [place] [address] De Leonseptember, CUPOLA HOIST OPERATOR [address] [place] [phone] Hypotension, unspecified Social History Tobacco Use Types [...] AM CDT Legal Sex Female 6:50 AM CAMPAIGN CONSULTANT Gender Identity Female 02/22/2024 10:30 AM CDT Sexual Orientation Asexual 03/20/2024 2: 58 PM CDT Occupation Industry Job Start Date Job End Date Not on file Not on file Not on file Not on file documented as of this encounter Plan of Treatment Upcoming Encounters Date Type Department Care Team (Late st Contact Info) Description 05/08/2025 12:00 PM CAMPAIGN CONSULTANT Office Visit [facility] [address] [place] [address] De LeonSeptember, CUPOLA HOIST OPERATOR [address] [place] [address] documented as of this encounter Procedures Procedure Name Priority Date/Time Associated Diagnosis Comments LACTIC ACID Stat 08/29/2024 10:15 AM CDT Hypotension, unspecified documented in this encounter Results * (ABNORMAL) LACTIC ACID (08/29/2024 10:15 AM CDT) LACTIC ACID 2.1(H) <=2.0 mmol/L 08/29/2024 11:22 AM CDT [facility] Blood Collection / Unknown 08/29/2024 10:15 AM CDT 08/29/2024 11:03 AM CDT September [facility] CHEMISTRY ORDERABLES Final Resul t [facility] CLIA # [id number] [address] [place] [address] documented in this encounter Visit Diagnoses Diagnosis Hypotension, unspecified documented in this encounter Care Teams Estate Agent Relationship Specialty Start Date End Date Maria L Jung DO [address] [place] [address] PCP - General Family Practice 11/12/23 documented as of this encounter
--- OUTSIDE RECORDS SUMMARY | 2025-04-30 16:05 | XMS_ITS | Clinical Summary ---
Author Organization [facility] Address [address] [place]: [place] [address] Care Team Providers Care Help Desk Operator Name Role Phone Maria L Jung [...] 90 Tablet 3 03/13/20 24 Active Insulin Luckey, Disposable, (Comfort EZ Pen Luckey) 32 gauge x 5/32 Needle Use to [...] polyneuropathy, with long-term current use of insulin ([facility]) Inject 14 Units by subcutaneous injection 2 [...] disorder),Moderate episode of recurrent major depressive disorder ([facility]),Menopaus al symptoms Take 1 Capsule (60 mg) by mouth 2 times daily. 60 Capsule 5 03/25/20 25 Active insulin glargine (LANTUS) 100 unit/mL pen syringeIndications :Type 2 diabetes mellitus with diabetic polyneuropathy, with long-term current use of insulin ([facility]) Inject 50 Units by subcutaneous injection daily at bedtime. 15 mL 3 03/25/20 25 Active fluconazole (DIFLUCAN) 150 mg tabletIndications: Oral digna Take 1 Tablet (150 mg) by mouth daily. 3 Tablet 1 04/14/20 25 Active fluconazole (DIFLUCAN) 150 mg tabletIndications: Oral digna Take 1 Tablet (150 mg) by mouth daily. 3 Tablet 1 02/07/20 25 025 Discontin ued(Reord er) Active Problems Problem Noted Date Diagnosed Date [...] Encounters Date Type Department Care Team Description 04/29/2025 External Device Data STL ABSTRACTION Provider, Abstract 04/22/2025 External Device Data STL ABSTRACTION Provider, Abstract 03/25/2025 8:00 AM CDT Office Visit [facility] Medicine [place] [address] [place] [address] De LeonSeptember, SECURITIES CLERK Type 2 diabetes mellitus with diabetic polyneuropathy, with long-term current use of insulin (CMS/HCC) (Primary Dx); NIEVES (generalized anxiety disorder); Moderate episode of recurrent major depressive disorder (CMS/HCC); Menopausal symptoms; Other fatigue 03/18/2025 External Device Data STL ABSTRACTION Provider, Abstract 03/11/2025 Orders Only [facility] Health Information Management [place] [address] [place] [address] Provider, Abstract 02/18/2025 External Device Data STL ABSTRACTION Provider, Abstract 02/11/2025 External Device Data STL ABSTRACTION Provider, Abstract 02/07/2025 Results Follow-Up [facility] [address] [place] [address] September, HEMOGLOBIN A1C, CBC WITH DIFFERENTIAL 02/07/2025 Telephone [facility] [address] [facility] [place] [place] [address] Maria L Jung DO Results; critical results 02/06/2025 1:20 PM CDT - 02/06/2025 11:59 PM CDT Hospital Encounter [facility] Outpatient Laboratory Services [place] [address] [place] [address] September, Discharge Disposition: Home or Self Care 02/06/2025 12:00 PM CDT Office Visit [facility] [address] [place] [address] September, SECURITIES CLERK Moderate episode of recurrent major depressive disorder (CMS/HCC) (Primary Dx); NIEVES (generalized anxiety disorder); Oral digna; Type 2 diabetes mellitus with diabetic polyneuropathy, with long-term current use of insulin (CMS/HCC) 02/06/2025 Orders Only [facility] [address] [place] [address] Maria L Jung DO from Last 3 Months Family History Medical [...] AM CDT Legal Sex Female 6:50 AM SUPERVISOR CONTINGENTS Gender Identity Female 02/22/2024 10:30 AM CDT [...] st Contact Info) Description 05/08/2025 12:00 PM SUPERVISOR CONTINGENTS Office Visit [facility] [address] [place] [address] De Leonseptember, [facility] [address] [place] [address] Health Maintenance Due Date Last Done Comments [...] polyneuropathy, with long-term current use of insulin ([facility]/HCC) COMPREHENSIVE METABOLIC PANEL Routine 02/06/2025 1:27 PM CDT Type 2 diabetes mellitus with diabetic polyneuropathy, with long-term current use of insulin (CMS/HCC) HEMOGLOBIN A1C Routine 02/06/2025 1:27 PM CDT Type 2 diabetes mellitus with diabetic polyneuropathy, with long-term current use of insulin ([facility]) REFERENCE LAB PROCESSING FEE Routine 02/06/2025 1:27 PM CDT 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 ([facility]) ENDOSCOPY, COLON, SCREENING Routine 11/12/2024 1:00 PM CDT MAMMO 3D JERRY SCREEN BILAT W OR WO CAD Routine 09/18/2024 11:54 AM CDT Screening mammogram, encounter for MICROALBUMIN/CREATIN INE RATIO, RANDOM UR Routine 09/06/2024 8:35 AM CDT Type 2 diabetes mellitus with diabetic polyneuropathy, with long-term current use of insulin ([facility]) LIPID PANEL Routine 07/05/2024 9:05 AM SUPERVISOR CONTINGENTS Type 2 diabetes mellitus with hyperglycemia, unspecified whether ferry terminal agent insulin use ([facility]) Hyperlipidemia, unspecified hyperlipidemia type CERV/VAG CYTO AGE BASED SCREEN PAP W CT/NG Routine 05/02/2023 10:38 AM SUPERVISOR CONTINGENTS Well woman exam with routine gynecological exam Screening for cervical cancer Screen for STD (sexually transmitted disease) from Last 3 Months or Most Recently Relevant to Health Maintenance Results * (ABNORMAL) DIABETES EYE EXAM (03/10/2025 2:55 PM CDT) us Abstract Provider HEALTH MAINTENANCE Edited Resu lt - Final * REFERENCE LAB PROCESSING FEE (02/06/2025 1:27 PM CDT) REFERENCE LAB SENDOUT Sent to Ref Lab 02/06/2025 3:00 PM CDT [facility] Other, specify BLOOD SPECIMEN / Unknown Collection / Unknown 02/06/2025 1:27 PM CDT 02/06/2025 1:40 PM CDT September SECURITIES CLERK CHEMISTRY ORDERABLES Final [facility]ul t [facility] # [id number] [address] [place] [address] * CBC WITH DIFFERENTIAL (02/06/2025 1:27 PM [...] [facility] Comment: Test Performed at: [facility] [address] [place] [address] Candy Huber MD Blood 02/06/2025 1:27 PM CDT 02/07/2025 3:42 AM CDT September [facility] HEMATOLOGY ORDERABLES Final Resu lt [facility] [phone] [facility] [address] [address] * (ABNORMAL) HEMOGLOBIN A1C (02/06/2025 1:27 PM CDT) HEMOGLOBIN A1C 13.3(H) <5.7 % [facility] Comment: For someone without known diabetes, [...] ESTIMATED AVERAGE GLUCOSE (MMOL/L) 18.6 mmol/L [facility] Comment: Test Performed at: [facility] [address] [address] [address] Candy Huber MD Blood 02/06/2025 1:27 PM CDT 02/07/2025 3:42 AM CDT September [facility] CHEMISTRY ORDERABLES Final Resul t [facility] [phone] [facility] [address] [address] [address] * (ABNORMAL) COMPREHENSIVE METABOLIC PANEL (02/06/2025 1:27 [...] [facility] Comment: Test Performed at: [facility] [address] [address] [address] Candy Huber MD Blood 02/06/2025 1:27 PM CDT 02/07/2025 3:42 AM CDT September SECURITIES CLERK CHEMISTRY ORDERABLES Final Resul t [facility] [phone] [facility] [address] [address] [address] * ENDOSCOPY, COLON, SCREENING (11/12/2024 1:00 PM [...] calcifications, or areas of architectural distortion. September SECURITIES CLERK MAMMO ORDERABLES Final Result * MICROALBUMIN/CREATININE RATIO, [...] within a diagnostic category. Test Performed at: [facility] [address] [address] [address] Candy Huber MD Urine URINE SPECIMEN OBTAINED BY CLEAN CATCH PROCEDURE / Unknown 09/06/2024 8:35 AM CDT 09/07/2024 4:46 AM CDT September Haley SECURITIES CLERK URINE ORDERABLES Final Result [facility] [phone] [facility] [address] [place] [address] * (ABNORMAL) LIPID PANEL (07/05/2024 9:05 AM SUPERVISOR CONTINGENTS) CHOLESTEROL 135 <200 mg/dL [facility] HDL 54 > OR = 50 mg/dL [facility] TRIGLYCERIDE 271(H) <150 mg/dL [facility] Comment: If a non-fasting specimen was collected, consider repeat triglyceride testing on a fasting specimen if clinically indicated. Ariadna et al. J. of Clin. Lipidol. 2015;9:129-169. LDL CALCULATED 49 mg/dL (calc) [facility] Comment: Reference range: <100 Desirable range <100 mg/dL for primary prevention; <70 mg/dL for patients with CHD or diabetic patients with > or = 2 CHD risk factors. LDL-C is now calculated using the Caio-Willy calculation, which is a validated novel method providing better accuracy than the Friedewald equation in the estimation of LDL-C. Caio SS et al. MURIEL. 2013;310(19): 9836-0943 (http://education.Lasso/faq/BMM723) CHOL/HDL RATIO 2.5 <5.0 (calc) [facility] NON-HDL CHOLESTEROL 81 <130 mg/dL (calc) [facility] Comment: For patients with diabetes plus 1 major ASCVD risk factor, treating to a non-HDL-C goal of <100 mg/dL (LDL-C of <70 mg/dL) is considered a therapeutic option. Test Performed at: [facility] [address] [place] [address] Canyd Huber MD Blood 07/05/2024 9:05 AM SUPERVISOR CONTINGENTS 07/06/2024 12:27 PM SUPERVISOR CONTINGENTS us Christina OROZCO CHEMISTRY ORDERABLES Final Re sult [facility] [phone] [facility] [address] [place] [address] * (ABNORMAL) CERV/VAG CYTO AGE BASED SCREEN PAP W CT/NG (05/02/2023 10:38 AM SUPERVISOR CONTINGENTS) COMMENT (PAP): [facility] [place] Comment: This order for age-based cervical cancer and STI screening follows ACOG guidelines(PB 168, 140, SFY547). See individual assays for performing site location. CLINICAL INFORMATION [facility] [place] Comment:None given LAST MENSTRUAL PERIOD [facility] [place] Comment:NONE GIVEN PREV PAP: [facility] [place] Comment:NONE GIVEN PREV BX: [facility] [place] Comment:NONE GIVEN SOURCE [facility] [place] Comment:Endocervix ADEQUACY: [facility] [place] Comment: Satisfactory for evaluation. Endocervical/transformation zone component present. Age and/or menstrual status not provided PAP INTERP [facility] [place] Comment: Cytology Results: Negative for intraepithelial lesion or malignancy. COMMENT (PAP TEST) [facility] [place] Comment: This Pap test has been evaluated with computer assisted technology. J2EE APPLICATION DEVELOPER: Suzi mackey [facility] [place] Comment: BKA, CT(ASCP) CT screening location: [place] [address] [place] [address] REVIEW J2EE APPLICATION DEVELOPER: Lula [facility] [place] Comment: JAZ, CT(ASCP) CT screening location: [place] [address] [address] [facility] EXPLANATORY NOTE [facility] [place] Comment: EXPLANATORY NOTE: The Pap is [...] clinical information. HPV E6/E7 Detected(A) Not Detected [facility] [place] Comment: Methodology: Dental Hygienist-Mediated Amplification This assay detects E6/E7 viral messenger RNA (mRNA) from 14 high-risk HPV types (16,18,31,33,35,39,45,51,52,56,58,59,66,68). Cervical sources are required for HPV testing. If a vaginal source from a patient who has had a total hysterectomy with removal of cervix was submitted, please contact the testing laboratory for alternative testing options. For additional information, please refer to http://MightyMeeting.Source Audio/faq/KPJ866h2 (This link if provided for information/ educational purposes only.) HPV 16 RNA NOT DETECTED NOT DETECTED [facility] [place] HPV 18/45 RNA NOT DETECTED NOT DETECTED [facility] [place] Comment: Methodology: Dental Hygienist Mediated Amplification Cervical sources are required for HPV testing. If a vaginal source from a patient who has had a total hysterectomy with removal of cervix was submitted, please contact the testing laboratory for alternative testing options. C TRAC RNA NOT DETECTED NOT DETECTED [facility] [place] N.GONORRHOEAE RNA, TMA NOT DETECTED NOT DETECTED [facility] [place] COMMENT INFECTIOUS DISEASE [facility] [place] Comment: The analytical performance characteristics of this assay, when used to test SurePath(TM) specimens have been determined by [facility]. The modifications have not been cleared or approved by the FDA. This assay has been validated pursuant to the CLIA regulations and is used for clinical purposes. For additional information, please refer to https://MightyMeeting.Source Audio/faq/HCY885 (This link is being provided for information/ educational purposes only.) Test Performed at: [facility] [address] [place] [address] Candy JACKSON Genital SWAB OF ENDOCERVIX / Unknown 05/02/2023 10:38 AM SUPERVISOR CONTINGENTS 05/04/2023 3:37 AM SUPERVISOR CONTINGENTS us Guru Robin MD PATHOLOGY/CYTOLOGY ORDERABLES Final Result [facility] [phone] [facility] [address] [place] [address] from Last 3 Months or Most Recently Relevant to Health Maintenance Insurance [employer] Advance Directives For more information, please contact: [phone] * Full Code (Latest Code Status on File) Date Activated Date Inactivated Comments 03/23/2024 10:25 PM 03/28/2024 11:34 AM Care Teams Help Desk Operator Relationship Specialty Start Date End Date Maria L Jung DO [address] [place] [address] PCP - General Family Practice 11/12/23
--- OUTSIDE RECORDS SUMMARY | 2025-04-30 16:05 | XMS_ITS | Encounter Summary ---
Author Organization [facility] Address [address] [place] [address] Care Team Providers Care Commercial Administrator Name Role Phone ErichMaria L mcpherson Bk CABAN Primary Care Provider [phone] Encounter Details Date Type Department Care Team (Late st Contact Info) Description 07/07/2024 Results Follow-Up [facility] [address] [place] [address] Christina Ervin PA [address] [place] [phone] HEMOGLOBIN A1C Social History Tobacco Use Types [...] AM CDT Legal Sex Female 6:50 AM SOLE SEWER HAND Gender Identity Female 02/22/2024 10:30 AM CDT Sexual Orientation Asexual 03/20/2024 2: 58 PM CDT Occupation Industry Job Start Date Job End Date Not on file Not on file Not on file Not on file documented as of this encounter Plan of Treatment Upcoming Encounters Date Type Department Care Team (Late st Contact Info) Description 05/08/2025 12:00 PM SOLE SEWER HAND Office Visit [facility] [address] [place] [address] September, [employer] [address] [place] [address] documented as of this encounter Visit Diagnoses Not on filedocumented in this encounter Care Teams Commercial Administrator Relationship Specialty Start Date End Date Maria L Jung DO [address] [place] [address] PCP - General Family Practice 11/12/23 documented as of this encounter
--- OUTSIDE RECORDS SUMMARY | 2025-04-30 16:05 | XMS_ITS | Encounter Summary ---
Author Organization [facility] Address [address] [place] [address] Care Team Providers Care Grades 9 Thru 12 Visiting Teacher Name Role Phone Maria L Jung DO Primary Care Provider Reason for Visit * Reason Onset Date Comments Results critical results 02/07/2025 Encounter Details Date Type Department Care Team (Late st Contact Info) Description 02/07/2025 Telephone [facility] Medicine [place] [address] [place] [address] Maria L Jung DO [address] [place] [address] Results; critical results Social History [...] AM CDT Legal Sex Female 6:50 AM POISON INFORMATION SPECIALIST Gender Identity Female 02/22/2024 10:30 AM CDT [...] - 02/07/2025 8:50 AM CDT Copied from [facility] #[id number]. Topic: CPA Information Request - Results >> Feb 07, 2025 8:49 AM Cely Galvan wrote: Caller Name: Nick Callback Number: [phone] Test Name: Critical Labs Results Encounter notes are: Call Notes: Transferred to clinic to discuss critical results documented in this encounter Plan of Treatment Upcoming Encounters Date Type Department Care Team (Late st Contact Info) Description 05/08/2025 12:00 PM POISON INFORMATION SPECIALIST Office Visit [facility] [place] [address] [place] [address] September, [facility] [address] [place] [facility] [address] documented as of this encounter Visit Diagnoses Not on filedocumented in this encounter Care Teams Grades 9 Thru 12 Visiting Teacher Relationship Specialty Start Date End Date Maria L Jung DO [address] [place] [facility] [phone] PCP - General Family Practice 11/12/23 documented as of this encounter
--- OUTSIDE RECORDS SUMMARY | 2025-04-30 16:05 | XMS_ITS | Encounter Summary ---
Author Organization [facility] Address [address] [place] [address] Care Team Providers Care Clerk Travel Reservations Name Role Phone Maria L Jung Primary Care Provider Encounter Details Date Type Department Care Team (Late st Contact Info) Description 09/06/2024 Lab Requisition [facility] Laboratory Services [place] [address] [place] [address] De Leonseptember, FERTILIZER MIXER [address] [place] [phone] Hypotension, unspecified Social History Tobacco Use Types [...] AM CDT Legal Sex Female 6:50 AM STEAM PAN SPONGER Gender Identity Female 02/22/2024 10:30 AM CDT Sexual Orientation Asexual 03/20/2024 2: 58 PM CDT Occupation Industry Job Start Date Job End Date Not on file Not on file Not on file Not on file documented as of this encounter Plan of Treatment Upcoming Encounters Date Type Department Care Team (Late st Contact Info) Description 05/08/2025 12:00 PM STEAM PAN SPONGER Office Visit [facility] [address] [place] [address] De LeonSeptember, FERTILIZER MIXER [address] [place] [address] documented as of this encounter [...] 1.7 <=2.0 mmol/L 09/06/2024 9:32 AM CDT [facility] Blood Collection / Unknown 09/06/2024 9:10 AM CDT 09/06/2024 9:12 AM CDT September [facility] CHEMISTRY ORDERABLES Final Resul t [facility] CLIA # [id number] [address] [place] [address] * (ABNORMAL) COMPREHENSIVE METABOLIC PANEL (09/06/2024 9:10 AM CDT) SODIUM 141 136 - 145 mmol/L 09/06/2024 9:32 AM CDT [facility] POTASSIUM 4.4 3.5 - 5.1 mmol/L 09/06/2024 9:32 AM [facility] CHLORIDE 102 98 - 107 mmol/L 09/06/2024 9:32 AM [facility] CO2 27 22 - 29 mmol/L 09/06/2024 9:32 AM [facility] CALCIUM 10.0 8.6 - 10.0 mg/dL 09/06/2024 9:32 AM [facility] BUN 17 6 - 20 mg/dL 09/06/2024 9:32 AM [facility] CREATININE 0.96(H) 0.51 - 0.95 mg/dL 09/06/2024 9:32 AM [facility] GLUCOSE 165(H) 74 - 99 mg/dL 09/06/2024 9:32 AM [facility] TOTAL PROTEIN 7.8 6.6 - 8.7 g/dL 09/06/2024 9:32 AM [facility] ALBUMIN 4.5 4.0 - 4.9 g/dL 09/06/2024 9:32 AM [facility] BILIRUBIN TOTAL 0.5 <=1.2 mg/dL 09/06/2024 9:32 AM [facility] ALKALINE PHOSPHATASE 40 35 - 104 U/L 09/06/2024 9:32 AM [facility] AST 26 0 - 35 U/L 09/06/2024 9:32 AM [facility] ALT 21 0 - 35 U/L 09/06/2024 9:32 AM [facility] GFR >60 >=60 mL/min/1.7 3 sq meter 09/06/2024 9:32 AM [facility] Comment:eGFR calculated with 2020 CKD-EPI equation. Vegetarian diet, extremely high or low muscle mass, and may affect results. Cystatin C with Glomerular Filtration Rate is a suitable alternative for these patients. ANION GAP 12 5 - 20 mmol/L 09/06/2024 9:32 AM [facility] Blood Collection / Unknown 09/06/2024 9:10 AM CDT 09/06/2024 9:12 AM CDT September [facility] CHEMISTRY ORDERABLES Final Resul t Performing Organization Address City/[facility]/ZIP Co de Phone Number [facility] CLIA # [id number] [address] [place] [phone] * CORTISOL LEVEL (09/06/2024 9:10 AM CDT) CORTISOL LEVEL 10.6 ug/dL 09/06/2024 5:04 PM CDT [facility] Comment: Cortisol Reference Range Morning Hours 6-10 a.m. 6.0-18.4 ug/dL Afternoon Hours 4-8 p.m. 2.7-10.5 ug/dL Blood Collection / Unknown 09/06/2024 9:10 AM CDT 09/06/2024 9:12 AM CDT September [facility] CHEMISTRY ORDERABLES Final Resul t Performing Organization Address [facility] Co de Phone Number [facility] CLIA # [id number] [facility]ly [facility] [id number] documented in this encounter Visit Diagnoses Diagnosis Hypotension, unspecified documented in this encounter Care Teams Clerk Travel Reservations Relationship Specialty Start Date End Date Maria L Jung DO [address] [place] [phone] PCP - General Family Practice 11/12/23 documented as of this encounter
--- OUTSIDE RECORDS SUMMARY | 2025-04-30 16:05 | XMS_ITS | Encounter Summary ---
Author Organization [facility] Address [address] [place] [address] Care Team Providers Care Neurosurgical Nurse Name Role Phone Maria L Jung Bk [...] AM CDT Legal Sex Female 6:50 AM SOLAR PANEL INSTALLATION SUPERVISOR Gender Identity Female 02/22/2024 10:30 AM CDT Sexual Orientation Asexual 03/20/2024 2: 58 PM CDT Occupation Industry Job Start Date Job End Date Not on file Not on file Not on file Not on file documented as of this encounter Plan of Treatment Upcoming Encounters Date Type Department Care Team (Late st Contact Info) Description 05/08/2025 12:00 PM SOLAR PANEL INSTALLATION SUPERVISOR Office Visit [facility] [address] [place] [phone] De LeonSeptember, BECK TENDER [address] [place] [address] documented as of this encounter Visit Diagnoses Not on filedocumented in this encounter Care Teams Neurosurgical Nurse Relationship Specialty Start Date End Date Maria L Jung DO [address] [place] [phone] PCP - General Family Practice 11/12/23 documented as of this encounter
--- NOTE | 2025-04-30 16:26 | W.ED.GENADLT ---
HPI - General Adult General: Chief complaint: General Medical Stated complaint: Lightheaded/ dizzy Time Seen by Provider: 04/30/25 16:23 History of Present Illness: 49-year-old female with a history of type 2 diabetes, peripheral neuropathy, and hyperlipidemia who presents to the emergency room with dizziness and lightheadedness associated with elevated blood sugars. She said her sugar was at 500 at home. She took 16 units of insulin. It went down slightly and a couple days later she checked it and it was back up again. No chest pain. No cough. No fever. She has had increased urinary frequency. She was hypotensive with a blood pressure of 80/55 with a heart rate of 108 on presentation. Related Data Home Medications ?Medication ?Instructions ?Recorded ?Confirmed duloxetine 30 mg capsule,delayed 30 mg PO DAILY 01/25/24 03/07/25 release gabapentin 600 mg tablet 600 mg PO TID 01/25/24 03/07/25 insulin aspart U-100 100 unit/mL 14 sliding scale dose SUBCUT BID 01/25/24 03/07/25 (3 mL) subcutaneous pen (Novolog FlexPen U-100 Insulin aspart) rosuvastatin 20 mg tablet 20 mg PO DAILY 01/25/24 03/07/25 trazodone 50 mg tablet 50 - 100 mg PO BEDTIME 01/25/24 03/07/25 insulin glargine 100 unit/mL (3 40 unit SUBCUT DAILY 10/02/24 03/07/25 mL) subcutaneous pen (Lantus Solostar U-100 Insulin) metformin 1,000 mg tablet 1,000 mg PO BID 11/12/24 03/07/25 Previous Rx's ?Medication ?Instructions ?Recorded polyethylene glycol 3350 17 17 g PO BID 2 days #68 grams 10/08/24 gram/dose oral powder (Miralax) buspirone 7.5 mg tablet 15 mg (2 x 7.5 mg) PO BID #120 tabs 12/21/24 hydroxyzine HCl 25 mg tablet 25 mg PO Q6H PRN anxiety #14 tabs 12/21/24 diclofenac sodium 3 % topical gel 1 applic topical BID #100 grams 01/28/25 (Solaraze) ondansetron HCl 8 mg tablet 8 mg PO BID PRN nausea and 02/13/25 vomiting #30 tabs cefdinir 300 mg capsule 300 mg PO BID 10 days #20 caps 03/07/25 cetirizine 10 mg tablet (Zyrtec) 10 mg PO BID PRN allergy symptoms 03/07/25 #60 tabs fluticasone propionate 50 2 spray intranasal BID #16 grams 03/07/25 mcg/actuation nasal spray,suspension (Flonase Allergy Relief) promethazine-DM 6.25 mg-15 mg/5 mL 10 ml PO Q6H PRN cough #473 mL 03/07/25 oral syrup Allergies Allergy/AdvReac Type Severity Reaction Status Date / Time Penicillins Allergy Unknown Verified 03/07/25 08:24 pineapple Allergy ALGY-Swell Verified 03/07/25 08:24 Lip/Tongue/Throat Review of Systems Narrative: Constitutional symptoms: Negative except as documented in HPI. Skin symptoms: Negative except as documented in HPI. Eye symptoms: Negative except as documented in HPI. ENMT symptoms: Negative except as documented in HPI. Respiratory symptoms: Negative except as documented in HPI. Cardiovascular symptoms: Negative except as documented in HPI. Gastrointestinal symptoms: Negative except as documented in HPI. Genitourinary symptoms: Negative except as documented in HPI. Musculoskeletal symptoms: Negative except as documented in HPI. Neurologic symptoms: Negative except as documented in HPI. Psychiatric symptoms: Negative except as documented in HPI. Endocrine symptoms: Negative except as documented in HPI. PFSH ED PFSH: Medical History (Updated 04/30/25 @ 18:42 by Jessica Vasquez MD) Infected sebaceous cyst of skin Nausea & vomiting Diabetes Social History Smoking and tobacco/nicotine status: never used tobacco/nicotine Physical Exam Narrative: EXAM NARRATIVE: General: Alert, no acute distress. Skin: Warm, dry. Head: Normocephalic, atraumatic. Neck: Supple, trachea midline. Eye: Extraocular movements are intact. Ears, nose, mouth and throat: Tacky oral mucosa Cardiovascular: Regular,, tachycardic, normal peripheral perfusion. Respiratory: Lungs are clear to auscultation, respirations are non-labored, breath sounds are equal, Symmetrical chest wall expansion. Gastrointestinal: Soft, Nontender, Non distended Musculoskeletal: Normal ROM, no deformity. Neurological: Alert and oriented, No focal neurological deficit observed. Psychiatric: Cooperative, appropriate mood & affect. Course Vital Signs: Vital signs: Vital Signs Temperature 98.1 F 04/30/25 16:17 Pulse Rate 97 04/30/25 16:51 Respiratory Rate 18 04/30/25 16:17 Blood Pressure 94/67 04/30/25 16:51 Pulse Oximetry 90 04/30/25 16:51 Oxygen Delivery Me thod Room Air 04/30/25 16:51 MDM - General Adult Medical Decision Making Medical decision making Patient's reason for coming to the emergency room: Social determinants: Patient is part-time employed and is accompanied by her life partner. I reviewed the patient's medical record. 49-year-old female with a history of type 2 diabetes, peripheral neuropathy, and hyperlipidemia I reviewed the patient's current home meds Patient currently takes injectable insulin and metformin. Alternate historians: None Differential diagnosis for the patient with hyperglycemia would include but not be limited to and would be based on the above HPI review of systems and physical exam: DKA. Dehydration. Renal failure. Concern for electrolyte abnormalities. Concern for underlying infection that might result in hyperglycemia. Medical non-compliance. Orders placed to evaluate differential diagnosis of the patient with hyperglycemia are based on the above differential, HPI and physical exam. EKG: Time 1701. Rate 91. Normal sinus rhythm, No ST-T changes, no ectopy, normal SD & QRS intervals, This was reviewed and interpreted by myself the ER physician at 1705. Repeat EKG: Time 1802. Rate 89. Normal sinus rhythm, No ST-T changes, no ectopy, normal SD & QRS intervals, This was reviewed and interpreted by myself the ER physician at 1808 Lab Review: Laboratory results were reviewed and interpreted by myself the emergency room physician. No leukocytosis. No anemia. Mild renal insufficiency with a BUN/creatinine of 25 and 1.1. But this is near her baseline. Glucose was elevated at 340 on BMP. Urinalysis is negative for infection. No ketones in the blood. Assessment of risk: Level of risk: Moderate risk. Multiple comorbidities. Hospitalization considerations: Patient sugar did come down and she is not DKA although I did consider admission initially. Reexamination: Patient seems to be feeling quite a bit better. Blood pressure is improved. Blood glucose is down to 230 at discharge. Assessment and plan: Hyperglycemia Dehydration ? 2 L normal saline bolus - Discharged home - Discussed plan with patient. Answered any questions. - Evaluation and treatment of this problem were appropriate in the emergency setting. Lab Data 04/30/25 16:30 04/30/25 16:30 Laboratory Results WBC 7.70 10^3/uL (3.29-11.43) 04/30/25 16:30 RBC 4.93 10^6/uL (3.85-5.65) 04/30/25 16:30 Hgb 13.70 g/dL (11.27-16.99) 04/30/25 16:30 Hct 38.9 % (36-47) 04/30/25 16:30 MCV 78.9 fl (85-98) L 04/30/25 16: MCH 27.8 pg (27-33) 04/30/25 16: MCHC 35.2 g/dL (30-55) 04/30/25 16: RDW 11.8 % (12.1-15.1) L 04/30/25 16: Plt Count 280 10^3/cmm (157-399) 04/30/25 16: MPV 10.3 fL (7.4-10.4) 04/30/25 16:30 Neut % (Auto) 58.8 % 04/30/25 16: Lymph % (Auto) 32.7 % 04/30/25 16:30 [place] % (Auto) 5.8 % 04/30/25 16:30 Eos % (Auto) 2.1 % 04/30/25 16: Baso % (Auto) 0.5 % 04/30/25 16: Neut # (Auto) 4.52 10^3/uL (1.8-7.7) 04/30/25 16:30 Lymph # (Auto) 2.5 10^3/uL (0.8-4.8) 04/30/25 16:30 [place] # (Auto) 0.5 10^3/uL (0.2-0.9) 04/30/25 16:30 Eos # (Auto) 0.2 10^3/uL (0.0-0.8) 04/30/25 16:30 Baso # (Auto) 0.0 10^3/uL (0.0-0.1) 04/30/25 16:30 Nucleated RBC % (auto) 0 % 04/30/25 16:30 Nucleated RBCs # 0.0 /100WBC 04/30/25 16:30 Specimen Type Arterial 04/30/25 16:30 Sample Site Radial, right 04/30/25 16:30 ABG pH 7.43 (7.35-7.45) 04/30/25 16:30 ABG pCO2 40.7 mmHg (35-45) 04/30/25 16:30 ABG pO2 84.7 mmHg (80.0-100.0) 04/30/25 16:30 ABG PO2/FiO2 Ratio 403 04/30/25 16:30 ABG HCO3 27.0 mmol/L (22-26) H 04/30/25 16:30 ABG O2 Saturation 97.9 04/30/25 16:30 ABG Base Excess 2.4 mmol/L (-2.0-2.0) H 04/30/25 16:30 Juan Carlos Test Pos 04/30/25 16:30 A-a O2 Gradient 1.9 mmHg (5-10) L 04/30/25 16:30 Hematocrit 40.6 % (37-47) 04/30/25 16:30 Hgb O2 Saturation 95.8 % (95-100) 04/30/25 16:30 Carboxyhemoglobin 1.2 %THgb (0.4-20.1) 04/30/25 16:30 Methemoglobin 0.9 % (0.4-1.5) 04/30/25 16:30 Total Hemoglobin 13.2 g/dL (12-16) 04/30/25 16:30 Sodium 137.0 mmol/L (131-143) 04/30/25 16:30 Potassium 4.1 mmol/L (3.5-5.0) 04/30/25 16:30 Glucose 329.0 mg/dL (70-115) H 04/30/25 16:30 Ionized Calcium 1.2 mmol/L (1.1-1.4) 04/30/25 16:30 O2 Delivery Device Room air 04/30/25 16:30 FiO2 21.0 % 04/30/25 16:30 Franchise Sales Manager ID [place] 04/30/25 16:30 Sodium 137 mmol/L (136-145) 04/30/25 16:30 Potassium 4.5 mmol/L (3.5-5.1) 04/30/25 16:30 Chloride 97 mmol/L (98-107) L 04/30/25 16:30 Carbon Dioxide 24 mmol/L (22-29) 04/30/25 16:30 Anion Gap 20.5 (5-19) H 04/30/25 16:30 BUN 25 mg/dL (6-20) H 04/30/25 16:30 Creatinine 1.1 mg/dL (0.5-0.9) H 04/30/25 16:30 GFR Calculation 53.2 mL/min (90-130) L 04/30/25 16:30 Glucose 337 mg/dL (65-115) H 04/30/25 16:30 POC Glucose 236 mg/dL (70-110) H 04/30/25 18:21 Calculated Osmolality 302 mOsm/kg (285-295) H 04/30/25 16:30 Lactic Acid 2.6 mmol/L (0.5-2.2) H 04/30/25 16:30 Calcium 10.1 mg/dL (8.5-10.5) 04/30/25 16:30 Total Bilirubin 0.5 mg/dL (0.15-1.2) 04/30/25 16:30 AST 17 U/L (0-32) 04/30/25 16:30 ALT 17 U/L (0-33) 04/30/25 16:30 Alkaline Phosphatase 46 U/L (35-105) 04/30/25 16:30 Troponin T Baseline 16 ng/L (0-10) H 04/30/25 16:30 Total Protein 7.3 g/dL (6.6-8.7) 04/30/25 16:30 Albumin 4.4 g/dL (3.5-5.2) 04/30/25 16:30 Globulin 2.9 g/dL (1.3-4.6) 04/30/25 16:30 Urine Color Yellow (Yellow) 04/30/25 17:45 Urine Appearance Clear (CLEAR) 04/30/25 17:45 Urine pH 6.5 (5-7) 04/30/25 17:45 Ur Specific [place] 1.033 (1.005-1.030) H 04/30/25 17:45 Urine Protein Trace (Negative) A 04/30/25 17:45 Urine Glucose (UA) 3+ (Normal) H 04/30/25 17:45 Urine Ketones Negative (Negative) 04/30/25 17:45 Urine Blood Negative (Negative) 04/30/25 17:45 Urine Nitrate Negative (Negative) 04/30/25 17:45 Urine Bilirubin Negative (Negative) 04/30/25 17:45 Urine Urobilinogen 0.2 mg/dL (Negative) 04/30/25 17:45 Ur Leukocyte Esterase Negative (Negative) 04/30/25 17:45 Urine RBC 0-2 /hpf (0-2) 04/30/25 17:45 Urine WBC 0-5 /hpf (0-5) 04/30/25 17:45 Ur Squamous Epith Cells 11-20 /hpf (0-5) H 04/30/25 17:45 Amorphous Sediment Not Reportable 04/30/25 17:45 Urine Bacteria Trace /hpf (NONE) 04/30/25 17:45 Hyaline Casts 9.91 /lpf 04/30/25 17:45 Serum Ketones Negative (Negative) 04/30/25 16:30 No radiology studies performed this visit Discharge Plan Discharge Patient Disposition: Home Clinical Impression: Hyperglycemia, Dehydration Condition: Stable Prescriptions: No Action polyethylene glycol 3350 [Miralax] 17 gram/dose powder 17 g PO BID 2 Days Qty: 68 0RF diclofenac sodium [Solaraze] 3 % gel 1 applic topical BID Qty: 100 0RF ondansetron HCl 8 mg tablet 8 mg PO BID PRN (Reason: nausea and vomiting) Qty: 30 0RF promethazine-DM 6.25-15 mg/5 mL syrup 10 ml PO Q6H PRN (Reason: cough) Qty: 473 0RF cetirizine [Zyrtec] 10 mg tablet 10 mg PO BID PRN (Reason: allergy symptoms) Qty: 60 0RF cefdinir 300 mg capsule 300 mg PO BID 10 Days Qty: 20 0RF fluticasone propionate [Flonase Allergy Relief] 50 mcg/actuation spray,suspension 2 spray intranasal BID Qty: 16 0RF Rx Instructions: administer into each nostril insulin glargine [Lantus Solostar U-100 Insulin] 100 unit/mL (3 mL) insulin pen 40 unit SUBCUT DAILY gabapentin 600 mg tablet 600 mg PO TID trazodone 50 mg tablet 50 - 100 mg PO BEDTIME insulin aspart U-100 [Novolog FlexPen U-100 Insulin] 100 unit/mL (3 mL) insulin pen 14 sliding scale dose SUBCUT BID Rx Instructions: INJECT 14 UNITS BY SUBCUTANEOUS INJECTION TWICE DAILY BEFORE MEALS. IF BLOOD SUGAR OVER 200, GIVE ADDITIONAL 10 UNITS FOR TOTAL OF 24 UNITS. MAX DAILY DOSE 48 UNITS. rosuvastatin 20 mg tablet 20 mg PO DAILY duloxetine 30 mg capsule,delayed release(DR/EC) 30 mg PO DAILY metformin 1,000 mg tablet 1,000 mg PO BID hydroxyzine HCl 25 mg tablet 25 mg PO Q6H PRN (Reason: anxiety) Qty: 14 0RF buspirone 7.5 mg tablet 15 mg PO BID Qty: 120 0RF Discharge Orders: Discharge ED (Routine); Ordered 04/30/25 Ordered By: Jessica Vasquez Referrals: Cydney De Leon, HEALTH INFORMATION MANAGER [Primary Care Provider, Nurse Practitioner] Discharge Diet: As Directed Discharge Activity: Increase activity as tolerated Patient Instructions: Diabetic Hyperglycemia (ED), Opioid Safety, Pain Management, Patient Portal & Faiza Instructions Activity Restrictions/Additional Instructions: Thank you for choosing [facility] for your healthcare needs today. You have been screened and evaluated and felt safe for discharge. Health conditions do change or evolve sometimes and as such it is important that you follow up with your Primary Doctor to be re checked, 3-5 days is a general good time frame for follow up. You are always welcome to return to the ED for re assessment if your symptoms are worsening or you have new concerns Print Language: Latvian Coding Level of Care Code ED Feed Crusher for Edgardo Simmons
[2025-04-30 16:41] LABS: ABG PCO2 40.7 mmHg (35-45); ABG PH Result 7.43 (7.35-7.45); Alveolar-Arterial Oxygen Gradi 1.9 mmHg (5-10); Arterial Blood Gas Hematocrit 40.6 % (37-47); Blood Gas Allen Test Pos; Blood Gas Operator Identificat WALCI; Blood Gas Sample Site Radial, right; Blood Gas Sample Type Arterial; Carboxyhemoglobin 1.2 %THgb (0.4-20.1); Glucose Level-ABG 329.0 mg/dL (70-115); HCO3 ABG 27.0 mmol/L (22-26); Ionized Calcium Level - ABG 1.2 mmol/L (1.1-1.4); Methemoglobin 0.9 % (0.4-1.5); Oxygen Saturation ABG 97.9; PO2 ABG 84.7 mmHg (80.0-100.0); PO2 FiO2 Ratio Arterial Blood 403; Potassium Level - ABG 4.1 mmol/L (3.5-5.0); Sodium Level - ABG 137.0 mmol/L (131-143)
[2025-04-30 16:47] LABS: Hematocrit 38.9 % (36-47); Hemoglobin 13.70 g/dL (11.27-16.99); Mean Corpuscular HGB Conc 35.2 g/dL (30-55); Mean Corpuscular Hemoglobin 27.8 pg (27-33); Mean Corpuscular Volume 78.9 fl (85-98); Nucleated Red Blood Cells % 0 %; Platelet Count 280 10^3/cmm (157-399); Red Blood Count 4.93 10^6/uL (3.85-5.65); White Blood Count 7.70 10^3/uL (3.29-11.43)
[2025-04-30 16:57] LABS: Ketone (Acetest) Serum Negative (Negative)
--- NOTE | 2025-04-30 17:01 | ECG_ITS ---
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 Measurements Intervals [place] Rate: 91 P: 63 MN: 163 QRS: 43 QRSD: 88 T: 55 QT: 357 QTc: 441 Interpretive Statements SINUS RHYTHM LOW QRS VOLTAGE IN PRECORDIAL LEADS [QRS DEFLECTION < 1.0 mV IN CHEST LEADS] Compared to ECG 03/18/2025 18:58:57 No significant changes Electronically Signed On 04-30-2025 20:01:31 COUNTER MOLDER by Berhane Quevedo M.D. [email or web address]
[2025-04-30 17:21] LABS: Troponin(5th) Baseline 16 ng/L (0-10)
[2025-04-30 17:24] LABS: Alanine Aminotransferase 17 U/L (0-33); Albumin Level 4.4 g/dL (3.5-5.2); Alkaline Phosphatase 46 U/L (35-105); Anion Gap 20.5 (5-19); Aspartate Amino Transferase 17 U/L (0-32); Blood Urea Nitrogen 25 mg/dL (6-20); Calcium 10.1 mg/dL (8.5-10.5); Carbon Dioxide 24 mmol/L (22-29); Chloride 97 mmol/L (98-107); Creatinine Clr Calc Pharmacy 71.5171; Globulin 2.9 g/dL (1.3-4.6); Glucose 337 mg/dL (65-115); Osmolality Calculated 302 mOsm/kg (285-295); Potassium 4.5 mmol/L (3.5-5.1); Sodium 137 mmol/L (136-145); Total Protein 7.3 g/dL (6.6-8.7)
[2025-04-30 17:25] LABS: Lactic Sepsis W/Reflex 2.6 mmol/L (0.5-2.2)
[2025-04-30 17:55] LABS: Glucose Urine UA 3+ (Normal); Nitrate Urine Negative (Negative)
--- NOTE | 2025-04-30 18:02 | ECG_ITS ---
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 Measurements Intervals Harper Rate: 89 P: 64 CA: 166 QRS: 40 QRSD: 82 T: 56 QT: 358 QTc: 437 Interpretive Statements SINUS RHYTHM LOW QRS VOLTAGE IN PRECORDIAL LEADS [QRS DEFLECTION < 1.0 mV IN CHEST LEADS] Compared to ECG 04/30/2025 17:01:45 No significant changes Electronically Signed On 04-30-2025 20:42:36 FOILING MACHINE ADJUSTER by Berhane Quevedo M.D. [email or web address]
[2025-04-30 18:03] LABS: Specific Gravity, Urine 1.033 (1.005-1.030); UA Slide Review UA Slide Review Perf
[2025-04-30 18:32] LABS: Reflex Lactate Order REFLEX LACTIC ORDERD
[2025-04-30 18:45] LABS: Troponin 5 2HR 13.63 ng/L (0-10)
[2025-04-30 18:47] LABS: Troponin 5 2HR Delta -2.37 ABS# (0-10)
[2025-05-01 16:26] LABS: Staphylococcus species Detected (NOT DETECT)
== END 2025-04-30 19:03 | disposition home or self-care (01) ==
PROVIDERS: Emergency Provider Emergency Medicine
DX: E11.65 Type 2 diabetes mellitus with hyperglycemia (principal); E86.0 Dehydration; Z79.4 Long term (current) use of insulin; Z79.84 Long term (current) use of oral hypoglycemic drugs
CPT/HCPCS: 36415; 36416; 36600; 80051; 80053; 81001; 82009; 82330; 82805; 82962; 83605; 84484; 85025; 87040; 87150; 87205; 93005; 99284; J7030